=== PATIENT | female | born 1960 | race Caucasian/White ===

== ENCOUNTER 2020-07-19 13:51 | Inpatient (IN) | payer OTHER, SELFPAY ==
[2020-07-19] VITALS (20 sets, daily range): BP systolic 103–148; BP diastolic 70–98; PULSE 50–69; RESP 14–21; TEMP 36.4–36.8; O2SAT 92–100
--- NOTE | 2020-07-19 13:49 | ED.GENADUL_ITS ---
Discharge Plan Disposition Patient Disposition: [facility] INPATIENT Condition: Stable Discharge Details Clinical Impression: Closed fracture dislocation of ankle Admit Date/Time: 07/19/20 16:43 Admit Provider: Partha Pope Attending Provider: Partha Pope Primary Care Provider: Bryan Schmid ED Provider: Merline Alcala Medical Decision Making 1400 -- 60-year-old female presents with right ankle pain and deformity after slip and fall in the kitchen this morning. EMS unable to obtain an IV in route. She is tearful and appears uncomfortable. She had a right ankle deformity with lateral deviation of her foot. She has neurovascular intact without open wounds. We will place an IV, give a dose of morphine and refer for right ankle x-ray. Patient will likely need some reduction here and may need admission as she may be unable to manage at home as she lives alone and there are stairs. Discussed patient's history of IL in further detail and she stated she was unsure if she was given the exact diagnosis but reports she had a negative cardiac cath at that time in 2006 at [facility]. Review of records from [facility] note that she had a negative myocardial perfusion scan in 2010. Unable to locate cath report. EKG obtained which notes a rate is 52, sinus, T wave inversion in V3, no STEMI and nondiagnostic. 1500 -- Fracture dislocation noted on x-ray. Imaging reviewed with Dr. Pope who will come to reduce at bedside with conscious sedation. 1615 -- Dislocation reduced at bedside by Dr. Pope and plaster splint placed. Patient given a total of 200 mg propofol and 50 mcg fentanyl. 1645 --patient is doing well post sedation. Pain is controlled. Dr. Pope to admit patient overnight with plan for possible fixation tomorrow. Medical Records Medical records reviewed: Yes I reviewed the patient's medical records. Imaging Data Radiologic Study: Radiologist's impression: XR ANKLE RT COMPLETE CLINICAL HISTORY: deformity R ankle, assess mortise, extent of fx. TECHNIQUE: 2D digital imaging was performed. COMPARISON: Is fracture dislocation of the ankle. There is a displaced oblique fracture distal fibula. Also displaced fracture of the medial malleolus. Difficult to assess the posterior malleolus on these images. Talar dome appears intact. FINDINGS: Fracture dislocation. ECG Data Attestation: I personally reviewed and interpreted this ECG (s) as follows: Interpretation: EKG noted a rate of 52, sinus, T wave inversion in V3. No STEMI. Nondiagnostic. HPI General Mode of arrival: EMS . Date/Time Provider Initiated Documentation: 07/19/20 14:05 . Limitations to Documentation: no limitations . Information obtained by: patient . HPI Narrative: Patient is a 60-year-old female with a history of chronic back pain on as needed oxycodone, with a history of hypertension, hyperlipidemia, prediabetes, myocardial infarction and hypothyroidism presents for right ankle pain and deformity after slip and fall at home this morning. Patient states she was walking in her kitchen when she slipped on the floor and twisted her right ankle. She states it took her an hour to crawl to the phone. She states she lives alone in her stairs at home. She states she does not have any local friends or family members. She states her last dose of oxycodone was on July 12. Related Data Home Medications Medication Instructions Recorded Confirmed albuterol sulfate 2 puff INHALATION PRN PRN 07/19/20 07/19/20 amlodipine 10 mg PO DAILY AM 07/19/20 07/19/20 atorvastatin 40 mg PO HS 07/19/20 07/19/20 cetirizine 10 mg PO DAILY AM 07/19/20 07/19/20 esomeprazole magnesium [Nexium] 40 mg PO DAILY AM 07/19/20 07/19/20 fluticasone propion-salmeterol 1 inh INHALATION BID 07/19/20 07/19/20 [Wixela Inhub] levothyroxine 25 mcg PO DAILY AM 07/19/20 07/19/20 meclizine 25 mg PO PRN PRN 07/19/20 07/19/20 metoprolol tartrate 100 mg PO DAILY AM 07/19/20 07/19/20 montelukast [Singulair] 10 mg PO DAILY AM 07/19/20 07/19/20 ondansetron HCl 4 mg PO PRN PRN 07/19/20 07/19/20 oxycodone-acetaminophen 1 tab PO PRN PRN 07/19/20 07/19/20 sertraline 100 mg PO HS 07/19/20 07/19/20 tiotropium bromide [Spiriva with 18 mcg INHALATION 07/19/20 HandiHaler] trazodone 50 mg PO HS 07/19/20 07/19/20 zolpidem [Ambien] 10 mg PO HS 07/19/20 07/19/20 Allergies Allergy/AdvReac Type Severity Reaction Status Date / Time aspirin [From Percodan] Allergy Unverified 07/19/20 16:41 codeine Allergy Unverified 07/19/20 16:41 oxycodone [From Percocet] Allergy Unverified 07/19/20 16:41 Review of Systems All systems reviewed & are unremarkable except as noted in HPI and below Constitutional Constitutional: Reports as per HPI, Denies chills and Denies fever(s) Eyes Eyes: Denies blurry vision ENT Ears, Nose, Mouth, and Throat: Denies dizziness, Denies sore throat and Denies throat swelling Cardiovascular Cardiovascular: Denies chest pain and Denies dyspnea Respiratory Respiratory: Denies cough and Denies dyspnea Gastrointestinal Gastrointestinal: Denies abdominal pain, Denies diarrhea and Denies vomiting Genitourinary Genitourinary: Denies hematuria and Denies dysuria Musculoskeletal Musculoskeletal: Denies back pain and Denies numbness Integumentary/Breasts Skin/Breast: Denies lesions and Denies rash Neurologic Neurologic: Denies dizziness, Denies localized weakness and Denies numbness Allergic/Immunologic Allergic/Immunologic: Denies throat swelling PFSH Medical History Asthma HTN (hypertension) Hx of hyperlipidemia Hypothyroidism Myocardial infarction Prediabetes Surgical History H/O thumb surgery History of left knee surgery Hx of cholecystectomy Social History Smoking/Tobacco Use Status: Never Smoking risk assessment performed?: Yes Drug use: Rarely Substance use type: marijuana Exam Const General: cooperative, healthy appearing and no acute distress HENMT Head: normal to inspection Mouth: oral mucosae normal Eyes General: appearance normal, both eyes and all related structures Neck Neck: normal visual inspection Resp Effort & Inspection: normal respiratory effort and able to speak in complete sentences Cardio Rate: regular rate Skin General skin exam: no rashes or lesions noted Neuro General: patient alert, patient awake and patient oriented x3 Motor: muscle tone normal throughout Extrem Other: Right ankle deformity with lateral deviation of right foot in relation to the distal lower leg. Bony protrusion and deformity noted to right medial malleolus. Right DP/PT pulses intact. No tenderness palpation of bilateral knees and hips. No open wounds noted. Psych Appearance: grossly normal Affect: normal affect Procedures Procedural Sedation Indication: fracture/dislocation reduction Presedation Evaluation: Patient slipped and fell in her kitchen twisting her right ankle. Preparation: playground monitor applied, pulse oximeter, capnometry used, supplemental O2 applied, reversal agents at bedside, suction/airway equipment at bedside and IV secured Fentanyl: IV Fentanyl dose (mcg): 50 IV Propofol dose (mg): 200 Patient Tolerated Procedure: well Complications: none Interventions: oxygen applied (NC O2 increased briefly from 2L to 3L after SpO2 decreased briefly to 91% then increased to 95% after given total of 200mg propofol and 50mcg fentanyl. ) and airway repositioned (jaw thrust briefly for approximately 1 min when ETCO2 decreased briefly to 19 then increased back to mid 30s after given a total of 200mg propofol and 50mcg fentanyl. )
--- NOTE | 2020-07-19 15:00 | RT.EKG_ITS ---
APPROVED REPORT Exam: Resting ECG Patient Location: E HR:52 bpm ECG Measurements Heart Rate 52 AXIS NV 160 P 22 QRSd 94 QRS -9 QT 422 T 41 QTc 391 Conclusion Sinus bradycardia...rate< 60 Low voltage, precordial leads...precordial leads <1.0mV Nonspecific T abnormalities, anterior leads...T <-0.10mV, V2-V4 I have reviewed and interpreted ECG and agree with software generated interpretation.
--- NOTE | 2020-07-19 15:10 | DI.RAD_ITS ---
EXAM: XR ANKLE RT COMPLETE CLINICAL HISTORY: deformity R ankle, assess mortise, extent of fx. TECHNIQUE: 2D digital imaging was performed. COMPARISON: Is fracture dislocation of the ankle. There is a displaced oblique fracture distal fibu la. Also displaced fracture of the medial malleolus. Difficult to assess the posterior malleolus on these images. Talar dome appears intact. FINDINGS: Fracture dislocation. IMPRESSION: DATA REPOSITORY: RADIATION DOSE DELIVERED:
[2020-07-19] MEDS: Normal Saline 1,000 ML 1000 ML IV (15:43)
[2020-07-19] MEDS: Propofol 200 MG/20 ML VIAL IVP ×6 (16:01→16:16)
--- NOTE | 2020-07-19 16:15 | DI.RAD_ITS ---
EXAM: XR FLOURO OR C-ARM <1 HR CLINICAL HISTORY: reduction. TECHNIQUE: 2D and realtime digital imaging was performed. COMPARISON: CR XR ANKLE RT COMPLETE from 07/19/2020 FINDINGS: Fluoroscopy was provided during closed reduction of fracture dislocation of the right ankle. Some cisneros bmitted images reveal improved alignment. Total fluoroscopy time 6 seconds. IMPRESSION:
[2020-07-19] MEDS: fentaNYL 100 MCG/2 ML VIAL (16:16)
--- NOTE | 2020-07-19 16:36 | NUR.NOTE ---
pt was treated by Dr Pope and Merline Alcala beginning at 1600 . her right foot was placed in a splint. RT was at the bed side as pt was sedated she is awake and alert and oriented x3. she is trying to make plans for her dog who is home alone Nursing Note:
--- NOTE | 2020-07-19 16:48 | W.PM.HP.N ---
Date of service: 07/19/20 Time of Service: 16:48 Assessment and Plan Assessment and plan (1) Closed fracture dislocation of ankle: Status: Acute Assessment and plan: 60-year-old female with right ankle trimalleolar equivalent fracture dislocation Status post successful closed reduction in emergency department today. Plan to proceed with staged ORIF tomorrow 07/20/2020. The risks, benefits, and alternatives were thoroughly discussed. Patient was counseled regarding pain management, expected postoperative course, and recovery timeline. All questions were answered. Informed consent will be obtained tomorrow as the patient had anesthesia already today. She agrees and understands treatment plan. Admission orders placed. N.p.o. and IV fluids after midnight. Right ankle strict elevation at the level of the heart pending OR. Rapid Covid test to be done in emergency department. EKG done within normal limits. Will discuss patient cardiac history with nurse blocker and polisher gold wheel team. Patient likely to remain inpatient tomorrow night pending afternoon surgery with plan to work with physical therapy gait training with crutches/walker protected weightbearing status to the right ankle and discharge home on 07/21/2020 with any home health services that are needed. Qualifiers: Encounter type: initial encounter Laterality: right Qualified Code(s): S82.891A - Other fracture of right lower leg, initial encounter for closed fracture History of Present Illness History of Present Illness Chief Complaint: Right ankle deformity Narrative: Chief Complaint: Right ankle deformity HPI: Patient arrived sudden onset, severe right ankle deformity and pain. Mechanical slip and fall in her kitchen. Unable to bear weight. No prior ankle injuries or issues. No attempted treatments. X-rays just done in the emergency department show ankle fracture dislocation. Numbness and tingling immediately after injury now resolved. PMH: Hypertension hyperlipidemia. Question of myocardial infarction 10 years ago with cardiac catheterization at [facility] no intervention or stents done. Denies any active cardiac issues. diabetes: Denies allergies: Acetaminophen, aspirin, codeine, oxycodone intolerances FH: non-contributory SH: hand dominance: Right occupation: Unknown smoke cigarettes: No Review of Systems All systems reviewed & are unremarkable except as noted in HPI and below PFSH Medical History Asthma HTN (hypertension) Hx of hyperlipidemia Hypothyroidism Myocardial infarction Prediabetes Surgical History H/O thumb surgery History of left knee surgery Hx of cholecystectomy Social History Smoking/Tobacco Use Status: Never Smoking risk assessment performed?: Yes Drug use: Rarely Substance use type: marijuana Meds Home Medications and Allergies Home Medications Medication Instructions Recorded Confirmed Type albuterol sulfate 2 puff INHALATION PRN PRN 07/19/20 07/19/20 History amlodipine 10 mg PO DAILY AM 07/19/20 07/19/20 History atorvastatin 40 mg PO HS 07/19/20 07/19/20 History cetirizine 10 mg PO DAILY AM 07/19/20 07/19/20 History esomeprazole magnesium [Nexium] 40 mg PO DAILY AM 07/19/20 07/19/20 History fluticasone propion-salmeterol 1 inh INHALATION BID 07/19/20 07/19/20 History [Wixela Inhub] levothyroxine 25 mcg PO DAILY AM 07/19/20 07/19/20 History meclizine 25 mg PO PRN PRN 07/19/20 07/19/20 History metoprolol tartrate 100 mg PO DAILY AM 07/19/20 07/19/20 History montelukast [Singulair] 10 mg PO DAILY AM 07/19/20 07/19/20 History ondansetron HCl 4 mg PO PRN PRN 07/19/20 07/19/20 History oxycodone-acetaminophen 1 tab PO PRN PRN 07/19/20 07/19/20 History sertraline 100 mg PO HS 07/19/20 07/19/20 History tiotropium bromide [Spiriva with 18 mcg INHALATION 07/19/20 History HandiHaler] trazodone 50 mg PO HS 07/19/20 07/19/20 History zolpidem [Ambien] 10 mg PO HS 07/19/20 07/19/20 History Allergies Allergy/AdvReac Type Severity Reaction Status Date / Time aspirin [From Percodan] Allergy Unverified 07/19/20 16:41 codeine Allergy Unverified 07/19/20 16:41 oxycodone [From Percocet] Allergy Unverified 07/19/20 16:41 Exam Const General: cooperative, comfortable and no acute distress Orientation: alert, awake and not confused Limitations: mental status not altered and no language barrier HENMT Head: normocephalic and atraumatic Neck Neck: normal visual inspection and full ROM Resp Effort & Inspection: normal respiratory effort, able to speak in complete sentences, no audible wheezes and no grunting Cardio Other: 2+ dorsalis pedis pulse. Regular rate and rhythm. General: deferred Skin General skin exam: no rashes or lesions noted Neuro General: patient alert, patient awake and patient oriented x3 Cognition: normal cognition Speech: speech normal Extrem Other: Right ankle: Obvious lateral ankle deformity with early tenting over medial malleolus. No skin breakdown. Palpable 2+ dorsalis pedis pulse. Demonstrate active motor flexion extension all toes. Denies any numbness or paresthesias. All leg compartments soft. No proximal leg or knee pain. Psych Appearance: grossly normal Mental Status: mental status grossly normal Speech and Movement: speech and movement normal Affect: normal affect Attitude: cooperative Results Imaging Imaging Studies: Right ankle x-rays show lateral ankle fracture dislocation involving the medial lateral malleoli. Post reduction and in splint x-rays show well reduced ankle mortise with displaced Farooq C and well aligned medial malleolus fractures. Last Vital Signs Temp 98.1 F 07/19/20 14:00 Pulse 56 L 07/19/20 16:11 Resp 18 07/19/20 16:40 BP 125/79 07/19/20 16:11 Pulse Ox 96 07/19/20 16:30 COVID-19 Screening Have you, or household traveled for leisure in last 14 days?: No Had IN PERSON contact w/suspected or confirmed C-19 person: No Procedures Orthopedic Joint Reduction Ankle fx dx: Time out performed: Yes Side: right Joint reduction location: ankle Analgesia: procedural sedation Technique used: direct manipulation Post-reduction neuro exam: intact Post-reduction vascular exam: intact Post-reduction x-ray obtained: Yes Post-reduction x-ray results: reduced Splint applied: Yes Patient tolerated procedure: well
[2020-07-19] MEDS: MORPHine 10 MG/ML VIAL IVP ×2 (16:54→21:09)
[2020-07-19 17:03] LABS: Source Nasopharynx
[2020-07-19 17:46] LABS: COVID-19 PCR Negative (Negative); Influenza A PCR Negative (Negative); Influenza B PCR Negative (Negative); RSV PCR Negative (Negative)
[2020-07-19] MEDS: Ondansetron 4 MG TAB PO (17:50)
--- NOTE | 2020-07-19 18:24 | RESPIRATORY ---
Rt called in for conscious sedation for R. ankle reduction. Placed on ETCO2, 2L used while pt was sedated. Pt had moderate snoring and needing jaw thrust but did not require any further Rt intervention
--- NOTE | 2020-07-19 18:25 | RESPIRATORY ---
Discussed with Pt about her home CPAP unit. DME: Dianna Talamantes, but she is unaware of current settings. RT did not place home unit on pt due to severity of nausea, but left a home unit in room to be trialled on when nausea has subsided.
[2020-07-19] MEDS: Normal Saline 1,000 ML 30 ML IV (21:02)
[2020-07-19] MEDS: Normal Saline Flush 10 ML SYR IVP (21:08)
[2020-07-19] MEDS: Budesonide/Formoterol 160/4.5 6 GM 60 PUFF INH IH (21:09)
[2020-07-19] MEDS: traZODone 50 MG TAB PO (21:48)
[2020-07-19] MEDS: Atorvastatin 40 MG TAB PO (21:48)
[2020-07-19] MEDS: Sertraline 50 MG TAB 100 MG PO (21:48)
[2020-07-20] VITALS (11 sets, daily range): BP systolic 92–138; BP diastolic 39–83; PULSE 50–77; RESP 12–24; TEMP 36.3–37; O2SAT 92–98
[2020-07-20] MEDS: MORPHine 10 MG/ML VIAL IVP ×2 (04:40→09:26)
[2020-07-20] MEDS: Normal Saline Flush 10 ML SYR IVP (04:42)
[2020-07-20] MEDS: Levothyroxine 25 MCG TAB PO (06:01)
[2020-07-20] MEDS: Budesonide/Formoterol 160/4.5 6 GM 60 PUFF INH IH ×2 (08:05→20:35)
[2020-07-20] MEDS: Metoprolol 50 MG TAB 100 MG PO (09:15)
[2020-07-20] MEDS: Acetaminophen 500 MG TAB 1000 MG PO ×2 (09:25→16:13)
[2020-07-20] MEDS: Lactated Ringers 1,000 ML 30 ML IV (10:40)
[2020-07-20] MEDS: Bupivacaine LIPOSOME/PF 133 MG/10 ML VIAL IJ ×2 (10:50→13:04)
[2020-07-20] MEDS: Bupivacaine 0.25% Pres-Free 10 ML VIAL (10:50)
[2020-07-20] MEDS: Bupivacaine 0.5% Pres-Free 30 ML VIAL (11:20)
--- NOTE | 2020-07-20 11:55 | INITIAL_ITS ---
- If Service Date Differs Date of service: 07/20/20 Time of Service: 11:56 Care Management Initial Assess REASON FOR HOSPITALIZATION:: Right ankle fracture and dislocation. PAST MEDICAL HISTORY/PAST SURGICAL HISTORY:: Medical History: Asthma, HTN (hypertension), Hx of hyperlipidemia,. Hypothyroidism, Myocardial infarction, and Prediabetes. Surgical History: H/O thumb surgery, History of left knee surgery, and. Hx of cholecystectomy. PREVIOUS FUNCTIONAL STATUS/SOCIAL/FAMILY SUPPORTS:: Netta lives alone with her dog in [place]. She recently moved to [place] from [facility]. She shares Georgette, her partner of 34 years, a little over a year ago. Netta suffers from back problems and was granted disability approximately 2 years ago. She formerly worked as a building rental superintendent and a principal. Netta martinez njoys reading and cross-stitching in her free time. She states she used to do a lot of hiking but no longer hikes due to vertigo. Netta lives on the second floor of a house and has to go up a full flight of stairs to get to the living quarters. The first floor of the house is the basement. Netta has several friends but none who live in [place]. She states a friend in [place] came and picked up her dog and the plan is for the dog to remain at this friend's home until she has recovered from the surgery. She also has a friend in [place] who has invited her to stay at her house while her foot heals, but Netta would prefer to recuperate at home in [place]. CURRENT FUNCTIONAL STATUS:: Netta is laying in bed watching television when CM comes to meet with her. She is pleasant and easily engages in conversation. She shares she is independent with her ADLs; she cooks, cleans, and drives. The foot surgery, however, will make driving challenging, if not impossible. Netta is open to getting [id number] and Home Health services while she recuperates from foot surgery. ADVANCE DIRECTIVES:: None on file but accepts an Advance Directives to complete at her leisure. Has patient been provided with info about the portal/API?: Yes Did the patient sign up for the portal?: No (Not interested.) CODE STATUS:: Full Code INSURANCE COVERAGE / FINANCIAL ISSUES:: [employer]. CURRENT HOME/COMMUNITY SERVICES/EQUIPMENT:: Netta states she only has a C-Pap machine. She denies current home or community services. PRIMARY CARE PHYSICIAN:: Bryan Schmid MD ([facility]) POTENTIAL DISCHARGE NEEDS:: Follow up appointments with PCP and Dr. Pope, surgeon, in addition to new HH services and [id number]. PATIENT/FAMILY EDUCATION NEEDS:: Discharge instructions, limitations, follow up plan, including Ask Me Three and self management. ANTICIPATED BARRIERS TO DISCHARGE:: None. TRANSPORTATION:: Via [facility] with lift assist to be coordinated by CM. PLAN:: Anticipate Netta will discharge home with new Home Health PT services and [id number] when medically cleared by provider. She will follow up with her PCP, Dr. Pope, surgeon, and discharge plan of care as directed. Transport will be provided by [facility] with lift assist to be coordinated by CM. CM will continue to support patient and assess for discharge needs.
[2020-07-20] MEDS: ceFAZolin 3,000 MG in Normal Saline 100 ML 200 MG IVPB (12:36)
[2020-07-20] MEDS: EPINEPHrine 1 MG/ML AMP pres-free (13:04)
[2020-07-20] MEDS: Bupivacaine 0.25% Pres-Free 30 ML VIAL (13:04)
--- NOTE | 2020-07-20 14:15 | DI.RAD_ITS ---
EXAM: XR ANKLE RT COMPLETE CLINICAL HISTORY: RIGHT ANKLE FRACTURE. TECHNIQUE: 2D digital imaging was performed. COMPARISON: X-rays 07/19/2020 FINDINGS: Proximal was provided during reduction internal fixation of the previously described right ankle frac ture dislocation. Submitted C-arm images reveal lateral fixation plate across the distal fibular fra cture site secured by 3 screws plus an additional bleak independent screw at the fracture site. Ther e is also reoriented a ocasio of the medial malleolus fracture site with a single oblique screw through this fracture site. On the lateral view we note a fracture of the posterior malleolus. Total fluoroscopy time 46.7 seconds; cumulative dose 1.27 mGy IMPRESSION: DATA REPOSITORY: RADIATION DOSE DELIVERED:
[2020-07-20] MEDS: fentaNYL 100 MCG/2 ML VIAL IVP ×2 (15:00→15:15)
--- NOTE | 2020-07-20 15:50 | ROE_ITS ---
Date of service: 07/20/20 Time of Service: 15:36 Operative Note Operative Note DATE OF PROCEDURE: 07/20/20 PRE-OP DIAGNOSIS: Right trimalleolar equivalent ankle fracture dislocation POST-OP DIAGNOSIS: other Right trimalleolar ankle fracture dislocation PROCEDURE: 1. Right trimalleolar ankle fracture ORIF of medial and lateral malleoli, CPT #99970 2. Manual stress radiograph of joint, CPT #44400: Ankle syndesmosis SURGEON: Partha Pope QUALITY CONTROL PROJECTIONIST: Vilma Fuentes ANESTHESIA TYPE: Local By Surgeon and General LMA/ETT Refer to Anesthesia Record ESTIMATED BLOOD LOSS: 15 TOURNIQUET TIME: 0 COMPLICATIONS: None Patient was transported to: PACU Patient's condition: stable Implants: Synthes 1/3 tubular locking plate, 8 hole with 4.0 mm cancellous screws distally x3 and 3.5 mm cortex screws proximally x3 and 1x 3.5mm cortical lag screw 1x partially threaded 4.0 cancellous screw 50mm medially Indications: Please see complete medical record for details. Procedure Description: In the operating room, general anesthesia was induced. The patient was positioned supine on the operating room table. All bony prominences were well-padded. Preoperative antibiotics were administered. The right ankle was prepped and draped in the usual sterile fashion. The correct patient, procedure, and side of the procedure were all verified prior to incision. A mixture of 20 cc of 0.25% bupivacaine containing epinephrine and 10 cc Exparel of was infiltrated about the planned medial and lateral incision sites. With fluoroscopic guidance, a longitudinal incision centered fibular fracture site was used and carried down to bone taking care to retract transversing neurovascular structures and she appropriate hemostasis. Fracture ends were identified and hematoma encountered and removed. The fracture was exaggerated in the anterolateral talus inspected. The ankle joint was free of loose bodies and the cartilage was grossly intact. Bone reduction forceps were used to provisionally reduce the the oblique fracture into nearly anatomic position. This was verified under direct visualization as well as fluoroscopic imaging. There was impaction bone loss most anteriorly distally but the majority of the fracture line was in excellent opposition. A posterior to anterior directed 3.5 mm lag screw was predrilled and placed achieving good compression across the central aspect of the fracture site. The bone clamps were removed the fracture site maintained in anatomic position under visualization and x-ray imaging. An appropriately length one third tubular plate was selected leaving 2 holes empty about the lag screw and fracture site and 3 remaining screw positions proximally and distally. The plate was contoured about the flare and tip of the distal fibula. The plate was provisionally secured to the lateral fibula with a proximal 3.5 mm bicortical screw compressing the plate to the bone. The plate was slightly rotated to achieve optimal position in line with the fibula proximally distally and then a distal 4.0 mm cancellous screw was predrilled in unicortical fashion and placed. The remaining 2 distal screw holes were also filled with unicortical 4.0 mm cancellous screws. The most proximal to screw holes were then filled with bicortical 3.5 millimeter screws. All screws were appropriately final tightened. Fluoroscopy confirmed appropriate hardware placement and excellent fracture reduction. Attention was then turned to the mortise and medial malleolus. There was nearly anatomic reduction after restoring length and alignment of the fibula. Under fluoroscopic guidance a small hemostat was used to locate the distal tip of the medial malleolus. A small stab incision longitudinally was used to ensure there was no interposed soft tissue prior to her inserting the guide and guidewire for a 4.0 mm cannulated screw. Under fluoroscopic guidance the wire was directed into the distal tibia. The guidewire had excellent position medial to lateral and ran from the tip of the medial malleolus towards the anterior cortex of distal tibia centrally. The cannulated drill was then used to open the distal cortex. The partially-threaded cannulated screw was then inserted over the guidewire under fluoroscopic guidance to maintain appropriate trajectory. The screw had excellent purchase, likely bicortical, and achieved additional reduction and compression over the medial malleolus fracture site while final tightened screw head flush with bone under fluoroscopic imaging. Multiple orthogonal views were used to confirm there was no anterior cortical?out?in or other perforation except for the bicortical fixation of the screw as it traversed more anteriorly than usual. Given the excellent reduction and fixation decision was made leave in place. Next, fluoroscopic evaluation of the ankle mortise for syndesmotic injury was performed as this was a trimalleolar fracture dislocation. A mortise view as well as a manual dorsiflexion stress external rotation view was obtained confirming no medial clear space widening or loss of excellent tib-fib overlap. The posterior malleolus small fragment remained mildly displaced. Medial lateral wounds were copiously irrigated normal saline. Deep tissue was closed using 2-0 Monocryl laterally. Subcutaneous tissue was closed in 2-0 Monocryl in a buried fashion laterally. Skin was closed using 3-0 nylon in horizontal mattress fashion medially and laterally. Incisions covered with Xeroform, dry 4x4 gauze, sterile soft roll's and ABDs were applied about the ankle. Left lower extremities placed into a short leg plaster splint. The patient awoke from anesthesia without complication and was transferred to the recovery room in a stable condition.
--- NOTE | 2020-07-20 16:19 | PGE_ITS ---
Date of Service Date of service: 07/20/20 Time of Service: 16:08 Assessment and Plan Assessment and plan (1) Closed fracture dislocation of ankle: Status: Acute Assessment and plan: 60-year-old female postop day #0 status post right trimalleolar ankle fracture dislocation ORIF Complete 24 hours postoperative antibiotics Pain control- multimodal Physical therapy and occupational therapy gait training and assistance with ADLs Right lower extremity protected weightbearing with assist device like walker or crutches. Approximately 50% weight okay. May rest splint on ground for stance and balance. Strict right lower extremity elevation while in bed to minimize swelling and discomfort Aspirin 325 mg twice daily starting tomorrow for DVT prophylaxis and SCD on uninjured extremity Keep splint and dressings in place and clean and dry until follow-up Anticipate discharge home tomorrow with possible help of a friend and any local home health services including VNA, meals, and physical therapy as needed Follow-up outpatient with Dr. Pope at [facility] orthopedics in 2 weeks Qualifiers: Encounter type: initial encounter Laterality: right Qualified Code(s): S82.891A - Other fracture of right lower leg, initial encounter for closed fracture Subjective Subjective Interval history since last seen: Complaining of moderate ankle discomfort. Otherwise feels well and relieved that surgery is over. Exam Narrative Exam Narrative: Resting in hospital bed No acute distress Breathing comfortably on room air Right leg elevated nicely on pillows Short leg plaster splint clean dry and intact Sensation diminished to light touch exposed toes with expected paresthesias from nerve block and local medicine Demonstrate active motor flexion-extension all toes without discomfort Objective Last Vital Signs Temp 97.3 F L 07/20/20 14:55 Pulse 53 L 07/20/20 14:55 Resp 14 07/20/20 14:55 BP 112/39 L 07/20/20 14:55 Pulse Ox 97 07/20/20 14:55 Laboratory Results - last 24 hr 07/19/20 17:00 COVID-19 Source Nasopharynx SARS-CoV-2 (PCR) Negative Influenza Type A (PCR) Negative Influenza Type B (PCR) Negative RSV (PCR) Negative
[2020-07-20] MEDS: oxyCODONE 5 MG TAB PO (19:12)
[2020-07-20] MEDS: Esomeprazole 40 MG CAPCR PO (20:30)
[2020-07-20] MEDS: ceFAZolin 1 GM/50 ML BAG IVPB (20:30)
[2020-07-20] MEDS: Nystatin POWDER 15 GM JAR TP (20:35)
[2020-07-20] MEDS: Atorvastatin 40 MG TAB PO (22:15)
[2020-07-20] MEDS: Sertraline 50 MG TAB 100 MG PO (22:15)
[2020-07-20] MEDS: Zolpidem 10 MG TAB PO (22:15)
[2020-07-20] MEDS: traZODone 50 MG TAB PO (22:16)
[2020-07-21] MEDS: Acetaminophen 500 MG TAB 1000 MG PO ×2 (03:25→15:09)
[2020-07-21] MEDS: oxyCODONE 5 MG TAB PO ×5 (03:25→20:31)
[2020-07-21] MEDS: ceFAZolin 1 GM/50 ML BAG IVPB ×2 (03:26→11:13)
[2020-07-21] MEDS: Levothyroxine 25 MCG TAB PO (06:30)
[2020-07-21 07:33] VITALS: BP 138/68; PULSE 61; RESP 17; TEMP 37; O2SAT 92
[2020-07-21] MEDS: Multivitamin w/Minerals TAB 1 TAB PO (07:45)
[2020-07-21] MEDS: Metoprolol 50 MG TAB 100 MG PO (07:46)
[2020-07-21] MEDS: Cetirizine 10 MG TAB PO (07:46)
[2020-07-21] MEDS: Esomeprazole 40 MG CAPCR PO (07:46)
[2020-07-21] MEDS: amLODIPine 10 MG TAB PO (07:47)
[2020-07-21] MEDS: Montelukast 10 MG TAB PO (07:47)
[2020-07-21] MEDS: Aspirin E.C. 325 MG TABEC PO ×3 (07:47→20:29)
[2020-07-21] MEDS: Nystatin POWDER 15 GM JAR TP ×3 (07:47→20:30)
[2020-07-21] MEDS: Budesonide/Formoterol 160/4.5 6 GM 60 PUFF INH IH ×2 (07:55→20:29)
[2020-07-21 07:58] VITALS: O2SAT 94
--- NOTE | 2020-07-21 08:21 | PT.INIE ---
Date of service: 07/21/20 Time of Service: 08:21 PT Notes Visit Reasons: RIGHT ANKLE FRACTURE DISLOCATION Physical Therapy Inpatient Initial Evaluation Date: 07/21/2020 Referring Doctor: Partha Pope MD PT Orders: PT CONSULT: S/P ortho surgery. Protected weight bearing right ankle with crutches or walker Precautions: Fall. Standard. 50% PWB in R LE with crutches. Patient Profile/Admitting Diagnosis: Netta is a 60-year-old female who sustained a right trimalleolar equivalent ankle fracture dislocation sustained from a fall while in her kitchen the morning of ED presentation on 07/19/2020. She is status post ORIF by Dr. Pope on postoperative day 1. PMHX: Medical History Asthma HTN (hypertension) Hx of hyperlipidemia Hypothyroidism Myocardial infarction Prediabetes Surgical History H/O thumb surgery History of left knee surgery Hx of cholecystectomy Social History/Home Situation: Lives alone in an apartment with 13 steps to enter with a rail on the right going up, she states that she has a wall on the left that she can use for support. Per OT Bruna, luz elena is on the first floor of the apartment building. Independent with all aspects of ADLs without the need for an assistive ambulatory device nor adaptive equipment. Spouse recently just and patient returns back to the state with no family and relatives who can support her. Equipment Owned/DME: None Subjective: Agreeable to PT consult. Reports pain in the R LE at 6/10 at rest and 8/10 with walking activity. Indicates that she will be all alone and would like to go home whenever she feels safe to manage the whole flight of steps. Denies headache, chest pain and lightheadedness throughout session. Objective: General Observation: ALEJANDRA wraps over cast in R leg and foot. IV access in L UE. Mental Status: Alert and oriented x4 Pain: 6/10 at rest, 8/10 with ambulation in the R LE ROM: Right Upper Extremity: Shoulder Flexion WFL. Shoulder abduction WFL. Elbow flexion WFL. Wrist flexion WFL. Opening and closing of hand WFL. Left Upper Extremity: Shoulder Flexion WFL. Shoulder abduction WFL. Elbow flexion WFL. Wrist flexion WFL. Opening and closing of hand WFL. Right Lower Extremity: Hip flexion WFL. Hip abduction WFL. Knee flexion WFL. Ankle dorsiflexion NT. Ankle plantarflexion NT. Left Lower Extremity: Hip flexion WFL. Hip abduction WFL. Knee flexion WFL. Knee extension 4/5. Ankle dorsiflexion WFL. Ankle plantarflexion WFL. Strength: Right Upper Extremity: Shoulder flexors 5/5. Shoulder abductors 5/5. Elbow flexors 5/5. Elbow extensors 5/5. Junior [employer] Systems Administrator strong. Left Upper Extremity: Shoulder flexors 5/5. Shoulder abductors 5/5. Elbow flexors 5/5. Elbow extensors 5/5. Junior Linux Systems Administrator strong. Right Lower Extremity: Hip flexors 5/5. Hip abductors 5/5. Knee flexors 4-/5. Knee extensors 4-/5. Ankle dorsiflexors NT. Ankle plantarflexors NT. Left Lower Extremity:Hip flexors 5/5. Hip abductors 5/5. Knee flexors 5/5. Knee extensors 5/5. Ankle dorsiflexors 5/5. Ankle plantarflexors 5/5. Sensation: Intact as to pain and pressure on bilateral lower extremities. Bed Mobility/Transfers: Sit to stand CGA Stand to sit CGA Bed to chair CGA Chair to bed CGA Gait: Guided patient through 80 feet of level surface ambulation using FWW with 50% PWB on the R LE with minimal verbal cueing for recommended WB and for walker management. Reported pain in her L hip and on the R leg and foot at 8/10 pain after activity. Reports that stiking the ground with the toes first is less painful than doing heel strike. Balance: Static Sitting: Normal Dynamic Sitting: Normal Static Standing: Poor Dynamic Standing: Poor Special Tests: Mobility Limitations Standardized Measure [facility] AM-PAC 6 clicks Basic Mobility Inpatient Short Form: Raw Score: 17 CMS Score: 51% deficit Informed Consent/Education: Patient instructed in purpose of PT consult and plan of care. Assessment: Netta demonstrates functional mobility decline requiring the use of FWW for all level surfaces ambulation. Stairs training deferred due to increase in pain level. Will coordinate with RADHA Esparza for stairs training once premedication for pain by Nurse Grover is done to ensure safety. May go home with stair lift assist from EMS and then strongly recommend HH PT to come in immediately for stairs training. Recommends 2-3 more sessions of stairs training in order to maximize safety of stair negotiation at home. Will benefit from HH PT services in order to progress mobility level, assess home safety, and continue with stair training per patient's goals. Patient presents with clinical signs and symptoms consistent with current/admitting diagnoses that have resulted to mobility limitations, gait instability, generalized weakness, and impairment of motor control as demonstrated by the following impairment level findings: 1. Decreased strength to R ankle and foot muscle groups 2. Impaired sitting/standing balance 3. Impaired activity tolerance 4. Limitation of joint range of motion in R LE due to WB status/ortho order and cast placement Impairments are contributing to the following functional limitations: 1. Dependent bed mobility skills 2. Increased dependence with transfers 3. Inability to safely ambulate without assistive device and physical assistance 4. Increase completion time for mobility ADL performance 5. Increased fall risk 6. Inability to negotiate steps alone safely Patient is assessed as a 98239 moderate complexity based on the following: History: 60-year-old female with impairment level findings, functional limitations, and past medical history as indicated above Examination: Demonstrable impairment in strength, balance, and mobility level with underlying impairments and functional limitations as documented above Presentation:Evolving Decision Makin moderate complexity Goals: Goals X1 week 1. Supine-Sit independent 2. Sit-Supine independent 3. Sit-Stand independent 4. Stand-Sit independent 5. Bed-Chair independent 6. Chair-Bed independent 7. Independent gait on level surface with use of bilateral axillary crutches for at least 300 feet without report of pain nor dyspnea 8. Independent stair negotiation while holding onto bilateral rails for at least 10 steps without report of pain nor dyspnea 9. Independent with home exercise program 10. Good static and dynamic standing balance/tolerance Plan of Care/Treatment Plan: 1-2x/day, 7 days/week x 1 week. Plan of care has been reviewed with the DISTRIBUTION DRIVER providing the service under Physical Therapy direction. Initiate Physical Therapy intervention for strengthening, bed mobility, transfers, gait, stairs, balance training, use of assistive device. DISCHARGE RECOMMENDATIONS: Home when patient feels more confident with stair negotiation as she has 1 flight with one rail on the R going up with nobody to help her once she goes home. If patient is adamant to go home, may go home with stair lift assist from EMS and will need HH PT to continue with stair negotiation training. Will need HH assist with laundry as laundry area is downstairs. Will need bilateral axillary crutches for home. TREATMENT CODE/TIME: 65050 x 25 minutes, 49410 x 24 minutes beginning a 8:21 PM. Thank you for the opportunity to participate in the care of this patient. Dorie Orozco PT, DPT, CLT [facility] [place], [place]
--- NOTE | 2020-07-21 08:58 | OTIE_ITS ---
Occupational Therapy Notes Inpatient Occupational Therapy Evaluation Date: 07/21/20 Referring Doctor: Sterling Guerra MD OT Orders: Urgent Precautions: s/p (R) closed ankle fx PATIENT PROFILE/ADMITTING DIAGNOSIS: Pt is a 60 year old female who presented to the ED s/p a closed fx to her (R) ankle. She underwent surgical intervention with Dr. Pope and was admitted to Med Surg. Past Medical History: Medical History Asthma HTN (hypertension) Hx of hyperlipidemia Hypothyroidism Myocardial infarction Prediabetes Surgical History H/O thumb surgery History of left knee surgery Hx of cholecystectomy Social History/Home Situation: Pt lives alone in a private home, she notes that she is (I) at baseline but recently moved back to the area after her significant other recently . She states that she has a flight of stairs into her apartment and lives with her dog. Her laundry is on the first floor and she was able to drive (I) prior but will not be able to at this time because of her fx. Equipment owned/DME: None SUBJECTIVE: Pt was lying in bed when OT arrived, she is agreeable to OT session. She states that she would like to return home but is worried about the stairs. OBJECTIVE: General Observation: Pleasant and agreeable to OT session, (R) ankle wrapped and s/p surgical intervention. Mental Status: A&Ox4 Pain: c/o pain in (R) ankle ROM: RUE AROM WFL L UE AROM WFL STRENGTH: RUE 4/5 throughout globally LUE 4/5 throughout globally FUNCTIONAL MOBILITY/ADLS: Self Care Training [id number]: OT educated and trained pt in adaptive equipment including sock aid, long handled shoe horn, antichecking iron worker and dressing stick. OT provided education and training in dressing and bathing as well as home management. Pt was receptive to education and training. BALANCE: Static sitting Normal Dynamic Sitting Normal SPECIAL TESTS: Daily Activity Limitations Standardized Measure [facility] AM -PAC ?6 clicks? Daily Activity Inpatient Short Form: Raw score: 21 Standardized score: 44.27 CMS score: 32.79% INFORMED CONSENT/EDUCATION: Pt instructed in purpose of OT Consult and plan of care. ASSESSMENT: Patient is a 60-year-old female referred to occupational therapy services with diagnosis of a closed fx of (R) ankle. Patient presents with clinical signs and symptoms consistent with dx, as demonstrated by the following impairment level findings/functional limitations: Impairments in ADL/IADL and leisure impairments, pain in (R) LE, decreased functional mobility, PWB as tolerated. AMPAC score 21 Patient is assessed as a Moderate 25843 complexity based on the following: History: see above Examination: see functional limitations as noted above Presentation: evolving Decision Making: AMPAC score 21 GOALS Goals x1 week 1. Grooming standing at sink (I) 2. Dressing seated in chair (I) UE/LE 3. Bathing seated in chair (I) 4. Toileting (I) on toilet 5. Eating (I) PLAN OF CARE/TREATMENT PLAN: 1x/day, 5 days/ week x 1week Initiate Occupational Therapy Services for bathing, dressing, grooming, toileting, eating, transfer training. DISCHARGE RECOMMENDATIONS Based on pts current level of function and functional limitations OT recommends that pt either return home with HH OT services for assessment of ADLs in the home setting and pt will require a HH aide for (A) with toeing stockings, laundry and grocery shopping va. Short term stay at SNF for progressive strengthening. OT recommends that pt have a shower seat for increased safety in her bathing routine. An over the toilet commode vs. Raised toilet seat for increased safety and (I) with her toileting routine. TREATMENT TIME/MINUTES/CODES 01853, 99616, 20 minutes (07:40) Bruna Morocho OTR/L [facility]
--- NOTE | 2020-07-21 10:18 | DSE_ITS ---
Date of service: 07/21/20 Time of Service: 10:09 DS: Diagnosis Discharge Diagnosis (1) Closed fracture dislocation of ankle: Status: Acute Discharge Plan Disposition Patient Disposition: HOME Condition: Stable Discharge Details Reason For Visit: RIGHT ANKLE FRACTURE DISLOCATION Admit Date/Time: 07/19/20 16:43 Admit Provider: Partha Pope Attending Provider: Partha Pope Primary Care Provider: Bryan Schmid Hospital Course Hospital Course: Closed reduction right ankle fracture dislocation in emergency department on 07/03 and subsequent staged ankle ORIF on 07/20/2020. Postoperative course uncomplicated. Home Meds and New Rx's Prescriptions: New naproxen 250 mg tablet 250 - 500 mg PO BID PRN (Reason: Moderate pain or swelling) Qty: 60 RF: 0 aspirin 325 mg tablet,delayed release (DR/EC) 325 mg PO BID 30 Days Qty: 60 RF: 0 oxycodone 5 mg tablet 5 - 10 mg PO Q4H PRN (Reason: moderate to severe pain) Qty: 22 RF: 0 Continued atorvastatin 40 mg Tablet 40 mg PO HS RF: 0 metoprolol tartrate 100 mg Tablet 100 mg PO DAILY AM RF: 0 oxycodone-acetaminophen 5-325 mg Tablet 1 tab PO PRN PRNRF: 0 amlodipine 5 mg Tablet 10 mg PO DAILY AM RF: 0 esomeprazole magnesium [Nexium] 40 mg Capsule,Delayed Release(Dr/Ec) 40 mg PO DAILY AM RF: 0 levothyroxine 25 mcg Tablet 25 mcg PO DAILY AM RF: 0 albuterol sulfate 90 mcg/actuation Hfa Aerosol Inhaler 2 puff INHALATION PRN PRNRF: 0 cetirizine 10 mg Tablet 10 mg PO DAILY AM RF: 0 sertraline 100 mg Tablet 100 mg PO HS RF: 0 montelukast [Singulair] 10 mg Tablet 10 mg PO DAILY AM RF: 0 Spiriva with HandiHaler 18 mcg Capsule, W/Inhalation Device 18 mcg INHALATION RF: 0 trazodone 50 mg Tablet 50 mg PO HS RF: 0 fluticasone propion-salmeterol [Wixela Inhub] 500-50 mcg/dose Blister With Device 1 inh INHALATION BID RF: 0 zolpidem [Ambien] 10 mg Tablet 10 mg PO HS RF: 0 ondansetron HCl 4 mg Tablet 4 mg PO PRN PRNRF: 0 meclizine 25 mg Tablet 25 mg PO PRN PRNRF: 0 Discharge Instructions Additional Instructions: Surgery: Right ankle ORIF 07/20/2020 Activity: Protected weightbearing in splint at all times. Recommend elevation to minimize swelling discomfort. Daily range of motion to all toes to improve circulation. A physical therapy prescription will be provided separately in the office at follow-up if needed. Prescriptions: Aspirin 325 mg take 1 twice daily to prevent a blood clot for 30 days Naproxen 250 mg take 1-2 every 12 hours with a meal as needed for moderate pain Oxycodone 5 mg take 1-2 every 4-6 hours as needed for severe pain You may use [id number] Tylenol (acetaminophen) as needed for mild pain. These pain medications may be taken all at once or in different combinations as needed. Also, recommend Colace (docusate) as a stool softener as surgery and pain medicine cause constipation. Dressings: Leave splint and dressing in place until follow-up. Keep clean and dry at all times. Follow-up: About [address] Pope (08/08/20 at 8:30 AM) Let us know right away if you develop any redness, drainage, fevers, chest pain, or trouble breathing. Do not drink alcohol or drive for at least 24 hours after anesthesia. Please call the office during business hours with any questions or concerns. Stand Alone Forms: Nursing Discharge Form Referrals: Partha Pope MD [ [facility] STAFF PHYSICIAN] - Activity:: Protected weightbearing Equipment/Supplies:: Crutches or walker Diet:: As Tolerated Discharge Orders Discharge Orders: Discharge Order (Routine); Ordered 07/21/20 Ordered By: Partha Pope DS: Summary Time Spent with Patient providing and/or coordinating discharge services: Greater than 30 minutes Specific discharge activities: Patient support with friends or home health services Status at Discharge Functional status at discharge: uses cane/walker Overall status at discharge: patient is progressing back to baseline Mental Status: mental status grossly normal Speech and Movement: speech and movement normal Mood: congruent mood Affect: normal affect Exam Narrative Exam Narrative: Resting in hospital bed No acute distress Breathing comfortably on room air Right leg elevated nicely on pillows Short leg plaster splint clean dry and intact Sensation diminished to light touch exposed toes with expected paresthesias from nerve block and local medicine Demonstrate active motor flexion-extension all toes without discomfort Psych Mental Status: mental status grossly normal Speech and Movement: speech and movement normal Mood: congruent mood Affect: normal affect DS: Data Vitals/I&O Vitals and I&O: Vital Signs Temperature 98.6 F 07/21/20 07:33 Temperature Source Temporal Artery Scan 07/21/20 07:33 Pulse 61 07/21/20 07:33 Pulse Rhythm Regular 07/21/20 04:37 Pulse 56 L 07/19/20 17:10 Respiratory Rate 17 07/21/20 07:33 Respiratory Effort Non-Labored 07/21/20 04:37 Respiratory Depth Normal 07/21/20 04:37 Respiratory Pattern Normal 07/21/20 04:37 Blood Pressure 138/68 07/21/20 07:33 Blood Pressure Mean 89 07/19/20 16:11 Blood Pressure Position Supine 07/19/20 14:00 Pulse Oximetry 94 07/21/20 07:58 Respiratory End-tidal CO2 36 07/19/20 16:50 Oxygen Delivery Method Room Air 07/21/20 07:58 Oxygen Flow Rate 0 07/21/20 07:58 Pain Level 7 07/21/20 07:47 Comment 07/20/20 15:54 Intake & Output 07/20/20 07/20/20 07/21/20 11:59 23:59 11:59 Intake Total 10 / 700 690 / 700 Output Total 600 / 900 300 / 900 700 / 700 Balance -590 / -200 390 / -200 -700 / -700 Intake: IV 10 / 660 650 / 660 Oral 40 / 40 Output: Urine 600 / 900 300 / 900 700 / 700 Other: Urine Color Light Rosy Yellow Yellow Urine Appearance Clear Clear Clear Urine Odor Normal Normal Normal Comment Pt voided in the bedpan. Emesis Description None Voiding Methods Bedpan Bedside Commode Bedside Commode [facility] Medical History Asthma HTN (hypertension) Hx of hyperlipidemia Hypothyroidism Myocardial infarction Prediabetes Surgical History H/O thumb surgery History of left knee surgery Hx of cholecystectomy Social History Smoking/Tobacco Use Status: Never Smoking risk assessment performed?: Yes Drug use: Rarely Substance use type: marijuana
[2020-07-21 11:07] VITALS: BP 123/62; PULSE 62; RESP 17; TEMP 36.5; O2SAT 96
--- NOTE | 2020-07-21 12:41 | PT.INTREAT ---
Date of service: 07/21/20 Time of Service: 11:45 PT Notes Visit Reasons: RIGHT ANKLE FRACTURE DISLOCATION Inpatient Physical Therapy Treatment Note [facility] Date: 07/21/2020 PRECAUTIONS: 50% PWB on R LE SUBJECTIVE: Netta is pleasant and agreeable to participating in PT. She feels that she would benefit from another night to practice stairs and for strengthening before she returns home where she will have a flight of stairs to get to the living level and will be alone. OBJECTIVE: PAIN: Patient c/o 6/10 pain in her R ankle at rest, increasing with gait training and stair training BED MOBILITY/TRANSFERS Supine-sit: I Sit-supine: I Sit-stand: S Stand-sit: S Bed-Chair: SBA Chair-bed: SBA GAIT Assistive Device: FWW B Axillary Crutches Weight bearin% PWB on R LE Assist: CGA-SBA with FWW CGA with crutches Distance: 75' + 5' with FWW 40 with crutches Deviation: Increased fatigue and pain; step-to with crutches THEREX: Patient was instructed in a LE strengthening and stabilization program, completed in a supine position, as per flow sheet. STAIRS:Up/down 3x4 and 2x6 using B rails and a step-to pattern with CGA; up/down 3x4 and 2x6 using U rail/U crutch and a step-to pattern with CGA TOILETING: Patient toileted with supervision for transfers only ASSESSMENT: Patient tolerated session with complaint of increasing pain with activity. She was able to tolerate stair training, although would benefit from continued stair training and strengthening, prior to returning home, for improved safety. PLAN: Continue with gait and transfer training as well as strengthening and stair training for improved activity tolerance and safety with mobility. TREATMENT CODE/TIME: 50 minutes; 22760 x2, 62843 (11:45)
[2020-07-21] MEDS: Naproxen 500 MG TAB PO (14:03)
--- NOTE | 2020-07-21 14:57 | PDOC.HHF2F_ITS ---
Home Health Certification Home Health Certification: 1. Encounter Date and Reason I certify that WHITNEY AL was seen by Partha Pope MD on 07/21/20 and that I had a [id number] encounter with this patient that meets the physician face to face encounter requirements. 2. Clinical Findings Supporting Skilled Need and Homebound Status I certify that home health services are medically necessary, include either intermittent prison and/or physical/speech therapy, and that this patient is homebound in that absences from the home require considerable and taxing effort and are infrequent or of short duration, or are attributable to the need to receive medical care. [X] (a) Attached documentation from encounter provides clinical findings supporting skilled need and homebound status (including what assistance patient requires to leave the home). The encounter with the patient was in whole, or in part, for the following medical condition, which is the primary reason for home health care: RIGHT ANKLE FRACTURE DISLOCATION Senior Care: Yes, routine care. Vitals. Medication education. Do not remove splint. May reinforce dressing if needed. Occupational & Physical Therapy: Yes, gait training: Protected weight bearing Ri ght ankle. May rest on ground for stance and balance. Assistance with ADLs. Homebound: Yes, Rt ankle fracture surgery - will not be able to drive for approx 6-8 weeks 3. Certification and Authentication I certify that I composed the above information based on my clinical judgement relating to this patient's medical condition and, if applicable, clinical findings communicated to me by the NPP or inpatient physician who performed the Home Health Referral. All further orders will be obtained through (Community Based Physician - PCP)
--- NOTE | 2020-07-21 15:28 | PDOC.CMPRO ---
- If Service Date Differs Date of service: 07/21/20 Time of Service: 15:28 Care Management Progress Note S/O: Netta was sitting up in bed when CM met with her. She stated that she is doing well, she recently worked with PT on stairs. CM discussed her plan to discharge, which was at the time, still unclear. Netta has a friend in [place] that she can stay with, who lives on the ground floor, but she would prefer to return to her own home in [place]. She expressed that she would feel safer if she was able to remain at [facility] another night, and discharge home tomorrow. CM discussed this with the MD, who was in agreement. CM called HH to refer her to their service upon discharge. CM also set up MOW through [employer] (Danielle, ) to begin on Friday. She has a friend who will be able to help her with groceries and general help around the house. PT is recommending a shower bench and over the toilet commode, which EDI discussed with Netta, who will order them on [facility] to have them delivered to her house. She will need [facility] for transport home, and may need a lift assist, depending on how well she does with PT tomorrow prior to her discharge. CM will continue to follow. A: Netta is a 60 year old male admitted to [facility] on 07/19/2020 for Right ankle fracture. P: Netta will return home tomorrow after working with PT. She will have new orders for PT, OT. CM contacted [facility] to inform them of her referral. CM coordinated MOW, to begin early next week. She will transport via [facility] private vehicle, which CM will coordinate. She may need a lift assist, if indicated by PT. She will have a friend helping her locally, and has a friend in [place] who will bring Netta to her home, if Netta is not able to manage at home alone. CM will continue to support discharge planning considerations.
[2020-07-21 15:46] VITALS: BP 115/61; PULSE 55; RESP 17; TEMP 36.7; O2SAT 94
--- NOTE | 2020-07-21 15:54 | CHAPLAIN ---
Netta was resting in bed when I visited. She told me about breaking her leg and the surgery she had. She lives alone. She was teary in telling me about her spouse, Lesley, who a little over a year ago. They had a home in [facility], and one here. Netta returned here after Lesley's , but does not know a lot of people in the area. 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 To relax she reads and does cross stitch. She used to hike, but now won't be able to do that. Netta said she was nervous about going home alone and was glad to be staying another night as she feels weak.
[2020-07-21] MEDS: Zolpidem 10 MG TAB PO (20:32)
[2020-07-21] MEDS: Sertraline 50 MG TAB 100 MG PO (20:32)
[2020-07-21] MEDS: Atorvastatin 40 MG TAB PO (20:32)
[2020-07-21] MEDS: traZODone 50 MG TAB PO (20:32)
--- NOTE | 2020-07-22 00:23 | NUR.NOTE ---
Nursing Note: Pt reported to me having a difficult past year following the of her spouse of 34 years. Pt states it has not gotten easier since her passing. Pt would like to seek out a therapist but reports having trouble transferring her insurance from [place] to the [facility] and that it will probably take awhile before my insurance will work. When asked, pt reports no current or past suicidal ideation or attempts, but pt thanked RN for inquiring. Pt reports she feels safe living at home by herself and that she fell simply because she slipped on the floor; RN packed extra pairs of non-slip socks into patient's belongings per her request.
[2020-07-22 00:56] VITALS: BP 129/73; PULSE 58; RESP 16; TEMP 36.3; O2SAT 95
[2020-07-22] MEDS: oxyCODONE 5 MG TAB PO ×4 (01:10→15:17)
[2020-07-22] MEDS: Levothyroxine 25 MCG TAB PO (06:07)
[2020-07-22 07:48] VITALS: BP 118/67; PULSE 60; RESP 17; TEMP 36.8; O2SAT 96
[2020-07-22] MEDS: Multivitamin w/Minerals TAB 1 TAB PO (08:05)
[2020-07-22] MEDS: Nystatin POWDER 15 GM JAR TP (08:05)
[2020-07-22] MEDS: Metoprolol 50 MG TAB 100 MG PO (08:06)
[2020-07-22] MEDS: Aspirin E.C. 325 MG TABEC PO (08:06)
[2020-07-22] MEDS: Cetirizine 10 MG TAB PO (08:06)
[2020-07-22] MEDS: Montelukast 10 MG TAB PO (08:06)
[2020-07-22] MEDS: Esomeprazole 40 MG CAPCR PO (08:06)
[2020-07-22] MEDS: amLODIPine 10 MG TAB PO (08:06)
[2020-07-22] MEDS: Budesonide/Formoterol 160/4.5 6 GM 60 PUFF INH IH (08:12)
--- NOTE | 2020-07-22 09:26 | INDS_ITS ---
Date of service: 07/22/20 Time of Service: 09:26 PT Notes Visit Reasons: RIGHT ANKLE FRACTURE DISLOCATION Physical Therapy Inpatient Discharge Summary Date: 07/22/2020 Dates of service: 07/21/2020 through 07/22/2020 Referring Doctor: Partha Pope MD PT Orders: PT CONSULT: S/P ortho surgery. Protected weight bearing right ankle with crutches or walker Precautions: Fall. Standard. 50% PWB in R LE with crutches. Patient Profile/Admitting Diagnosis: Netta is a 60-year-old female who sustained a right trimalleolar equivalent ankle fracture dislocation sustained from a fall while in her kitchen the morning of ED presentation on 07/19/2020. She is status post ORIF by Dr. Pope on postoperative day 2. PMHX: Medical History Asthma HTN (hypertension) Hx of hyperlipidemia Hypothyroidism Myocardial infarction Prediabetes Surgical History H/O thumb surgery History of left knee surgery Hx of cholecystectomy Social History/Home Situation: Lives alone in an apartment with 13 steps to enter with a rail on the right going up, she states that she has a wall on the left that she can use for support. Per MAREK Mcfarland, anita[place]gideon is on the first floor of the apartment building. Independent with all aspects of ADLs without the need for an assistive ambulatory device nor adaptive equipment. Spouse recently just and patient returns back to the state with no family and relatives who can support her. Equipment Owned/DME: None Subjective: Agreeable to trying out the real flight of steps today to assess her readiness to go home. Reports pain in the R LE at 5/10 at rest and 5-6/10 with walking activity. Denies headache, chest pain and lightheadedness throughout session. Objective: General Observation: ALEJANDRA wraps over cast in R leg and foot. IV access in L UE. Mental Status: Alert and oriented x4 Pain: 6/10 at rest, 5-6/10 with ambulation in the R LE ROM: Right Upper Extremity: Shoulder Flexion WFL. Shoulder abduction WFL. Elbow flexion WFL. Wrist flexion WFL. Opening and closing of hand WFL. Left Upper Extremity: Shoulder Flexion WFL. Shoulder abduction WFL. Elbow flexion WFL. Wrist flexion WFL. Opening and closing of hand WFL. Right Lower Extremity: Hip flexion WFL. Hip abduction WFL. Knee flexion WFL. Ankle dorsiflexion NT. Ankle plantarflexion NT. Left Lower Extremity: Hip flexion WFL. Hip abduction WFL. Knee flexion WFL. Knee extension 4/5. Ankle dorsiflexion WFL. Ankle plantarflexion WFL. Strength: Right Upper Extremity: Shoulder flexors 5/5. Shoulder abductors 5/5. Elbow flexors 5/5. Elbow extensors 5/5. Sliver Lap Machine Tender strong. Left Upper Extremity: Shoulder flexors 5/5. Shoulder abductors 5/5. Elbow flexors 5/5. Elbow extensors 5/5. Sliver Lap Machine Tender strong. Right Lower Extremity: Hip flexors 5/5. Hip abductors 5/5. Knee flexors 4-/5. K nee extensors 4-/5. Ankle dorsiflexors NT. Ankle plantarflexors NT. Left Lower Extremity:Hip flexors 5/5. Hip abductors 5/5. Knee flexors 5/5. Knee extensors 5/5. Ankle dorsiflexors 5/5. Ankle plantarflexors 5/5. Sensation: Intact as to pain and pressure on bilateral lower extremities. Bed Mobility/Transfers: Sit to stand CGA Stand to sit CGA Bed to chair CGA Chair to bed CGA Gait: Ambulates up to 75 feet of level surface ambulation using bilateral axillary crutches with 50% partial weight bearing on the right LE with only supervision assist. Stairs: Guided patient through up-and-down 24 6-inch steps holding onto a rail on the right going up and using a crutch on the other hand requiring only stand by assist of PT and close guarding of nurse Grover with pain level staying between 5?6/10 that resolved with rest. Balance: Static Sitting: Normal Dynamic Sitting: Normal Static Standing: Fair Dynamic Standing: Fair Assessment: Netta now feels more confident about negotiating the steps that she has at home. She continues to demonstrates functional mobility decline requiring the use of bilateral axillary crutches for all level surfaces and stair negotiation. Will benefit from PT services in order to progress mobility level, assess home safety, and continue with stair training per patient's goals. Patient continues to present with clinical signs and symptoms consistent with c urrent/admitting diagnoses that have resulted to mobility limitations, gait instability, generalized weakness, and impairment of motor control as demonstrated by the following impairment level findings: 1. Decreased strength to R ankle and foot muscle groups 2. Impaired standing balance 3. Impaired activity tolerance 4. Limitation of joint range of motion in R LE due to WB status/ortho order and cast placement Impairments are continuing to contribute to the following functional limitations: 1. Inability to safely ambulate without assistive device and physical assistance 2. Increase completion time for mobility ADL performance Goals: Goals X1 week 1. Supine-Sit independent MET 2. Sit-Supine independent MET 3. Sit-Stand independent MET 4. Stand-Sit independent MET 5. Bed-Chair independent MET 6. Chair-Bed independent MET 7. Independent gait on level surface with use of bilateral axillary crutches for at least 300 feet without report of pain nor dyspnea NOT MET 8. Independent stair negotiation while holding onto bilateral rails for at least 10 steps without report of pain nor dyspnea NOT MET 9. Independent with home exercise program MET 10. Good static and dynamic standing balance/tolerance NOT MET DISCHARGE RECOMMENDATIONS: Home when patient feels more confident with stair negotiation as she has 1 flight with one rail on the R going up with nobody to help her once she goes home. Patient will benefit from home health PT services in order to progress mobility level using least restrictive assistive ambulatory device, assess home safety, identify additional equipment needs, and establish a functional maintenance program that will increase ability of patient to remain at home. Will need bilateral axillary crutches for home. TREATMENT CODE/TIME: 64993 x 32 minutes beginning a 9:26 AM. Thank you for the opportunity to participate in the care of this patient. Dorie Orozco PT, DPT, CLT [facility] [place], [place]
--- NOTE | 2020-07-22 19:25 | PDOC.CMDIS ---
- If Service Date Differs Date of service: 07/22/20 Time of Service: 19:25 LACE Index Scoring Tool - Questions: Length of Stay (in days): 3 Acuity (Admit via E.D.?): Yes Comorbidities: Previous M.I. E.D. Visits: 1 - Answers: Total Score: 8 Risk of Readmission: Low Risk Care Management Discharge Reason for Hospitalization: Right ankle fracture and dislocation. Discharge Plan: Netta will return home after working with PT. She will have new orders for PT, OT. EDI contacted [facility] to inform them of her referral. EDI coordinated MOW, to begin early next week. She will transport via [facility] private vehicle with a lift assist from [facility] department coordinated by EDI. She will have a friend helping her locally, and has a friend in [place] who will bring Netta to her home, if Netta is not able to manage at home alone. Netta was provided with crutches and a walker. Patient/Family Education Needs: Discharge instructions, limitations, follow up plan, including Ask Me Three and self management. Services Needed at Discharge: Home Health Care Services, Physical Therapy, Transportation
== END 2020-07-22 15:18 | disposition home health service (06) | DRG 494 ==
LOC: ER 17:16 → MS 18:08
PROVIDERS: Admitting Provider Student in an Organized Health Care Education/Training Program; Emergency Provider Physician Assistant; PCP Family Medicine; Visit Provider Student in an Organized Health Care Education/Training Program
PROC: 0QSJ04Z Reposition Right Fibula with Internal Fixation Device, Open Approach (ICD-10-PCS; CPT 27822; principal; 2020-07-20 12:15)
DX: S82.851A Displaced trimalleolar fracture of right lower leg, initial encounter for closed fracture (principal); W01.0XXA Fall on same level from slipping, tripping and stumbling without subsequent striking against object, initial encounter; J45.909 Unspecified asthma, uncomplicated; K21.9 Gastro-esophageal reflux disease without esophagitis; E03.9 Hypothyroidism, unspecified; G89.29 Other chronic pain; M54.5 Low back pain; I25.2 Old myocardial infarction; E78.5 Hyperlipidemia, unspecified; R73.03 Prediabetes
CPT/HCPCS: 27822; 27818; 76000; 76942; 93005; 94640; 96361; 96374; 96375; 96376; 97110; 97162; 97166; 97530; 97535; 99223; 99239; 99285; NC; 73610; 93010; 94660; E0114; J0171; J0690; J1100; J2001; J2250; J2270; J2405; J2704; J3010; J8597

== ENCOUNTER 2020-08-08 15:04 | Outpatient (CLI) | payer OTHER, SELFPAY ==
--- NOTE | 2020-08-08 14:45 | DI.RAD_ITS ---
EXAM: CLINICAL HISTORY: S/P SURGERY TECHNIQUE: 2D digital imaging was performed. COMPARISON: CR XR ANKLE RT COMPLETE from 07/19/2020 XR ANKLE RT COMPLETE from 07/20/2020 FINDINGS: BONES: There are stable post operative changes present. No new fracture or dislocation. JOINTS: The joint spaces are well maintained. No joint effusion is present. SOFT TISSUE: Soft tissue swelling of the ankle is present. IMPRESSION: Stable postoperative changes. DATA REPOSITORY: RADIATION DOSE DELIVERED:
== END 2020-08-08 15:05 | disposition home or self-care (01) ==
LOC: DIORS 15:04
PROVIDERS: PCP Family Medicine; Visit Provider Physician Assistant
DX: S82.851A Displaced trimalleolar fracture of right lower leg, initial encounter for closed fracture (principal)
CPT/HCPCS: 73610

== ENCOUNTER 2020-09-05 14:01 | Outpatient (CLI) | payer OTHER, SELFPAY ==
--- NOTE | 2020-09-05 13:45 | DI.RAD_ITS ---
EXAM: XR ANKLE RT COMPLETE CLINICAL HISTORY: f/u TECHNIQUE: COMPARISON: CR XR ANKLE RT COMPLETE from 08/08/2020 FINDINGS: Three views were obtained. Previously described tibiofibular fracture is again noted with plate and screw fixation in the fibula and a medial malleolar fixation screw. Alignment appears unchanged in c omparison with prior examination of August 08. IMPRESSION: RADIATION DOSE DELIVERED: Total DLP
== END 2020-09-05 14:02 | disposition home or self-care (01) ==
LOC: DIORS 14:01
PROVIDERS: PCP Family Medicine; Referring Provider Family Medicine; Visit Provider Student in an Organized Health Care Education/Training Program
DX: S82.851D Displaced trimalleolar fracture of right lower leg, subsequent encounter for closed fracture with routine healing (principal)
CPT/HCPCS: 73610

== ENCOUNTER 2020-10-31 13:10 | Outpatient (CLI) | payer OTHER, SELFPAY ==
--- NOTE | 2020-10-31 13:00 | DI.RAD_ITS ---
Exam(s) XR ANKLE RT COMPLETE EXAM: XR ANKLE RT COMPLETE CLINICAL HISTORY: F/U TECHNIQUE: COMPARISON: CR XR ANKLE RT COMPLETE from 09/05/2020 FINDINGS: Three views were obtained. Previously described tibiofibular fracture with plate and screw fixation is again noted, no change in alignment comparison with examination of September 05. IMPRESSION: RADIATION DOSE DELIVERED: Total DLP
== END 2020-10-31 13:11 | disposition home or self-care (01) ==
LOC: DIORS 13:11
PROVIDERS: PCP Family Medicine; Referring Provider Family Medicine; Visit Provider Student in an Organized Health Care Education/Training Program
DX: S82.851D Displaced trimalleolar fracture of right lower leg, subsequent encounter for closed fracture with routine healing (principal)
CPT/HCPCS: 73610

== ENCOUNTER 2021-02-27 10:27 | Outpatient (CLI) | payer OTHER, SELFPAY ==
--- NOTE | 2021-02-27 10:00 | DI.RAD_ITS ---
Exam(s) XR ANKLE RT COMPLETE EXAM: XR ANKLE RT COMPLETE CLINICAL HISTORY: right ankle f/u. TECHNIQUE: 2D digital imaging was performed. Three images were obtained. AP, oblique and lateral v iews were obtained. COMPARISON: CR XR ANKLE RT COMPLETE from 08/08/2020 CR XR ANKLE RT COMPLETE from 08/08/2020 CR XR ANKLE RT COMPLETE from 10/31/2020 FINDINGS: BONES: There are stable post operative changes present. The medial malleolar fracture line is still visualized. No new fracture or dislocation. There is a small plantar calcaneal spur. There is a sma ll enthesophyte at the Achilles insertion site. JOINTS: The joint spaces are well maintained. No joint effusion is present. SOFT TISSUE: Soft tissue swelling of the ankle is seen medially. IMPRESSION: Stable postoperative changes. DATA REPOSITORY: RADIATION DOSE DELIVERED:
== END 2021-02-27 10:28 | disposition home or self-care (01) ==
LOC: DIORS 10:28
PROVIDERS: PCP Family Medicine; Referring Provider Family Medicine; Visit Provider Student in an Organized Health Care Education/Training Program
DX: S82.851D Displaced trimalleolar fracture of right lower leg, subsequent encounter for closed fracture with routine healing (principal); X58.XXXD Exposure to other specified factors, subsequent encounter
CPT/HCPCS: 73610

== ENCOUNTER 2024-03-04 19:43 | Outpatient (REF) | payer OTHER, SELFPAY ==
[2024-03-04 16:27] LABS: Abs Immature Grans 0.04 10^3/uL (0.0-0.06); Absolute Basophil Count 0.06 10^3/uL (0.0-0.2); Absolute Eosinophil Count 0.21 10^3/uL (0.0-0.7); Absolute Lymphocyte Count 3.09 10^3/uL (1.2-3.4); Absolute Neutrophil Count 3.58 10^3/uL (1.2-6.7); Basophils % 0.8 %; Eosinophils % 2.8 %; HGB 13.8 g/dL (11.2-15.7); Immature Grans % 0.5 %; Lymphocytes % 41.9 %; MCH 30.3 pg (27.0-33.0); MCHC 32.9 % (32.0-36.0); MCV 92 fL (80-95); MPV 10.8 fL (8.0-11.0); Monocytes % 5.4 %; Neutrophils % 48.6 %; Platelet Count 177 10^3/uL (130-400); RBC 4.56 10^6/uL (3.93-5.22); WBC 7.38 10^3/uL (4.4-10.8)
--- OUTSIDE RECORDS SUMMARY | 2024-03-04 19:44 | XMS_ITS | Encounter Summary ---
Author Organization [facility] Address [address] [place] [address] Care Team Providers Care Care Aide Name Role Phone Brodie Darby MD Primary Care Provider Unavail able Encounter Details Date Type Department Care Team (Late st Contact Info) Description 01/16/2012 Results Only [facility] Laboratory Services - [facility] ([facility]) [address], [place] [phone] Merced Yin MD [address] [place] [address] Social History Tobacco Use Types Packs/Day Years Used Date Smoking Tobacco: Never Assessed Sex and Gender Information Value Date Recorded Sex Assigned at Not on file Gender Identity Not on file Sexual Orientation Not on file documented as of this encounter Plan of Treatment Not on file documented as of this encounter Procedures Procedure Name Priority Date/Time Associated Diagnosis Comments SURGICAL PATHOLOGY Routine 01/16/2012 0:00 EDT documented in this encounter Results * SURGICAL PATHOLOGY (01/16/2012 0:00 EDT) Pathology Report: SURGICAL PATHOLOGY REPORT Reports generated via electronic interface contain original data; however they are lacking the format of the original report. Caution should be taken when reading/interpreti ng unformatted reports. Name: ? WHITNEY AL ? Accession #: ? [id number] ? : ? 1960 (Age: 51) ??F ? Collect Date: ? 01/16/2012 ? Location: ? [facility] ? Receive Date: ? 01/16/2012 ? Provider: MERCED YIN MD Copy to: BRODIE DARBY MD ? Final Pathologic Diagnosis: ? Endometrium, curettage: - Fragments of proliferative endometrium with focal disordered glandular pattern. ?? Document reviewed and electronically signed by: Kevin Andrew MD Report ??Date: 01/21/2012 08:24 By the signature above, the attending physician certifies that he/she has personally conducted a gross and/or microscopic examination of the described specimens and rendered or confirmed the above diagnosis. Specimen(s) Received: ? Endometrial curettings Clinical History: ? Postmenopausal bleeding; LMP: 1d yrs; D&C, hysteroscope; clinical diagnosis code: 627.1 Gross Description: ? Received in formalin labelled Al, Whitney and endometrial curettings is a 2.5 x 2.0 x 0.3 cm aggregate of degroot and degroot-red, focally hemorrhagic soft tissue fragments admixed with mucus. ??The specimen is entirely submitted in a single cassette. ??(Keira Zacarias)/[place] End of Report [facility] 01/16/2012 01/16/2012 15: 57 EDT Merced Yin MD PATHOLOGY ORDERABLES [facility] [address] [place] [address] documented in this encounter Visit Diagnoses Not on filedocumented in this encounter Care Teams Care Aide Relationship Specialty Start Date End Date Brodie Darby MD PCP - General 12/16/11 documented as of this encounter
--- OUTSIDE RECORDS SUMMARY | 2024-03-04 19:44 | XMS_ITS | Encounter Summary ---
Author Organization [facility] Address [address] [place] [address] Care Team Providers Care Associate Marketing Manager Name Role Phone Brodie Darby MD Primary Care Provider Unavail able Encounter Details Date Type Department Care Team (Late st Contact Info) Description 01/10/2012 Results Only [facility] Laboratory Services - [facility] ([facility]) [address] [place] [address] [phone] Tyrese Ramesh ARNP [address] [place] [phone] Social History Tobacco Use Types Packs/Day Years Used Date Smoking Tobacco: Never Assessed Sex and Gender Information Value Date Recorded Sex Assigned at Not on file Gender Identity Not on file Sexual Orientation Not on file documented as of this encounter Plan of Treatment Not on file documented as of this encounter Procedures Procedure Name Priority Date/Time Associated Diagnosis Comments PAP TEST- RESULT ONLY Routine 01/10/2012 0:00 EDT documented in this encounter Results * PAP TEST- RESULT ONLY (01/10/2012 0:00 EDT) Pathology Report: CYTOPATHOLOGY REPORT Reports generated via electronic interface contain original data; however they are lacking the format of the original report. Caution should be taken when reading/interpreti ng unformatted reports. Name: ? WHITNEY AL ? Accession #: ? [id number] : ? 1960 (Age: 51) ??F ?Collect Date: ? 01/10/2012 Location: ? [facility] ? Receive Date: ? 01/14/2012 Provider: ?TYRESE BERTRAND Copy to: ? Specimen/Source: ?Pap Test, Vagina/Cervix, ThinPrep Imaging System with manual evaluation Last Menstrual Period: ? now Other: ? Post menopausal bleeding ? SPECIMEN ADEQUACY ? Satisfactory for Evaluation - transformation zone component absent GENERAL CATEGORIZATION ? Negative for Intraepithelial Lesion or Malignancy ? Document reviewed and electronically signed by: ? Renato Vallejo, [place](ASCP) ? Report Date: ??01/20/2012 14:19 End of Report [facility] 01/10/2012 01/14/2012 Tyrese BERTRAND PATHOLOGY ORDERABL ES Performing Organization Address City/State/[facility] Co de Phone Number [facility] [address] [place] [address] documented in this encounter Visit Diagnoses Not on filedocumented in this encounter Care Teams Associate Marketing Manager Relationship Specialty Start Date End Date Brodie Darby MD PCP - General 12/16/11 documented as of this encounter
--- OUTSIDE RECORDS SUMMARY | 2024-03-04 19:44 | XMS_ITS | Encounter Summary ---
Author Organization [facility] Address [address] [place] [address] Care Team Providers Care Geological Scout Name Role Phone Unavailable Primary Care Provider Unavailabl e Encounter Details Date Type Department Care Team (Late st Contact Info) Description 12/12/2011 Results Only [facility] Laboratory Services - [facility] ([facility]) [address] [place], [place] [phone] Hasmukh Unger MD [address] [place] [address] Social History Tobacco Use Types Packs/Day Years Used Date Smoking Tobacco: Never Assessed Sex and Gender Information Value Date Recorded Sex Assigned at Not on file Gender Identity Not on file Sexual Orientation Not on file documented as of this encounter Plan of Treatment Not on file documented as of this encounter Procedures Procedure Name Priority Date/Time Associated Diagnosis Comments CYTOPATHOLOGY Routine 12/12/2011 0:00 EDT documented in this encounter Results * CYTOPATHOLOGY (12/12/2011 0:00 EDT) Pathology Report: CYTOPATHOLOGY REPORT Reports generated via electronic interface contain original data; however they are lacking the format of the original report. Caution should be taken when reading/interpreti ng unformatted reports. Name: ? WHITNEY AL ? Accession #: ? [id number] : ? 1960 (Age: 51) ??F ?Collect Date: ? 12/12/2011 Location: ? [facility] ? Receive Date: ? 12/13/2011 Provider: ? HASMUKH UNGER MD Copy to: ? CYTOLOGIC DIAGNOSIS: ? Cerebrospinal fluid, cytologic evaluation: - No malignant cells identified. See comment. ? COMMENT: ? The specimen shows abundant red blood cells with leukocytes showing predominantly mononuclear cells. ??There are no immature forms identified. ??Dr. Oscar Ramsey has reviewed this case in correlation and comments that given the number of RBC's present in the background, the scarcity of neutrophils causes him to suggest correlation with ??CBC/differential data. ??Correlation with other clinical and laboratory data is advised. (Dr. Hoyos)/[facility] Document reviewed and electronically signed by: ? ARMAND HOYOS MD Report Date: ??12/13/2011 16:59 By the signature above, the attending physician certifies that he/she has personally conducted a gross and/or microscopic examination of the described specimens and rendered or confirmed the above diagnosis. Specimen Type: ? Cerebrospinal Fluid Clinical History: ? Not listed. ? Gross Description: ? 4cc' s of clear colorless fluid were received and processed by concentration technique. ? End of Report [facility] 12/12/2011 12/13/2011 8:3 2 EDT Hasmukh Unger MD PATHOLOGY ORDERABLES [facility] [address] [place] [address] documented in this encounter Visit Diagnoses Not on filedocumented in this encounter
--- OUTSIDE RECORDS SUMMARY | 2024-03-04 19:44 | XMS_ITS | Encounter Summary ---
Author Organization [facility] Address [address] [place] [address] Care Team Providers Care Electric Transfer Operator Name Role Phone Unavailable Primary Care Provider Unavailabl e Encounter Details Date Type Department Care Team (Late st Contact Info) Description 09/26/2006 Results Only [facility] [address] [place] [address] Tyrese Ramesh ARNP [address] [place] [address] Social History Tobacco Use Types Packs/Day Years Used Date Smoking Tobacco: Never Assessed Sex and Gender Information Value Date Recorded Sex Assigned at Not on file Gender Identity Not on file Sexual Orientation Not on file documented as of this encounter Plan of Treatment Not on file documented as of this encounter Procedures Procedure Name Priority Date/Time Associated Diagnosis Comments CYTOPATHOLOGY Routine 09/26/2006 0:00 EDT documented in this encounter Results * CYTOPATHOLOGY (09/26/2006 0:00 EDT) Pathology Report: CYTOPATHOLOGY REPORT Reports generated via electronic interface contain original data; however they are lacking the format of the original report. Caution should be taken when reading/interpreti ng unformatted reports. Name: ? WHITNEY AL ? Accession #: ? [id number] : ? 1960 (Age: 46) ??F ?Collect Date: ? 09/26/2006 Location: ? [facility] ? Receive Date: ? 09/30/2006 Provider: ?TYRESE BERTRAND Copy to: ? Specimen/Source: ?ThinPrep Pap Test, Vagina/Cervix/Endo cervix, processed on Pr[employer]Star ThinPrep Imaging System, with manual evaluation Last Menstrual Period: ? June 08 Other: ? Additional clinical information: Benign pap hx ? SPECIMEN ADEQUACY ? Satisfactory for Evaluation - transformation zone component present GENERAL CATEGORIZATION ? Negative for Intraepithelial Lesion or Malignancy ? Document reviewed and electronically signed by: ? IRON Alfonso(ASCP) ? Report Date: ??10/02/2006 09:37 End of Report [facility] 09/26/2006 09/30/2006 Tyrese BERTRAND PATHOLOGY ORDERABL ES [facility] [address] [place] [address] documented in this encounter Visit Diagnoses Not on filedocumented in this encounter
--- OUTSIDE RECORDS SUMMARY | 2024-03-04 19:44 | XMS_ITS | Encounter Summary ---
Author Organization [facility] Address [address] [place] [address] Care Team Providers Care It Senior Analyst Name Role Phone Brodie Darby MD Primary Care Provider Unavail able Encounter Details Date Type Department Care Team (Late st Contact Info) Description 10/13/2015 Results Only [facility]- [facility] [phone] Juan Diego Magana MD [address] [place] [id number] Social History Tobacco Use Types Packs/Day Years Used Date Smoking Tobacco: Never Assessed Sex and Gender Information Value Date Recorded Sex Assigned at Not on file Gender Identity Not on file Sexual Orientation Not on file documented as of this encounter Plan of Treatment Not on file documented as of this encounter Procedures Procedure Name Priority Date/Time Associated Diagnosis Comments SURGICAL PATHOLOGY Routine 10/13/2015 9:48 EDT documented in this encounter Results * SURGICAL PATHOLOGY (10/13/2015 9:48 EDT) Pathology Report: SURGICAL PATHOLOGY REPORT Reports generated via electronic interface contain original data; however they are lacking the format of the original report. Caution should be taken when reading/interpreti ng unformatted reports. Name: ? WHITNEY AL ? Accession #: ? [id number] ? : ? 1960 (Age: 55) ??F ? Collect Date: ? 10/13/2015 ? Location: ? [facility] ? Receive Date: ? 10/14/2015 ? Provider: JUAN DIEGO MAGANA MD Copy to: ? 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 - Actinic keratosis, incidental. - Lesion extends to peripheral edge of biopsy specimen. Document reviewed and electronically signed by: EDWINA STEWART MD Report ??Date: 10/17/2015 14:24 By the signature above, the attending physician certifies that he/she has personally conducted a gross and/or microscopic examination of the described specimens and rendered or confirmed the above diagnosis. Specimen(s) Received: Right dorsal of hand, webspace between thumb and 1st finger, second smaller piece of tissue from dog ear that was removed for better skin reapproximation Clinical History: R dorsal of hand and nodule, suspect actinic keratosis Gross Description: ? Received in formalin labelled with proper patient identification (initials P, J) and not otherwise specified is an unoriented elliptical excision of degroot skin (1.4 x 0.9 cm and is excised to a depth of 0.1 cm). There is a central pink-degroot encrusted papule that measures 0.8 x 0.5 x 0.3 cm. The margins are inked blue. The specimen is serially sectioned and entirely submitted as 1 central sections and 2 tips, reverse en face. Noah Morocho 10/16/2015 11:49 AM End of Report [facility] 10/13/2015 9:48 EDT 10/14/2015 9:48 EDT Juan Diego Magana MD PATHOLOGY OR DERABLES Performing Organization Address City/State/[facility] Co de Phone Number [facility] [address] [place] [address] documented in this encounter Visit Diagnoses Not on filedocumented in this encounter Care Teams It Senior Analyst Relationship Specialty Start Date End Date Brodie Darby MD PCP - General 12/16/11 documented as of this encounter
--- OUTSIDE RECORDS SUMMARY | 2024-03-04 19:44 | XMS_ITS | Encounter Summary ---
Author Organization [facility] Address [address] [place] [address] Care Team Providers Care Steel Rod Buster Name Role Phone Brodie Darby MD Primary Care Provider Unavail able Encounter Details Date Type Department Care Team (Late st Contact Info) Description 06/14/2022 Lab Requisition [facility] Pathology & Laboratory Medicine - [facility] [address] [place] [address] Israel Live MD [address] [place] [address] Asymptomatic microscopic hematuria Social History Tobacco Use Types Packs/Day Years Used Date Smoking Tobacco: Never Assessed Sex and Gender Information Value Date Recorded Sex Assigned at Not on file Gender Identity Not on file Sexual Orientation Not on file documented as of this encounter Plan of Treatment Not on file documented as of this encounter Procedures Procedure Name Priority Date/Time Associated Diagnosis Comments NON FOREST ECONOMICS PROFESSOR/FNA CYTOLOGY Today 06/14/2022 15:16 EST documented in this encounter Results * NON FOREST ECONOMICS PROFESSOR/FNA CYTOLOGY (06/14/2022 15:16 EST) Note to Patient The following pathology results have been interpreted by your pathologist and may be available to you before your health provider has had the opportunity to review them. Please allow time for your provider to receive these results and explore management options, if applicable. 06/17/2022 13:22 EST [facility] Final Diagnosis URINE, BARBOTAGE, CYTOLOGIC EVALUATION: - Negative for high grade urothelial carcinoma. 06/17/2022 13:22 EST [facility] Attestation By the signature below, the attending physician certifies that they have personally conducted a gross and/or microscopic examination of the described specimens and rendered or confirmed the above diagnosis. 06/17/2022 13:22 [facility] at 1322 Clinical History Microscopic hematuria Trabeculated bladder; negative exam; R31.21 06/17/2022 13:22 [facility] Gross Description A. 60cc's of clear yellow fluid (Cytolyt added) were received and processed by selective cellular enhancement technique. 06/17/2022 13:22 [facility] Performing Lab [facility] 06/17/2022 13:22 [facility] Scanned Images 06/17/2022 13:22 [facility] [id number] URINE SPECIMEN / Unknown 06/14/2022 15:16 EST 06/17/2022 7:15 EST Israel Live MD PATHOLOGY ORDERABLES [facility] [address] [place] [address] documented in this encounter Visit Diagnoses Diagnosis Asymptomatic microscopic hematuria documented in this encounter Care Teams Steel Rod Buster Relationship Specialty Start Date End Date Brodie Darby MD PCP - General 12/16/11 documented as of this encounter
--- OUTSIDE RECORDS SUMMARY | 2024-03-04 19:44 | XMS_ITS | Encounter Summary ---
Author Organization [facility] Address [address] [place] [address] Care Team Providers Care Timber Cutter Name Role Phone Brodie Darby MD Primary Care Provider Unavail able Encounter Details Date Type Department Care Team (Latest Contact Info) Description 10/13/2015 9:23 EDT - 10/13/2015 23:59 EDT Hospital Encounter [address] [address] Unknown, ProviderMD Discharge Disposition: Home or Self Care Social History Tobacco Use Types Packs/Day Years Used Date Smoking Tobacco: Never Assessed Sex and Gender Information Value Date Recorded Sex Assigned at Not on file Gender Identity Not on file Sexual Orientation Not on file documented as of this encounter Discharge Disposition Disposition Code Departure Means Destination Home or Self Retirement documented in this encounter Plan of Treatment Not on file documented as of this encounter Visit Diagnoses Not on filedocumented in this encounter Care Teams Timber Cutter Relationship Specialty Start Date End Date Brodie Darby MD PCP - General 12/16/11 documented as of this encounter
--- OUTSIDE RECORDS SUMMARY | 2024-03-04 19:44 | XMS_ITS | Clinical Summary ---
Author Organization [facility] Address [address] [place] [address] Care Team Providers Care Command Center Analyst Name Role Phone Brodie Darby MD Primary Care Provider Unavail able Social History Tobacco Use Types Packs/Day Years Used Date Smoking Tobacco: Never Assessed Sex and Gender Information Value Date Recorded Sex Assigned at Not on file Gender Identity Not on file Sexual Orientation Not on file Plan of Treatment Health Maintenance Due Date Last Done Comments Hepatitis C Screen 1960 RSV Immunization ( o r 60+ Years) (1 - 1-dose 60+ series) 2022 COVID-19 Vaccine (2022- season) 2023 Care Teams Command Center Analyst Relationship Specialty Start Date End Date Brodie Darby MD PCP - General 12/16/11
--- OUTSIDE RECORDS SUMMARY | 2024-03-04 19:44 | XMS_ITS | Referral Summary ---
Author Organization [facility] Address [address] [place] [address] Care Team Providers Care Senior Net Architect Name Role Phone Brodie Darby MD Primary Care Provider Unavail able Social History Tobacco Use Types Packs/Day Years Used Date Smoking Tobacco: Never Assessed Sex and Gender Information Value Date Recorded Sex Assigned at Not on file Gender Identity Not on file Sexual Orientation Not on file Plan of Treatment Not on file Care Teams Senior Net Architect Relationship Specialty Start Date End Date Brodie Darby MD PCP - General 12/16/11
--- OUTSIDE RECORDS SUMMARY | 2024-03-04 19:45 | XMS_ITS | Encounter Summary ---
Author Organization [facility] [place] [address] Care Team Providers Care Tax Assistant Name Role Phone Bryan Schmid MD Primary Care Provider [phone] Encounter Details Date Type Department Care Team (Late st Contact Info) Description 03/14/2023 Ancillary Procedure Radiology Library at [facility] [place] [address] Bryan Schmid MD [address] [place] [address] [place] [address] Social History Tobacco Use Types Packs/Day Years Used Date Smoking Tobacco: Never Smokeless Tobacco: Never Alcohol Use Standard Drinks/Week Comments Yes 0 (1 standard drink = 0.6 oz pur e alcohol) occasional Sex and Gender Information Value Date Recorded Sex Assigned at Not on file Gender Identity Not on file Sexual Orientation Not on file documented as of this encounter Plan of Treatment Upcoming Encounters Date Type Department Care Team (Late st Contact Info) Description 07/12/2024 9:30 AM EST Office [place] [address] Walt Wiseman III, MD [facility] [place] [address] documented as of this encounter Procedures Procedure Name Priority Date/Time Associated Diagnosis Comments FILM LIBRARY STORAGE ONLY MR SPINE Routine 03/14/2023 12:00 AM EDT documented in this encounter Results * Film Library- Storage Only MR Spine (03/14/2023 12:00 AM EDT) Narrative ROLO KAY - 03/28/2023 4:57 PM EDT This exam is auto-finalizing. It's purpose is for storage only. Bryan Schmid MD IMG FILM LIBRARY ORD ERABLES [place], [place] documented in this encounter Visit Diagnoses Not on filedocumented in this encounter Care Teams Tax Assistant Relationship Specialty Start Date End Date Bryan Schmid MD [address] [place] [address] [place] [address] PCP - [facility] Medicine 07/19/20 documented as of this encounter
--- OUTSIDE RECORDS SUMMARY | 2024-03-04 19:45 | XMS_ITS | Encounter Summary ---
Author Organization [facility] [place] [place] [address] Care Team Providers Care Chain Builder Loom Control Name Role Phone Bryan Schmid MD Primary Care Provider [phone] Reason for Visit * Reason Onset Date Comments Medication Refill 08/08/2023 Encounter Details Date Type Department Care Team (Late st Contact Info) Description 08/08/2023 [place] [phone] Kevin Herrera MD [facility] [place] [address] Nausea and vomiting, unspecified vomiting type Social History Tobacco Use Types Packs/Day Years [...] 9:30 AM EST [place] [phone] Walt Wiseman III, MD [facility] [place] [address] documented as of this encounter Visit Diagnoses Diagnosis Nausea and vomiting, unspecified vomiting type documented in this encounter Care Teams Chain Builder Loom Control Relationship Specialty Start Date End Date Bryan Schmid MD [address] [place] [address] [place] [address] PCP - [facility] Medicine 07/19/20 documented as of this encounter
--- OUTSIDE RECORDS SUMMARY | 2024-03-04 19:45 | XMS_ITS | Encounter Summary ---
[place] [address] Care Team Providers Care Mortician Supplies Sales Representative Name Role Phone Bryan Schmid MD Primary Care Provider [phone] Encounter Details Date Type Department Care Team (Late st Contact Info) Description 08/07/2023 Telephone [place] [id number] Maren Vargas Social History Tobacco Use Types Packs/Day Years Used Date Smoking Tobacco: Never Smokeless Tobacco: Never Alcohol Use Standard Drinks/Week Comments Yes 0 (1 standard drink = 0.6 oz pur e alcohol) occasional Sex and Gender Information Value Date Recorded Sex Assigned at Not on file Gender Identity Not on file Sexual Orientation Not on file documented as of this encounter Miscellaneous Notes * Telephone Encounter - Maren Vargas - 08/07/2023 2:50 PM EST Netta Gregorio [id number] Diagnosis/Indication: Nausea, vomiting and weight loss, f/u colon polyps Please review patient chart to confirm if previous Endoscopy procedure was performed within system. If yes, take note of Anesthesia type used. If previous procedure found, and with MAC/propofol Anesthesia support was used, schedule this procedure with Anesthesia and skip the Anesthesia portion of questions. If not performed within system, not performed at all, or performed with IVCS, ask Anesthesia questions. SCHEDULING QUESTIONS (ask all patient these questions) Have you ever had a/an Upper Endoscopy & Colonoscopy before? Yes: Date 2022 If yes, did you have any problems with the procedure (such as waking up during the procedure, pain or difficulties afterwards, etc.)? No What type of sedation was used: IV Conscious Sedation (ASK ONLY FOR COLONOSCOPY PROCEDURES) Are you aware, or have you ever been told that you had a poor prep or failed prep with a previous colonoscopy? No If yes, assign the Extended MiraLAX Prep (ASK ONLY FOR COLONOSCOPY PROCEDURES) Do you have an ongoing history of constipation? (E.g., hard stools, >2 days without a bowel movement, straining or difficulty passing stool) Yes If yes, assign the Extended MiraLAX Prep Do you take any blood thinners or have you been diagnosed with a bleeding disorder that increases your risk of bleeding with procedures? No Do you have a Pacemaker or Defibrillator device? If yes, send pool message to Cardiology with patient information and date or procedure. No Do you have diabetes? If yes, call PCP/managing provider to discuss use of prep and any questions or concerns related to. No If yes, assign the Extended MiraLAX Prep Do you take any iron supplements or vitamins that contain iron? No Do you have a preference regarding the gender of your provider? Yes ANESTHESIA QUESTIONS (YES to any question, please book with Anesthesia support) Have you ever been diagnosed with Pulmonary Hypertension and/or Congential Heart Disease? No Have you been diagnosed with A-Fib (atrial fibrillation) that is NOT being well controled with medications? No Have you ever had an allergic or adverse reaction to Fentanyl or Versed? No Have you had a problem with sedation or anesthesia? (Waking up during procedure, extreme confusion after, etc.) No Do you have a diagnosis of Obstructive Sleep Apnea that requires the use of a c- pap machine? No Do you use an oxygen tank at home? No Do you use a rescue inhaler more than twice per day? (COPD, severe asthma) No Do you experience breathing problems when you lay flat for a period of time? No Do you regularly take prescription opioid pain medications on a daily basis? (Includes oxycodone, Percocet, Suboxone, methadone, etc.) No If yes, assign the Extended MiraLAX Prep SCHEDULING CONFIRMATIONS: Please note any and all parts of your conversation with the patient here. We offer all new patients an opportunity to have an appointment with one of our associate care providers to learn more about your upcoming procedure, ask questions and get answers. These appointmentsare offered via telehealth. Would you be interested in scheduling this appointment? (Only ask if NEW referral patient; skip this question if GI provider ordered the procedure.) No Is there any other information or concerns you would like to us to share with your care team in relation to your upcoming scheduled procedure? No You must have a responsible libertarian who will drive you to your procedure, stay on campus for the entire duration of your procedure, and drive you home from your procedure. Who will likely be your driver license technician for the procedure? *Please Verify the height and weight, and adjust if height and/or weight have changed* Estimated body mass index is 35.81 kg/m?? as calculated from the following: Height as of an earlier encounter on 08/07/23: 172.7 cm (5' 8). Weight as of an earlier encounter on 08/07/23: 106.8 kg (235 lb 8 oz). Age:63 y.o. documented in this encounter Plan of Treatment Upcoming Encounters Date Type Department Care Team (Late st Contact Info) Description 07/12/2024 9:30 AM EST [place] [address] Walt Wiseman III, MD [facility] [place] [address] documented as of this encounter Visit Diagnoses Not on filedocumented in this encounter Care Teams Mortician Supplies Sales Representative Relationship Specialty Start Date End Date Bryan Schmid MD [address] [place] [address] RUFINA FRENCH [address] PCP - [facility] 07/19/20 documented as of this encounter
--- OUTSIDE RECORDS SUMMARY | 2024-03-04 19:45 | XMS_ITS | Encounter Summary ---
[place] [address] Care Team Providers Care Dough Raiser Name Role Phone Bryan Schmid MD Primary Care Provider [phone] Reason for Visit * Consultation (Routine) - Closed Specialty Diagnoses / Procedures Referred By Contlalo t Referred To Contact Neurology Diagnoses Occipital neuralgia, unspecified laterality Bryan Schmid MD [address] [place] [id number] [facility] [address] [place] [id number] Referral ID Status Reason Start Date Expiration Date V isits Requested Visits Authorized [id number] Closed Consult, Test & Treat PCP Updated and/or Approved 03/27/2023 03/26/2024 1 1 Encounter Details Date Type Department Care Team (Late st Contact Info) Description 07/10/2023 2:00 PM EST [place] [phone] Walt Wiseman III, MD [facility] [place] [address] Cervicogenic migraine; Ulnar neuropathy at elbow, left Social History Tobacco Use Types Packs/Day Years Used Date Smoking Tobacco: Never Smokeless Tobacco: Never Alcohol Use Standard Drinks/Week Comments Yes 0 (1 standard drink = 0.6 oz pur e alcohol) occasional Sex and Gender Information Value Date Recorded Sex Assigned at Not on file Gender Identity Not on file Sexual Orientation Not on file documented as of this encounter Last Filed Vital Signs Vital Sign Reading Time Taken Comments Blood Pressure 131/68 07/10/2023 2:03 PM EST Pulse 67 07/10/2023 2:03 PM EST Temperature - - Respiratory Rate - - Oxygen Saturation - - Inhaled Oxygen Concentration - - Weight 102.2 kg (225 lb 3.2 oz) 07/10/2023 2:03 PM EST Height 172.7 cm (5' 8) 07/10/2023 2:03 PM EST Body Mass Index 34.24 07/10/2023 2:03 PM EST documented in this encounter Patient Instructions * Patient Instructions* Walt Wiseman III, MD - 07/10/2023 2:00 PM EST Continue on baclofen 15 mg 2 times daily Okay to continue with hydroxyzine as needed for migraine headache abortive treatment Add on Magnesium (oxide or glycinate) 400mg and riboflavin/vitamin b2 (400mg) Follow-up in 6 months documented in this encounter Progress Notes * Walt Wiseman III, MD - 07/10/2023 2:00 PM EST General Neurology [facility] Follow-up Visit Dear Bryan Schmid MD, I saw Netta Gregorio in clinic today in follow-up for cervicogenic headache and vertigo. She was unaccompanied at today's visit. Below is my progress note with impression and plan. Please do not hesitate to call with any questions. Brief Summary of History of Presenting Illness (telemedicine consultation 11/07/2020): Netta Gregorio is a 63 y.o. woman with hypertension, hyperlipidemia, coronary disease, JACKSON, obesity, and chronic vertigo who was initially seen in consultation on 11/07/2020. That time she reports onset of first episode of vertigo in 2001 with episodes lasting weeks to up to 6 months. Her most recent bout of vertigo started in late 2019 and had continued. She was previously seen by [facility] (Dr. Guevara) who did not think that her symptoms were related to M??ni??re's disease or underlying tumor. She noted that her neck pain and neck muscle tightness (especially on the left) was related to worseningvertigo as well as frontal headaches with associated visual aura and light sensitivity. Vertigo seem to be triggered or worsened by laying down on the left more than right, movement of her head to the left, bending down and then standing, and bending and turning the head to the left, as well as tipping her head backwards. Prior MRI scan of her brain completed in February 2020 did not show any changes suggestive of an etiology (most consistent with small vessel ischemic disease pattern). Her symptoms seem to be most consistent with cervicogenic migraine with associated vertigo. I recommended that she continue with physical therapy and she was started on baclofen 10 mg nightly as wellas hydroxyzine 10 mg 3 times daily as needed. A CT angiogram of her head was obtained in October 2020 and was unremarkable. In July 2021 she noted significant improvement in cervicogenic migraine with baclofen 10 mg 2 times daily and hydroxyzine 10 mg for migraine rescue. In December 2022 she noted worsening of neck tightness and more frequent cervicogenic migraines with associated vertigo. Hydroxyzine continuing to be effective. Her baclofen dosing was increased to 15 mg 2 times daily and she was referred to physical therapy Interval History: Today, Netta reports that she continues to note benefit of baclofen 15 mg 2 times daily for cervicogenic migraine prevention and hydroxyzine for migraine rescue. However she has noticed some mild worsening recently without any clear triggers. She also notes occasional paresthesias in digits 4 and 5 in the left hand as well as occasional discomfort in the left elbow. Current Medications: reviewed and updated in EMR Past Medical History: reviewed and updated Review of Systems A ROS was obtained and reviewed with the patient. Pertinent positives and negatives were included in the HPI. Physical Examination She was alert and oriented to person, place, and time with normal language, attention and concentration, recent and remote memory, praxis, and intellectual function. Mood was euthymic. Affect was congruent. Ocular ductions were intact without nystagmus. Normal saccades. No skew Strength was full throughout. Deep tendon reflexes: Biceps 2+/2+ Triceps 2+/2+ Knees 3+/3+ Ankles 1+/1+ Mild decrease sensation and pain in digits 4 and 5 on the left hand (splitting digit 4). There is positive Tinel's sign at the elbow. Otherwise pin sensation was intact. Standard gait was slightly wide-based. She was able to tandem walk. Assessment: ICD-10-CM 1. Cervicogenic migraine G43.809 baclofen (Lioresal) 10 mg tablet hydrOXYzine (Atarax) 10 mg tablet 2. 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 woman with multiple cardiovascular risk factors and cervicogenic headache.Cervicogenic headaches are well-controlled on current regimen of baclofen 50 mg 2 times daily and hydroxyzine. We discussed possibility of adding on magnesium and riboflavin for cervicogenic migraine. 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 We discussed avoidance of pressure on the left elbow as well as consideration of use of a soft elbow brace/pad to avoid further injury. Plan: Continue on baclofen 15 mg 2 times daily Okay to continue with hydroxyzine as needed for migraine headache abortive treatment Add on Magnesium (oxide or glycinate) 400mg and riboflavin/vitamin b2 (400mg) Follow-Up: 6 months Thank you [facility] allowing [facility]. If you have questions or concerns please do not hesitate to call our clinic at [phone]. Walt Wiseman III, MD [employer] Steward/Stewardess Department of Neurology [facility] [address] P F 9:41 AM 07/17/2023 documented in this encounter Plan of Treatment Upcoming Encounters Date Type Department Care Team (Late st Contact Info) Description 07/12/2024 9:30 AM EST [place] [address] Walt Wiseman III, MD [facility] [place] [address] documented as of this encounter Visit Diagnoses Diagnosis Cervicogenic migraine Other forms of migraine, without mention of intractable migraine without mention of status migrainosus Ulnar neuropathy at elbow, left documented in this encounter Care Teams Dough Raiser Relationship Specialty Start Date End Date Bryan Schmid MD [address] [place] [address] [place] [address] PCP - [facility] 07/19/20 documented as of this encounter
--- OUTSIDE RECORDS SUMMARY | 2024-03-04 19:45 | XMS_ITS | Encounter Summary ---
[place] [address] Care Team Providers Care Explosion Welder Name Role Phone Bryan Schmid MD Primary Care Provider [phone] Encounter Details Date Type Department Care Team (Latest Contact Info) Description 03/02/2024 3:15 PM EDT Procedure [place] [address] Ean Montoya MD [facility] [place] [address] Left hand paresthesia Social History Tobacco Use Types Packs/Day Years Used Date Smoking Tobacco: Never Smokeless Tobacco: Never Alcohol Use Standard Drinks/Week Comments Yes 0 (1 standard drink = 0.6 oz pur e alcohol) occasional Sex and Gender Information Value Date Recorded Sex Assigned at Not on file Gender Identity Not on file Sexual Orientation Not on file documented as of this encounter Progress Notes * Ean Montoya MD - 03/02/2024 3:15 PM EDT EMG procedure note Netta Gregorio was seen for EMG nerve conduction studies at the request of Dr. Wiseman for further evaluation of left hand paresthesias with question of ulnar neuropathy. Please see scanned report for complete data. The left median and ulnar sensory and motor studies are normal. Left radial sensory study is normal. The left median to ulnar ring finger comparison study is normal. The left median and left ulnar F waves are normal. EMG of the left upper extremity for deltoid, bicep, EDC, FDI, and APB show no active denervation and normal motor unit action potentials. Assessment: All results are normal. There is no electrodiagnostic evidence of left median neuropathy, left ulnar neuropathy, or left cervical radiculopathy. Clinical correlation is recommended. Netta Gregorio will follow-up with Dr. Wiseman. This note was created with voice recognition software. documented in this encounter Plan of Treatment Upcoming Encounters Date Type Department Care Team (Late st Contact Info) Description 07/12/2024 9:30 AM EST [place] [address] Walt Wiseman III, MD [facility] [place] [address] documented as of this encounter Visit Diagnoses Diagnosis Left hand paresthesia Disturbance of skin sensation documented in this encounter Care Teams Explosion Welder Relationship Specialty Start Date End Date Bryan Schmid MD [address] [place] [address] [place]A FRENCH [address] PCP - [facility] 07/19/20 documented as of this encounter
--- OUTSIDE RECORDS SUMMARY | 2024-03-04 19:45 | XMS_ITS | Encounter Summary ---
Author Organization [facility] [place] [address] Care Team Providers Care Fruit Or Nut Farmworker Name Role Phone Bryan Schmid MD Primary Care Provider [phone] Encounter Details Date Type Department Care Team (Latest Contact Info) Description 08/07/2023 Travel Social History Tobacco Use Types Packs/Day Years [...] 9:30 AM EST [place] [address] Walt Wiseman III, MD [facility] [place] [address] documented as of this encounter Visit Diagnoses Not on filedocumented in this encounter Care Teams Fruit Or Nut Farmworker Relationship Specialty Start Date End Date Bryan Schmid MD [address] [place] [address] [place] FRENCH [address] PCP - [facility] 07/19/20 documented as of this encounter
--- OUTSIDE RECORDS SUMMARY | 2024-03-04 19:45 | XMS_ITS | Encounter Summary ---
Author Organization [facility] [place] [address] Care Team Providers Care Turret Lathe Set Up Operator Name Role Phone Bryan Schmid MD Primary Care Provider [phone] Encounter Details Date Type Department Care Team (Late st Contact Info) Description 10/31/2022 10:30 AM EDT Office [place] [address] Christel Bustillos MD [facility] [place] [address] Irritable bowel syndrome, unspecified type Social History Tobacco Use Types Packs/Day [...] Sign Reading Time Taken Comments Blood Pressure 133/74 10/31/2022 10:17 AM EDT Pulse 63 10/31/2022 10:17 AM EDT Temperature - - Respiratory Rate - - Oxygen Saturation - - Inhaled Oxygen Concentration - - Weight 108 kg (238 lb) 10/31/2022 10:17 AM EDT Height 172.7 cm (5' 8) 10/31/2022 10:17 AM EDT Body Mass Index 36.19 10/31/2022 10:17 AM EDT documented in this encounter Progress Notes * Christel Bustillos MD - 10/31/2022 10:30 AM EDT Images from the original note were not included. Division of Gastroenterology and Hepatology Follow Up Patient Visit PCP: Bryan Schmid MD Referring provider: same as above Reason for Visit: IBS and incontinence ?? HPI: Netta Gregorio is a 62 y.o. female w/ hx of asthma, CAD, HLD, HTN, JACKSON, spinal stenosis, hypoTH who presents to clinic to f/u d/t stool incontinence, urgency and frequency. I initially met Netta in Jul of this year, at which point she had been endorsing many years of issues with diarrhea. She had previously tried FODMAP. Also had hx of numerous abdominal surgeries with prior lysis of adhesions. After seeing me in Jul, she had colonoscopy which was largely unremarkable besides many polyps (removed). Additionally, TSH and tTG were unremarkable. I had re-referred her to spine team given her numbness and incontinence - she has not yet scheduled with them or seen them. She was supposed to start with pelvic floor PT but has not yet. Since I last saw her, she has been using fiber and imodium and doing the low FODMAP diet. As for her sx, she feels like things are somewhat better. She has been taking the fiber gummies, thinks they are helping thicken stool. She is not taking the levothyroxine at the same time as the PPI and thinks this is helping. Sometimes has looser stools after alcohol - happens the next day or two after, usually 5-6 episodes. When she has diarrhea it is very yellow. If she is not having diarrhea, she willhave BM about 1 hour after getting up. Sometimes feels a bit of incomplete evacuation so may have addn stool or two. Typically in a week she will have one episode of diarrhea if not every other week.She really thinks fiber has helped and changing medication time has helped as well. Has not needed imodium. Diet sanchez, she is eating one meal a day. Feeling like she is weak which is new, and tired. Still having numbness and tingling in groin. Incontinence has been better since being on mirabegron. Colonoscopy 07/2022: Impression: ?- The examined portion of the ileum ?was normal. ?- One 3 mm polyp in the cecum, ?removed with a cold snare. Resected ?and retrieved. ?- Six 4 to 6 mm polyps in the ?transverse colon, removed with a ?cold snare. Resected and retrieved. ?- Diverticulosis in the sigmoid ?colon and in the transverse colon. ?- The distal rectum and anal verge ?are normal on retroflexion view. Recommendation: ?- Discharge patient to home. ?- Resume previous diet. ?- Await pathology results. ?- Repeat colonoscopy in 3 years for ?surveillance based on pathology ?results. DIAGNOSIS A - Transverse colon polyps, resection (Multiple): - ??Fragments of tubular adenoma(s) with ??high-grade dysplasia . B - Cecal polyp, resection: - Colonic mucosa with hyperplastic changes. - ??Multiple levels examined. ?? PAST MEDICAL HISTORY: Past Medical History: Diagnosis Date ??? Asthma ??? Borderline diabetes ??? Coronary artery disease ??? Hyperlipidemia ??? Hypertension ??? Obstructive sleep apnea on CPAP Patient Active Problem List Diagnosis Code ??? Chest pain, unspecified R07.9 ??? IBS (irritable bowel syndrome) K58.9 ??? GERD (gastroesophageal reflux disease) K21.9 ??? Primary osteoarthritis of left knee M17.12 ??? Obesity E66.9 ??? Sleep apnea G47.30 ??? Asthma J45.909 ??? S/P left total knee arthroplasty 01/06/2014 Brittaney Z96.659 ??? Chronic midline back pain M54.9, G89.29 PAST SURGICAL HISTORY: Past Surgical History: Procedure Laterality Date ??? ANTERIOR CRUCIATE LIGAMENT REPAIR 2011 left ??? BACK SURGERY 01/2013 ??? CHOLECYSTECTOMY, LAPAROSCOPIC 2011 ??? DILATION AND CURETTAGE OF UTERUS 2011 ??? HAND SURGERY bilat thumb ligament repair, small finger on right hand x2 (fx) ??? LAPAROSCOPY 1995 ??? MENISCECTOMY 1996 left ? ? PRO ARTHROPLASTY KNEE CONDYLE & PLATEAU MEDIAL & LAT COMPARTMENTS 01/06/2014 @TOTAL KNEE ARTHROPLASTY performed by Shamir Quispe MD at [facility] MAIN OR ??? PRO COLONOSCOPY, BIOPSY 06/03/2012 COLONOSCOPY FLEXIBLE, WITH BX performed by Alireza James MD at [facility] ENDOSCOPY ??? PRO COLONOSCOPY, BIOPSY N/A 03/07/2016 COLONOSCOPY FLEXIBLE, WITH BX performed by Eliel Nixon MD at [facility] ENDOSCOPY ??? PRO COLONOSCOPY, REMV LESN, SNARE N/A 07/29/2022 COLONOSCOPY, POLYPECTOMY, REMOVAL LESION BY SNARE (WRVU 4.67) performed by Kevin Herrera MD at [facility] ENDOSCOPY ??? PRO UPPER GI ENDOSCOPY, BIOPSY 06/03/2012 EGD WITH BIOPSY performed by Alireza James MD at [facility] ENDOSCOPY ??? WISDOM TOOTH EXTRACTION three teeth SOCIAL HISTORY: Social History Socioeconomic History ??? Marital status: Spouse name: Not on file ??? Number of children: Not on file ??? Years of education: Not on file ??? Highest education level: Not on file Occupational History ??? Not on file Tobacco Use ??? Smoking status: Never ??? Smokeless tobacco: Never Vaping Use ??? Vaping Use: Never used Substance and Sexual Activity ??? Alcohol use: Yes Alcohol/week: 0.0 standard drinks Comment: occasional ??? Drug use: Not Currently ??? Sexual activity: Not on file Other Topics Concern ??? Not on file Social History Narrative ??? Not on file Social Determinants of Health Financial Resource Strain: Not on file Food Insecurity: Not on file Transportation Needs: Not on file Physical Activity: Not on file Housing Stability: Not on file FAMILY HISTORY: Family History Problem Relation Age of Onset ??? Osteoporosis Mother ??? Cancer Brother MEDICATIONS: Current Outpatient Medications Medication Sig Dispense Refill ??? baclofen (Lioresal) 10 mg tablet TAKE ONE TABLET BY MOUTH TWICE A DAY 60 tablet 4 ??? Myrbetriq 50 mg Tablet Sustained Release 24 hr Take 50 mg by mouth daily. ??? loperamide (Imodium A-D) 2 mg Capsule Take 1 capsule by mouth 4 times daily as needed for Diarrhea. 60 tablet 3 ??? fluticasone propion-salmeteroL (ADVAIR) 250-50 mcg/dose Disk with Device Inhale 1 puff into thelungs 2 times daily. ??? hydrOXYzine (Atarax) 10 mg Tablet TAKE 1 TABLET ORALLY EVERY 8 HOURS NEEDED (MIGRAINE OK TO USE AT ONSET AND REPEAT AFTER 2 HOURS) 30 tablet 5 ??? oxyCODONE-acetaminophen (Percocet) 5-325 mg Tablet TAKE ONE TABLET BY MOUTH EVERY 8 HOURS NEEDED FOR 28 DAYS ??? Narcan 4 mg/actuation [place], Non-Aerosol as needed. ??? diazePAM (Valium) 5 mg Tablet Take 5 mg by mouth as needed. ??? amoxicillin (Amoxil) 500 mg Capsule Take 2,000 mg by mouth as needed. ??? triamcinolone (KENALOG) 0.1 % Cream Apply topically twice a day to the affected areas for 1 week on and 1 week off, and repeat as needed 454 g 1 ??? Spiriva with HandiHaler 18 mcg Capsule, w/Inhalation Device INHALE BY MOUTH ONCE DAILY ??? montelukast (SINGULAIR) 10 mg Tablet Take 10 mg by mouth nightly. ??? acetaminophen (TYLENOL) 500 mg tablet Take 2 tablets by mouth every 8 hours. (Patient not taking: Reported on 07/10/2022) 30 tablet 1 ??? atorvastatin (LIPITOR) 40 mg tablet Take 40 mg by mouth nightly. ??? cetirizine (ZYRTEC) 10 mg tablet Take 10 mg by mouth nightly. ??? zolpidem (AMBIEN) 10 mg Tablet Take 10 mg by mouth nightly. ??? albuterol (PROVENTIL HFA;VENTOLIN HFA) 90 mcg/actuation inhaler Inhale 2 puffs into the lungs every 4 hours as needed. Use with spacer ??? meclizine (ANTIVERT) 25 mg tablet Take 25 mg by mouth 3 times daily as needed. ??? esomeprazole (NEXIUM) 40 mg capsule Take 40 mg by mouth every morning (before breakfast). ??? sertraline (ZOLOFT) 100 mg tablet Take 100 mg by mouth daily. ??? levothyroxine (SYNTHROID) 25 mcg tablet Take 25 mcg by mouth daily. ??? metoprolol (LOPRESSOR) 100 mg tablet Take 150 mg by mouth daily. ??? amlodipine (NORVASC) 5 mg tablet Take 5 mg by mouth daily. ??? traZODone (DESYREL) 50 mg tablet Take 50 mg by mouth nightly. No current facility-administered medications for this visit. ALLERGIES: Allergies Allergen Reactions ??? Codeine Phosphate Trouble breathing ??? Darvocet A500 [Propoxyphene N-Acetaminophen] Trouble breathing ??? Codeine Other reaction(s): Difficulty Breathing ??? Propoxyphene Napsylate Other reaction(s): Difficulty Breathing ??? Unable To Find [Unclassified Drug] Horses, guinea pigs and other animal dander-causes itchy eyes and nasal congestion PHYSICAL EXAMINATION: There were no vitals filed for this visit. General: Well appearing, no acute distress HEENT: anicteric sclera Chest: Normal respiratory rate, no increased work of breathing ABD: Soft, non-tender, non-distended, normoactive bowel sounds Extremities: Warm and well perfused Skin: No rash, no jaundice Neuro: Alert and oriented x3, grossly non-focal LABS: Labs personally reviewed in eD Lab Results Component Value Date WBC 7.9 01/08/2014 HGB 11.4 01/08/2014 MCV 92.7 01/08/2014 RDWCV 13.7 01/08/2014 PLATELET 129 (L) 01/08/2014 Lab Results Component Value Date INR 0.8 (L) 12/01/2013 PT 12.2 (L) 12/01/2013 Lab Results Component Value Date CREATININE 0.70 11/27/2020 BUN 8 01/08/2014 NA 144 01/08/2014 K 4.1 01/08/2014 CL 103 01/08/2014 CO2 25 01/08/2014 CALCIUM 9.3 01/08/2014 Lab Results Component Value Date BILITOT 0.1 (L) 04/13/2012 BILIDIR 0.1 04/13/2012 ALKPHOS 79 04/13/2012 AST 23 04/13/2012 ALT 31 (H) 04/13/2012 ALBUMIN 4.6 04/13/2012 IMAGING: Reports and images personally reviewed in [facility]. Images independently interpreted. No orders to display ENDOSCOPY: Reports and images personally reviewed in [facility] 06/2012 Colonoscopy: Impression: ?- The examined portion of the ileum ? was normal. ? - The cecum is normal. ? - The Colon is normal. This was ? biopsied. ? - Two small (2 to 4 mm polyps) in the ? mid ascending colon. Resected and ? retrieved. ? - One 4 mm polyp in the mid ? transverse colon. Resected and ? retrieved. ? - The descending colon is normal. ? - Congested, erythematous and ? xyhasryj-lunyrqy-apfbmscaj mucosa in ? the sigmoid colon. This was biopsied. ? - One 4 mm polyp in the sigmoid ? colon. Resected and retrieved. ? - The rectum is normal. ? - Biopsies were taken with a cold ? forceps from the ascending colon, ? transverse colon and descending colon ? for evaluation of microscopic colitis. ?? PATH: ?? A - Duodenum, biopsy: ? Duodenal mucosa, negative for diagnostic abnormality. ? B - Stomach, biopsy: ? Gastric antrum-type and body/fundic-type mucosa, negative for ? diagnostic abnormality. ? C - Esophagus, biopsy: ? Squamocolumnar junctional mucosa (cardia type) with mild chronic ? inflammation. ??There is no evidence of intestinal metaplasia. ? D - Colon, random biopsies: ? Colonic mucosa, negative for diagnostic abnormality. ? E - Ascending colon, biopsy: ? Hyperplastic polyp. ? F - Transverse colon, polypectomy: ? Tubular adenoma. ? G - Sigmoid colon, biopsy: ? Colonic mucosa with lamina propria hemorrhage. ? H - Sigmoid colon, polypectomy: ? Tubular adenoma. ?? 03/2016 Colonoscopy Impression: ?- Diverticulosis in the sigmoid colon ?and in the descending colon. ?- One 4 mm polyp in the ascending ?colon. Resected and retrieved. ?- The examination was otherwise ?normal on direct and retroflexion ?views. ?? ASSESSMENT & PLAN: Netta Gregorio is a 62 y.o. female w/ hx of asthma, CAD, HLD, HTN, JACKSON, spinal stenosis, hypoTH who presents to clinic to f/u stool incontinence, urgency and frequency. Since I last saw her, things have been improving with imodium, fiber and low FODMAP diet. As previously noted, colonoscopy from July was reassuring (though many polyps removed). We further discussed her dx of likely IBS-D. As noted at last visit, TSH and tTG were normal. She is going to continue on the fiber gummies and thinks this is helping. In fact, has not needed much imodium. Also watching what she eats. We discussed continuing PPI as well, and imodium as needed. Of note, she did have CCY a number of years ago and had previously tried colestipol and thinks maybe this helped. Can always restart colestipol if diarrhea worsens, she would like to hold off for now. I would still like her to see the spine team given her numbness and incontinence, as well as pelvicfloor PT to work on strengthening muscles and regaining some control. She is going to call spine team to schedule, and talk to PCP about re-referral to local pelvic floor PT (I am unable to refer given outside of system). Additionally, asked that she mention new weakness to PCP. Will get CBC and TSH today given weakness to ensure not anemic and no changes in thyroid function or need for dose adjustment. I will see her back in 6 mo. ?? Plan: - Fiber daily - Continue w/PPI - Imodium PRN - Low FODMAP diet - Schedule w/spine team - PCP re: weakness, pelvic floor PT - CBC, TSH today given weakness - Colestipol if diarrhea gets worse - RTC in 6mo The patient was discussed with Dr. Javier Bustillos MD PGY-4, Gastroenterology [facility] [place] [address] P: [phone] F: [phone] CC Bryan Schmid MD [address] [place] [address] [place] [address] Bryan Minor MD [address] [place] [address] [place] [address] documented in this encounter Plan of Treatment Upcoming Encounters Date Type Department Care Team (Late st Contact Info) Description 07/12/2024 9:30 AM EST Office [place] [address] Walt Wiseman III, MD [facility] [address] documented as of this encounter Procedures Procedure Name Priority Date/Time Associated Diagnosis Comments HEMOGRAM Routine 10/31/2022 10:56 AM EDT Irritable bowel syndrome, unspecified type DIFFERENTIAL, AUTOMATED Routine 10/31/2022 10:56 AM EDT Irritable bowel syndrome, unspecified type CBC (WITH DIFF) Routine 10/31/2022 10:56 AM EDT Irritable bowel syndrome, unspecified type TSH Routine 10/31/2022 10:56 AM EDT Irritable bowel syndrome, unspecified type documented in this encounter Results * (ABNORMAL) Differential, Automated (10/31/2022 10:56 AM EDT) Neutrophil % 54.1 % [facility] Neutrophil Absolute 4.68 1.70 - 6.10 x10(3)/mc L [facility] Lymph % 34.5 % [facility] Lymphocytes Abs 3.0 0.9 - 3.2 x10(3)/mc L [facility] Monocyte % 5.7 % [facility] Monocyte Abs 0.5 0.3 - 0.9 x10(3)/mc L [facility] Eos % 3.7 % [facility] Eosinophils Abs 0.3 0.0 - 0.4 x10(3)/mc L [facility] Basophil % 1.2 % [facility] Baso Absolute 0.1 0.0 - 0.1 x10(3)/mc L [facility] Immature Gran % 0.80 % [facility] Comment: Immature granulocytes(IG's)percentage and absolute count will include metamyelocytes, myelocytes, and promyelocytes. Blood smears from CBCs yielding IG's will be scanned manually for concordance. If this scan disagrees with the automated IG or if promyelocytes are noted, a manual differential will be performed. Immature Gran Absolute 0.07(H) 0.00 - 0.04 x10(3)/mc L [facility] Blood 10/31/2022 10:5 6 AM EDT 10/31/2022 11:12 AM EDT Narrative Resulting Agency Comment Spec In Lab Christel Bustillos MD HEMATOLOGY ORDERABLE S [facility] [place] [address] * Hemogram (10/31/2022 10:56 AM EDT) White Blood Cell 8.6 4.0 - 9.5 x10(3)/[facility] Red Blood Cell 5.06 4.00 - 5.21 x10(6)/[facility] Hemoglobin 15.1 11.7 - 15.5 g/dL [facility] Hematocrit 45.0 35.7 - 45.8 % [facility] Mean Cell Volume 88.9 82.6 - 94.4 fL [facility] Mean Cell Hemoglobin 29.8 27.1 - 32.0 pg [facility] Mean Cell Hemoglobin Concentration 33.6 31.7 - 35.0 g/dL [facility] Platelet 187 145 - 357 x10(3)/[facility] RDW Standard Deviation 44.5 37.0 - 46.0 fL [facility] RDW coefficient of variation 13.8 11.5 - 14.1 % [facility] Mean Platelet Volume 11.3 7.6 - 12.9 fL [facility] NRBC% auto 0.0 % [facility] NRBC Absolute 0.000 0.000 - 0.000 x10(3)/[facility] Blood 10/31/2022 10:5 6 AM EDT 10/31/2022 11:12 AM EDT Narrative Resulting Agency Comment Spec In Lab Christel Bustillos MD HEMATOLOGY ORDERABLE S [facility] [place] [address] * TSH (10/31/2022 10:56 AM EDT) Thyroid Stimulating Hormone 1.72 0.27 - 4.20 mcIU/mL [facility] Comment: Reference Interval (mcIU/mL): Females: ??First Trimester: 0.23-3.88 ??Second Trimester: 0.22-3.90 ??Third Trimester: 0.44-4.66 Blood 10/31/2022 10:5 6 AM EDT 10/31/2022 11:12 AM EDT Narrative Resulting Agency Comment Spec In Lab Kevin Herrera MD CHEMISTRY ORDERABLES [facility] [place] [address] documented in this encounter Visit Diagnoses Diagnosis Irritable bowel syndrome, unspecified type documented in this encounter Care Teams Turret Lathe Set Up Operator Relationship Specialty Start Date End Date Bryan Schmid MD [address] [place] [address] [place] [address] PCP - [facility] Medicine 07/19/20 documented as of this encounter
--- OUTSIDE RECORDS SUMMARY | 2024-03-04 19:45 | XMS_ITS | Encounter Summary ---
Author Organization [facility] [place] [address] Care Team Providers Care Building Maintenance Technician Name Role Phone Bryan Schmid MD Primary Care Provider [phone] Reason for Visit * Reason Onset Date Comments Medication Refill 05/12/2023 Encounter Details Date Type Department Care Team (Late st Contact Info) Description 05/12/2023 [place] [id number] Shikha Eldridge PA [facility] [place] [address] Cervicogenic migraine Social History Tobacco Use Types Packs/Day Years [...] encounter Miscellaneous Notes * Telephone Encounter - Maine Smith MA - 05/14/2023 3:15 PM EST Prescription Renewal Request Name: Netta Gregorio : 1960 Prescription(s) Requested: Requested Prescriptions Pending Prescriptions Disp Refills hydrOXYzine (Atarax) 10 mg tablet 90 tablet 3 Sig: TAKE 1 TABLET ORALLY EVERY 8 HOURS NEEDED (MIGRAINE OK TO USE AT ONSET AND REPEAT AFTER 2 HOURS) Date of Encounter last in This Dept (If need an appointment send to secretaries to schedule): 01/06/2023 [place] Next Encounter in This Dept: 07/10/2023 Date of Last Refill (for each medication): 11/28/2022 30 tabs with 2 refills Medication category requirements (labs etc): n/a Status of request: Pended Allergies Allergen Reactions Codeine Phosphate Trouble breathing Darvocet A500 [Propoxyphene N-Acetaminophen] Trouble breathing Animal Dander Codeine Other reaction(s): Difficulty Breathing House Dust Mold Propoxyphene Napsylate Other reaction(s): Difficulty Breathing Unable To Find [Unclassified Drug] Horses, guinea pigs and other animal dander-causes itchy eyes and nasal congestion Maine Smith MA 05/14/23 3:15 PM documented in this encounter Plan of Treatment Upcoming Encounters Date Type Department Care Team (Late st Contact Info) Description 07/12/2024 9:30 AM EST [place] [address] Walt Wiseman III, MD [facility] [place] [address] documented as of this encounter Visit Diagnoses Diagnosis Cervicogenic migraine Other forms of migraine, without mention of intractable migraine without mention of status migrainosus documented in this encounter Care Teams Building Maintenance Technician Relationship Specialty Start Date End Date Bryan Schmid MD [address] [place] [address] [place] [address] PCP - [facility] Medicine 07/19/20 documented as of this encounter
--- OUTSIDE RECORDS SUMMARY | 2024-03-04 19:45 | XMS_ITS | Encounter Summary ---
Author Organization [facility] [place] [address] Care Team Providers Care Soot Blower Name Role Phone Bryan Schmid MD Primary Care Provider [phone] Reason for Visit * Reason Onset Date Comments Medication Refill 08/30/2022 Encounter Details Date Type Department Care Team (Late st Contact Info) Description 08/30/2022 [place] [address] Walt Wiseman III, MD [facility] [place] [address] Cervicogenic migraine Social History Tobacco Use Types [...] encounter Miscellaneous Notes * Telephone Encounter - Netta Kaiser RN - 08/30/2022 2:55 PM EDT Pt has scheduled follow up appointment for January 06, 2023. Refill request submitted with lizz to get pt to visit. * Telephone Encounter - Netta aKiser RN - 08/30/2022 2:08 PM EDT Surescript request for : baclofen (Lioresal) 10 mg Tablet Last rx: 08/13/21 Quantity: 90 Refills: 5 From last note: 1. Continue baclofen 10 mg 2 times daily 2. Okay to continue with hydroxyzine as needed for migraine headache abortive treatment 3. Recommend relaxation techniques to reduce stress which is a trigger of her cervicogenic migraine Last appt: 08/13/21 Next appt: TBD- Follow-Up: 6 months. Forwarded to [facility] for scheduling, pt messaged via Diass[employer] re: need for FUV. documented in this encounter Plan of Treatment Upcoming Encounters Date Type Department Care Team (Late st Contact Info) Description 07/12/2024 9:30 AM EST [place] [address] Walt Wiseman III, MD [facility] [place] [address] documented as of this encounter Visit Diagnoses Diagnosis Cervicogenic migraine Other forms of migraine, without mention of intractable migraine without mention of status migrainosus documented in this encounter Care Teams Soot Blower Relationship Specialty Start Date End Date Bryan Schmid MD [address] [place] [address] [place] [address] PCP - [facility] Medicine 07/19/20 documented as of this encounter
--- OUTSIDE RECORDS SUMMARY | 2024-03-04 19:45 | XMS_ITS | Encounter Summary ---
Author Organization [facility] [place] [address] Care Team Providers Care Medical Oncologist Name Role Phone Bryan Schmid MD Primary Care Provider [phone] Encounter Details Date Type Department Care Team (Late st Contact Info) Description 08/20/2022 Orders [place] [id number] [facility] [place] [address] Adenomatous polyp of colon, unspecified part of colon Social History Tobacco Use Types Packs/Day Years [...] 9:30 AM EST Office [place] [address] Walt Wiseman III, MD [facility] [place] [address] Scheduled Orders Name Type Priority Associated Diagnoses Orde r Schedule ENDOSCOPY CASE REQUEST: COLONOSCOPY, DIAGNOSTIC (WRVU 3.26) Procedures Routine Adenomatous polyp of colon, unspecified part of colon Ordered: 08/20/2022 documented as of this encounter Visit Diagnoses Diagnosis Adenomatous polyp of colon, unspecified part of colon documented in this encounter Care Teams Medical Oncologist Relationship Specialty Start Date End Date Bryan Schmid MD [address] [place] [address] [place] [address] PCP - [facility] Medicine 07/19/20 documented as of this encounter
--- OUTSIDE RECORDS SUMMARY | 2024-03-04 19:45 | XMS_ITS | Encounter Summary ---
Author Organization [facility] [place] [address] Care Team Providers Care Upper Tier Name Role Phone Bryan Schmid MD Primary Care Provider [phone] Encounter Details Date Type Department Care Team (Late st Contact Info) Description 01/08/2024 1:30 PM EDT Office [place] [address] Walt Wiseman III, MD [facility] [place] [address] Ulnar neuropathy at elbow, left; Cervicogenic migraine Social History Tobacco Use Types [...] Sign Reading Time Taken Comments Blood Pressure 112/70 01/08/2024 1:29 PM EDT Pulse 52 01/08/2024 1:29 PM EDT Temperature - - Respiratory Rate - - Oxygen Saturation 97% 01/08/2024 1:29 PM EDT Inhaled Oxygen Concentration - - Weight - - Height 172.7 cm (5' 8) 01/08/2024 1:29 PM EDT Body Mass Index - - documented in this encounter Progress Notes * Melissa Jones DO - 01/08/2024 1:30 PM EDT General Neurology [facility] Follow-up Visit Dear Bryan Schmid MD, I saw Netta Gregorio in clinic today in follow-up for cervicogenic headache and vertigo. She was not accompanied at today's visit. Below is my progress [...] recent bout of vertigo started in late 2018 and had continued. She was previously seen by [facility] (Dr. Guevara) who did not think [...] daily and she was referred to physical therapy. At her last visit in July 2023, she noted continued benefit on baclofen 15 mg 2 times daily forcervicogenic migraine prevention and hydroxyzine for migraine rescue. She had noted some recent worsening without clear triggers. Discussed adding on magnesium and riboflavin/ vitamin B2. At the samevisit she also noted occasional paresthesias in the 4th and 5th digits of the left hand with occasional discomfort in the left elbow, noted to be in the ulnar distribution. Interval History: Netta was last seen in July 2023. Today, she reports significant improvements in her headaches and vertigo, noting she has had no recent episodes of vertigo. She endorses occasional headaches, about one per week, though they are not associated with phonophobia, photophobia, or nausea as they previously had been. She occasionally experiences an aura, described as lightheadedness/dizziness about once every 1-2 weeks exclusively when she lays on her back. These auras precipitate vertiginous episodes, which have been successfully aborted when she takes hydroxyzine at the onset of the aura. Since her last visit she has been going to physical therapy twice a week and taking magnesium and riboflavin, which she thinks have all contributed to her symptomatic improvement. She also notes occasional episodes of seeing stars when she stands up. This happens daily but not each time she stands. She is not sure if she has had orthostatic vitals in the past. The ulnar nerve pain she endorsed at her previous appointment in July 2023 has continued, with presence of symptoms daily. The pain is in her left forearm and 4th and 5th fingers, and is often associated with numbness in the same distribution. She has found that the symptoms improve when she avoids putting pressure/ leaning on the left elbow. She notes a slight loss of strength in her left hand, though has not had issues dropping items or with clumsiness. The symptoms have been stable sinceher previous visit. Lifestyle: Employment: retired high school home economics teacher Exercise: PT Diet: good Sleep: ok Stress: keep stress down with massage, breathing exercises, stretching Current Medications: reviewed and updated in EMR Physical Examination No data found. She was alert and oriented to person, place, and time with normal language, attention and concentration, recent and remote memory, praxis, and intellectual function. Mood was euthymic. Affect was congruent. Pupils were 4 mm and briskly reactive OU to 2 mm without a relative afferent pupillary defect. Funduscopic examination appeared normal. Ocular ductions were full without nystagmus. Normal saccades. No skew. Facial sensation was normal. Muscles of facial expression moved normally. Hearing was normal. There was no dysarthria. Motor tone was symmetric. There was no pronator drift. Strength was full throughout. Deep tendon reflexes: Biceps 2+/2+ Triceps 2+/2+ Knees 2+/1+ Ankles 1+/1+ Mild decrease sensation and pain in digits 4 and 5 on the left hand (splitting digit 4). Slight appearance of atrophy/ loss of fullness in the left hypothenar eminence compared to right. Otherwise sensation was intact. Standard gait was slightly wide-based. She was able to tandem walk. Upper extremities (R/L) Munitions Handler Supervisor 5/5 Finger abduction 5/5 Finger extension 5/5 Wrist extension 5/5 Elbow flexion 5/5 Elbow extension 5/5 Shoulder abduction 5/5 Lower extremities (R/L) Hip flexion 5/5 Knee extension 5/5 Knee flexion 5/5 Ankle plantarflexion 5/5 Ankle dorsiflexion 5/5 Pin sensation was intact and symmetric in all distal extremities. Vibratory sensation was 5 secondsat the toes. Negative Romberg. No dysmetria with [id number] testing bilaterally. Finger tapping was rapid and accurate bilaterally. REVIEW OF IMAGING STUDIES: I reviewed the following studies: No new imaging. Assessment: ICD-10-CM 1. 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 Cervicogenic migraine G43.809 Netta Gregorio is a 63 y.o. woman with multiple cardiovascular risk factors and cervicogenic headache.Cervicogenic headaches are well-controlled on current regimen of baclofen 50 mg 2 times daily and hydroxyzine. She has experienced further improvement with addition of magnesium and riboflavin for cervicogenic migraine. 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 We discussed avoidance of pressure on the left elbow as well as consideration of use of a soft elbow brace/pad to avoid further injury. She is agreeable with plan for EMG studies. Plan: Continue on baclofen 15 mg 2 times daily Continue with hydroxyzine as needed for migraine headache abortive treatment EMG for left ulnar neuropathy Follow-Up: 6 months Thank you for allowing us to participate in [facility]. If you have questions or concerns please do not hesitate to call our clinic at [phone]. Melissa Jones, DO Resident Neurology Attending Attestation I saw and evaluated Netta Gregorio with Dr. Jones, resident. I have reviewed the medical records and the patient's history during the visit and I agree with the details as written. My physical examination confirms the findings. The assessment and plan were formulated in discussion with me at the time of the visit and I agree with them as documented. Walt Wiseman III, MD Manuscripts Archivist Department of Neurology [address] P F 9:00 PM 01/12/2024 9:00 PM 01/12/2024 documented in this encounter Plan of Treatment Upcoming Encounters Date Type Department Care Team (Late st Contact Info) Description 07/12/2024 9:30 AM EST Office [place] [address] Walt Wiseman III, MD [facility] [place] [address] Scheduled Orders Name Type Priority Associated Diagnoses Orde r Schedule EMG without F-Wave Neurology Routine Ulnar neuropathy at elbow, left Expected: 01/08/2024, Expires: 07/09/2024 documented as of this encounter Visit Diagnoses Diagnosis Ulnar neuropathy at elbow, left Cervicogenic migraine Other forms of migraine, without mention of intractable migraine without mention of status migrainosus documented in this encounter Care Teams Upper Tier Relationship Specialty Start Date End Date Bryan Schmid MD [address] [place] [address] [place] [address] PCP - General [facility] Medicine 07/19/20 documented as of this encounter
--- OUTSIDE RECORDS SUMMARY | 2024-03-04 19:45 | XMS_ITS | Encounter Summary ---
[facility] [place] [address] Care Team Providers Care Website Designer Name Role Phone Bryan Schmid MD Primary Care Provider [phone] Reason for Visit * Auth/Cert (Routine) Specialty Diagnoses / Procedures Referred By Contlalo t Referred To Contact Diagnoses Adenomatous polyp of colon, unspecified part of colon Nausea, vomiting and weight loss, f/u colon polyps Procedures PRO UPPER GI ENDOSCOPY, DIAGNOSTIC PRO COLONOSCOPY, DIAGNOSTIC PRO UPPER GI ENDOSCOPY, BIOPSY PRO UP GI ENDOSCOPY, REMV TUMOR, SNARE PRO COLONOSCOPY, BIOPSY PRO COLONOSCOPY, REMV LESN, SNARE EGD, UPPER GI ENDOSCOPY (WRVU 2.09) COLONOSCOPY, DIAGNOSTIC (WRVU 3.26) Kevin Herrera MD [facility] [place] [address] [facility] Referral ID Status Reason Start Date Expiration Date Visits Re quested Visits Authorized [id number] 1 1 Encounter Details Date Type Department Care Team (Late st Contact Info) Description 08/22/2023 1:45 PM EDT - 08/22/2023 2:45 PM EDT Surgery [place] [address] Kevin Herrera MD [facility] [place] [address] EGD WITH BIOPSY (WRVU 2.39) Social History Tobacco Use Types Packs/Day Years [...] Sign Reading Time Taken Comments Blood Pressure 117/69 08/22/2023 2:45 PM EDT Pulse 55 08/22/2023 1:56 PM EDT Temperature 36.5 ??C (97.7 ??F) 08/22/2023 12:44 PM E DT Respiratory Rate 16 08/22/2023 2:45 PM EDT Oxygen Saturation 96% 08/22/2023 2:45 PM EDT Inhaled Oxygen Concentration - - Weight 104.3 kg (230 lb) 08/22/2023 12:44 PM EDT Height - - Body Mass Index 34.97 08/07/2023 11:04 AM EST documented in this encounter Discharge Instructions * Discharge Instructions* Roland Guajardo RN - 08/22/2023 3:47 PM EDT Upper Endoscopy (EGD) and Colonoscopy: What to Expect at Home Your Recovery After you have an EGD and colonoscopy, you will stay at the clinic for 1 to 2 hours until the medicines wear off. Then you can go home. But you will need to arrange for a ride. Your doctor will tell you when you can eat and do your other usual activities. Your doctor will talk to you about when you will need your next colonoscopy. Your doctor can help you decide how often you need to be checked. This will depend on the results of your test and your risk for colorectal cancer. You may have a sore throat for a day or two after the test. After the test, you may be bloated or have gas pains. You may need to pass gas. If a biopsy was done or a polyp was removed, you may have streaks of blood in your stool (feces) for a few days. Problems such as heavy rectal bleeding may notoccur until several weeks after the test. This isn't common. But it can happen after polyps are vanessa noe. This care sheet gives you a general idea about how long it will take for you to recover. But each person recovers at a different pace. Follow the steps below to get better as quickly as possible. How can you care for yourself at home? Activity Rest when you feel tired. You can do your normal activities when it feels okay to do so. Diet Follow your doctor's directions for eating. Unless your doctor has told you not to, drink plenty of fluids. This helps to replace the fluids that were lost during the colon prep. Do not drink alcohol. Medicines If you have a sore throat the day after the test, use an lkek-ldj-btbbbot spray or lozenges to numbyour throat. Warm salt water gargles can also help the discomfort. Your doctor will tell you if and when you can restart your medicines. He or she will also give you instructions about taking any new medicines. If you take blood thinners, such as warfarin (Coumadin), clopidogrel (Plavix), or aspirin, be sure to talk to your doctor. He or she will tell you if and when to start taking those medicines again. Make sure that you understand exactly what your doctor wants you to do. If polyps were removed or a biopsy was done during the test, your doctor may tell you not to take aspirin or other anti-inflammatory medicines for a few days. These include ibuprofen (Advil, Motrin) and naproxen (Aleve). Other instructions for patients who received sedation: You may have received medications during the procedure which effect your judgement and reaction time. For your safety, do not drive or operate machinery until the medicine wears off and you can think clearly. Your doctor may tell you not to drive or operate machinery until the day after your test. Do not sign legal documents or make major decisions until the medicine wears off and you can think clearly. The anesthesia can make it hard for you to fully understand what you are agreeing to. Be careful on stairs and when standing up quickly as you may be unsteady on your feet. IV site: Slight redness or tenderness is normal. You can use a warm compress if you would like. If tenderness and/or redness increase or if foul drainage occurs, please contact your doctor. Please call [phone] before 8pm Mon-Fri with problems, questions, or concerns. If you call after 8pm or on weekends, call the Hospital at [phone] and ask for the Wood Getter convertible sofa bedspring tester and the equalizer operator will contact that person for you. When should you call for help? Call 911 anytime you think you may need emergency care. For example, call if: You passed out (lost consciousness). You pass maroon or bloody stools. You have trouble breathing. Call your doctor now or seek immediate medical care if: You have pain that does not get better after you take pain medicine. You are sick to your stomach or cannot drink fluids. You have new or worse belly pain. You have blood in your stools. You have a fever. You cannot pass stools or gas. Your throat still hurts after a day or two. Your throat still hurts after a day or two. Watch closely for changes in your health, and be sure to contact your doctor if you have any problems. Where can you learn more? You can view health information on [employer], your personal patient account. Log in or sign up today. Content Version: 12.2 ?? 5554-9566 [employer]. Care instructions adapted under license by [facility]. If you have questions about a medical condition or this instruction, always ask your healthcare professional. [employer] disclaims any warranty or liability for your use of this information. documented in this encounter Medications at Time of Discharge Medication Sig Dispensed Refills Start Date End Date magnesium citrate Solution Take by mouth. riboflavin, Vitamin B2, (Vitamin B2) 100 mg tablet Take by mouth. baclofen (Lioresal) 10 mg tabletIndications:Cer vicogenic migraine Take 1.5 tablets by mouth 2 times daily for 360 days. 270 tablet 3 07/10/2023 07/04/2024 hydrOXYzine (Atarax) 10 mg tabletIndications:Cer vicogenic migraine TAKE 1 TABLET ORALLY EVERY 8 HOURS NEEDED (MIGRAINE OK TO USE AT ONSET AND REPEAT AFTER 2 HOURS) 90 tablet 3 07/10/2023 cyclobenzaprine (Flexeril) 10 mg tablet Take 10 mg by mouth 3 times daily as needed for Muscle spasms. 12/30/2022 metoprolol succinate XL (Toprol-XL) 100 mg ER 24 hr tablet Take 150 mg by mouth daily. 10/31/2022 Myrbetriq 50 mg Tablet Sustained Release 24 hr Take 50 mg by mouth daily. 07/12/2022 loperamide (Imodium A-D) 2 mg Capsule Take 1 capsule by mouth 4 times daily as needed for Diarrhea. 60 tablet 3 07/15/2022 fluticasone propion-salmeteroL (ADVAIR) 250-50 mcg/dose Disk with Device Inhale 1 puff into the lungs 2 times daily. 06/20/2022 oxyCODONE-acetaminoph en (Percocet) 5-325 mg Tablet TAKE ONE TABLET BY MOUTH EVERY 8 HOURS NEEDED FOR 28 DAYS 03/28/2021 Narcan 4 mg/actuation Murray, Non-Aerosol as needed. 03/28/2021 diazePAM (Valium) 5 mg Tablet Take 5 mg by mouth as needed. amoxicillin (Amoxil) 500 mg Capsule Take 2,000 mg by mouth as needed. 04/22/2016 triamcinolone (KENALOG) 0.1 % CreamIndications:Ecze ma, unspecified type Apply topically twice a day to the affected areas for 1 week on and 1 week off, and repeat as needed 454 g 1 12/20/2020 Spiriva with HandiHaler 18 mcg Capsule, w/Inhalation Device INHALE BY MOUTH ONCE DAILY 07/30/2020 montelukast (SINGULAIR) 10 mg Tablet Take 10 mg by mouth nightly. 03/18/2017 acetaminophen (TYLENOL) 500 mg tablet Take 2 tablets by mouth every 8 hours. 30 tablet 1 01/08/2014 atorvastatin (LIPITOR) 40 mg tablet Take 40 mg by mouth nightly. cetirizine (ZYRTEC) 10 mg tablet Take 10 mg by mouth nightly. zolpidem (AMBIEN) 10 mg Tablet Take 10 mg by mouth nightly. albuterol (PROVENTIL HFA;VENTOLIN HFA) 90 mcg/actuation inhaler Inhale 2 puffs into the lungs every 4 hours as needed. Use with spacer meclizine (ANTIVERT) 25 mg tablet Take 25 mg by mouth 3 times daily as needed. esomeprazole (NEXIUM) 40 mg capsule Take 40 mg by mouth every morning (before breakfast). sertraline (ZOLOFT) 100 mg tablet Take 100 mg by mouth daily. 09/08/2013 levothyroxine (SYNTHROID) 25 mcg tablet Take 25 mcg by mouth daily. amlodipine (NORVASC) 5 mg tablet Take 5 mg by mouth daily. traZODone (DESYREL) 50 mg tablet Take 50 mg by mouth nightly. polyethylene glycoL (Golytely) 236-22.74-6.74 -5.86 gram Recon SolnIndications:Nause a and vomiting, unspecified vomiting type Please follow instructions for colonoscopy prep 4000 mL 08/08/2023 01/08/2024 metoprolol (LOPRESSOR) 100 mg tablet Take 150 mg by mouth daily. 01/08/2024 documented as of this encounter H&P Notes * Kevin Herrera MD - 08/22/2023 12:45 PM EDT Procedure:egd/colonoscopy Indication: reflux stool incontinence, urgency and frequency. History of Present Illness: Netta Gregorio is a 63 y.o. woman with reflux stool incontinence, urgency and frequency here for egd/colonoscopy Patient Active Problem List Diagnosis Code Chest pain, unspecified R07.9 IBS (irritable bowel syndrome) K58.9 GERD (gastroesophageal reflux disease) K21.9 Primary osteoarthritis of left knee M17.12 Obesity E66.9 Sleep apnea G47.30 Asthma J45.909 S/P left total knee arthroplasty 01/06/2014 Brittaney Z96.659 Chronic midline back pain M54.9, G89.29 Medications: Reviewed in EDH Allergies Allergen Reactions Codeine Phosphate Trouble breathing Darvocet A500 [Propoxyphene N-Acetaminophen] Trouble breathing Animal Dander Codeine Other reaction(s): Difficulty Breathing House Dust Mold Propoxyphene Napsylate Other reaction(s): Difficulty Breathing Unable To Find [Unclassified Drug] Horses, guinea pigs and other animal dander-causes itchy eyes and nasal congestion Social History/Family History: Reviewed in EDH. No changes Exam: Patient Vitals for the past 24 hrs: Temp Pulse Resp BP SpO2 O2 Device 08/22/23 1244 36.5 ??C (97.7 ??F) 60 20 102/79 97 % RA Axox3, nad Anicteric, MMM CTAB RRR, no m/r/g abd soft nt nd +bs Assessment and Plan: Proceed with EGD: Colonoscopy: ASA Grade: ASA 2 - Patient with mild systemic disease with no functional limitations Mallampati score:II (soft palate, uvula, fauces visible) Sedation plan: Moderate Conscious sedation Risks and benefits of the procedure were discussed with the patient. Consent has been signed. Kevin Herrera MD documented in this encounter Plan of Treatment Upcoming Encounters Date Type Department Care Team (Late st Contact Info) Description 07/12/2024 9:30 AM EST [place] [address] Walt Wiseman III, MD [facility] [place] [address] documented as of this encounter Procedures Procedure Name Priority Date/Time Associated Diagnosis Comments SPECIMEN TO PATHOLOGY Routine 08/22/2023 1:54 PM EDT SPECIMEN TO PATHOLOGY Routine 08/22/2023 1:54 PM EDT SURGICAL PATHOLOGY REPORT Routine 08/22/2023 1:34 PM EDT SPECIMEN TO PATHOLOGY Routine 08/22/2023 1:34 PM EDT Colonoscopy, Biopsy ([id number]) 08/22/2023 1:13 PM EDT Adenomatous polyp of colon, unspecified part of colon Upper Gi Endoscopy, Biopsy ([id number]) 08/22/2023 1:13 PM EDT Adenomatous polyp of colon, unspecified part of colon UPPER GI ENDOSCOPY Routine 08/22/2023 1: 00 PM EDT COLONOSCOPY Routine 08/22/2023 1:00 PM EDT documented in this encounter Results * Specimen to Pathology (08/22/2023 1:54 PM EDT) AP Specimen 08/22/2023 1:54 PM EDT 08/22/2023 1:54 PM EDT Narrative [facility] - 08/22/2023 1:54 PM EDT Specimen requisition ordered. ??Separate Pathology report to follow Kevin Herrera MD PATHOLOGY/CYTOLOGY O RDTALIA Performing Organization Address [facility] Co de Phone Number [facility] [address] * Specimen to Pathology (08/22/2023 1:54 PM EDT) AP Specimen 08/22/2023 1:54 PM EDT 08/22/2023 1:54 PM EDT Narrative [facility] - 08/22/2023 1:54 PM EDT Specimen requisition ordered. ??Separate Pathology report to follow Kevin Herrera MD PATHOLOGY/CYTOLOGY O RDERABLES Performing Organization Address [facility] [place] [place] [address] * Surgical Pathology Report (08/22/2023 1:34 PM EDT) Final Diagnosis [id number] ? Location: 4T; EA12; A The signing pathologist has (i) examined the relevant preparation(s) for the specimen(s) and (ii) rendered or confirmed the diagnosis(es). . ?Surgical Pathology DIAGNOSIS A - Mid esophagus bx, biopsy (Multiple): - Esophageal squamous mucosa within normal limits. B - Non targeted colon bx r/o microscopic colitis, biopsy (Multiple): - Colonic mucosa within normal limits. C - Rectal polyp x1, resection: - Fragments of tubular adenoma. CR-PX Electronically signed by: ?Sebastián ENGLISH, Frankie Verified: ??09/02/2023 11:05 ??Pathologist Performed at: ??-[facility] Dept. of Pathology, [place] [address] Bilingual Social Worker: Gerald Styles MD, FCAP, ??CLIA Certificate: [id number] SPECIMEN(S) SUBMITTED A - mid esophagus bx, biopsy (Multiple) B - non targeted colon bx r/o microscopic colitis, biopsy (Multiple) C - rectal polyp x1, resection (1) CLINICAL INFORMATION 63-year-old female with heartburn SPECIMEN PROCESSING A - Labeled/Fixative : Mid esophagus BX, formalin. Quantity/Size: Multiple, ranging from 0.3 to 0.5 cm. Tissue Description: Soft, degroot-pink tissues. Sections/Process ing: Submitted in toto ??in 2 cassettes labeled A1-A2. B - Labeled/Fixative : Nontargeted colon BX, formalin. Quantity/Size: Multiple, ranging from 0.3 to 0.5 cm. Tissue Description: Soft, degroot-pink tissues. Sections/Process ing: Submitted in toto ??in 2 cassettes labeled B1-B2. C - Labeled/Fixative : Rectal polyp x 1, formalin. Quantity/Size: Two, 0.5 x 0.3 x 0.1 cm and 0.8 x 0.7 x 0.4 cm. Tissue Description: Intact degroot-pink pedunculated polyp and a degroot-pink soft tissue fragment. Sections/Process ing: Entirely submitted in 1 cassettes as follows: ?C1: ??Polyp inked and quadrisected, soft tissue fragment entirely submitted ??sdy 09/02/2023 11:05 AM EDT [facility] GI Biopsy 08/22/2023 1:34 PM EDT 08/22/2023 1:34 PM EDT GI Biopsy 08/22/2023 1:34 PM EDT 08/22/2023 1:34 PM EDT GI Biopsy 08/22/2023 1:34 PM EDT 08/22/2023 1:34 PM EDT Kevin Herrera MD PATHOLOGY/CYTOLOGY O RDERABLES [facility] [place] [address] * Specimen to Pathology (08/22/2023 1:34 PM EDT) AP Specimen 08/22/2023 1:34 PM EDT 08/22/2023 1:34 PM EDT Narrative [facility] - 08/22/2023 1:34 PM EDT Specimen requisition ordered. ??Separate Pathology report to follow Kevin Herrera MD PATHOLOGY/CYTOLOGY O SHIELA [facility] [address] * UPPER GI ENDOSCOPY (08/22/2023 1:00 PM EDT) UPPER GI ENDOSCOPY [facility] ___ Procedure Date: 08/22/2023 1:00 PM ? Patient Name: Netta Gregorio ? N: [id number] ? Date of : 1960 ? Age: 63 ? Order #: [id number] ? Instrument Name: [id number] ? ___ Procedure: ? Upper GI endoscopy Indications: ? Heartburn Providers: ? Rika Hugo, ? Ilya Vásquez Referring MD: ? Medicines: ? Midazolam 4 mg IV, Fentanyl 125 ? micrograms IV Complications: ? No immediate complications. ___ Procedure: ? Pre-Anesthesia Assessment: ? - Prior to the procedure, a History ? and Physical was performed, and ? patient medications and allergies ? were reviewed. The patient is ? competent. The risks and benefits ? of the procedure and the sedation ? options and risks were discussed ? with the patient. All questions ? were answered and informed consent ? was obtained. Patient ? identification and proposed ? procedure were verified by the ? physician in the pre-procedure ? area. Mental Status Examination: ? alert and oriented. Airway ? Examination: normal oropharyngeal ? airway and neck mobility. ? Respiratory Examination: clear to ? auscultation. CV Examination: ? normal. Prophylactic Antibiotics: ? The patient does not require ? prophylactic antibiotics. Prior ? Anticoagulants: The patient has ? taken no anticoagulant or ? antiplatelet agents. ASA Grade ? Assessment: III - A patient with ? severe systemic disease. After ? reviewing the risks and benefits, ? the patient was deemed in ? satisfactory condition to undergo ? the procedure. The anesthesia plan ? was to use moderate sedation / ? analgesia (conscious sedation). ? Immediately prior to administration ? of medications, the patient was ? re-assessed for adequacy to receive ? sedatives. The heart rate, ? respiratory rate, oxygen ? saturations, blood pressure, ? adequacy of pulmonary ventilation, ? and response to care were monitored ? throughout the procedure. The ? physical status of the patient was ? re-assessed after the procedure. ? The procedure, indications, ? benefits, risks and alternatives ? were explained to the patient. ? Specifically discussed were ? potential complications including, ? but not limited to, bleeding, ? perforation, infection, missing a ? cancer, and adverse medication ? reactions. The Endoscope was ? introduced through the mouth, and ? advanced to the second part of ? duodenum The patient tolerated the ? procedure well. ? Findings: ? The examined esophagus was normal. Multiple biopsies ? were obtained in the mid esophagus with cold forceps ? for histology. ? Esophagogastric landmarks were identified: the Z-line ? was found at 35 cm, the gastroesophageal junction was ? found at 35 cm and the site of the diaphragmatic ? hiatus was found at 39 cm from the incisors. ? A 4 cm hiatal hernia was present. ? The examined duodenum was normal. ? Moderate Sedation: ? Moderate (conscious) sedation was administered by the ? nurse and supervised by the endoscopist. The ? following parameters were monitored: oxygen ? saturation, heart rate, blood pressure, and response ? to care. Impression: ?- Normal esophagus. ? - 4 cm hiatal hernia. ? - Normal examined duodenum. ? - Multiple biopsies were obtained ? in the mid esophagus. Recommendation: ?- Await pathology results. ? - Perform a colonoscopy. ? Attending Participation: ? I personally performed the entire procedure. ? Kevin Herrera, 08/22/2023 1:31:29 PM Number of Addenda: 0 Note Initiated On: 08/22/2023 1:00 PM PROVATION 08/22/2023 1:00 PM EDT Unknown GENERAL SURGICAL ORD ERABLES PROVATION * COLONOSCOPY (08/22/2023 1:00 PM EDT) COLONOSCOPY [facility] Endoscopy Procedure Date: 08/22/2023 1:00 PM ? Patient Name: Netta Gregorio ? N: [id number] ? Date of : 1960 ? Age: 63 ? Order #: [id number] ? Instrument Name: [id number] ? Procedure: ? Colonoscopy Indications: ? Fecal incontinence Providers: ? Rika Hugo, ? Ilya Vásquez Referring MD: ? Medicines: ? Midazolam 1.5 mg IV, Fentanyl 50 ? micrograms IV Complications: ? No immediate complications. Procedure: ? Pre-Anesthesia Assessment: ? - Prior to the procedure, a History ? and Physical was performed, and ? patient medications and allergies ? were reviewed. The patient is ? competent. The risks and benefits ? of the procedure and the sedation ? options and risks were discussed ? with the patient. All questions ? were answered and informed consent ? was obtained. Patient ? identification and proposed ? procedure were verified by the ? physician in the pre-procedure ? area. Mental Status Examination: ? alert and oriented. Airway ? Examination: normal oropharyngeal ? airway and neck mobility. ? Respiratory Examination: clear to ? auscultation. CV Examination: ? normal. Prophylactic Antibiotics: ? The patient does not require ? prophylactic antibiotics. Prior ? Anticoagulants: The patient has ? taken no anticoagulant or ? antiplatelet agents. ASA Grade ? Assessment: III - A patient with ? severe systemic disease. After ? reviewing the risks and benefits, ? the patient was deemed in ? satisfactory condition to undergo ? the procedure. The anesthesia plan ? was to use moderate sedation / ? analgesia (conscious sedation). ? Immediately prior to administration ? of medications, the patient was ? re-assessed for adequacy to receive ? sedatives. The heart rate, ? respiratory rate, oxygen ? saturations, blood pressure, ? adequacy of pulmonary ventilation, ? and response to care were monitored ? throughout the procedure. The ? physical status of the patient was ? re-assessed after the procedure. ? The procedure, indications, ? benefits, risks and alternatives ? were explained to the patient. ? Specifically discussed were ? potential complications including, ? but not limited to, bleeding, ? perforation, infection, missing a ? cancer, and adverse medication ? reactions. The patient was placed ? in the left lateral decubitus ? position, and a digital rectal exam ? was performed. The Colonoscope was ? inserted in the anus and under ? direct visualization, advanced to ? the terminal ileum. Careful ? inspection was made as the ? colonoscope was withdrawn. The ? patient tolerated the procedure ? well. The quality of the bowel ? preparation was good. ? Findings: ? The terminal ileum appeared normal. ? A few small-mouthed diverticula were found in the ? sigmoid colon. ? A 2 mm polyp was found in the rectum. The polyp was ? sessile. The polyp was removed with a cold snare. ? Resection and retrieval were complete. ? The retroflexed view of the distal rectum and anal ? verge was normal and showed no anal or rectal ? abnormalities. ? Biopsies for histology were taken with a cold forceps ? from the entire colon for evaluation of microscopic ? colitis. ? Moderate Sedation: ? Moderate (conscious) sedation was administered by the ? nurse and supervised by the endoscopist. The ? following parameters were monitored: oxygen ? saturation, heart rate, blood pressure, and response ? to care. Impression: ?- The examined portion of the ileum ? was normal. ? - Diverticulosis in the sigmoid ? colon. ? - One 2 mm polyp in the rectum, ? removed with a cold snare. Resected ? and retrieved. ? - The distal rectum and anal verge ? are normal on retroflexion view. ? - Biopsies were taken with a cold ? forceps from the entire colon for ? evaluation of microscopic colitis. Recommendation: ?- Discharge patient to home. ? - Resume previous diet. ? - Await pathology results. ? - Repeat colonoscopy for ? surveillance based on pathology ? results. ? - Return to GI office. ? Attending Participation: ? I personally performed the entire procedure. ? Kevin Herrera, 08/22/2023 1:56:12 PM Number of Addenda: 0 Note Initiated On: 08/22/2023 1:00 PM PROVATION 08/22/2023 1:00 PM EDT Unknown GENERAL SURGICAL ORD ERABLES PROVATION documented in this encounter Visit Diagnoses Diagnosis Adenomatous polyp of colon, unspecified part of colon documented in this encounter Administered Medications Inactive Administered Medications - up to 3 most recent administrations Medication Order MAR Action Action Date Dose Rate Site benzocaine (Hurricane One) 20% spray (restricted to kristina-procedural use) PRN, Starting on Fri08/22/23 at 0100, Until Fri08/22/23 at 1826, Intra-Operative (Intra-Procedure) Given 08/22/2023 1:00 AM EDT 1 spray fentaNYL (pf) (50 mcg/mL) multi-dose injection PRN, Starting on Fri08/22/23 at 1317, Until Fri08/22/23 at 1826, Intra-Operative (Intra-Procedure), Routine Given 08/22/2023 1:40 PM EDT 25 mcg Given 08/22/2023 1:32 PM EDT 25 mcg Given 08/22/2023 1:26 PM EDT 25 mcg midazolam (pf) (Versed) (1 mg/mL) multi-dose injection PRN, Starting on Fri08/22/23 at 1317, Until Fri08/22/23 at 1826, Intra-Operative (Intra-Procedure), Routine Given 08/22/2023 1:39 PM EDT 0.5 mg Given 08/22/2023 1:32 PM EDT 1 mg Given 08/22/2023 1:26 PM EDT 1 mg documented in this encounter Active and Recently Administered Medications Times are shown in EDT. PRN Medication Order 08/20/2023 08/21/2023 08/22/2023 benzocaine (Hurricane One) 20% spray (restricted to kristina-procedural use) (CANCELED) PRN, Starting on Fri08/22/23 at 0100, Until Fri08/22/23 at 1826, Intra-Operative (Intra-Procedure) 0100 (Given - Provid er: Rika Arevalo RN) fentaNYL (pf) (50 mcg/mL) multi-dose injection (CANCELED) PRN, Starting on Fri08/22/23 at 1317, Until Fri08/22/23 at 1826, Intra-Operative (Intra-Procedure), Routine 1317 (Given - Provid er: Rika Arevalo RN)1320 (Given - Provider: Rika Arevalo RN)1323 (Given - Provider: Rika Arevalo RN)1326 (Given - Provider: Rika Arevalo RN)1332 (Given - Provider: Rika Arevalo RN - Comment: colo)1340 (Given - Provider: Rika Arevalo RN) midazolam (pf) (Versed) (1 mg/mL) multi-dose injection (CANCELED) PRN, Starting on Fri08/22/23 at 1317, Until Fri08/22/23 at 1826, Intra-Operative (Intra-Procedure), Routine 1317 (Given - Provid er: Rika Arevalo RN)1320 (Given - Provider: Rika Arevalo RN)1323 (Given - Provider: Rika Arevalo RN)1326 (Given - Provider: Rika Arevalo RN)1332 (Given - Provider: Rika Arevalo RN - Comment: colo)1339 (Given - Provider: Rika Arevalo RN - Comment: ok per ) documented in this encounter Care Teams Website Designer Relationship Specialty Start Date End Date Bryan Schmid MD [address] [place] [address] [place] [address] PCP - [facility] Medicine 07/19/20 documented as of this encounter
--- OUTSIDE RECORDS SUMMARY | 2024-03-04 19:45 | XMS_ITS | Encounter Summary ---
Author Organization [facility] [place] [address] Care Team Providers Care Lace Weaver Name Role Phone Bryan Schmid MD Primary Care Provider [phone] Encounter Details Date Type Department Care Team (Latest Contact Info) Description 07/10/2023 Travel Social History Tobacco Use Types Packs/Day [...] 9:30 AM EST Office [place] [address] Walt Wiseman III, MD [facility] [place] [address] documented as of this encounter Visit Diagnoses Not on filedocumented in this encounter Care Teams Lace Weaver Relationship Specialty Start Date End Date Bryan Schmid MD [address] [place] [address] [place] [address] PCP - [facility] Medicine 07/19/20 documented as of this encounter
--- OUTSIDE RECORDS SUMMARY | 2024-03-04 19:45 | XMS_ITS | Encounter Summary ---
Author Organization [facility] [place] [address] Care Team Providers Care Retail Sales Associate Name Role Phone Bryan Schmid MD Primary Care Provider [phone] Reason for Visit * Auth/Cert (Routine) Specialty Diagnoses / Procedures Referred By Contlalo t Referred To Contact Diagnoses Encounter for screening for malignant neoplasm of colon History of colon polyps Irritable bowel syndrome, unspecified Full incontinence of feces Surveillance colonoscopy - prior TAs Procedures PRO COLONOSCOPY, DIAGNOSTIC PRO COLONOSCOPY, BIOPSY PRO COLONOSCOPY, REMV LESN, SNARE COLONOSCOPY, DIAGNOSTIC Kevin Herrera MD [facility] [place] [address] [facility] Referral ID Status Reason Start Date Expiration Date Visits Re quested Visits Authorized [id number] 1 1 Encounter Details Date Type Department Care Team (Late st Contact Info) Description 07/29/2022 1:00 PM EST - 07/29/2022 2:00 PM EST [place] [address] Kevin Herrera MD [facility] [place] [address] COLONOSCOPY, POLYPECTOMY, REMOVAL LESION BY SNARE (WRVU 4.57) Social History Tobacco Use Types Packs/Day Years [...] Sign Reading Time Taken Comments Blood Pressure 111/70 07/29/2022 2:00 PM EST Pulse 68 07/29/2022 1:45 PM EST Temperature 35.6 ??C (96.1 ??F) 07/29/2022 11:[address] Respiratory Rate 19 07/29/2022 1:45 PM EST Oxygen Saturation 92% 07/29/2022 2:00 PM EST Inhaled Oxygen Concentration - - Weight 108.9 kg (240 lb) 07/29/2022 11:52 AM EST Height 172.7 cm (5' 8) 07/29/2022 11:52 AM EST Body Mass Index 36.49 07/29/2022 11:52 AM EST documented in this encounter Discharge Instructions * Attachments The following attachments cannot be sent through Care Everywhere. * Colon Polyps (Burkinan) documented in this encounter Medications at Time of Discharge Medication Sig Dispensed Refills Start Date End Date Myrbetriq 50 mg Tablet Sustained Release 24 hr Take 50 mg by mouth daily. 07/12/2022 loperamide (Imodium A-D) 2 mg Capsule Take 1 capsule by mouth 4 times daily as needed for Diarrhea. 60 tablet 3 07/15/2022 fluticasone propion-salmeteroL (ADVAIR) 250-50 mcg/dose Disk with Device Inhale 1 puff into the lungs 2 times daily. 06/20/2022 oxyCODONE-acetaminophen (Percocet) 5-325 mg Tablet TAKE ONE TABLET BY MOUTH EVERY 8 HOURS NEEDED FOR 28 DAYS 03/28/2021 Narcan 4 mg/actuation [place], Non-Aerosol as needed. 03/28/2021 diazePAM (Valium) 5 mg Tablet Take 5 mg by mouth as needed. amoxicillin (Amoxil) 500 mg Capsule Take 2,000 mg by mouth as needed. 04/22/2016 triamcinolone (KENALOG) 0.1 % CreamIndications:Eczema , unspecified type Apply topically twice a day [...] tablet Take 50 mg by mouth nightly. hydrOXYzine (Atarax) 10 mg TabletIndications:Cervi cogenic migraine TAKE 1 TABLET ORALLY EVERY 8 HOURS NEEDED (MIGRAINE OK TO USE AT ONSET AND REPEAT AFTER 2 HOURS) 30 tablet 5 08/13/2021 11/22/2022 baclofen (Lioresal) 10 mg TabletIndications:Cervi cogenic migraine TAKE ONE TABLET BY MOUTH TWICE A DAY 90 tablet 5 08/13/2021 08/30/2022 metoprolol (LOPRESSOR) 100 mg tablet Take 150 mg by mouth daily. 01/08/2024 documented as of this encounter H&P Notes * Kevin Herrera MD - 07/29/2022 12:54 PM EST Procedure: colonoscopy Indication: surveillance History of Present Illness: Netta Gregorio is a 62 y.o. woman here for surveillance colonoscopy: two small TAs in 2013 and one small polyp (path not available) in 2016. Denies family history of colonsocopy Patient Active Problem List Diagnosis Code ??? Chest pain, unspecified R07.9 ??? IBS (irritable bowel syndrome) K58.9 ??? GERD (gastroesophageal reflux disease) K21.9 ??? Primary osteoarthritis of left knee M17.12 ??? Obesity E66.9 ??? Sleep apnea G47.30 ??? Asthma J45.909 ??? S/P left total knee arthroplasty 01/06/2014 Brittaney Z96.659 ??? Chronic midline back pain M54.9, G89.29 Medications: Reviewed in EDH Allergies Allergen Reactions ??? Codeine Phosphate Trouble [...] Temp Pulse Resp BP SpO2 O2 Device 07/29/22 1152 35.6 ??C (96.1 ??F) 74 16 126/73 98 % RA Axox3, nad Anicteric, MMM CTAB RRR, no m/r/g abd soft nt nd +bs Assessment and Plan: Proceed with Colonoscopy: ASA Grade: ASA 2 - Patient with mild systemic disease with no functional limitations Mallampati score:II (soft palate, uvula, fauces visible) Sedation plan: Moderate Conscious sedation Risks and benefits of the procedure were discussed with the patient. Consent has been signed. Kevin Herrera MD\ documented in this encounter Plan of Treatment Upcoming Encounters Date Type Department Care Team (Late st Contact Info) Description 07/12/2024 9:30 AM EST [place] [address] Walt Wiesman III, MD [facility] [place] [address] documented as of this encounter Procedures Procedure Name Priority Date/Time Associated Diagnosis Comments SPECIMEN TO PATHOLOGY Routine 07/29/2022 1:48 PM EST SPECIMEN TO PATHOLOGY Routine 07/29/2022 1:48 PM EST SURGICAL PATHOLOGY REPORT Routine 07/29/2022 1:33 PM EST Colonoscopy, Remv Lesn, Snare ([id number]) 07/29/2022 1:05 PM EST Irritable bowel syndrome, unspecified type Incontinence of feces, unspecified fecal incontinence type COLONOSCOPY Routine 07/29/2022 12:36 PM EST documented in this encounter Results * Specimen to Pathology (07/29/2022 1:48 PM EST) AP Specimen 07/29/2022 1:48 PM EST 07/29/2022 1:48 PM EST Narrative [facility] - 07/29/2022 1:48 PM EST Specimen requisition ordered. ??Separate Pathology report to follow Kevin Herrera MD PATHOLOGY/CYTOLOGY O RDERAMONTY Performing Organization Address [facility] Co de Phone Number [facility] [place] [address] * Specimen to Pathology (07/29/2022 1:48 PM EST) AP Specimen 07/29/2022 1:48 PM EST 07/29/2022 1:48 PM EST Narrative [facility] - 07/29/2022 1:48 PM EST Specimen requisition ordered. ??Separate Pathology report to follow Kevin Herrera MD PATHOLOGY/CYTOLOGY O RDERAMONTY Performing Organization Address [facility] Co de Phone Number [facility] [place] [address] * Surgical Pathology Report (07/29/2022 1:33 PM EST) Final Diagnosis [id number] ? Location: 4T; EA11; A The signing pathologist has (i) examined the relevant preparation(s) for the specimen(s) and (ii) rendered or confirmed the diagnosis(es). . ?Surgical Pathology DIAGNOSIS A - Transverse colon polyps, resection (Multiple): - ??Fragments of tubular adenoma(s) with ??high-grade dysplasia . B - Cecal polyp, resection: - Colonic mucosa with hyperplastic changes. - ??Multiple levels examined. Electronically signed by: ?Liliana ENGLISH PhD, Maxine Verified: ??08/15/2022 16:06 ??Pathologist Performed at: ??-[facility] Dept. of Pathology, [place] [address] Aircraft Refueller: Gerald Styles MD, FCAP, ??CLIA Certificate: [id number] DISCUSSION The case was reviewed at the GI pathology consensus conference (Dr. Gerald Styles, Dr. Nahomy Griffin, Dr. Maxine Ford, Dr. Frankie Lowery). Correction Note: ??Diagnosis to Part C corrected. ??There are no other changes to the text of this report. _ SPECIMEN(S) SUBMITTED A - Transverse colon polyps, resection (Multiple) B - Cecal polyp, resection (1) CLINICAL INFORMATION 62 year-old female; history of polyps, surveillance colonoscopy SPECIMEN PROCESSING A - Labeled/Fixative: Transverse colon polyps, formalin. Quantity/Size: Multiple, from 0.2 cm to 1.2 x 0.2 x 0.2 cm. Tissue Description: Polypoid, rosas-pink mucosal tissue is admixed with small amount of bowel content. Sections/Processi ng: Entirely submitted in 6 cassettes labeled A1-A6. B - Labeled/Fixative: Cecal polyp, formalin. Quantity/Size: Two, each approximately 0.5 x 0.4 x 0.1 cm. Tissue Description: Rosas-white mucosal tissues; differentially inked and sectioned. Sections/Processi ng: Entirely submitted in 1 cassette labeled B1. ??pps 08/15/2022 4:06 PM EDT [facility] GI Biopsy 07/29/2022 1:33 PM EST 07/29/2022 1:33 PM EST GI Biopsy 07/29/2022 1:33 PM EST 07/29/2022 1:33 PM EST Kevin Herrera MD PATHOLOGY/CYTOLOGY Kvng KUO Performing Organization Address [facility]/State/ZIP Co de Phone Number [facility] [place] [address] [facility] [place] [address] * COLONOSCOPY (07/29/2022 12:36 PM EST) COLONOSCOPY [facility] Endoscopy Procedure Date: 07/29/2022 12:36 PM ? Patient Name: Netta Gregorio ? N: [id number] ? Date of : 1960 ? Age: 62 ? Order #: [id number] ? Instrument Name: [id number]- [id number] ? Procedure: ? Colonoscopy Indications: ? High risk colon cancer ? surveillance: Personal history of ? colonic polyps Providers: ? Kevin Herrera, Gracie Aaron, ? Reji Hidalgo MD: ?Bryan Schmid MD Medicines: ? Midazolam 5 mg IV, Fentanyl 125 ? micrograms IV [...] ? antiplatelet agents. ASA Grade ? Assessment: II - A patient with ? mild systemic disease. After ? reviewing the risks [...] The terminal ileum appeared normal. ? A 3 mm polyp was found in the cecum. The polyp was ? sessile. The polyp was removed with a cold snare. ? Resection and retrieval were complete. ? Six sessile polyps were found in the transverse ? colon. The polyps were 4 to 6 mm in size. These ? polyps were removed with a cold snare. Resection and ? retrieval were complete. ? Scattered small-mouthed diverticula were found in the ? sigmoid colon and transverse colon. ? The retroflexed view of the distal rectum and anal ? verge was normal and showed no anal or rectal ? abnormalities. ? Moderate Sedation: ? Moderate (conscious) sedation was administered by the ? endoscopy nurse and supervised by the endoscopist. ? The following parameters were monitored: oxygen ? saturation, heart rate, blood pressure, and response ? to care. Impression: ?- The examined portion of the ileum ? was normal. ? - One 3 mm polyp in the cecum, ? removed with a cold snare. Resected ? and retrieved. ? - Six 4 to 6 mm polyps in the ? transverse colon, removed with a ? cold snare. Resected and retrieved. ? - Diverticulosis in the sigmoid ? colon and in the transverse colon. ? - The distal rectum and anal verge ? are normal on retroflexion view. Recommendation: ?- Discharge patient to home. ? - Resume previous diet. ? - Await pathology results. ? - Repeat colonoscopy in 3 years for ? surveillance based on pathology ? results. ? Attending Participation: ? I personally performed the entire procedure. ? Kevin Herrera, 07/29/2022 1:50:57 PM Number of Addenda: 0 Note Initiated On: 07/29/2022 12:36 PM PROVATION 07/29/2022 12:3 6 PM EST Bryan Schmid MD GENERAL SURGICAL ORD ERABLES PROVATION documented in this encounter Visit Diagnoses Diagnosis Irritable bowel syndrome, unspecified type Incontinence of feces, unspecified fecal incontinence type documented in this encounter Administered Medications Inactive Administered Medications - up to 3 most recent administrations Medication Order MAR Action Action Date Dose Rate Site fentaNYL (pf) (50 mcg/mL) multi-dose injection ONCE PRN, Starting on Fri07/29/22 at 1309, Until Fri07/29/22 at 1655, Intra-Operative (Intra-Procedure), Routine Given 07/29/2022 1:23 PM EST 25 mcg Given 07/29/2022 1:16 PM EST 25 mcg Given 07/29/2022 1:14 PM EST 25 mcg midazolam (pf) (Versed) (1 mg/mL) multi-dose injection ONCE PRN, Starting on 07/29/22 at 1309, Until Fri07/29/22 at 1655, Intra-Operative (Intra-Procedure), Routine Given 07/29/2022 1:39 PM EST 0.5 mg Given 07/29/2022 1:28 PM EST 0.5 mg Given 07/29/2022 1:25 PM EST 0.5 mg documented in this encounter Active and Recently Administered Medications Times are shown in EST. PRN Medication Order 07/27/2022 07/28/2022 07/29/2022 fentaNYL (pf) (50 mcg/mL) multi-dose injection (CANCELED) ONCE PRN, Starting on Fri07/29/22 at 1309, Until Fri07/29/22 at 1655, Intra-Operative (Intra-Procedure), Routine 1309 (Given - Provid er: Gracie Aaron RN)1314 (Given - Provider: Gracie Aaron RN)1316 (Given - Provider: Graice Aaron RN)1323 (Given - Provider: Gracie Aaron RN) midazolam (pf) (Versed) (1 mg/mL) multi-dose injection (CANCELED) ONCE PRN, Starting on Fri07/29/22 at 1309, Until Fri07/29/22 at 1655, Intra-Operative (Intra-Procedure), Routine 1309 (Given - Provid er: Gracie Aaron RN)1314 (Given - Provider: Gracie Aaron RN)1317 (Given - Provider: Gracie Aaron RN)1323 (Given - Provider: Gracie Aaron RN)1325 (Given - Provider: Gracie Aaron RN)1328 (Given - Provider: Gracie Aaron, DARIANA)1339 (Given - Provider: Gracie Aaron RN) documented in this encounter Care Teams Retail Sales Associate Relationship Specialty Start Date End Date Bryan Schmid MD [address] [place] [address] PCP - [facility] Medicine 07/19/20 documented as of this encounter
--- OUTSIDE RECORDS SUMMARY | 2024-03-04 19:45 | XMS_ITS | Encounter Summary ---
Author Organization [facility] [place] [address] Care Team Providers Care Fork Lift Technician Name Role Phone Bryan Schmid MD Primary Care Provider [phone] Reason for Visit * Auth/Cert (Routine) Specialty [...] COLONOSCOPY, DIAGNOSTIC (WRVU 3.26) Kevin Herrera MD [facility] [place] [address] [facility] Referral ID Status Reason Start Date Expiration Date Visits Re quested Visits Authorized [id number] 1 1 Encounter Details Date Type Department Care Team (Latest Contact Info) Description 08/22/2023 11:49 AM EDT - 08/22/2023 4:26 PM EDT Hospital En[place] [address] Kevin Herrera MD [facility] [place] [address] Discharge Disposition: Home Social History Tobacco Use Types Packs/Day Years [...] Sign Reading Time Taken Comments Blood Pressure 114/63 08/22/2023 3:30 PM EDT Pulse 55 08/22/2023 1:56 PM EDT Temperature 36.5 ??C (97.7 ??F) 08/22/2023 12:44 PM E DT Respiratory Rate 16 08/22/2023 3:15 PM EDT Oxygen Saturation 93% 08/22/2023 3:30 PM EDT Inhaled Oxygen Concentration - - [...] the day after the test, use an whfq-tvs-jlvoyqb spray or lozenges to numbyour throat. Warm [...] occurs, please contact your doctor. Please call [phone] before 8pm Mon-Fri with problems, questions, or concerns. If you call after 8pm or on weekends, call the Hospital at [phone] and ask for the Corrections Nurse simulation developer and the malt house kiln operator will contact that person for you. [...] more? You can view health information on [employer], your personal patient account. Log in or sign up today. Content Version: 12.2 ?? [id number] [employer]. Care instructions adapted under license by [facility]. If you have questions about a medical condition or this instruction, always ask your healthcare professional. [employer] disclaims any warranty or liability for your [...] FOR 28 DAYS 03/28/2021 Narcan 4 mg/actuation [place], Non-Aerosol as needed. 03/28/2021 diazePAM (Valium) 5 [...] 9:30 AM EST [place] [address] Walt Wiseman III, MD [facility] [place] [address] documented as of this encounter Procedures Procedure Name Priority Date/Time Associated Diagnosis Comments SPECIMEN TO PATHOLOGY Routine 08/22/2023 1:54 PM EDT SPECIMEN TO PATHOLOGY Routine 08/22/2023 1:54 PM EDT SURGICAL PATHOLOGY REPORT Routine 08/22/2023 1:34 PM EDT SPECIMEN TO PATHOLOGY Routine 08/22/2023 1:34 PM EDT Colonoscopy, Biopsy ([id number]) 08/22/2023 1:13 PM EDT Adenomatous polyp of colon, unspecified part of colon Upper Gi Endoscopy, Biopsy ([id number]) 08/22/2023 1:13 PM EDT Adenomatous polyp of colon, unspecified part of colon UPPER GI ENDOSCOPY Routine 08/22/2023 1: 00 PM EDT COLONOSCOPY Routine 08/22/2023 1:00 PM EDT documented in this encounter Results * Specimen to Pathology (08/22/2023 1:54 PM EDT) AP Specimen 08/22/2023 1:54 PM EDT 08/22/2023 1:54 PM EDT Narrative [facility] - 08/22/2023 1:54 PM EDT Specimen requisition ordered. ??Separate Pathology report to follow Kevin Herrera MD PATHOLOGY/CYTOLOGY O SHIELA Performing Organization Address [facility]/ZIP Co de Phone Number [facility] [address] * Specimen to Pathology (08/22/2023 1:54 PM EDT) AP Specimen 08/22/2023 1:54 PM EDT 08/22/2023 1:54 PM EDT Narrative [facility] - 08/22/2023 1:54 PM EDT Specimen requisition ordered. ??Separate Pathology report to follow Kevin Herrera MD PATHOLOGY/CYTOLOGY O RDERABLES Performing Organization Address [facility] [place] [address] * Surgical Pathology Report (08/22/2023 1:34 PM EDT) Final Diagnosis [id number] ? Location: 4T; EA12; A The signing [...] Frankie Verified: ??09/02/2023 11:05 ??Pathologist Performed at: ??-[facility] Dept. of Pathology, [place] [address] Glass Technician: Gerald Styles MD, FCAP, ??CLIA Certificate: [id number] SPECIMEN(S) SUBMITTED A - mid esophagus bx, [...] entirely submitted ??sdy 09/02/2023 11:05 AM EDT [facility] GI Biopsy 08/22/2023 1:34 PM EDT 08/22/2023 1:34 PM EDT GI Biopsy 08/22/2023 1:34 PM EDT 08/22/2023 1:34 PM EDT GI Biopsy 08/22/2023 1:34 PM EDT 08/22/2023 1:34 PM EDT Kevin Herrera MD PATHOLOGY/CYTOLOGY O RDERABLES [facility] [place] [address] * Specimen to Pathology (08/22/2023 1:34 PM EDT) AP Specimen 08/22/2023 1:34 PM EDT 08/22/2023 1:34 PM EDT Narrative [facility] - 08/22/2023 1:34 PM EDT Specimen requisition ordered. ??Separate Pathology report to follow Kevin Herrera MD PATHOLOGY/CYTOLOGY O RDERABLES [facility] [place] [address] * UPPER GI ENDOSCOPY (08/22/2023 1:00 PM EDT) UPPER GI ENDOSCOPY [facility] Endoscopy ___ Procedure Date: 08/22/2023 1:00 PM ? Patient Name: Netta Gregorio ? N: [id number] ? Date of : 1960 ? Age: 63 ? Order #: [id number] ? Instrument Name: EG-[id number]- [id number] ? ___ Procedure: ? Upper GI endoscopy Indications: ? Heartburn Providers: ? Kevin Herrera, Rika Arevalo, ? Ilya Vásquez Referring MD: ? Medicines: [...] * COLONOSCOPY (08/22/2023 1:00 PM EDT) COLONOSCOPY [facility] Endoscopy Procedure Date: 08/22/2023 1:00 PM ? Patient Name: Netta Gregorio ? N: [id number] ? Date of : 1960 ? Age: 63 ? Order #: [id number] ? Instrument Name: EC-[id number]- [id number] ? Procedure: ? Colonoscopy Indications: ? Fecal incontinence Providers: ? Kevin Herrera, Rika Arevalo, ? Ilya Vásquez Referring MD: ? Medicines: [...] PROVATION documented in this encounter Visit Diagnoses Not on filedocumented in this encounter Active and Recently Administered [...] - Comment: colo)1340 (Given - Provider: Rika Arevalo, DARIANA) midazolam (pf) (Versed) (1 mg/mL) multi-dose injection (CANCELED) PRN, Starting on Fri08/22/23 at 1317, Until Fri08/22/23 at 1826, Intra-Operative (Intra-Procedure), Routine 1317 (Given - Provid er: Rika Arevalo RN)1320 (Given - Provider: Rika Arevalo RN)1323 (Given - Provider: Rika Arevalo RN)1326 (Given - Provider: Rika Arevalo, DARIANA)1332 (Given - Provider: Rika Arevalo, DARIANA - Comment: colo)1339 (Given - Provider: Rika Arevalo RN - Comment: ok per md) documented in this encounter Care Teams Fork Lift Technician Relationship Specialty Start Date End Date Bryan Schmid MD [address] [place] [address] [place] [address] PCP - [facility] Medicine 07/19/20 documented as of this encounter
--- OUTSIDE RECORDS SUMMARY | 2024-03-04 19:45 | XMS_ITS | Encounter Summary ---
Author Organization [facility] [place] [address] Care Team Providers Care Plisse Machine Operator Name Role Phone Bryan Schmid MD Primary Care Provider [phone] Encounter Details Date Type Department Care Team (Latest Contact Info) Description 01/06/2023 Travel Social History Tobacco Use Types Packs/Day [...] 9:30 AM EST Office [place] [address] Walt Wiseman III, MD [facility] [place] [address] documented as of this encounter Visit Diagnoses Not on filedocumented in this encounter Care Teams Plisse Machine Operator Relationship Specialty Start Date End Date Bryan Schmid MD [address] [place] [address] [place] [address] PCP - [facility] Medicine 07/19/20 documented as of this encounter
--- OUTSIDE RECORDS SUMMARY | 2024-03-04 19:45 | XMS_ITS | Encounter Summary ---
Author Organization [facility] [place] [address] Care Team Providers Care Spraying Machine Operator Name Role Phone Bryan Schmid MD Primary Care Provider [phone] Encounter Details Date Type Department Care Team (Latest Contact Info) Description 10/31/2022 Travel Social History Tobacco Use Types Packs/Day [...] 9:30 AM EST [place] [address] Walt Wiseman III, MD [facility] [address] documented as of this encounter Visit Diagnoses Not on filedocumented in this encounter Care Teams Spraying Machine Operator Relationship Specialty Start Date End Date Bryan Schmid MD [address] [place] [address] [place] FRENCH [address] PCP - [facility] 07/19/20 documented as of this encounter
--- OUTSIDE RECORDS SUMMARY | 2024-03-04 19:45 | XMS_ITS | Clinical Summary ---
Author Organization [facility] [place] [address] Care Team Providers Care Rotary Drier Feeder Name Role Phone Bryan Schmid MD Primary Care Provider [phone] Allergies Active Allergy Reactions Criticality Noted Date Comments Animal Dander 01/06/2023 Codeine 06/04/2021 Other reaction(s): Difficulty Breathing Codeine Phosphate High Trouble breathing Propoxyphene N-Acetaminophen High 04/13/2012 Trouble breathing House Dust 01/06/2023 Mold 01/06/2023 Propoxyphene Napsylate 06/04/2021 Other reaction(s): Difficulty Breathing Unclassified Drug 12/01/2013 Horses, guinea pigs and other animal dander-causes itchy eyes and nasal congestion Medications Medication Sig Dispensed Refills Start Date End Date Status amlodipine (NORVASC) 5 mg tablet Take 5 mg by mouth daily. Active traZODone (DESYREL) 50 mg tablet Take 50 mg by mouth nightly. Active levothyroxine (SYNTHROID) 25 mcg tablet Take 25 mcg by mouth daily. Active albuterol (PROVENTIL HFA;VENTOLIN HFA) 90 mcg/actuation inhaler Inhale 2 puffs into the lungs every 4 hours as needed. Use with spacer Active meclizine (ANTIVERT) 25 mg tablet Take 25 mg by mouth 3 times daily as needed. Active esomeprazole (NEXIUM) 40 mg capsule Take 40 mg by mouth every morning (before breakfast). Active sertraline (ZOLOFT) 100 mg tablet Take 100 mg by mouth daily. 09/08/2013 Active atorvastatin (LIPITOR) 40 mg tablet Take 40 mg by mouth nightly. Active cetirizine (ZYRTEC) 10 mg tablet Take 10 mg by mouth nightly. Active zolpidem (AMBIEN) 10 mg Tablet Take 10 mg by mouth nightly. Active acetaminophen (TYLENOL) 500 mg tablet Take 2 tablets by mouth every 8 hours. 30 tablet 1 01/08/2014 Active montelukast (SINGULAIR) 10 mg Tablet Take 10 mg by mouth nightly. 03/18/2017 Active Spiriva with HandiHaler 18 mcg Capsule, w/Inhalation Device INHALE BY MOUTH ONCE DAILY 07/30/2020 Active triamcinolone (KENALOG) 0.1 % CreamIndications:Ec zema, unspecified type Apply topically twice a day to the affected areas for 1 week on and 1 week off, and repeat as needed 454 g 1 12/20/2020 Active oxyCODONE-acetamino phen (Percocet) 5-325 mg Tablet TAKE ONE TABLET BY MOUTH EVERY 8 HOURS NEEDED FOR 28 DAYS 03/28/2021 Active Narcan 4 mg/actuation [place], Non-Aerosol as needed. 03/28/2021 Active diazePAM (Valium) 5 mg Tablet Take 5 mg by mouth as needed. Active amoxicillin (Amoxil) 500 mg Capsule Take 2,000 mg by mouth as needed. 04/22/2016 Active fluticasone propion-salmeteroL (ADVAIR) 250-50 mcg/dose Disk with Device Inhale 1 puff into the lungs 2 times daily. 06/20/2022 Active Myrbetriq 50 mg Tablet Sustained Release 24 hr Take 50 mg by mouth daily. 07/12/2022 Active loperamide (Imodium A-D) 2 mg Capsule Take 1 capsule by mouth 4 times daily as needed for Diarrhea. 60 tablet 3 07/15/2022 Active cyclobenzaprine (Flexeril) 10 mg tablet Take 10 mg by mouth 3 times daily as needed for Muscle spasms. 12/30/2022 Active metoprolol succinate XL (Toprol-XL) 100 mg ER 24 hr tablet Take 150 mg by mouth daily. 10/31/2022 Active baclofen (Lioresal) 10 mg tabletIndications:C ervicogenic migraine Take 1.5 tablets by mouth 2 times daily for 360 days. 270 tablet 3 07/10/2023 07/04/2024 Active hydrOXYzine (Atarax) 10 mg tabletIndications:C ervicogenic migraine TAKE 1 TABLET ORALLY EVERY 8 HOURS NEEDED (MIGRAINE OK TO USE AT ONSET AND REPEAT AFTER 2 HOURS) 90 tablet 3 07/10/2023 Active magnesium citrate Solution Take by mouth. Active riboflavin, Vitamin B2, (Vitamin B2) 100 mg tablet Take by mouth. Active Active Problems Problem Noted Date Diagnosed Date Chronic midline back pain 10/28/2018 S/P left total knee arthroplasty 01/06/2014 Brittaney 01/06/2014 Obesity 12/01/2013 Sleep apnea 12/01/2013 Asthma 12/01/2013 Primary osteoarthritis of left knee 10/28/2013 IBS (irritable bowel syndrome) 07/29/2012 GERD (gastroesophageal reflux disease) 3 Chest pain, unspecified 02/22/2011 Resolved Problems Problem Noted Date Diagnosed Date Resolved Date Diarrhea 04/13/2012 07/29/2012 Encounters Date Type Department Care Team Description 03/03/2024 External [place] [address] Ean Montoya MD 03/02/2024 3:15 PM EDT Procedure [place] [address] Ean Montoya MD Left hand paresthesia 03/02/2024 Travel 01/08/2024 1:30 PM EDT [place] [address] Walt Wiseman III, MD Ulnar neuropathy at elbow, left; Cervicogenic migraine 01/08/2024 Travel from Last 3 Months Family History Medical History Relation Comments Cancer Brother Osteoporosis Mother Relation Status Comments Brother Mother Social History Tobacco Use Types Packs/Day Years Used Date Smoking Tobacco: Never Smokeless Tobacco: Never Alcohol Use Standard Drinks/Week Comments Yes 0 (1 standard drink = 0.6 oz pur e alcohol) occasional Sex and Gender Information Value Date Recorded Sex Assigned at Not on file Gender Identity Not on file Sexual Orientation Not on file Last Filed Vital Signs Vital Sign Reading Time Taken Comments Blood Pressure 112/70 01/08/2024 1:29 PM EDT Pulse 52 01/08/2024 1:29 PM EDT Temperature 36.5 ??C (97.7 ??F) 08/22/2023 12:44 PM E DT Respiratory Rate 16 08/22/2023 3:15 PM EDT Oxygen Saturation 97% 01/08/2024 1:29 PM EDT Inhaled Oxygen Concentration - - Weight 104.3 kg (230 lb) 08/22/2023 12:44 PM EDT Height 172.7 cm (5' 8) 01/08/2024 1:29 PM EDT Body Mass Index 34.97 08/07/2023 11:04 AM EST Plan of Treatment Upcoming Encounters Date Type Department Care Team (Late st Contact Info) Description 07/12/2024 9:30 AM EST [place] [address] Walt Wiseman III, MD [facility] [place] [address] Health Maintenance Due Date Last Done Comments CT Colonography 1962 FIT DNA 1960 FIT 1960 Sigmoidoscopy 1960 Pneumococcal Vaccine: At-Ris k 5-64yrs (1 of 2 - PCV) 01/27/1968 HIV screen 01/27/1980 Hepatitis C Screening 01/27/1980 Tetanus/Diphtheria/Pertussis Vaccines (1 - Tdap) 1981 HPV test 01/27/1992 PAP Smear 01/27/1992 Breast Cancer Share Decision Needed 2002 Breast Cancer screening 2002 Zoster vaccine (1 of 2) 01/27/2012 Diabetes Screening (HgbA1C o r Glucose) 01/08/2017 01/08/2014, 01/07/2014, 12/01/2013, Additional history exists Covid-19 Vaccine (3 - 2022-2 4 season) 2024 10/28/2020, 09/30/2020 Influenza (Flu) vaccine (1 o f 1 - Influenza standard series) 02/01/2024 Colonoscopy 08/21/2025 08/22/2023, 08/01, 07/29/2022, Additional history exists Colorectal Cancer Screening 08/21/2025 Sigmoidoscopy (10 year) with FIT yearly 08/21/2033 08/22/2023, 08/22/2023, 07/29/2022, Additional history exists Medical Devices Implanted Type Area Derrick Worker Device Identifier Shelf Expiration Date Model / Serial / Lot Cement,Bne,Cmw 1,Gnta,40gm ([id number]) - [id number] Implanted:Qty: 1 on 01/06/2014 by Shamir Quispe MD at [facility] IMPLANTS Left: Knee DO NOT USE Depuy [employer]engra[employer] Proofer Apprentice - 3527 07/01/2016 0 / / [id number] Conroy,Pfc,Sgm, Ovl,3pg,Sm,35m m ([id number]) (Autoreq) - [id number] Implanted:Qty: 1 on 01/06/2014 by Shamir Quispe MD at [facility] IMPLANTS Left: Knee DO NOT USE [employer]uy [employer] Proofer Apprentice - 3527 08/29/2018 [id number] / / [id number] [place],Sgm,Fem, Ps,Cmnt,Lug,L, 4 ([id number]) (Autoreq) - [id number] Implanted:Qty: 1 on 01/06/2014 by Shamir Quispe MD at [facility] IMPLANTS Left: Knee DO NOT USE [employer]uy [employer] Proofer Apprentice - 3527 07/30/2023 0 / / [id number] Tray,Tib,Sgm,M od,Cmnt,Sz3 ([id number]) (Autoreq) - [id number] Implanted:Qty: 1 on 01/06/2014 by Shamir Quispe MD at [facility] IMPLANTS Left: Knee DO NOT USE Depuy [employer] Proofer Apprentice - 3527 09/30/2023 0 / / [id number] Inser,Sgm,Stab ,Crslnk,3x12.5 mm ([id number]) (Autoreq) - [id number] Implanted:Qty: 1 on 01/06/2014 by Shamir Quispe MD at [facility] IMPLANTS Left: Knee 11/29/2017 2 / / [id number] Procedures Procedure Name Priority Date/Time Associated Diagnosis Comments EMG SCAN Routine 03/02/2024 3:38 PM EDT COLONOSCOPY Routine 08/22/2023 1:00 PM EDT BASIC METABOLIC PANEL Routine 01/08/2014 4:09 AM EDT from Last 3 Months or Most Recently Relevant to Health Maintenance Results * Scan Doc: EMG (03/02/2024 3:38 PM EDT) Ean Montoya MD MEDIA MGR SCAN EXT O RDR/RSLT * COLONOSCOPY (08/22/2023 1:00 PM EDT) [facility] COLONOSCOPY [facility] Endoscopy Procedure Date: 08/22/2023 1:00 PM ? Patient Name: Netta Gregorio ? Date of : 1960 ? Age: 63 ? Order #: [id number] ? Instrument Name: [id number] ? Procedure: ? Colonoscopy Indications: ? Fecal incontinence Providers: ? Kevin Herrera, Rika Arevalo, ? Ilya Vásquez Referring : ? Medicines: ? Midazolam 1.5 mg IV, [...] Unknown GENERAL SURGICAL ORD ERABLES PROVATION * (ABNORMAL) Basic Metabolic Panel (non-fasting) (01/08/2014 4:09 AM EDT) Glucose 137 60 - 199 mg/dL [facility] Comment:Diabetes: >=200 mg/d L plus symptoms Blood Urea Nitrogen 8 8 - 18 mg/dL [facility] Creatinine 0.62(L) 0.70 - 1.20 mg/dL [facility] Comment: Please note that the pediatric reference intervals supplied above were not validated at [facility]. Results from pediatric patients should be interpreted in conjunction to the patient's age, height and muscle mass. Sodium 144 135 - 145 mmol/L [facility] Potassium 4.1 3.5 - 5.0 mmol/L [facility] Comment: Please note: ??Patients with WBC >100,000 may have falsely elevated Potassium levels. ??For accurate Potassium quantification in these patients send serum separator tube (gold top) for subsequent determinations. ??Contact the Clinical Chemistry Laboratory if there are any questions. Chloride 103 98 - 107 mmol/L [facility] Carbon Dioxide 25 22 - 31 mmol/L [facility] Anion Gap 16(H) 5 - 15 mmol/L [facility] Calcium 9.3 8.5 - 10.5 mg/dL [facility] Est Glomerular Filtration Rate >60 >=60 [facility] Comment: This estimated GFR (eGFR) value was calculated using the MDRD equation which has been validated on patients between the ages of 18 and 70. The MDRD should not be used to assess kidney function in patients < 18 years of age or in patients with extremes of body mass, or in patients with acute kidney failure. This value should be multiplied by 1.2 for patients. For further information please copy and paste the following links into your internet browser. http://[email or web address] [email or web address]/[email or web address] Blood specimen (specimen) 01/08/2014 4:09 AM EDT 01/08/2014 4:41 AM EDT Narrative Resulting Agency Comment Spec In Lab Shamir Quispe MD CHEMISTRY ORDERABLES [facility] from Last 3 Months or Most Recently Relevant to Health Maintenance Advance Directives Documents on File Type Date Recorded Patient Food And Drug Research Scientist Expl anation Advance Directives and Livin g Will 12/01/2013 1:33 PM 12/01/13 * Full Code (Latest Code Status on File) Date Activated Date Inactivated Comments 01/06/2014 5:30 PM 01/08/2014 1:53 PM Question Answer Comments Does patient have decision m aking capacity? Yes, order is based on Patient wishes. Care Teams Rotary Drier Feeder Relationship Specialty Start Date End Date Bryan Schmid MD [address] [place] [address] [place] [address] PCP - [facility] 07/19/20
--- OUTSIDE RECORDS SUMMARY | 2024-03-04 19:45 | XMS_ITS | Encounter Summary ---
[place] [address] Care Team Providers Care Horse Farm Manager Name Role Phone Bryan Schmid MD Primary Care Provider [phone] Reason for Visit * Reason Comments Medication Refill Encounter Details Date Type Department Care Team (Late st Contact Info) Description 05/12/2023 [place] [address] Shikha Eldridge PA [facility] [place] [address] Cervicogenic migraine Social History Tobacco Use Types [...] Encounter - Maine Smith MA - 05/14/2023 3:19 PM EST Prescription Renewal Request Name: Netta Gregorio : 1960 Prescription(s) Requested: Requested Prescriptions Pending Prescriptions Disp Refills hydrOXYzine (Atarax) 10 mg tablet [Pharmacy Med Name: HYDROXYZINE HCL 10 MG TABLET] 30 tablet 2 Sig: TAKE 1 TABLET BY MOUTH EVERY 8 HOURS NEEDED FOR MIGRAINE OK TO USE AT ONSET AND REPEAT AFTER 2 HOURS IF NOT IMPROVED. Date of Encounter last in This Dept (If need an appointment send to secretaries to schedule): Next Encounter in This Dept: 07/10/2023 Date of Last Refill (for each medication): Medication category requirements (labs etc): n/a Status of request: Refused DUPLICATE Allergies Allergen Reactions Codeine Phosphate Trouble breathing Darvocet A500 [Propoxyphene N-Acetaminophen] Trouble breathing Animal Dander Codeine Other reaction(s): Difficulty Breathing House Dust Mold Propoxyphene Napsylate Other reaction(s): Difficulty Breathing Unable To Find [Unclassified Drug] Horses, guinea pigs and other animal dander-causes itchy eyes and nasal congestion Maine Smith MA 05/14/23 3:19 PM documented in this encounter Plan of Treatment Upcoming Encounters Date Type Department Care Team (Late st Contact Info) Description 07/12/2024 9:30 AM EST [place] [address] Walt Wiseman III, MD [facility] [place] [address] documented as of this encounter Visit Diagnoses Diagnosis Cervicogenic migraine Other forms of migraine, without mention of intractable migraine without mention of status migrainosus documented in this encounter Care Teams Horse Farm Manager Relationship Specialty Start Date End Date Bryan Schmid MD [address] [place] [address] [place] FREN[place] [address] PCP - [facility] 07/19/20 documented as of this encounter
--- OUTSIDE RECORDS SUMMARY | 2024-03-04 19:45 | XMS_ITS | Encounter Summary ---
[place] [address] Care Team Providers Care Professional Advisor Name Role Phone Bryan Schmid MD Primary Care Provider [phone] Reason for Referral * Consultation (Routine) - Closed Specialty Diagnoses / Procedures Referred By Contlalo t Referred To Contact Neurology Diagnoses Occipital neuralgia, unspecified laterality Bryan Schmdi MD [address] [place] [address] [facility] Neu[facility] [address] [place] [id number] Referral ID Status Reason Start Date Expiration Date V isits Requested Visits Authorized [id number] Closed Consult, Test & Treat PCP Updated and/or Approved 03/27/2023 03/26/2024 1 1 Encounter Details Date Type Department Care Team (Latest Contact Info) Description 03/27/2023 Transcribe Orders eDH Incoming Referrals [phone] Bryan Schmid MD [address] [place] [address] [phone] Occipital neuralgia, unspecified laterality (Primary Dx) Social History Tobacco Use Types Packs/Day Years [...] 9:30 AM [place] [address] Walt Wiseman III, MD [facility] [place] [address] Scheduled Referrals Name Type Priority Associated Diagnoses Orde r Schedule Referral to Neurology Outpatient Referral Routine Occipital neuralgia, unspecified laterality Ordered: 03/27/2023 documented as of this encounter Visit Diagnoses Diagnosis Occipital neuralgia, unspecified laterality- Primary documented in this encounter Care Teams Professional Advisor Relationship Specialty Start Date End Date Bryan Schmid MD [address] [place] [address] [place] [address] PCP - [facility] 07/19/20 documented as of this encounter
--- OUTSIDE RECORDS SUMMARY | 2024-03-04 19:45 | XMS_ITS | Encounter Summary ---
Author Organization [facility] [place] [place] [address] Care Team Providers Care Automobile Dealer Name Role Phone Bryan Schmid MD Primary Care Provider [phone] Reason for Visit * Reason Onset Date Comments Medication Refill 11/22/2022 Encounter Details Date Type Department Care Team (Late st Contact Info) Description 11/22/2022 [place] [address] Walt Wiseman III, MD [facility] [place] [address] Cervicogenic migraine Social History Tobacco Use Types [...] encounter Miscellaneous Notes * Telephone Encounter - Madelin Valencia RN - 11/26/2022 9:38 AM EDT Medication request for : Hydroxyzine 10 mg tablet Information from Last Rx filled: Dose, Route, Frequency: As Directed Dispense Quantity: 30 tablet Refills: 5 Sig: TAKE 1 TABLET ORALLY EVERY 8 HOURS NEEDED (MIGRAINE OK TO USE AT ONSET AND REPEAT AFTER 2 HOURS) Start Date: 08/13/21 End Date: -- Written Date: 08/13/21 From last note: Netta Gregorio is a 61 y.o. woman with multiple cardiovascular risk factors presented for evaluation of episodic vertigo with associated neck pain and migrainous headache features. She has had dramatic response to baclofen for cervicogenic migraine prevention and hydroxyzine for cervicogenic migraine r escue treatment. She does not report any side effects to these medications. If she continues to have good response to baclofen we could consider gradually tapering dose in approximately 6 months. She continues to have intermittent difficulties with imbalance. She does not have any evidence of peripheral neuropathy to explain her imbalance. Her examination is actually notable for improved ability to tandem walk, which is quite reassuring. Prior examination did raise concern due to hyperreflexia at the knees, but there is no evidence of myelopathic findings such as weakness. MRI scan of her cervical spine was normal. Some of her balance difficulties could be due to multiple psychotropic medications including opioids, diazepam, zolpidem, and trazodone. Plan: Continue baclofen 10 mg 2 times daily Okay to continue with hydroxyzine as needed for migraine headache abortive treatment Recommend relaxation techniques to reduce stress which is a trigger of her cervicogenic migraine Last appt: 08/13/21 Next appt: 01/06/23 documented in this encounter Plan of Treatment Upcoming Encounters Date Type Department Care Team (Late st Contact Info) Description 07/12/2024 9:30 AM EST [place] [address] Walt Wiseman III, MD [facility] [place] [address] documented as of this encounter Visit Diagnoses Diagnosis Cervicogenic migraine Other forms of migraine, without mention of intractable migraine without mention of status migrainosus documented in this encounter Care Teams Automobile Dealer Relationship Specialty Start Date End Date Bryan Schmid MD [address] [place] [address] [place] [address] PCP - [facility] Medicine 07/19/20 documented as of this encounter
--- OUTSIDE RECORDS SUMMARY | 2024-03-04 19:45 | XMS_ITS | Encounter Summary ---
Author Organization [facility] [place] [address] Care Team Providers Care Breaking Machine Operator Name Role Phone Bryan Schmid MD Primary Care Provider [phone] Encounter Details Date Type Department Care Team (Late st Contact Info) Description 03/03/2024 External [place] [address] Ean Montoya MD [facility] [place] [place] [address] Social History Tobacco Use Types Packs/Day Years [...] 9:30 AM EST Office [place] [address] Walt Wiseman III, MD [facility] [place] [place] [address] documented as of this encounter Procedures Procedure Name Priority Date/Time Associated Diagnosis Comments EMG SCAN Routine 03/02/2024 3:38 PM EDT documented in this encounter Results * Scan Doc: EMG (03/02/2024 3:38 PM EDT) Ean Montoya MD MEDIA MGR SCAN EXT O RDR/RSLT documented in this encounter Visit Diagnoses Not on filedocumented in this encounter Care Teams Breaking Machine Operator Relationship Specialty Start Date End Date Bryan Schmid MD [address] [place] [address] [place] [address] PCP - [facility] Medicine 07/19/20 documented as of this encounter
--- OUTSIDE RECORDS SUMMARY | 2024-03-04 19:45 | XMS_ITS | Encounter Summary ---
[place] [address] Care Team Providers Care Critical Care Clinical Nurse Specialist Name Role Phone Bryan Schmid MD Primary Care Provider [phone] Reason for Referral * Diagnostic Test (Routine) - Closed Specialty Diagnoses / Procedures Referred By Contac t Referred To Contact Radiology Diagnoses Nausea and vomiting, unspecified vomiting type Gastroesophageal reflux disease, unspecified whether esophagitis present Polyp of colon, unspecified part of colon, unspecified type Weight loss Procedures CT Chest Abdomen Pelvis w Contrast (Generic) Christel Bustillos MD [facility] DR GASTROENTEROLOGY [place] [address] [facility] [place] [address] Referral ID Status Reason Start Date Expiration Date V isits Requested Visits Authorized [id number] Closed Specialty Service Requested 08/07/2023 02/06/2025 1 1 Reason for Visit * Diagnostic Test (Routine) - Closed Specialty Diagnoses / Procedures Referred By Contac t Referred To Contact Radiology Diagnoses Nausea and vomiting, unspecified vomiting type Gastroesophageal reflux disease, unspecified whether esophagitis present Polyp of colon, unspecified part of colon, unspecified type Weight loss Procedures CT Chest Abdomen Pelvis w Contrast (Generic) Christel Bustillos MD [facility] GASTROENTEROLOG[place] [address] [facility] [place] [address] Referral ID Status Reason Start Date Expiration Date V isits Requested Visits Authorized [id number] Closed Specialty Service Requested 08/07/2023 02/06/2025 1 1 Encounter Details Date Type Department Care Team (Latest Contact Info) Description 08/08/2023 12:59 PM EST - 08/08/2023 11:59 PM EST Hospital [place] [address] Kevin Herrera MD [facility] [place] [address] Nausea and vomiting, unspecified vomiting type; Gastroesophageal reflux disease, unspecified whether esophagitis present; Polyp of colon, unspecified part of colon, unspecified type; Weight loss Discharge Disposition: Home Social History Tobacco Use Types Packs/Day Years Used Date Smoking Tobacco: Never Smokeless Tobacco: Never Alcohol Use Standard Drinks/Week Comments Yes 0 (1 standard drink = 0.6 oz pur e alcohol) occasional Sex and Gender Information Value Date Recorded Sex Assigned at Not on file Gender Identity Not on file Sexual Orientation Not on file documented as of this encounter Medications at Time of Discharge [...] FOR 28 DAYS 03/28/2021 Narcan 4 mg/actuation [place], Non-Aerosol as needed. 03/28/2021 diazePAM (Valium) 5 [...] daily. 01/08/2024 documented as of this encounter Plan of Treatment Upcoming Encounters Date Type Department Care Team (Late st Contact Info) Description 07/12/2024 9:30 AM EST [place] [address] Walt Wiseman III, MD [facility] DR [place]OLOG[place] [address] documented as of this encounter Procedures Procedure Name Priority Date/Time Associated Diagnosis Comments CT CHEST ABDOMEN PELVIS W CONTRAST (GENERIC) Routine 08/08/2023 3:33 PM EST Nausea and vomiting, unspecified vomiting type Gastroesophageal reflux disease, unspecified whether esophagitis present Polyp of colon, unspecified part of colon, unspecified type Weight loss documented in this encounter Results * CT Chest Abdomen Pelvis w Contrast (Generic) (08/08/2023 3:33 PM EST) Anatomical Region Laterality Modality Abdomen, Pelvis Computed Tomogra phy Impressions 08/10/2023 5:52 PM EDT No evidence of malignancy or other active pathology in the chest, abdomen and pelvis. Findings as above. Thank you for letting us participate in the care of this patient. ??If you are a health care provider and have any questions regarding this report, please contact the number below. ??For patients who have questions please contact the health critical care clinical nurse specialist that requested your imaging first. ? Narrative 08/10/2023 5:52 PM EDT EXAMINATION: CT CHEST ABDOMEN PELVIS W CONTRAST (GENERIC) CLINICAL HISTORY: Weight loss, unintended Significant weight loss, N/V - r/o malignancy R11.2, Nausea with vomiting, unspecified - K21.9, Gastro-esophageal reflux disease without esophagitis - K63.5, Polyp of colon - R63.4, Abnormal weight loss TECHNIQUE: Helical CT of the chest, abdomen, and pelvis following the intravenous administration of contrast. . Oral contrast was administered. COMPARISON: None FINDINGS: Chest: Lungs and large airways: A small intrapulmonary lymph node in the minor fissure. No suspicious masses or nodules. Minimal dependent changes at the bases. Pleura: No effusion. Heart/vasculature: Normal. Lymph nodes: No enlarged lymph nodes. Mediastinum and paulina: Normal. Abdomen/pelvis: Liver: Normal size and attenuation without lesions. Bile ducts: Nondilated. Gallbladder: Removed Pancreas: Normal attenuation without ductal dilatation. Spleen: Normal. Adrenals: Normal. Kidneys: Small parenchymal and exophytic cysts. No suspicious masses or hydronephrosis. Urinary Bladder: Normal. Vasculature: No abdominal aortic aneurysm. Lymph Nodes: No enlarged lymph nodes. Bowel: Nondilated, no wall thickening. Scattered sigmoid diverticula. Peritoneum and retroperitoneum: No free fluid or loculated fluid collection. No pneumoperitoneum. No mesenteric inflammation. Abdominal wall: Normal. Reproductive organs: Normal. Osseous structures: Slight lower curvature convex to the left. No suspicious lesions. Procedure Note Johann Gupta MD - 08/10/2023 EXAMINATION: CT CHEST ABDOMEN PELVIS W CONTRAST (GENERIC) CLINICAL HISTORY: Weight loss, unintended Significant weight loss, N/V - r/o malignancy R11.2, Nausea with vomiting, unspecified - K21.9, Gastro-esophagealreflux disease without esophagitis - K63.5, Polyp of colon - R63.4, Abnormalweight loss TECHNIQUE: Helical CT of the chest, abdomen, and pelvis following the intravenous administration of contrast. . Oral contrast wasadministered. COMPARISON: None FINDINGS: Chest: Lungs and large airways: A small intrapulmonary lymph node in the minorfissure. No suspicious masses or nodules. Minimal dependent changes at the bases. Pleura: No effusion. Heart/vasculature: Normal. Lymph nodes: No enlarged lymph nodes. Mediastinum and paulina: Normal. Abdomen/pelvis: Liver: Normal size and attenuation without lesions. Bile ducts: Nondilated. Gallbladder: Removed Pancreas: Normal attenuation without ductal dilatation. Spleen: Normal. Adrenals: Normal. Kidneys: Small parenchymal and exophytic cysts. No suspicious masses or hydronephrosis. Urinary Bladder: Normal. Vasculature: No abdominal aortic aneurysm. Lymph Nodes: No enlarged lymph nodes. Bowel: Nondilated, no wall thickening. Scattered sigmoid diverticula. Peritoneum and retroperitoneum: No free fluid or loculated fluidcollection. No pneumoperitoneum. No mesenteric inflammation. Abdominal wall: Normal. Reproductive organs: Normal. Osseous structures: Slight lower curvature convex to the left. Nosuspicious lesions. IMPRESSION No evidence of malignancy or other active pathology in the chest, abdomenand pelvis. Findings as above. Thank you for letting us participate in the care of this patient. If youare a health care provider and have any questions regarding this report,please contact the number below. For patients who have questions please contactthe health critical care clinical nurse specialist that requested your imaging first. Kevin Herrera MD [facility] CT ORDERABLES documented in this encounter Visit Diagnoses Diagnosis Nausea and vomiting, unspecified vomiting type Gastroesophageal reflux disease, unspecified whether esophagitis present Polyp of colon, unspecified part of colon, unspecified type Weight loss Loss of weight documented in this encounter Administered Medications Inactive Administered Medications - up to 3 most recent administrations Medication Order MAR Action Action Date Dose Rate Site iohexoL (Omnipaque) (350 mg/mL) solution 0-200 mL 0-200 mL, Intravenous, ONCE PRN, 1 dose, Starting on Fri08/08/23 at 1529, Until Fri08/08/23 at 1529, Per Protocol, Warning Vesicant/Irritant Medication , Radiology Contrast, Routine Given 08/08/2023 3:29 PM EST 120 mLs iohexoL (Omnipaque) (350 mg/mL) solution 0-50 mL 0-50 mL, Oral, ONCE PRN, 1 dose, Starting on Fri08/08/23 at 1529, Until Fri08/08/23 at 1529, Per Protocol, Warning Vesicant/Irritant Medication , Radiology Contrast, Routine Given 08/08/2023 3:29 PM EST 50 mLs documented in this encounter Care Teams Critical Care Clinical Nurse Specialist Relationship Specialty Start Date End Date Bryan Schmid MD [address] [place] [address] [place] [address] PCP - [facility] Medicine 07/19/20 documented as of this encounter
--- OUTSIDE RECORDS SUMMARY | 2024-03-04 19:45 | XMS_ITS | Encounter Summary ---
Author Organization [facility] [place] [address] Care Team Providers Care Farm Adviser Name Role Phone Bryan Schmid MD Primary Care Provider [phone] Encounter Details Date Type Department Care Team (Latest Contact Info) Description 01/08/2024 Travel Social History Tobacco Use Types Packs/Day [...] 9:30 AM EST [place] [address] Walt Wiseman III, MD [facility] [place] [address] documented as of this encounter Visit Diagnoses Not on filedocumented in this encounter Care Teams Farm Adviser Relationship Specialty Start Date End Date Bryan Schmid MD [address] [place] [address] [place] [address] PCP - [facility] Medicine 07/19/20 documented as of this encounter
--- OUTSIDE RECORDS SUMMARY | 2024-03-04 19:45 | XMS_ITS | Encounter Summary ---
Author Organization [facility] [place] [address] Care Team Providers Care Forest Supervisor Name Role Phone Bryan Schmid MD Primary Care Provider Encounter Details Date Type Department Care Team (Latest Contact Info) Description 03/02/2024 Travel Social History Tobacco Use Types Packs/Day [...] 9:30 AM EST [place] [address] Walt Wiseman III, MD [facility] [place] [address] documented as of this encounter Visit Diagnoses Not on filedocumented in this encounter Care Teams Forest Supervisor Relationship Specialty Start Date End Date Bryan Schmid MD [address] [place] [address] [place] [id number] PCP - [facility] Medicine 07/19/20 documented as of this encounter
--- OUTSIDE RECORDS SUMMARY | 2024-03-04 19:45 | XMS_ITS | Encounter Summary ---
Author Organization [facility] Address [facility] [place] [address] Care Team Providers Care Holistic Health Practitioner Name Role Phone Bryan Schmid MD Primary Care Provider [phone] Reason for Referral * Physical Therapy (Routine) - Closed Specialty Diagnoses / Procedures Referred By Raffaele taylor Referred To Contact Physical Therapy Diagnoses Cervicogenic migraine Chronic neck pain Walt Wiseman III, MD [facility] [place] [address] Unknown None Referral ID Status Reason Start Date Expiration Date V isits Requested Visits Authorized [id number] Closed Evaluate and Treat Non PCP 01/06/2023 07/05/2023 12 12 Encounter Details Date Type Department Care Team (Late st Contact Info) Description 01/06/2023 9:30 AM EDT [place] [address] Walt Wiseman III, MD [facility] [place] [address] Cervicogenic migraine; Chronic neck pain Social History Tobacco Use Types Packs/Day Years [...] Sign Reading Time Taken Comments Blood Pressure 113/66 01/06/2023 9:27 AM EDT Pulse 56 01/06/2023 9:27 AM EDT Temperature - - Respiratory Rate - - Oxygen Saturation - - Inhaled Oxygen Concentration - - Weight 103.9 kg (229 lb) 01/06/2023 9:27 AM EDT Height 172.7 cm (5' 8) 01/06/2023 9:27 AM EDT r eported Body Mass Index 34.82 01/06/2023 9:27 AM EDT documented in this encounter Progress Notes * Walt Wiseman III, MD - 01/06/2023 9:30 AM EDT General Neurology [facility] Follow-up Visit Dear Bryan Schmid MD, I saw Netta Gregorio in clinic today in follow-up for cervicogenic headache and vertigo. She was unaccompanied at today's visit. Below is my progress note with impression and plan. Please do not hesitate to call with any questions. Brief Summary of History of Presenting Illness (telemedicine consultation 11/07/2020): Netta Gregorio is a 62 y.o. woman with hypertension, hyperlipidemia, coronary disease, JACKSON, obesity, and chronic vertigo who was initially seen in consultation on 11/07/2020. That time she reports onset of first episode of vertigo in 2001 with episodes lasting weeks to up to 6 months. Her most recent bout of vertigo started in late 2018 and had continued. She was previously seen by [facility] (Dr. Guevara) who did not think [...] obtained in October 2020 and was unremarkable. Interval History: Netta was last seen in clinic in July 2021. At that time she reported significant improvement in her cervicogenic migraine with associated vertigo on baclofen 10 mg 2 times daily and hydroxyzine 10 mg for migraine rescue. She reports that she had been doing well up until September 2022 when she started having more frequent neck tightness which led to more frequent cervicogenic migraine. she was recently [place] vacation [place] in [place]. A few days after returning from vacation she developed vertigo symptoms that lasted approximately 2 days and have subsequently improved. During that time she took both hydroxyzine and meclizine with good effect. Vertiginous symptoms were associated with migraine headache similar to prior bouts. Fortunately symptoms were triggered with movement of her head to the right as well as up and then would last for hours afterwards. She does not report any new neurological symptoms. Current Medications: reviewed and updated in EMR Past Medical History: reviewed and updated Review of Systems A ROS was obtained and reviewed with the patient. Pertinent positives and negatives were included in the HPI. Physical Examination Patient Vitals for the past 24 hrs: Pulse BP 01/06/23 0927 56 113/66 Hair, skin, nails, and joints were normal. Neck was supple. She was alert and oriented to person, place, and time with normal language, attention and concentration, recent and remote memory, praxis, and intellectual function. Mood was euthymic. Affect was congruent. Ocular ductions were intact without nystagmus. Normal saccades. No skew Strength was full throughout. Deep tendon reflexes: Biceps 2+/2+ Triceps 2+/2+ Knees 3+/3+ Ankles 1+/1+ Sensation to pin was intact in lower extremities. Vibration sensation was intact to approximately 9seconds at the toes. Standard gait was slightly wide-based. She was able to tandem walk. Assessment: ICD-10-CM 1. Cervicogenic migraine G43.809 baclofen (Lioresal) 10 mg tablet Referral to Physical Therapy 2. Chronic neck pain M54.2 Referral to Physical Therapy G89.29 Netta Gregorio is a 62 y.o. woman with multiple cardiovascular risk factors presented for evaluation of episodic vertigo with associated neck pain and migrainous headache features. In the past she has had dramatic response to baclofen for cervicogenic migraine prevention and hydroxyzine for cervicogenic migraine rescue treatment. She does not report any side effects to these medications. She is noticing worsening neck pain without radicular symptoms and in the setting has noticed recurrence of more frequent cervicogenic migraines with associated vertigo. Neurological examination does not show evidence of myelopathy or radiculopathy. I recommended referral to physical therapy for her chronic back pain which may be a full service vending driver of her cervicogenic migraine. Will increase her baclofen dosing from 10 mg 2 times daily to 15 mg 2 times daily. We discussed potential side effects including sedation. She was advised against using meclizine and hydroxyzine together. Plan: Increase baclofen 10 mg 2 times daily to 15 mg 2 times daily Okay to continue with hydroxyzine as needed for migraine headache abortive treatment Referral to physical therapy Follow-Up: 6 months Thank you for allowing us to participate in [facility]. If you have questions or concerns please do not hesitate to call our clinic at [phone]. Walt Wiseman III, MD Prison Classification Counselor Department of Neurology [facility] [address] P F 3:11 PM 01/06/2023 documented in this encounter Plan of Treatment Upcoming Encounters Date Type Department Care Team (Late st Contact Info) Description 07/12/2024 9:30 AM EST [place] [address] Walt Wiseman III, MD [facility] [place] [address] Scheduled Referrals Name Type Priority Associated Diagnoses Orde r Schedule Referral to Physical Therapy Outpatient Referral Routine Cervicogenic migraine Chronic neck pain Ordered: 01/06/2023 documented as of this encounter Visit Diagnoses Diagnosis Cervicogenic migraine Other forms of migraine, without mention of intractable migraine without mention of status migrainosus Chronic neck pain Cervicalgia documented in this encounter Care Teams Holistic Health Practitioner Relationship Specialty Start Date End Date Bryan Schmid MD [address] [place] [address] [place] [address] PCP - [facility] Medicine 07/19/20 documented as of this encounter
--- OUTSIDE RECORDS SUMMARY | 2024-03-04 19:45 | XMS_ITS | Encounter Summary ---
Author Organization [facility] [place] [address] Care Team Providers Care Sales Representative Leather Goods Name Role Phone Bryan Schmid MD Primary Care Provider [phone] Encounter Details Date Type Department Care Team (Late st Contact Info) Description 08/07/2023 Orders [place] [phone] Christel Bustillos MD [facility] [place] [address] Nausea and vomiting, unspecified vomiting type; Irritable bowel syndrome, unspecified type; Weight loss Social History Tobacco Use Types Packs/Day Years [...] 9:30 AM EST [place] [phone] Walt Wiseman III, MD [facility] [place] [address] documented as of this encounter Results * (ABNORMAL) Creatinine (08/07/2023 12:02 PM EST) Creatinine 0.59(L) 0.70 - 1.20 mg/dL [facility] Est Glomerular Filtration Rate 102 >=60 mL/min/1. 73 m?? [facility] Comment: This patient's estimated GFR was calculated using the 2020 CKD-EPI equation. The estimated GFR can vary from the measured GFR by up to 30% in the absence of rapidly changing kidney function. Assessment of the estimated GFR is not appropriate when creatinine concentrations are rapidly changing. For clinical situations in which a more precise estimate of GFR is necessary, consider alternative methods of GFR estimation such as a 24-hour urine creatinine clearance. Assignment of CKD stage 1-5 for patients with an eGFR near the transition point between stages may be based on clinical assessment of muscle mass and symptoms in addition to eGFR. Blood 08/07/2023 12:0 2 PM EST 08/07/2023 12:14 PM EST Narrative Resulting Agency Comment Spec In Lab Kevin Herrera MD CHEMISTRY ORDERABLES Performing Organization Address City/State/[facility] Co de Phone Number [facility] [place] [address] documented in this encounter Visit Diagnoses Diagnosis Nausea and vomiting, unspecified vomiting type Irritable bowel syndrome, unspecified type Weight loss Loss of weight documented in this encounter Care Teams Sales Representative Leather Goods Relationship Specialty Start Date End Date Bryan Schmid MD [address] [place] [address] [place] [address] PCP - General [facility] Medicine 07/19/20 documented as of this encounter
--- OUTSIDE RECORDS SUMMARY | 2024-03-04 19:45 | XMS_ITS | Encounter Summary ---
[place] [address] Care Team Providers Care Cemetery Workers Supervisor Name Role Phone Bryan Schmid MD Primary Care Provider [phone] Reason for Referral * Diagnostic Test (Routine) - Closed Specialty Diagnoses / Procedures Referred By Raffaele taylor Referred To Contact Radiology Diagnoses Nausea and vomiting, unspecified vomiting type Gastroesophageal reflux disease, unspecified whether esophagitis present Polyp of colon, unspecified part of colon, unspecified type Weight loss Procedures CT Chest Abdomen Pelvis w Contrast (Generic) Christel Bustillos MD [facility] [place] [address] [facility] [place] [address] Referral ID Status Reason Start Date Expiration Date V isits Requested Visits Authorized [id number] Closed Specialty Service Requested 08/07/2023 02/06/2025 1 1 Encounter Details Date Type Department Care Team (Late st Contact Info) Description 08/07/2023 11:00 AM EST Office [place] [address] Christel Bustillos MD [facility] [place] [address] Nausea and vomiting, unspecified vomiting type; Gastroesophageal reflux disease, unspecified whether esophagitis present; Polyp of colon, unspecified part of colon, unspecified type; Weight loss; Irritable bowel syndrome, unspecified type Social History [...] Sign Reading Time Taken Comments Blood Pressure 134/81 08/07/2023 11:04 AM EST Pulse 59 08/07/2023 11:04 AM EST Temperature - - Respiratory Rate - - Oxygen Saturation 98% 08/07/2023 11:04 AM EST Inhaled Oxygen Concentration - - Weight 106.8 kg (235 lb 8 oz) 08/07/2023 11:04 A M EST Height 172.7 cm (5' 8) 08/07/2023 11:04 AM EST Body Mass Index 35.81 08/07/2023 11:04 AM EST documented in this encounter Progress Notes * Christel Bustillos MD - 08/07/2023 11:00 AM EST Images from the original note were not included. Division of Gastroenterology and Hepatology Follow Up Patient Visit PCP: Bryan Schmid MD Referring provider: same as above Reason for Visit: IBS, incontinence HPI: Netta Gregorio is a 63 y.o. female w/ hx of asthma, CAD, HLD, HTN, JACKSON, spinal stenosis, hypoTH who presents to clinic to f/u d/t stool incontinence, urgency and frequency. I first met Netta about 1 year ago when she was having diarrhea. She had tried low FODMAP, and had had TSH and tTG which were unremarkable. Hx of numerous abdominal surgeries with prior lysis of adhesions. She was supposed to start pelvic floor PT but has not yet started. I then saw her in October she was using fiber and imodium, and was doing low FODMAP as well. Had been taking fiber gummies to thicken stool as well. Was not needing imodium at that time. Today, she notes things are going okay - diarrhea has been less and incontinence has been better. She is not sure what to attribute this too, but thinks potentially the fiber. She is also newly on mobetriq for urinary incontinence which she thinks to help. She still sometimes has incontinence but is less frequent (more like once a week, as opposed to daily). Has 4-5 Bms a day but they are newly formed. Taking 4 fiber gummies a day. She thinks she has lost weight, likely 60lbs over several years. She thinks this is partially due to decreased PO intake. Usually eats only 2 meals a day and is typically grazing. Yesterday half caesar salad with chicken, a few olives was all she had. Day before half caesar salad with chicken, 2 breakfast burritos. She does feel like her appetite is decreased, potentially from the vertigo and nausea but she is now more nauseous from taking pain pills. Does not take the imodium at all. No fevers, chills, night sweats. No SOB or CP though intermittently has palpitations. As above, hasnausea and sometimes vomits. No abd pain. She did meet with the spine team, it is not clear they can help with this. Also saw Urology who is helping with overactive bladder. She did not ever see the pelvic floor PT team. PAST MEDICAL HISTORY: Past Medical History: Diagnosis Date Asthma Borderline diabetes Coronary artery disease Hyperlipidemia Hypertension Obstructive sleep apnea on CPAP Patient Active Problem List Diagnosis Code Chest pain, unspecified R07.9 IBS (irritable bowel syndrome) K58.9 GERD (gastroesophageal reflux disease) K21.9 Primary osteoarthritis of left knee M17.12 Obesity E66.9 Sleep apnea G47.30 Asthma J45.909 S/P left total knee arthroplasty 01/06/2014 Brittaney Z96.659 Chronic midline back pain M54.9, G89.29 PAST SURGICAL HISTORY: Past Surgical History: Procedure Laterality Date ANTERIOR CRUCIATE LIGAMENT REPAIR 2012 left BACK SURGERY 01/2013 CHOLECYSTECTOMY, LAPAROSCOPIC 2011 DILATION AND CURETTAGE OF UTERUS 2012 HAND SURGERY bilat thumb ligament repair, small finger on right hand x2 (fx) LAPAROSCOPY 1995 MENISCECTOMY 1996 left PRO ARTHROPLASTY KNEE CONDYLE & PLATEAU MEDIAL & LAT COMPARTMENTS 01/06/2014 @TOTAL KNEE ARTHROPLASTY performed by Shamir Quispe MD at [facility] MAIN OR PRO COLONOSCOPY, BIOPSY 06/03/2012 COLONOSCOPY FLEXIBLE, WITH BX performed by Alireza James MD at [facility] ENDOSCOPY PRO COLONOSCOPY, BIOPSY N/A 03/07/2016 COLONOSCOPY FLEXIBLE, WITH BX performed by Eliel Nixon MD at [facility] ENDOSCOPY PRO COLONOSCOPY, REMV LESN, SNARE N/A 07/29/2022 COLONOSCOPY, POLYPECTOMY, REMOVAL LESION BY SNARE (WRVU 4.67) performed by Kevin Herrera MD at [facility] ENDOSCOPY PRO UPPER GI ENDOSCOPY, BIOPSY 06/03/2012 EGD WITH BIOPSY performed by Alireza James MD at [facility] ENDOSCOPY WISDOM TOOTH EXTRACTION three teeth SOCIAL HISTORY: Social History Socioeconomic History Marital status: Spouse name: Not on file Number of children: Not on file Years of education: Not on file Highest education level: Not on file Occupational History Not on file Tobacco Use Smoking status: Never Smokeless tobacco: Never Vaping Use Vaping Use: Never used Substance and Sexual Activity Alcohol use: Yes Alcohol/week: 0.0 standard drinks of alcohol Comment: occasional Drug use: Not Currently Sexual activity: Not on file Other Topics Concern Not on file Social History Narrative Not on file Social Determinants of Health Financial Resource Strain: Not on file Food Insecurity: Not on file Transportation Needs: Not on file Physical Activity: Not on file Intimate Partner Violence: Not on file Housing Stability: Not on file FAMILY HISTORY: Family History Problem Relation Age of Onset Osteoporosis Mother Cancer Brother MEDICATIONS: Current Outpatient Medications Medication Sig Dispense Refill magnesium citrate Solution Take by mouth. riboflavin, Vitamin B2, (Vitamin B2) 100 mg tablet Take by mouth. baclofen (Lioresal) 10 mg tablet Take 1.5 tablets by mouth 2 times daily for 360 days. 270 tablet 3 hydrOXYzine (Atarax) 10 mg tablet TAKE 1 TABLET ORALLY EVERY 8 HOURS NEEDED (MIGRAINE OK TO USE AT ONSET AND REPEAT AFTER 2 HOURS) 90 tablet 3 cyclobenzaprine (Flexeril) 10 mg tablet Take 10 mg by mouth 3 times daily as needed for Muscle spasms. metoprolol succinate XL (Toprol-XL) 100 mg ER 24 hr tablet Take 150 mg by mouth daily. Myrbetriq 50 mg Tablet Sustained Release 24 hr Take 50 mg by mouth daily. loperamide (Imodium A-D) 2 mg Capsule Take 1 capsule by mouth 4 times daily as needed for Diarrhea.60 tablet 3 fluticasone propion-salmeteroL (ADVAIR) 250-50 mcg/dose Disk with Device Inhale 1 puff into the lungs 2 times daily. oxyCODONE-acetaminophen (Percocet) 5-325 mg Tablet TAKE ONE TABLET BY MOUTH EVERY 8 HOURS NEEDEDFOR 28 DAYS Narcan 4 mg/actuation [place], Non-Aerosol as needed. diazePAM (Valium) 5 mg Tablet Take 5 mg by mouth as needed. amoxicillin (Amoxil) 500 mg Capsule Take 2,000 mg by mouth as needed. triamcinolone (KENALOG) 0.1 % Cream Apply topically twice a day to the affected areas for 1 week onand 1 week off, and repeat as needed 454 g 1 Spiriva with HandiHaler 18 mcg Capsule, w/Inhalation Device INHALE BY MOUTH ONCE DAILY montelukast (SINGULAIR) 10 mg Tablet Take 10 mg by mouth nightly. acetaminophen (TYLENOL) 500 mg tablet Take 2 tablets by mouth every 8 hours. 30 tablet 1 atorvastatin (LIPITOR) 40 mg tablet Take 40 mg by mouth nightly. cetirizine (ZYRTEC) 10 mg tablet Take 10 mg by mouth nightly. zolpidem (AMBIEN) 10 mg Tablet Take 10 mg by mouth nightly. albuterol (PROVENTIL HFA;VENTOLIN HFA) 90 mcg/actuation inhaler Inhale 2 puffs into the lungs every4 hours as needed. Use with spacer meclizine (ANTIVERT) 25 mg tablet Take 25 mg by mouth 3 times daily as needed. esomeprazole (NEXIUM) 40 mg capsule Take 40 mg by mouth every morning (before breakfast). sertraline (ZOLOFT) 100 mg tablet Take 100 mg by mouth daily. levothyroxine (SYNTHROID) 25 mcg tablet Take 25 mcg by mouth daily. metoprolol (LOPRESSOR) 100 mg tablet Take 150 mg by mouth daily. amlodipine (NORVASC) 5 mg tablet Take 5 mg by mouth daily. traZODone (DESYREL) 50 mg tablet Take 50 mg by mouth nightly. No current facility-administered medications for this visit. ALLERGIES: Allergies Allergen Reactions Codeine Phosphate Trouble breathing Darvocet A500 [Propoxyphene N-Acetaminophen] Trouble breathing Animal Dander Codeine Other reaction(s): Difficulty Breathing House Dust Mold Propoxyphene Napsylate Other reaction(s): Difficulty Breathing Unable To Find [Unclassified Drug] Horses, guinea pigs and other animal dander-causes itchy eyes and nasal congestion PHYSICAL EXAMINATION: Vitals: 08/07/23 1104 BP: 134/81 Pulse: 59 SpO2: 98% Weight: 106.8 kg (235 lb 8 oz) Height: 172.7 cm (5' 8) General: Well appearing, no acute distress HEENT: anicteric sclera ABD: Soft, non-tender, non-distended, normal tympanic to percussion, no hepatosplenomegaly appreciated Extremities: Warm and well perfused Skin: No rash, no jaundice Neuro: Alert and oriented x3, grossly non-focal LABS: Labs personally reviewed in [facility] Lab Results Component Value Date WBC 8.6 10/31/2022 HGB 15.1 10/31/2022 MCV 88.9 10/31/2022 RDWCV 13.8 10/31/2022 PLATELET 187 10/31/2022 Lab Results Component Value Date INR 0.8 [...] IMAGING: Reports and images personally reviewed in [facility]. Images independently interpreted. No orders to display ENDOSCOPY: Reports and images personally reviewed in [facility] Colonoscopy 07/2022: Impression: - The examined portion of the ileum was normal. - One 3 mm polyp in the cecum, removed with a cold snare. Resected and retrieved. - Six 4 to 6 mm polyps in the transverse colon, removed with a cold snare. Resected and retrieved. - Diverticulosis in the sigmoid colon and in the transverse colon. - The distal rectum and anal verge are normal on retroflexion view. Recommendation: - Discharge patient to home. - Resume previous diet. - Await pathology results. - Repeat colonoscopy in 3 years for surveillance based on pathology results. DIAGNOSIS A - Transverse colon polyps, resection (Multiple): - Fragments of tubular adenoma(s) with high-grade dysplasia . B - Cecal polyp, resection: - Colonic mucosa with hyperplastic changes. - Multiple levels examined. 03/2016 Colonoscopy Impression: - Diverticulosis in the sigmoid colon and in the descending colon. - One 4 mm polyp in the ascending colon. Resected and retrieved. - The examination was otherwise normal on direct and retroflexion views. 06/2012 Colonoscopy: Impression: - The examined portion of the ileum was normal. - The cecum is normal. - The Colon is normal. This was biopsied. - Two small (2 to 4 mm polyps) in the mid ascending colon. Resected and retrieved. - One 4 mm polyp in the mid transverse colon. Resected and retrieved. - The descending colon is normal. - Congested, erythematous and ajhkrolb-aqoftzh-hntvwkyeu mucosa in the sigmoid colon. This was biopsied. - One 4 mm polyp in the sigmoid colon. Resected and retrieved. - The rectum is normal. - Biopsies were taken with a cold forceps from the ascending colon, transverse colon and descending colon for evaluation of microscopic colitis. PATH: A - Duodenum, biopsy: Duodenal mucosa, negative for diagnostic abnormality. B - Stomach, biopsy: Gastric antrum-type and body/fundic-type mucosa, negative for diagnostic abnormality. C - Esophagus, biopsy: Squamocolumnar junctional mucosa (cardia type) with mild chronic inflammation. There is no evidence of intestinal metaplasia. D - Colon, random biopsies: Colonic mucosa, negative for diagnostic abnormality. E - Ascending colon, biopsy: Hyperplastic polyp. F - Transverse colon, polypectomy: Tubular adenoma. G - Sigmoid colon, biopsy: Colonic mucosa with lamina propria hemorrhage. H - Sigmoid colon, polypectomy: Tubular adenoma. ASSESSMENT & PLAN: Netta Gregorio is a 63y.o. female w/ hx of asthma, CAD, HLD, HTN, JACKSON, spinal stenosis, hypoTH who presents to clinic to f/u stool incontinence, urgency and frequency. When I last saw her in October 2022, things were improving with imodium and fiber, as well as low FODMAP diet. We further discussed her dx of likely IBS-D. She will continue on the fiber gummies and thinks this is helping. She has not needed imodium but given still having episodes of incontinence and number of stools a day, we discussed adding imodium daily to see if that helps. She continues to work on low FODMAP diet. Previously was on colestipol - we also discussed that we can always restart colestipol if diarrhea worsens, she continues to want to hold off on this. As for reflux, she remains on PPI. Given ongoing GERD, significant weight loss, nausea and vomitingshe reports, we discussed plan to repeat EGD (last in 2012). She is due for surveillance colonoscopy as well, so will perform together. She thinks weight loss of about 60lbs over last few years (at last visit 245lbs, Feb of this year was 225lbs and today is 235lbs) - does seem she is fluctuating a b it in terms of weight. Nevertheless, in addition to bidirectional endoscopy, will obtain cross sectional imaging to r/o malignancy. I will see her back in 6 mo, if not sooner pending workup. Plan: - Continue fiber gummies daily - Imodium PRN - Low FODMAP diet - Continue w/PPI - EGD, colonoscopy w/IVCS - CT C/A/P - Continue to consider colestipol if diarrhea gets worse - RTC in 6mo, if not sooner The patient was reviewed with Dr. Javier Bustillos MD PGY-5, Gastroenterology [facility] [place] [address] P: [phone] F: [phone] CC Bryan Schmid MD [address] [place] [address] [place] [address] Bryan Minor MD [address] [place] [address] [place] [address] documented in this encounter Plan of Treatment Upcoming Encounters Date Type Department Care Team (Late st Contact Info) Description 07/12/2024 9:30 AM EST [place] [address] Walt Wiseman III, MD [facility] [place] [address] documented as of this encounter Procedures Procedure Name Priority Date/Time Associated Diagnosis Comments CREATININE Routine 08/07/2023 12:02 PM EST Nausea and vomiting, unspecified vomiting type Irritable bowel syndrome, unspecified type Weight loss documented in this [...] who have questions please contact the health residential care facility manager that requested your imaging first. ? Electronically signed by: Johann Gupta MD, [facility] ([phone]), at 08/10/2023 5:52 PM Narrative 08/10/2023 5:52 PM EDT EXAMINATION: CT [...] patients who have questions please contactthe health residential care facility manager that requested your imaging first. Electronically signed by: Johann Gupta MD, [facility]([phone]), at 08/10/2023 5:52 PM Kevin Herrera MD IMG CT ORDERABLES * (ABNORMAL) Creatinine (08/07/2023 12:02 PM EST) Creatinine 0.59(L) 0.70 - 1.20 mg/dL [facility] Est Glomerular Filtration Rate 102 >=60 mL/min/1. 73 m?? [facility] Comment: This patient's estimated GFR was [...] Narrative Resulting Agency Comment Spec In Lab Keivn Herrera MD CHEMISTRY ORDERABLES [facility] [place] [address] documented in this encounter Visit Diagnoses Diagnosis Nausea and vomiting, unspecified vomiting type Gastroesophageal reflux disease, unspecified whether esophagitis present Polyp of colon, unspecified part of colon, unspecified type Weight loss Loss of weight Irritable bowel syndrome, unspecified type Nausea and vomiting, unspecified vomiting type Gastroesophageal reflux disease, unspecified whether esophagitis present Polyp of colon, unspecified part of colon, unspecified type Weight loss Loss of weight documented in this encounter Care Teams Cemetery Workers Supervisor Relationship Specialty Start Date End Date Bryan Schmid MD [address] [place] [address] [place] [address] PCP - [facility] Medicine 07/19/20 documented as of this encounter
--- OUTSIDE RECORDS SUMMARY | 2024-03-04 19:46 | XMS_ITS | Encounter Summary ---
[place] [address] Care Team Providers Care Corporate Job Titles Name Role Phone Bryan Schmid MD Primary Care Provider [phone] Reason for Referral * Consultation (Routine) - Closed Specialty Diagnoses / Procedures Referred By Contac t Referred To Contact [facility] Diagnoses Irritable bowel syndrome, unspecified type Incontinence of feces, unspecified fecal incontinence type Low back pain w/pelvic numbness/MRI 02/21/22 in [facility]/? pain mgmt options Christel Bustillos MD [facility] [place] [address] [facility] [place] [place] [address] Referral ID Status Reason Start Date Expiration Date V isits Requested Visits Authorized [id number] Closed Evaluate and Treat 07/15/2022 07/15/2023 1 1 * Physical Therapy (Routine) - Closed Specialty Diagnoses / Procedures Referred By Contac t Referred To Contact Diagnoses Irritable bowel syndrome, unspecified type Incontinence of feces, unspecified fecal incontinence type Christel Bustillos MD [facility] [place] [address] Referral ID Status Reason Start Date Expiration Date V isits Requested Visits Authorized [id number] Closed Evaluate and Treat Non PCP 07/15/2022 01/11/2023 12 12 Reason for Visit * Consultation (Routine) - Closed Specialty Diagnoses / Procedures Referred By Raffaele taylor Referred To Contact Gastroenterology Diagnoses Dumping syndrome dumping syndrome Bryan Schmid MD [address] [place] [address] [place] [address] [facility] [address] Referral ID Status Reason Start Date Expiration Date V isits Requested Visits Authorized [id number] Closed Consult, Test & Treat 03/05/2022 03/05/2023 1 1 Encounter Details Date Type Department Care Team (Late st Contact Info) Description 07/15/2022 9:30 AM EST Office Visit [place] [address] Christel Bustillos MD [facility] [place] [address] Irritable bowel syndrome, unspecified type; Incontinence of feces, unspecified fecal incontinence type Social History Tobacco Use Types Packs/Day [...] Reading Time Taken Comments Blood Pressure 112/70 07/15/2022 9:29 AM EST Pulse 69 07/15/2022 9:29 AM EST Temperature - - Respiratory Rate - - Oxygen Saturation - - Inhaled Oxygen Concentration - - Weight 111.1 kg (245 lb) 07/15/2022 9:29 AM EST Height 172.7 cm (5' 8) 07/15/2022 9:29 AM EST Body Mass Index 37.25 07/15/2022 9:29 AM EST documented in this encounter Patient Instructions * Patient Instructions* Christel Bustillos MD - 07/15/2022 9:30 AM EST Fiber and imodium Pelvic floor PT Referral to spine surgery Blood work today Colonoscopy when able - for surveillance, r/o microscopic colitis documented in this encounter Progress Notes * Christel Bustillos MD - 07/15/2022 9:30 AM EST Images from the original note were not included. Division of Gastroenterology and Hepatology New Patient Visit PCP: Bryan Schmid MD Referring provider: same as above Reason for Visit: IBS and incontinence HPI: Netta Gregorio is a 62 y.o. female w/ hx of asthma, CAD, HLD, HTN, JACKSON, spinal stenosis, hypoTH who presents to clinic to establish d/t stool incontinence, urgency and frequency. Since 2012 she has had a lot of trouble with diarrhea. Had previously been seen by GI and was dx w/IBS. She went through FODMAP diet but did not see any change. She notes that essentially right aftereating she has to run to the bathroom. She has had an ex lap previously for endometriosis and foundadhesions in bowel so these were lysed, but has not had any bowel resections, bariatric surgeries, or other abdominal surgeries. She does intermittently need oxycodone for back pain and that seems tostop the diarrhea.This summer she was in [place] her back pain got acutely worse - this is when she developed incontinence with both urine and stool as well as numbness in pelvis. She associated the incontinence with her back issues - the worse her back was, the worse incontinence was. Her PCP did imaging of her back and ruled out cauda equina, though I am unable to see the report. Incontinence episodes are completely liquid, yellow. Prior to this past year she has been able to get to bathroom and just struggled with diarrhea, but since worsening back issues in past year she has been completelyincontinent even with coughing. She will have typically 2-3 accidents a day. If she doesn't take oxycodone she will have 5-6 episodes. Spine surgeon here does not want to operate. She has previously not had an indication for spinal surgery. No fevers, chills, night sweats. SOB intermittently d/t asthma, no CP. No nausea or vomiting. Has cramping after eaten. No flushing or palpitations after eating - though sometimes feels hot after eating. Typical food intake includes: nothing until dinner, sometimes will have banana during day but tends to avoid food until dinner. She has a lack of appetite which is new for her. Does not feel likeshe is getting full. She has lost about 40lbs in the last year d/t this, which is not intentional. Up to date on mammography. She saw Urology and thought this was neurogenic bladder from back issues - started on mirabegron which has helped urgency. PAST MEDICAL HISTORY: Past Medical History: Diagnosis [...] performed by Shamir Quispe MD at [facility] MAIN OR ??? PRO COLONOSCOPY, BIOPSY 06/03/2012 COLONOSCOPY FLEXIBLE, WITH BX performed by Alireza James MD at [facility] ENDOSCOPY ??? PRO COLONOSCOPY, BIOPSY N/A 03/07/2016 COLONOSCOPY FLEXIBLE, WITH BX performed by Eilel Nixon MD at [facility] ENDOSCOPY ??? PRO UPPER GI ENDOSCOPY, BIOPSY 06/03/2012 EGD WITH BIOPSY performed by Alireza James MD at [facility] ENDOSCOPY ??? WISDOM TOOTH EXTRACTION three teeth [...] ??? Osteoporosis Mother ??? Cancer Brother MEDICATIONS: Amlodipine 5mg QD Atorvastatin 40mg QD Baclofen 10mg BID Calcium Vit D Cetirizine 10mg QD Fluticasone salmeterol inhaler Levothyroxine 25mcg Mirabegron Metoprolol 150mg QD Montelukast 10mg QD Oxycodone acetaminophen 5-325mg Proair Sertraline 150mg Trazodone 50mg QHS Zolipdem 10mg QHS ALLERGIES: Allergies Allergen Reactions ??? Codeine Phosphate Trouble breathing ??? Darvocet A500 [Propoxyphene N-Acetaminophen] Trouble breathing ??? Acetaminophen Other reaction(s): Difficulty Breathing ??? Codeine Other reaction(s): Difficulty Breathing ??? Oxycodone Hcl Other reaction(s): Difficulty Breathing ??? Oxycodone Terephthalate Other reaction(s): Difficulty Breathing ??? Percodan [Oxycodone Lwx-Qoslhhqop-Fyy] Other reaction(s): Difficulty Breathing ??? Propoxyphene Napsylate Other reaction(s): Difficulty Breathing ??? Unable To Find [Unclassified Drug] Horses, guinea pigs and other animal dander-causes itchy eyes and nasal congestion PHYSICAL EXAMINATION: Vitals: 07/15/22 0929 BP: 112/70 BP Location (NB): Right arm Patient Position: Sitting BP Cuff Sizes: Large Adult (32-43 cm) Pulse: 69 Weight: 111.1 kg (245 lb) Height: 172.7 cm (5' 8) General: Well appearing, no acute distress HEENT: anicteric sclera Chest: Clear to auscultation bilaterally, no wheeze, rale or rhonchi CVS: Regular rate and rhythm, normal s1/s2, no murmurs, rubs or gallops ABD: Soft, non-tender, non-distended, normoactive bowel sounds, no hepatosplenomegaly appreciated Extremities: Warm and well [...] IMAGING: Reports and images personally reviewed in eD. Images independently interpreted. No orders to display ENDOSCOPY: Reports and images personally reviewed in eD 06/2012 Colonoscopy: Impression: ?- The examined portion [...] normal. ? - Congested, erythematous and ? ixzhuvwp-fwdiavt-nuqobieea mucosa in ? the sigmoid colon. This was biopsied. ? - One 4 mm polyp in the sigmoid ? colon. Resected and retrieved. ? - The rectum is normal. ? - Biopsies were taken with a cold ? forceps from the ascending colon, ? transverse colon and descending colon ? for evaluation of microscopic colitis. PATH: ?? A - Duodenum, biopsy: ? [...] - Sigmoid colon, polypectomy: ? Tubular adenoma. 03/2016 Colonoscopy Impression: ?- Diverticulosis in the sigmoid colon ?and in the descending colon. ?- One 4 mm polyp in the ascending ?colon. Resected and retrieved. ?- The examination was otherwise ?normal on direct and retroflexion ?views. ASSESSMENT & PLAN: Netta L Gregorio is a 62 y.o. female w/ hx of asthma, CAD, HLD, HTN, JACKSON, spinal stenosis, hypoTH who presents to clinic to establish d/t stool incontinence, urgency and frequency. We discussed a number of things today, first being that it appears she has IBS-D (normal colonic bxback in 2012), but stool incontinence associated w/urinary incontinence and pelvic numbness is c/f a neurogenic component as well. For her IBS-D, we discussed trying to incorporate fiber daily eitherthrough fiber gummies or metamucil. I am going to send her Imodium to use PRN to see if this helps,as opposed to relying on oxycodone. She is also going to look into the low FODMAP diet to see if she can make some changes. As for other etiologies to r/o, will send TSH (she is on levothyroxine) andtTG as it does not appear she has had this checked before. As for the incontinence, we discussed referring her to pelvic floor PT to see if there is any component she can work on from a pelvic floor muscle perspective; she is open to this, and will refer closer to home in [place]. We also discussedre-referring her to see the spine team, as she has not seen them since this interval change 1 yr ago associated with stool and urinary incontinence and numbness. Otherwise, she is due for surveillance colonoscopy now given hx of TAs (last scope in 2015). Will plan to f/u in ~5-6mo. Plan: - Fiber daily - Imodium PRN - Low FODMAP diet - TSH, tTG - Pelvic floor PT - Re refer to spine team - Due for surveillance colonoscopy (last 2016) - RTC in 5-6mo The patient was seen and discussed with Dr. Mindy Bustillos MD PGY-4, Gastroenterology [facility] [place] [address] P: [phone] F: [phone] CC Bryan Schmid MD [address] [place] [address] [place] [address] CC Bryan Schmid MD [address] [place] [address] [place] [address] Attending attestation: I interviewed and examined the patient with Dr. Bustillos. I confirm the history and henry physical findings outlined in this note. The assessment and plan were formulated in discussion with me at the time of this encounter, and I agree with them as documented. Oscar Fatima MD Section of Gastroenterology [facility] documented in this encounter Miscellaneous Notes * Addendum Note - Oscar Fatima MD - 07/15/2022 9:30 AM ESTAddended by: OSCAR FATIMA on: 07/15/2022 06:32 PM Modules accepted: Level of Service documented in this encounter Plan of Treatment Upcoming Encounters Date Type Department Care Team (Late st Contact Info) Description 07/12/2024 9:30 AM EST Office [place] [address] Walt Wiseman III, MD [facility] [place] [address] Scheduled Orders Name Type Priority Associated Diagnoses Orde r Schedule ENDOSCOPY CASE REQUEST: COLONOSCOPY, DIAGNOSTIC Procedures Routine Irritable bowel syndrome, unspecified type Incontinence of feces, unspecified fecal incontinence type Ordered: 07/15/2022 Scheduled Referrals Name Type Priority Associated Diagnoses Orde r Schedule Referral to Physical Therapy Outpatient Referral Routine Irritable bowel syndrome, unspecified type Incontinence of feces, unspecified fecal incontinence type Ordered: 07/15/2022 Referral to [facility] (Internal only) Outpatient Referral Routine Irritable bowel syndrome, unspecified type Incontinence of feces, unspecified fecal incontinence type Ordered: 07/15/2022 documented as of this encounter Procedures Procedure Name Priority Date/Time Associated Diagnosis Comments HC TISSUE TRANSGLUTAMINASE AB Routine 07/15/2022 11:02 AM EST Irritable bowel syndrome, unspecified type Incontinence of feces, unspecified fecal incontinence type HC THYROID STIMULATING HORMONE, SERUM Routine 07/15/2022 11:02 AM EST Irritable bowel syndrome, unspecified type Incontinence of feces, unspecified fecal incontinence type HC IGA, SERUM Routine 07/15/2022 11:02 AM EST Irritable bowel syndrome, unspecified type Incontinence of feces, unspecified fecal incontinence type documented in this encounter Results * IgA (07/15/2022 11:02 AM EST) IgA 156 70 - 400 mg/dL [facility] Blood 07/15/2022 11:0 2 AM EST 07/15/2022 11:09 AM EST Narrative Resulting Agency Comment Spec In Lab Oscar Fatima MD CHEMISTRY ORDERABLES Performing Organization Address [facility] Co de Phone Number [facility] [place] [address] * Tissue transglutaminase, IgA (07/15/2022 11:02 AM EST) TTG IgA Ab 0.5 <=10.0 u/ml [facility] Comment: Negative: ??<7 units/mL Indeterminate: 7-10 units/mL Positive: ??>10 units/mL Blood 07/15/2022 11:0 2 AM EST 07/16/2022 7:24 AM EST Narrative Resulting Agency Comment Spec In Lab Oscar Fatima MD IMMUNOLOGY ORDERABLE S Performing Organization Address [facility] de Phone Number [facility] [place] [address] * TSH (07/15/2022 11:02 AM EST) Thyroid Stimulating Hormone 1.60 0.27 - 4.20 mcIU/mL [facility] Comment: Reference Interval (mcIU/mL): Females: ??First Trimester: 0.23-3.88 ??Second Trimester: 0.22-3.90 ??Third Trimester: 0.44-4.66 Blood 07/15/2022 11:0 2 AM EST 07/15/2022 11:10 AM EST Narrative Resulting Agency Comment Spec In Lab Oscar Fatima MD CHEMISTRY ORDERABLES Performing Organization Address [facility] Co de Phone Number [facility] [place] [address] documented in this encounter Visit Diagnoses Diagnosis Irritable bowel syndrome, unspecified type Incontinence of feces, unspecified fecal incontinence type documented in this encounter Care Teams Corporate Job Titles Relationship Specialty Start Date End Date Bryan Schmid MD [address] [place] [address] [place] [address] PCP - General [facility] Medicine 07/19/20 documented as of this encounter
--- OUTSIDE RECORDS SUMMARY | 2024-03-04 19:46 | XMS_ITS | Encounter Summary ---
Author Organization [facility] [place] [address] Care Team Providers Care It Business Process Architect Name Role Phone Bryan Schmid MD Primary Care Provider [phone] Reason for Visit * Reason Onset Date Comments TeleHealth 11/02/2020 Encounter Details Date Type Department Care Team (Late st Contact Info) Description 11/02/2020 [place] [id number] Walt Wiseman III, MD [facility] [place] [address] TeleHealth Social History Tobacco Use Types Packs/Day Years [...] Telephone Encounter - Madelin Valencia RN - 11/02/2020 4:57 PM EDT Spoke to this patient by phone to review medications and allergies prior to their upcoming tele-appointment with their Neurology provider. Medications and allergies reviewed, verified and updated as needed. ?? documented in this encounter Plan of Treatment Upcoming Encounters Date Type Department Care Team (Late st Contact Info) Description 07/12/2024 9:30 AM EST [place] [address] Walt Wiseman III, MD [facility] [place] [address] documented as of this encounter Visit Diagnoses Not on filedocumented in this encounter Care Teams It Business Process Architect Relationship Specialty Start Date End Date Bryan Schmid MD [address] [place] [address] [place] [address] PCP - [facility] Medicine 07/19/20 documented as of this encounter
--- OUTSIDE RECORDS SUMMARY | 2024-03-04 19:46 | XMS_ITS | Encounter Summary ---
[place] [address] Care Team Providers Care Drum Dyeing Machine Operator Name Role Phone Bryan Schmid MD Primary Care Provider [phone] Reason for Visit * Physical Therapy (Routine) - Closed Specialty Diagnoses / Procedures Referred By Raffaele taylor Referred To Contact Physical Therapy Diagnoses Dizziness Balance problems Reji Rascon MD [facility] [place] [address] [facility] [place] [address] Referral ID Status Reason Start Date Expiration Date V isits Requested Visits Authorized [id number] Closed Evaluate and Treat 08/17/2020 08/17/2021 100 100 Encounter Details Date Type Department Care Team (Late st Contact Info) Description 11/06/2020 3:00 PM EDT [place] [phone] Domenic Cortez PT Benign paroxysmal positional vertigo of left ear; Dizziness; Imbalance Social History Tobacco Use Types Packs/Day Years Used Date Smoking Tobacco: Never Smokeless Tobacco: Never Alcohol Use Standard Drinks/Week Comments Yes 0 (1 standard drink = 0.6 oz pur e alcohol) occasional Sex and Gender Information Value Date Recorded Sex Assigned at Not on file Gender Identity Not on file Sexual Orientation Not on file documented as of this encounter Miscellaneous Notes * Initial Evaluation - Domenic Cortez PT - 11/06/2020 3:00 PM EDT Physical Therapy Initial Evaluation Note: Outpatient Date of Exam/First treatment: 11/06/2020 Date of Onset 1999 Date of Referral: 08/17/2020 Referring Provider: Reji Rascon MD Medicare Cert Period: 11/06/2020 - 02/06/2021 Payor: [employer] MANAGED MEDICARE / Plan: [facility] MANAGED MEDICARE COMPLETE / Product Type: *No Producttype* / Allergies Allergen Reactions ??? Codeine Phosphate Trouble breathing ??? Darvocet A500 [Propoxyphene N-Acetaminophen] Trouble breathing ??? Unable To Find [Unclassified Drug] Horses, guinea pigs and other animal dander-causes itchy eyes and nasal congestion Diagnosis and pertinent co-morbidities affecting Plan of Care ICD-10-CM 1. Benign paroxysmal positional vertigo of left ear H81.12 2. Dizziness R42 3. Imbalance R26.89 No past medical history on file. HISTORY: Netta Gregorio is a 60 y.o. female referred to physical therapy for balance problems and dizziness. Note from Ruel Guevara 10/05/2020: Netta Gregorio is a 60 y.o. female with history of spinal stenosis, migraines, and neck stiffness who has had positional, transient vertigo off and on for nearly 20 years. Her history is consistent withBPPV, although her condition is more severe than most. She has no aural symptoms or signs to suggest Meniere's disease or primary vestibular neuropathy. Audiogram and ear exam are benign. ?? Differential includes atypical BPPV, cervicogenic vertigo, or positional compromise of cerebellar perfusion related to intracranial fluid dynamics, vertebrobasilar artery insufficiency, etc. ?? I agree with vestibular PT evaluation which is pending. If this is not conclusive, she may benefit from audiology vestibular function testing. I would also recommend evaluation by a neurologist to exclude central causes, but I will defer to her PCP to place this referral if they agree. ?? If recalcitrant BPPV is determined the diagnosis, laterality is confirmed, and this does not respond to physical therapy, she may be a candidate for surgical occlusion of the semicircular canals. This has variable success and may cause deafness in the ear, so it is not an ideal solution. I would recommend obtaining a temporal bone CT scan prior to ENT follow up if she is headed that direction. SUBJECTIVE FINDINGS Patient Reports: sice first episode of vertigo in 2001 have had small episodes and big episoes of vertigo. Big episode 3-6 months with vertigo (spinning) with positional movements. When it is a smallepisode is off balance and some vertigo but usually avoid triggering it. With big episode have to go to physical therapy. May 2019 got Shingles and had a bad episode of vertigo from May to October and then went to physical therapy in October, where they did eply's and neck manual therapy. PT October to end of December 2x a week. With Eply's it would get better for 24-48 hours but come back again with vertigo. End of January 2020 symptoms were just a little bit better and avoiding all triggers. From January 2020 to now still have spinng lying on left side but gradually the other pieces got betterbut then in July 2020 fell and broke ankle, Trimalleolar fracture (have 8 screws and metal plate). Netta reports she falls a lot due to balance problems from vertigo. Vertigo has gotten bad in last week or so. In a fog all the time, trouble reading. Can not lie on L side or back without vertigo only place to lie down is R side. Bending over gets vertigo. Rotate left or side bend left, and extension of the neck all cause Vertigo. Balance gets off, pain up into ears and get really tight in neck and head. Sleep with 6 pillows, not sure if that is contributing to neck pain. Has memory and concentratoin problems. Not sure when they started. Orthostatic hypotension. Heart attack in 2006 cardiac incident. Had an accident in [place] where head went through [facility] [address]. Functional Limitations: Patient reports hiking, sleeping, walking, housewrok, bending over. Ankle and Vertigo cause lack of confidence being outside alone. Patient Goals: help reduce vertigo and improve balance Social/work history: Patient lives alone with dog. Full basement entrance then up 12 stairs with 1 railing R going up. In/out of shower hard after ankle. No removable shower head. No grab bar in shower. Getting out of recliner off balance due to vertigo, getting out of bed get vertigo only get out of bed on R side. Number of Falls in last year: 5 broke ankle, tore rotator cuff, fell down stairs and hurt back carrying groceries down stairs got dizyy and fell back. Medical/Surgical History: Please refer to medical record for additional information No past medical history on file. Past Surgical History: Procedure Laterality Date ??? ANTERIOR CRUCIATE LIGAMENT REPAIR 2011 left ??? BACK SURGERY 01/2013 ??? CHOLECYSTECTOMY, LAPAROSCOPIC 2011 ??? DILATION AND CURETTAGE OF UTERUS 2011 ??? HAND SURGERY bilat thumb ligament repair, small finger on right hand x2 (fx) ??? LAPAROSCOPY 1995 ??? MENISCECTOMY 1996 left ??? PRO COLONOSCOPY, BIOPSY 06/03/2012 COLONOSCOPY FLEXIBLE, WITH BX performed by Alireza James MD at [facility] ENDOSCOPY ??? PRO COLONOSCOPY, BIOPSY N/A 03/07/2016 COLONOSCOPY FLEXIBLE, WITH BX performed by Eliel Nixon MD at [facility] ENDOSCOPY ??? PRO TOTAL KNEE ARTHROPLASTY 01/06/2014 @TOTAL KNEE ARTHROPLASTY performed by Shamir Quispe MD at [facility] MAIN OR ??? PRO UPPER GI ENDOSCOPY, BIOPSY 06/03/2012 EGD WITH BIOPSY performed by Alireza James MD at [facility] ENDOSCOPY ??? WISDOM TOOTH EXTRACTION three teeth Medications: please refer to medical record for additional information. Current Outpatient Medications: ??? Spiriva with HandiHaler 18 mcg Capsule, w/Inhalation Device, INHALE BY MOUTH ONCE DAILY, Disp: , Rfl: ??? ADVAIR DISKUS 500-50 mcg/dose Disk with Device, Inhale 1 puff into the lungs 2 times daily., Disp: , Rfl: ??? montelukast (SINGULAIR) 10 mg Tablet, Take 10 mg by mouth nightly., Disp: , Rfl: ??? oxyCODONE 5 mg Capsule, Take 5 mg by mouth every 4 hours as needed., Disp: , Rfl: ??? acetaminophen (TYLENOL) 500 mg tablet, Take 2 tablets by mouth every 8 hours., Disp: 30 tablet,Rfl: 1 ??? atorvastatin (LIPITOR) 40 mg tablet, Take 40 mg by mouth nightly., Disp: , Rfl: ??? cetirizine (ZYRTEC) 10 mg tablet, Take 10 mg by mouth nightly., Disp: , Rfl: ??? zolpidem (AMBIEN) 10 mg tablet, Take 10 mg by mouth nightly., Disp: , Rfl: ??? albuterol (PROVENTIL HFA;VENTOLIN HFA) 90 mcg/actuation inhaler, Inhale 2 puffs into the lungs every 4 hours as needed. Use with spacer, Disp: , Rfl: ??? meclizine (ANTIVERT) 25 mg tablet, Take 25 mg by mouth 3 times daily as needed., Disp: , Rfl: ??? esomeprazole (NEXIUM) 40 mg capsule, Take 40 mg by mouth every morning (before breakfast)., Disp: , Rfl: ??? sertraline (ZOLOFT) 100 mg tablet, Take 100 mg by mouth daily., Disp: , Rfl: ??? levothyroxine (SYNTHROID) 25 mcg tablet, Take 25 mcg by mouth daily. , Disp: , Rfl: ??? metoprolol (LOPRESSOR) 100 mg tablet, Take 150 mg by mouth daily., Disp: , Rfl: ??? amlodipine (NORVASC) 5 mg tablet, Take 5 mg by mouth daily., Disp: , Rfl: ??? traZODone (DESYREL) 50 mg tablet, Take 50 mg by mouth nightly., Disp: , Rfl: Pain: Ankle 3-4/10 Lateral side R ankle nerve pain radiates down to toes medially and and aces all over , neck pain 4/10 stiff and radiates to head and neck. OBJECTIVE FINDINGS: ROM: Limited in L rotation and L sidebending of cervical spine Dizziness rating range with ADL: 0/10 to 10/10 Dizziness rating at start of eval: 2/10 Dizziness rating worst during eval 10/10 Dizziness rating at end of eval: 5/10 Hearing loss: higher frequency hearing loss but otherwise ok Tinnitus: no Aural Fullness: no but they itch (feel like have to move them) Aural Pain:now no, in past year. Migraine history: in past, headaches but not a migrane. Canalith repositioning: kenna halpike R 3/10 vertigo no nystagmus L 6/10 upbeating nystagmus and seeing stars fast onset 3 seconds short duration 46 seconds Supine Roll R - L - 2 eply's maneuvers with 45 degrees rotation and 30 degrees extension still having vertigo unbalanced and very foggy and spacy. OUTCOME MEASURES: Functional Gait Assessment (FGA): not tested plan to text next visit CDP (Bertec): Unable due to vertigo and imbalance, plan to test next visit Activities-specific Balance Confidence Scale (ABC scale): The Activities-specific Balance Confidence (ABC) Scale 11/06/2020 Walk in house 20% Walk up/down stairs 20% Bend over for slipper 50% Reach for can on shelf 100% - Completely Confident Stand on tip toes to reach 60% Stand on chair to reach 10% Sweep floor 90% Walk outside to car 90% Get in/out of car 100% - Completely Confident Walk across parking lot/mall 90% Walk up/down ramp 90% Walk in crowds 80% Bumped in crowd 70% Step on/off escalator, holding railing 10% Step on/off escalator, holding parcels 10% Walk outside on icy sidewalk 10% ABC Score 56.25 (Moderate level of physical functioning) Dizziness/Unsteadiness Handicap Inventory: Dizziness Handicap Inventory 11/06/2020 1. Does looking up increase your problem? Yes 2. Because of your problem, do you feel frustrated? Yes 3. Because of your problem, do you restrict your travel for business or pleasure? Yes 4. Does walking down the aisle of a supermarket increase your problem? Yes 5. Because of your problem, do you have difficulty getting into or out of bed? Yes 6. Does your problem significantly restrict your participation in social activities such as going out to dinner, the movies, dancing or to parties? Yes 7. Because of your problem, do you have difficulty reading? Yes 8. Does performing more ambitious activities like sports, dancing, or clockmaker such as sweeping or putting dishes away increase your problem? Yes 9. Because of your problem, are you afraid to leave your home without having someone accompany you?Sometimes 10. Because of your problem, are you embarrassed in front of others? Yes 11. Do quick movements of your head increase your problem? Yes 12. Because of your problem, do you avoid heights? Yes 13. Does turning over in bed increase your problem? Yes 14. Because of your problem, is it difficult for you to do strenuous housework or yard work? Yes 15. Because of your problem, are you afraid people may think that you are intoxicated? Yes 16. Because of your problem, is it difficult to go for a walk by yourself? Yes 17. Does walking down a sidewalk increase your problem? Yes 18. Because of your problem, is it difficult for you to concentrate? Yes 19. Because of your problem, is it difficult for you to walk around your house in the dark? Yes 20. Because of your problem, are you afraid to stay home alone? No 21. Because of your problem, do you feel handicapped? Yes 22. Has your problem placed stress on your relationships with members of your family or friends? Yes 23. Because of your problem, are you depressed? Yes 24. Does your problem interfere with your job or household responsibilities? Yes 25. Does bending over increase your problem? Yes Total Physical 24 Total Emotional 30 Total Functional 40 Total DHI Score 94 (Severe Handicap) CLINICAL EVALUATION AND DIAGNOSIS: Netta Gregorio is a 60 y.o. female that present to physical therapy for balance problems and dizziness. Today's PT evaluation had the following findings Positive test on L Kenna Halpike test with vertigo and up ticking nystagmus of fast onset and short duration however it was accompanied by seeing starsin vision. Performed 2 Eply's maneuvers at 45 degrees L rotation and 30 degrees neck extension which caused vertigo to get worse with each position which is abnormal for BPPV of the L posterior canal. Went to another room to use the Wrnch for testing but developed vertigo 7/10, sweating, cold, clammy, so we went back to original room and tried vertebral artery testing with Hauntaunts test which caused 10/10 nausea, vertigo and vomiting which filled 3 emesis bags. End of visit vertigo reduced but still had visual haze and slightly nauseated. Netta Gregorio tests at a (+) risk to fall on the ABC.Severe handicap on the DHI. These findings are abnormal for L posterior canal BPPV and should be looked into further by PT to perform a Sensory organization Test, Adaptation Test, and Motor Control Test as well as hauntaunts test again if tolerable. Netta should also be followed up with Neurology and ENT as well as be discussed in the next vestibular team meeting. Physical therapy is indicated to: increase strength, increase flexibility, improve balance, improve gait, increase endurance, increase coordination and reduce vertigo to allow pt to be more independent with daily activities such as sleeping, walking, housework, bending over and sleeping. Clinical presentation: Stable Evolving Unstable x Clinical decision making of high complexity using standardized patient assessment instrument and measurable assessment of functional outcome. FUNCTIONAL GOALS: Therapy Short Term Goals 3 weeks ?? (I) home exercise program ?? Patient will be able to participate in SOT, AT, and MCT testing on bertec machine to help set further vestibualr balance goals. ?? Patient will be able to participate in Function gait assessment to set balance goal Therapy Residential Goals 6 weeks ?? Patient rates confidence with ADL's at 80% or better ?? FGA >/= 24/30 to indicate decreased risk of falling ?? Patient will improve DHI score to no more than 50/100 to demonstrate a reduces self-perception of disability related to dizziness, headache, or unsteadiness (18 point MCID for patients with vestibular dysfunction, Aron and Maximus, 1990) ?? Patient will demonstrate improved postural stability as demonstrated by achieving within normal limits results with sensory organization testing via computerized dynamic posturography. ?? Patient will be engaged in community based or regular home based strengthening and balance exercise program. INITIAL TREATMENT INCLUDED: initial evaluation and canolith repositioning Canolith repositionin min L posterior canal Eply's maneuver X2 Ice Pack: 15 min (modality not billed) Ice pack to cervical spine Ice pack to thoracic spine PLAN: Frequency and duration: 1/week x 6 weeks tapering as appropriate Treatment: Manual Techniques, Soft Tissue Mobilization, Stretching, Joint Mobilization, Therapeutic Exercise, Patient/Family Education, Body Mechanics, Posture, Home Exercise Program, Balance and Gait Training,Vestibular Interventions and Telehealth Informed Consent: The patient consented to the physical therapy evaluation. The patient agrees to and understands thephysical therapy treatment plan and goals. Total treatment time: 90 minutes Total Timed Coded Treatment: 15 minutes Evaluation HIGH Complexity (26061) and Canalith Repositioning (69016) 15 min Domenic Cortez, PT, DPT [facility] Outpatient Rehabilitation documented in this encounter Plan of Treatment Upcoming Encounters Date Type Department Care Team (Late st Contact Info) Description 07/12/2024 9:30 AM EST [place] [address] Walt Wiseman III, MD [facility] [place] [address] Scheduled Referrals Name Type Priority Associated Diagnoses Orde r Schedule Referral to Physical Therapy Outpatient Referral Routine Dizziness Balance problems Ordered: 08/17/2020 documented as of this encounter Visit Diagnoses Diagnosis Benign paroxysmal positional vertigo of left ear Dizziness Dizziness and giddiness Imbalance Abnormality of gait documented in this encounter Care Teams Drum Dyeing Machine Operator Relationship Specialty Start Date End Date Bryan Schmid MD [address] [place] [address] [place] [address] PCP - [facility] Medicine 07/19/20 documented as of this encounter
--- OUTSIDE RECORDS SUMMARY | 2024-03-04 19:46 | XMS_ITS | Encounter Summary ---
[place] [address] Care Team Providers Care Glass Technician Name Role Phone Bryan Schmid MD Primary Care Provider [phone] Reason for Visit * Physical Therapy (Routine) - Closed Specialty Diagnoses / Procedures Referred By Raffaele taylor Referred To Contact Physical Therapy Diagnoses Dizziness Balance problems Reji Rascon MD [facility] [place] [address] [facility] [place] [address] Referral ID Status Reason Start Date Expiration Date V isits Requested Visits Authorized [id number] Closed Evaluate and Treat 08/17/2020 08/17/2021 100 100 Encounter Details Date Type Department Care Team (Late st Contact Info) Description 01/11/2021 2:00 PM EDT Office [place] [phone] Domenic Cortez PT Poor posture; Dizzy; Persistent headaches Social History Tobacco Use Types Packs/Day Years Used Date Smoking Tobacco: Never Smokeless Tobacco: Never Alcohol Use Standard Drinks/Week Comments Yes 0 (1 standard drink = 0.6 oz pur e alcohol) occasional Sex and Gender Information Value Date Recorded Sex Assigned at Not on file Gender Identity Not on file Sexual Orientation Not on file documented as of this encounter Miscellaneous Notes * Treatment - Therapy - Domenic Cortez PT - 01/11/2021 2:00 PM EDT Physical Therapy Progress Note Total Timed Code Treatment: 65 minutes Total Treatment Time: 65 minutes Follow up visit for a patient with ICD-10-CM 1. Poor posture R29.3 2. Dizzy R42 3. Persistent headaches R51.9 Subjective: Netta states she felt very dizzy on Friday and has subsided had vertigo on Friday and did not come down. Had quite a bit of headaches. Other than that it there Is pain in scapula, ear aches. Symptoms increased when ran out of baclofen. Have more baclofen and symptoms have gone down since. Heat has made everything swell. Iced alot this week. Exercised a lot this week. If painful take a break and come back to it. Spread out exercise thought the day. End of visit pt reports feeling more relaxed in the neck at the end of visit. Objective: Manual Therapy (89785) 20 min Therex: Strength/Endurance/ROM (55581) 45 min Manual Therapy: 20 min Soft tissue mobilization to cervical spine and upper thoracic spine Cervical flex, lateral bend, rot (pain indicated) Scapular mobilization to bilateral shoulders Sub occipital release Cervical distraction Suboccipital release with block. There ex: 45 minutes ?? Scapular retraction with chin tuck ?? Alternating protraction retraction with chin tuck ?? Scapular retratcion with 9 lbs with tactile and verbal cues ?? Rhomboid stretch x 3 ?? Alternating arm swings with chin tucks PT education On Bracing for getting shoulder back and down. Assessment: Netta tolerated exercise well and was able to achieve better posture and body mechanics wit verbal and tactile cueing. Reviewed imaging looking at cervical and lumbar curves of spine and muscle imbalances. Recommended a brace to hold shoulders down and back as a temporary solution to help get in better posture and biomechanics with movement until her mms can take over the job for posture. Goals and plan remain appropriate. FUNCTIONAL GOALS: Therapy Short Term Goals 3 weeks ?? (I) home exercise program ?? Patient will be able to participate in SOT, AT, and MCT testing on [employer] machine to help set further vestibualr balance goals. ?? Patient will be able to participate in Function gait assessment to set balance goal Therapy Cell Cleaner Goals 6 weeks ?? Patient rates confidence [...] home based strengthening and balance exercise program. PLAN: Frequency and duration: 1/week x 6 weeks tapering as appropriate Treatment: Manual Techniques, Soft Tissue Mobilization, Stretching, Joint Mobilization, Therapeutic Exercise, Patient/Family Education, Body Mechanics, Posture, Home Exercise Program, Balance and Gait Training,Vestibular Interventions and Telehealth Current HEP: 1. See scan docs (media) Domenic Cortez PT, DPT [facility] Outpatient Rehabilitation documented in this encounter Plan of Treatment Upcoming Encounters Date Type Department Care Team (Late st Contact Info) Description 07/12/2024 9:30 AM EST [place] [address] Walt Wiseman III, MD [facility] [place] [address] documented as of this encounter Visit Diagnoses Diagnosis Poor posture Abnormal posture Dizzy Dizziness and giddiness Persistent headaches Headache documented in this encounter Care Teams Glass Technician Relationship Specialty Start Date End Date Bryan Schmid MD [address] [place] [address] [place] [address] PCP - [facility] Medicine 07/19/20 documented as of this encounter
--- OUTSIDE RECORDS SUMMARY | 2024-03-04 19:46 | XMS_ITS | Encounter Summary ---
[place] [address] Care Team Providers Care Fish Hatchery Man Name Role Phone Bryan Schmid MD Primary Care Provider [phone] Reason for Visit * Physical Therapy (Routine) - Closed Specialty Diagnoses / Procedures Referred By Raffaele taylor Referred To Contact Physical Therapy Diagnoses Dizziness Balance problems Reji Rascon MD [facility] [place] [address] [facility] [place] [address] Referral ID Status Reason Start Date Expiration Date V isits Requested Visits Authorized [id number] Closed Evaluate and Treat 08/17/2020 08/17/2021 100 100 Encounter Details Date Type Department Care Team (Late st Contact Info) Description 11/29/2020 9:00 AM EDT Office [place] [phone] Domenic Cortez PT Dizzy; Persistent headaches; Poor posture Social History Tobacco Use Types Packs/Day Years Used Date Smoking Tobacco: Never Smokeless Tobacco: Never Alcohol Use Standard Drinks/Week Comments Yes 0 (1 standard drink = 0.6 oz pur e alcohol) occasional Sex and Gender Information Value Date Recorded Sex Assigned at Not on file Gender Identity Not on file Sexual Orientation Not on file documented as of this encounter Progress Notes * Domenic Cortez PT - 11/29/2020 9:00 AM EDT Images from the original note were not included. Physical Therapy Progress Note Total Timed Code Treatment: 60 minutes Total Treatment Time: 60 minutes Follow up visit for a patient with ICD-10-CM 1. Dizzy R42 2. Persistent headaches R51.9 3. Poor posture R29.3 Subjective: Patient reports continues to be dizzy although less so since last seeing me. She reports she got vertigo this morning turning over quick in bed. Reports Dr. Wiseman said it was likely cervicogenic headaches and gave her baclofen 10 mg nightly for cervicogenic headache as well as hydroxyzine 10 mg 3 times daily as needed for migraine. Dr. Wiseman ordered CT angiogram of grindstone of vega and carotids. Objective: Manual Therapy (89124) 15 min Therex: Neuromuscular Re-Ed (43808) 45 min Manual Therapy: 15 min Soft tissue mobilization to cervical spine and upper thoracic spine Scapular mobilization to L shoulder Sub occipital release Cervical distraction Neuromusclar Re- Ed: 45 min Functional Gait Assessment (FGA): ?? CDP (Bertec): Sensory Organization Test: Preference toward somatosensory balance. Slight deficit in visual balance. Severe deficit with vestibular balance. Would benefit from vestibular and visual balance trainingfor task specific and endurance. MCT Adaptation test: Toes up sway had ability to improve performance on each subsequent task except forthe 4th trial. Toes down sway had below average adaption to repeated stimuli was able to improve but not as much as peers for age, sex, BMI. Monique Halpike R - L- Supine Roll Test R -, L - Deep Head Hang: - Assessment: Netta tolerated session much better than last visit. She had negative Canalith Testing in Monique Halpike for Posterior Canal, Supine Roll Test for Hoizontal Canal, and Deep Head Hang for Anterior Canal. Note from Dr. Wiseman reports most likely cause is the cervicogenic migraines. Responded well to manual therapy to the neck and back. Netta had forward head posture and forward rounded shoulders, she would benefit from stretches, exercises, postural correction, and proper biomechanics of her activities to reduce strain on her cervical spine. Sensory Organization Test: Preference toward somatosensory balance. Slight deficit in visual balance. Severe deficit with vestibular balance. Wouldbenefit from vestibular and visual balance training for task specific and endurance. Adaptation Test: Toes up sway had ability to improve performance on each subsequent task except for the 4th trial.Toes down sway had below average adaption to repeated stimuli was able to improve but not as much as peers for age, sex, BMI. Emailed Netta home exercise program. Goals and plan remain appropriate. FUNCTIONAL GOALS: Therapy Short Term Goals 3 weeks ?? (I) home exercise program ?? Patient will be able to participate in SOT, AT, and MCT testing on bertec machine to help set further vestibualr balance goals. ?? Patient will be able to participate in Function gait assessment to set balance goal Therapy Assisted Goals 6 weeks ?? Patient rates confidence [...] Training,Vestibular Interventions and Telehealth Current HEP: 1. Chin tuck 2. Scapular retraction 3. Shoulder ER with scap retraction 4. Cervical rotation 5. Cervical sidebending 6. Pectoralis stretch 7. Self mob sub occipital release/distraction Domenic Cortez, PT, DPT [facility] Outpatient Rehabilitation documented in this encounter Plan of Treatment Upcoming Encounters Date Type Department Care Team (Late st Contact Info) Description 07/12/2024 9:30 AM EST Office [place] [address] Walt Wiseman III, MD [facility] [place] [address] documented as of this encounter Visit Diagnoses Diagnosis Dizzy Dizziness and giddiness Persistent headaches Headache Poor posture Abnormal posture documented in this encounter Care Teams Fish Hatchery Man Relationship Specialty Start Date End Date Bryan Schmid MD [address] [place] [address] [place] [address] PCP - [facility] 07/19/20 documented as of this encounter
--- OUTSIDE RECORDS SUMMARY | 2024-03-04 19:46 | XMS_ITS | Encounter Summary ---
[place] [address] Care Team Providers Care Citrus Peeler Name Role Phone Bryan Schmid MD Primary Care Provider [phone] Reason for Referral * Diagnostic Test (Routine) - Closed Specialty Diagnoses / Procedures Referred By Contac t Referred To Contact Radiology Diagnoses Cervicogenic migraine Imbalance Hyperreflexia of lower extremity Procedures MRI Cervical Spine wo Contrast (Generic) Walt Wiseman III, MD [facility] [place] [address] [place] [address] Referral ID Status Reason Start Date Expiration Date V isits Requested Visits Authorized [id number] Closed Specialty Service Requested 04/24/2021 10/22/2022 1 1 Encounter Details Date Type Department Care Team (Late st Contact Info) Description 04/24/2021 3:00 PM EST [place] [address] Walt Wiseman III, MD [facility] [place] [address] Cervicogenic migraine; Imbalance; Hyperreflexia of lower extremity Social History Tobacco Use Types Packs/Day Years [...] Sign Reading Time Taken Comments Blood Pressure 121/67 04/24/2021 3:10 PM EST Pulse 60 04/24/2021 3:10 PM EST Temperature - - Respiratory Rate - - Oxygen Saturation - - Inhaled Oxygen Concentration - - Weight 113.4 kg (250 lb) 04/24/2021 3:10 PM EST Height 172.7 cm (5' 8) 04/24/2021 3:10 PM EST Body Mass Index 38.01 04/24/2021 3:10 PM EST documented in this encounter Progress Notes * Walt Wiseman III, MD - 04/24/2021 3:00 PM EST General Neurology [facility] Follow-up Visit Dear Bryan Schmid MD, I saw Netta Gregorio in clinic today in follow-up for cervicogenic headache and vertigo. She was unaccompanied at today's visit. Below is my progress note with impression and plan. Please do not hesitate to call with any questions. Appointment time: 3:15 PM-3:35 PM (total 20 minutes) Brief Summary of History of Presenting Illness (telemedicine consultation 11/07/2020): Netta Gregorio is a 61 y.o. woman with hypertension, hyperlipidemia, coronary disease, JACKSON, obesity, and chronic vertigo who was initially seen in consultation on 11/07/2020. That time she reports onset of first episode of vertigo in 2001 with episodes lasting weeks to up to 6 months. Her most recent bout of vertigo started in late 2019 and had continued. She was previously seen by [facility] (Dr. Guevara) who did not think [...] October 2020 and was unremarkable. Interval History: Since Netta was last seen via telemedicine in October 2020 she notes that her vertigo has completely resolved. She attributes this to physical therapy as well as baclofen which seems to reducing her leftneck pain and muscle tightness. However she continues to have daily headaches associated with left neck muscle tightness and with migrainous features (not significantly changed compared to prior headache semiology). She denies any adverse side effects from baclofen. She is also taking hydroxyzine as needed with relatively good effect. She does not report any new or worsening neurological symptoms. She continues to have significant gait imbalance with occasional falls. Current Medications: reviewed and updated in EMR Past Medical History: reviewed and updated Review of Systems A ROS was obtained and reviewed with the patient. Pertinent positives and negatives were included in the HPI. Physical Examination Patient Vitals for the past 24 hrs: Pulse BP 04/24/21 1510 60 121/67 Hair, skin, nails, and joints were normal. Neck was supple. She was alert and oriented to person, place, and time with normal language, attention and concentration, recent and remote memory, praxis, and intellectual function. Mood was euthymic. Affect was congruent. Ocular ductions were intact without nystagmus. Motor tone was normal. There was no pronator drift. Upper extremities (R/L) Global Logistics Analyst 5/5 Finger abduction 5/5 Finger extension 5/5 Wrist extension 5/5 Elbow flexion 5/5 Elbow extension 5/5 Shoulder abduction 5/5 Lower extremities (R/L) Hip flexion 5/5 Knee extension 5/5 Knee flexion 5/5 Ankle plantarflexion 5/5 Ankle dorsiflexion 5/5 Deep tendon reflexes: Biceps 2+/2+ Triceps 2+/2+ Knees 3+/3+ Ankles 1+/1+ Standard gait was wide-based and ataxic. She was unable to tandem walk. Assessment: ICD-10-CM 1. Cervicogenic migraine G43.809 baclofen (Lioresal) 10 mg Tablet MRI Cervical Spine wo Contrast (Generic) 2. Imbalance R26.89 MRI Cervical Spine wo Contrast (Generic) 3. Hyperreflexia of lower extremity R29.2 MRI Cervical Spine wo Contrast (Generic) Netta Gregorio is a 61 y.o. woman with multiple cardiovascular risk factors presented for evaluation of episodic vertigo with associated neck pain and migrainous headache features. The vertigo has resolved, but she continues to have significant neck pain and headaches as well as gait imbalance with occ asional falls. On examination she has evidence of hyperreflexia at the knees which does raise some concern for the possibility of cervical myelopathic process especially in context of her gait imbalance and cervicogenic migraine/headache. For this reason we will obtain MRI scan of her cervical spine . She has had improvement in symptoms with baclofen and physical therapy without adverse side effects. Her vertigo has resolved. I will increase her baclofen dosing from 10 mg nightly to 5 to 10 mg in the morning and 10 mg nightly. I recommend that she not drive for a few days after increasing baclofen dosing. Plan: 1. MRI cervical spine without contrast 2. Increase baclofen from 10 mg nightly to 5 to 10 mg in the morning and 10 mg nightly 3. Okay to continue with hydroxyzine as needed for migraine headache abortive treatment Follow-Up: 2 months Thank you for allowing us to participate in [facility]. If you have questions or concerns please do not hesitate to call our clinic at [phone]. Walt Wiseman III, MD Enterostomal Nurse Department of Neurology [facility] [address] More than 50% of this 20 minute [id number] interaction was spent in counseling on diagnosis, prognosis, and medication and symptom management. 10:04 AM 04/25/2021 documented in this encounter Plan of Treatment Upcoming Encounters Date Type Department Care Team (Late st Contact Info) Description 07/12/2024 9:30 AM EST [place] [address] Walt Wiseman III, MD [facility] [place] [address] documented as of this encounter Results * MRI Cervical Spine wo Contrast (Generic) (05/31/2021 10:50 AM EST) Anatomical Region Laterality Modality C-spine Magnetic Resonan ce Impressions 05/31/2021 11:04 AM EST Near normal cervical spine MRI. Thank you for letting us participate in the care of this patient. ??If you are a health care provider and have any questions regarding this report, please contact the number below. ??For patients who have questions please contact the health care director that requested your imaging first. ? Narrative 05/31/2021 11:04 AM EST EXAMINATION: MRI CERVICAL SPINE WO CONTRAST (GENERIC) CLINICAL HISTORY: Neck pain, abnormal neuro exam neck pain, cervicogenic headache, gait imbalance with recurrent falls and hyperreflexia at the knees TECHNIQUE: MRI of the cervical spine performed without intravenous contrast administration. Radiculopathy protocol. COMPARISON: CT neck dated 11/27/2020. FINDINGS: Alignment is near-anatomic. Disc spaces and vertebral body heights are well-maintained. Small posterior disc osteophyte complexes at C5-C6 and C6-C7. No aggressive marrow lesions. Normal craniocervical junction. Spinal canal and neural foramen are widely patent. The visualized spinal cord is of normal size and signal intensity. Procedure Note Henrik Ewing MD - 05/31/2021 EXAMINATION: MRI CERVICAL SPINE WO CONTRAST (GENERIC) CLINICAL HISTORY: Neck pain, abnormal neuro exam neck pain, cervicogenic headache, gait imbalance with recurrent fallsand hyperreflexia at the knees TECHNIQUE: MRI of the cervical spine performed without intravenous contrastadministration. Radiculopathy protocol. COMPARISON: CT neck dated 11/27/2020. FINDINGS: Alignment is near-anatomic. Disc spaces and vertebral body heights are well-maintained. Small posterior disc osteophyte complexes at C5-C6 andC6-C7. No aggressive marrow lesions. Normal craniocervical junction. Spinal canal and neural foramen are widely patent. The visualized spinalcord is of normal size and signal intensity. IMPRESSION Near normal cervical spine MRI. Thank you for letting us participate in the care of this patient. If youare a health care provider and have any questions regarding this report,please contact the number below. For patients who have questions please contactthe health care director that requested your imaging first. Walt Wiseman III, MD IMG MRI ORDERABLE S documented in this encounter Visit Diagnoses Diagnosis Cervicogenic migraine Other forms of migraine, without mention of intractable migraine without mention of status migrainosus Imbalance Abnormality of gait Hyperreflexia of lower extremity Abnormal reflex Cervicogenic migraine Other forms of migraine, without mention of intractable migraine without mention of status migrainosus Imbalance Abnormality of gait Hyperreflexia of lower extremity Abnormal reflex documented in this encounter Care Teams Citrus Peeler Relationship Specialty Start Date End Date Bryan Schmid MD [address] [place] [address] [place] [address] [facility] - [facility] 07/19/20 documented as of this encounter
--- OUTSIDE RECORDS SUMMARY | 2024-03-04 19:46 | XMS_ITS | Encounter Summary ---
Author Organization [facility] [place] [address] Care Team Providers Care Sign Language Interpreter Name Role Phone Karmen Magana MD Primary Care Provider [phone] Encounter Details Date Type Department Care Team (Latest Contact Info) Description 10/28/2018 7:36 AM EDT - 10/28/2018 11:59 PM EDT Hospital Encounter XRay at [address] [place] [address] Alfa Hidalgo MD [facility] [place] [address] Spinal stenosis of lumbar region, unspecified whether neurogenic claudication present Discharge Disposition: Home Social History Tobacco Use [...] Sig Dispensed Refills Start Date End Date amoxicillin (Amoxil) 500 mg Capsule Take 2,000 mg by mouth as needed. 04/22/2016 montelukast (SINGULAIR) 10 mg Tablet Take 10 [...] tablet Take 50 mg by mouth nightly. ADVAIR DISKUS 500-50 mcg/dose Disk with Device Inhale 1 puff into the lungs 2 times daily. 02/27/2017 07/10/2022 oxyCODONE 5 mg Capsule Take 5 mg by mouth every 4 hours as needed. 07/10/2022 metoprolol (LOPRESSOR) 100 mg tablet Take 150 mg by mouth daily. 01/08/2024 documented as of this encounter Plan of Treatment Upcoming Encounters Date Type Department Care Team (Late st Contact Info) Description 07/12/2024 9:30 AM EST [place] [address] Walt Wiseman III, MD [facility] [place] [place] [address] documented as of this encounter Procedures Procedure Name Priority Date/Time Associated Diagnosis Comments XR LUMBAR SPINE 2 OR 3 VIEWS Routine 10/28/2018 7:48 AM EDT Spinal stenosis of lumbar region, unspecified whether neurogenic claudication present documented in this encounter Results * XR Lumbar Spine 2 Or 3 Views (Generic) (10/28/2018 7:48 AM EDT) Anatomical Region Laterality Modality L-spine N/A Digital Radiogra phy Impressions 10/28/2018 11:21 AM EDT Subjectively 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 This is more accurately assessed with cross-sectional imaging. Facet arthropathy is also present in the lower lumbar spine. Thank you for letting us participate in the care of this patient. For questions regarding this report, please contact the number below. ? Narrative 10/28/2018 11:21 AM EDT EXAMINATION: XR LUMBAR SPINE 2 OR 3 VIEWS (GENERIC) CLINICAL HISTORY: AP, lat flex/ext (3 views) to evaluate lumbar stenosis TECHNIQUE: 3 views of the lumbar spine COMPARISON: MRI 10/19/2018 FINDINGS: No fracture. A surgical defect is seen posteriorly at L4-5 consistent with earlier decompression. No disc space narrowing. Subjectively, the pedicles do appear short consistent with underlying congenital stenosis. There is facet arthropathy in the lower lumbar spine. No abnormal motion is seen with flexion and extension. On the standing AP view there does appear to be an underlying scoliosis with lumbar curvature convex to the left. Procedure Note Griffin Flores MD - 10/28/2018 EXAMINATION: XR LUMBAR SPINE 2 OR 3 VIEWS (GENERIC) CLINICAL HISTORY: AP, lat flex/ext (3 views) to evaluate lumbar stenosis TECHNIQUE: 3 views of the lumbar spine COMPARISON: MRI 10/19/2018 FINDINGS: No fracture. A surgical defect is seen posteriorly at L4-5 consistent with earlier decompression. No disc space narrowing. Subjectively, the pedicles do appear short consistent with underlyingcongenital stenosis. There is facet arthropathy in the lower lumbar spine. No abnormal motion is seen with flexion and extension. On the standing AP view there does appear to be an underlying scoliosiswith lumbar curvature convex to the left. 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 This is more accurately assessed with cross-sectional imaging. Facet arthropathy is also present in the lower lumbar spine. Thank you for letting us participate in the care of this patient. Forquestions regarding this report, please contact the number below. Alfa Hidalgo MD IMG DX ORDERABLES documented in this encounter Visit Diagnoses Diagnosis Spinal stenosis of lumbar region, unspecified whether neurogenic claudication present documented in this encounter Care Teams Sign Language Interpreter Relationship Specialty Start Date End Date Karmen Magana MD [address] [place] [address] [place] [id number] PCP - General Family Medicine 04/11/17 07/18/20 documented as of this encounter
--- OUTSIDE RECORDS SUMMARY | 2024-03-04 19:46 | XMS_ITS | Encounter Summary ---
[place] [address] Care Team Providers Care Netsuite Developer Name Role Phone Bryan Schmid MD Primary Care Provider [phone] Reason for Referral * Physical Therapy (Routine) - Closed Specialty Diagnoses / Procedures Referred By Raffaele taylor Referred To Contact Physical Therapy Diagnoses Dizziness Balance problems Reji Rascon MD [facility] [place] [address] [facility] [place] [address] Referral ID Status Reason Start Date Expiration Date V isits Requested Visits Authorized [id number] Closed Evaluate and Treat 08/17/2020 08/17/2021 100 100 Encounter Details Date Type Department Care Team (Late st Contact Info) Description 08/17/2020 Notes [place] [phone] Georgette Espinal RN Social History Tobacco Use Types Packs/Day Years Used Date Smoking Tobacco: Never Smokeless Tobacco: Never Alcohol Use Standard Drinks/Week Comments Yes 0 (1 standard drink = 0.6 oz pur e alcohol) occasional Sex and Gender Information Value Date Recorded Sex Assigned at Not on file Gender Identity Not on file Sexual Orientation Not on file documented as of this encounter Progress Notes * Georgette Espinal RN - 08/17/2020 8:30 AM EDT On 08/17/20 we have carefully reviewed your case with the Clinical Vertigo Team including your dizziness questionnaire, medical history, and any other previous diagnostic tests performed/forwarded by your referring provider. It's our recommendation that you have an AE, PT evaluation at [facility], and appointment with ENT. Baker Apprentice is aware. documented in this encounter Plan of Treatment Upcoming Encounters Date Type Department Care Team (Late st Contact Info) Description 07/12/2024 9:30 AM EST Office [place] [address] Walt Wiseman III, MD [facility] [address] Scheduled Referrals Name Type Priority Associated Diagnoses Orde r Schedule Referral to Physical Therapy Outpatient Referral Routine Dizziness Balance problems Ordered: 08/17/2020 documented as of this encounter Visit Diagnoses Diagnosis Dizziness Dizziness and giddiness Balance problems Other symptoms involving nervous and musculoskeletal systems documented in this encounter Care Teams Netsuite Developer Relationship Specialty Start Date End Date Bryan Schmid MD [address] [place] [address] [place] [address] PCP - [facility] 07/19/20 documented as of this encounter
--- OUTSIDE RECORDS SUMMARY | 2024-03-04 19:46 | XMS_ITS | Encounter Summary ---
Author Organization [facility] [place] [address] Care Team Providers Care Chief Executive Or Managing Director Name Role Phone Bryan Schmid MD Primary Care Provider [phone] Reason for Visit * Reason Onset Date Comments TeleHealth 10/26/2020 Encounter Details Date Type Department Care Team (Late st Contact Info) Description 10/26/2020 Telephone [place] [phone] Walt Wiseman III, MD [facility] [place] [address] TeleHealth Social History Tobacco Use Types Packs/Day [...] Telephone Encounter - Madelin Valencia RN - 10/26/2020 12:37 PM EDT Unable to reach this patient to review their medications and allergies prior to their upcoming tele-appointment with the Neurology provider. No message left. documented in this encounter Plan of Treatment Upcoming Encounters Date Type Department Care Team (Late st Contact Info) Description 07/12/2024 9:30 AM EST Office [place] [address] Walt Wiseman III, MD [facility] [address] documented as of this encounter Visit Diagnoses Not on filedocumented in this encounter Care Teams Chief Executive Or Managing Director Relationship Specialty Start Date End Date Bryan Schmid MD [address] [place] [address] [place] [address] PCP - [facility] 07/19/20 documented as of this encounter
--- OUTSIDE RECORDS SUMMARY | 2024-03-04 19:46 | XMS_ITS | Encounter Summary ---
Author Organization [facility] [place] [address] Care Team Providers Care Security Infrastructure Engineer Name Role Phone Bryan Schmid MD Primary Care Provider [phone] Reason for Visit * - Closed Specialty Diagnoses / Procedures Referred By Contlalo t Referred To Contact Procedures Film Library- Storage Only CT Neck Bryan Schmid MD [address] [place] [address] [place] [address] Referral ID Status Reason Start Date Expiration Date Visits Re quested Visits Authorized [id number] Closed 10/27/2020 10/27/2021 1 1 Encounter Details Date Type Department Care Team (Late st Contact Info) Description 10/26/2020 Ancillary Procedure Radiology Library at [facility] [place] [address] Bryan cShmid MD [address] [place] [address] [place], [place] [id number] Social History Tobacco Use Types Packs/Day Years [...] 9:30 AM EST Office Visit Neurology at [facility] [place] [phone] Walt Wiseman III, MD [facility] [place] [address] documented as of this encounter Procedures Procedure Name Priority Date/Time Associated Diagnosis Comments FILM LIBRARY - STORAGE ONLY CT NECK Routine 10/26/2020 12:00 AM EDT documented in this encounter Results * Film Library- Storage Only CT Neck (10/26/2020 12:00 AM EDT) Narrative [facility] 10/27/2020 7:32 AM EDT This exam is auto-finalizing. It's purpose is for storage only. Bryan Schmid MD IMG FILM LIBRARY ORD ERABLES [place], [place] documented in this encounter Visit Diagnoses Not on filedocumented in this encounter Care Teams Security Infrastructure Engineer Relationship Specialty Start Date End Date Bryan Schmid MD [address] [place] [address] [place] [address] PCP - [facility] Medicine 07/19/20 documented as of this encounter
--- OUTSIDE RECORDS SUMMARY | 2024-03-04 19:46 | XMS_ITS | Encounter Summary ---
Author Organization [facility] [place] [address] Care Team Providers Care Work Over Rig Operator Name Role Phone Bryan Schmid MD Primary Care Provider [phone] Reason for Visit * Reason Comments Follow Up Surgery Joint Replacement Encounter Details Date Type Department Care Team (Late st Contact Info) Description 07/10/2022 11:40 AM EST Office [place] [phone] Brodie Rascon MD [facility] [place] [address] Status post total left knee replacement Social History Tobacco Use Types Packs/Day Years [...] Sign Reading Time Taken Comments Blood Pressure 128/65 07/10/2022 11:39 AM EST Pulse 63 07/10/2022 11:39 AM EST Temperature - - Respiratory Rate 16 07/10/2022 11:39 AM EST Oxygen Saturation - - Inhaled Oxygen Concentration - - Weight 108.9 kg (240 lb) 07/10/2022 11:39 AM EST Height 172.7 cm (5' 8) 07/10/2022 11:39 AM EST Body Mass Index 36.49 07/10/2022 11:39 AM EST documented in this encounter Progress Notes * Brodie Rascon MD - 07/10/2022 11:40 AM EST Arthroplasty/Orthopaedic History: 1. L TKA - 01/06/14 - Brittaney HPI: Netta Gregorio is a very pleasant 62 y.o. year-old female and is now 7 years post left total kneereplacement The patient has been doing well. She reports that about 2 weeks ago she fell directly on the left knee. She had significant swelling and pain. Her pain and swelling have been improving daily. She also notes that she does occasionally get a clicking sensation in the knee, especially if she is in bed and moves her leg sideways, which causes a sharp pain that only lasts for a few seconds. No fevers, chills, nausea, vomiting, or symptoms of infection. Netta has been ambulating with no assistive devices. ROS: Denies: fever, chills, night sweats, nausea, or vomiting BP 128/65 (BP Location (NBP): Left arm, Patient Position: Sitting, BP Cuff Sizes: Large Adult (32-43 cm)) Pulse 63 Resp 16 Ht 172.7 cm (5' 8) Wt 108.9 kg (240 lb) BMI 36.49 kg/m?? Physical Exam: Well-appearing female in no acute distress. Alert and Oriented x 3 and answers all questions appropriately. The incision is well healed, with no signs of infection. Knee Exam: Left Knee ROM: Extension:0 Flexion: 115 Stability: A/P Translation <5mm Varus <5mm Valgus <5mm Extension La degrees or less Patella Tracking: Normal Pulses Palpable: Left PT:Yes Left DP:Yes Motor/Sensory: Distal Motor: Normal Distal Sensory: Normal Quadriceps Strength: 5 X-RAYS: Multiple radiographic views were obtained at my request and reviewed with the patient. X-rays show a well-placed prosthesis with no evidence of fracture, subsidence, loosening, or periprosthetic complication. There is a small area of new lucency noted on the anterior aspect of the femoral component and a small joint effusion. Questionnaire Responses: [facility] Surgical Postop Visit 07/10/2022 PROMIS-10 General Health Fair PROMIS-10 Quality of Life Good PROMIS-10 Physical Health Fair PROMIS-10 Mental Health Good PROMIS-10 Social Activity Fair PROMIS-10 Everyday Activities A little PROMIS-10 Pain 6 PROMIS-10 Fatigue Moderate PROMIS-10 Social Roles Fair PROMIS-10 Anxious or Depressed Sometimes PROMIS PHYSICAL HEALTH SCORE 34.9 PROMIS MENTAL HEALTH SCORE 41.1 KOOS JR Scores 57.14 Problems with surgical incision/wound after surgery No Gone to ER since knee surgery No Where was ER located? - Date of ER visit - Reason for ER visit - Admitted to hospital since recent ortho surgery Yes [facility] Date of admission 07/20/2020 Discharge date 07/22/2020 Reason you went to hospital broken ankle Additional surgery on same body part No TKA Grade 6 Pain in other KNEE Mild Back pain at this moment Moderate Satisfaction with Treatment Somewhat satisfied Choose Same Treatment Again - [facility] Response 07/10/2022 KOOS JR Scores 57.14 OSWESTRY DISABILITY INDEX - Spine [facility] Response 07/10/2022 Oswestry (DWAIN) Score - KOOS JR Scores 57.14 ASSESSMENT/PLAN: Ms. Gregorio is a 62 y.o. year old female status post left total knee replacement. Doing well postoperatively. There is a small area of new lucency on the anterior aspect of the femoral component, which is small and not of great concern. There is nothing to do. This is a well performing total knee arthroplasty. Continue weightbearing as tolerated and working on range of motion. We will see her back in 5 years for repeat examination. X-rays will be needed at that time. Patient may return to normal activities as her pain and function allow. If Netta has any changes in health status we recommend she contact our office prior to dental procedures for updated recommendations All questions were answered. Signed: Brodie Rascon MD 07/19/2022 documented in this encounter Plan of Treatment Upcoming Encounters Date Type Department Care Team (Late st Contact Info) Description 07/12/2024 9:30 AM EST Office [place] [address] Walt Wiseman III, MD [facility] [place] [address] documented as of this encounter Visit Diagnoses Diagnosis Status post total left knee replacement documented in this encounter Care Teams Work Over Rig Operator Relationship Specialty Start Date End Date Bryan Schmid MD [address] [place] [address] [place] [address] PCP - [facility] Medicine 07/19/20 documented as of this encounter
--- OUTSIDE RECORDS SUMMARY | 2024-03-04 19:46 | XMS_ITS | Encounter Summary ---
[place] [address] Care Team Providers Care Fire Control Officer Name Role Phone Bryan Schmid MD Primary Care Provider Reason for Visit * Physical Therapy (Routine) - Closed Specialty Diagnoses / Procedures Referred By Raffaele taylor Referred To Contact Physical Therapy Diagnoses Dizziness Balance problems Reji Rascon MD [facility] [place] [address] [facility] [place] [address] Referral ID Status Reason Start Date Expiration Date V isits Requested Visits Authorized [id number] Closed Evaluate and Treat 08/17/2020 08/17/2021 100 100 Encounter Details Date Type Department Care Team (Late st Contact Info) Description 02/21/2021 10:30 AM EDT Office [place] [phone] Domenic Cortez PT Poor posture; Dizzy; Persistent headaches; Dizziness Social History Tobacco Use Types Packs/Day Years [...] - Therapy - Domenic Cortez PT - 02/21/2021 10:30 AM EDT Physical Therapy Progress Note Total Timed Code Treatment: 60 minutes Total Treatment Time: 60 minutes Follow up visit for a patient with ICD-10-CM 1. Poor posture R29.3 2. Dizzy R42 3. Persistent headaches R51.9 4. Dizziness R42 Subjective: Netta reports she has just gotten back from her vacation on [place] off of [place]. [place] she had a reduction in vertigo and headaches. She attributes this to less stress, the baclofen, exercises, and better posture. Netta reports her postural brace is a little uncomfortable and will bring it in next visit to see if we can modify it with Velcro to make it fit better. Reports in [place] fell on wet grass slipped and fell in mud but no injury. Objective: Manual Therapy (01029) 15 min Therex: Neuromuscular Re-Ed (10205) 15 min Therex: Strength/Endurance/ROM (57850) 30 min Manual Therapy: 15 min Soft tissue mobilization to cervical spine and upper thoracic spine Cervical flex, lateral bend, rot (pain indicated) Scapular mobilization to bilateral shoulders anterior posterior medial lateral Sub occipital release Cervical distraction Suboccipital release There ex: 30 minutes ?? Scapular retraction with chin tuck blue theraband ?? Alternating protraction retraction with chin tuck ?? Scapular retratcion with Blue theraband ?? High row blue theraband ?? Mid row blue theraband ?? Low row blue theraband ?? Alternating protraction retraction with blue theraband ?? Alternating arm swing with blue theraband ?? protraction retraction cross arm with blue theraband ?? Chest marble chip terrazzo worker stretch ?? Shoulder circles Neuromuscular Re-Ed: 15 min Limits of stability ?? Anterior ankle strategy ?? Posterior ankle strategy ?? Lateral ankle strategy ?? Anterior stepping strategy ?? Posterior stepping strategy ?? Lateral stepping strategy Assessment: Netta returns from vacation with reduced vertigo and pain. She attributes this to a combination of less stress, the baclofen, exercises, and better posture. Increased exercise resistance to blue theraband for therapeutic exercise which was well tolerated and good physiological response to exercise. Practiced ankle and stepping strategies anterior, posterior, and lateral since Netta has a fall in [place] where she slipped on wet gras but did not suffer any injuries. Goals and plan remainappropriate. FUNCTIONAL GOALS: Therapy Short Term Goals 3 weeks ?? (I) home exercise program ?? Patient will be able to participate in SOT, AT, and MCT testing on bertec machine to help set further vestibualr balance goals. ?? Patient will be able to participate in Function gait assessment to set balance goal Therapy Senior Marketing Engineer Goals 6 weeks ?? Patient rates confidence [...] based strengthening and balance exercise program. PLAN: Netta will bring postural brace in next visit to see if we can modify it with Velcro to make it fit better. Frequency and duration: 1/week x 6 weeks tapering as appropriate Treatment: Manual Techniques, Soft Tissue Mobilization, Stretching, Joint Mobilization, Therapeutic Exercise, Patient/Family Education, Body Mechanics, Posture, Home Exercise Program, Balance and Gait Training,Vestibular Interventions and Telehealth Current HEP: 1. See scan docs (media) Domenic Cortez PT, DPT [facility] documented in this encounter Plan of Treatment Upcoming Encounters Date Type Department Care Team (Late st Contact Info) Description 07/12/2024 9:30 AM EST [place] [address] Walt Wiseman III, MD [facility] [place] [address] documented as of this encounter Visit Diagnoses Diagnosis Poor posture Abnormal posture Dizzy Dizziness and giddiness Persistent headaches Headache Dizziness Dizziness and giddiness documented in this encounter Care Teams Fire Control Officer Relationship Specialty Start Date End Date Bryan Schmid MD [address] [place] [address] [place] [address] PCP - [facility] Medicine 07/19/20 documented as of this encounter
--- OUTSIDE RECORDS SUMMARY | 2024-03-04 19:46 | XMS_ITS | Encounter Summary ---
Author Organization [facility] [place] [address] Care Team Providers Care Lasting Room Supervisor Name Role Phone Bryan Schmid MD Primary Care Provider [phone] Reason for Visit * Reason Onset Date Comments Medication Refill 09/28/2021 Encounter Details Date Type Department Care Team (Late st Contact Info) Description 09/28/2021 [place] [address] Walt Wiseman III, MD [facility] [place] [address] Cervicogenic migraine Social History Tobacco Use Types [...] 9:30 AM EST [place] [phone] Walt Wiseman III, MD [facility] [place] [address] documented as of this encounter Visit Diagnoses Diagnosis Cervicogenic migraine Other forms of migraine, without mention of intractable migraine without mention of status migrainosus documented in this encounter Care Teams Lasting Room Supervisor Relationship Specialty Start Date End Date Bryan Schmid MD [address] [place] [address] [place] [address] PCP - [facility] Medicine 07/19/20 documented as of this encounter
--- OUTSIDE RECORDS SUMMARY | 2024-03-04 19:46 | XMS_ITS | Encounter Summary ---
Author Organization [facility] [place] [address] Care Team Providers Care Loader Operator Supervisor Name Role Phone Bryan Schmid MD Primary Care Provider [phone] Reason for Visit * Reason Onset Date Comments Other 07/22/2022 Patient Navigati on Encounter Details Date Type Department Care Team (Late st Contact Info) Description 07/22/2022 Telephone [place] [phone] Rosalva De Other (Patient Navigation/) Social History Tobacco Use Types Packs/Day Years [...] encounter Miscellaneous Notes * Telephone Encounter - Rosalva De - 07/22/2022 10:37 AM ESTSummary: Endoscopy Ride Accommodation Plan Endoscopy Transportation Plan Procedure Date: 07/29/22 Referred by: Scheduling Team Length of Conversation: 15 min Spoke with patient about their upcoming Endoscopy procedure. Patient explained that they are not able to rely on a tank truck driver to bring them to their procedure, stay for the entire length of the procedure, and drive them back from hospital. This machine sign writer explained that it is always our first preference for patients to have somebody accompany them to these types of procedures, many patients are not able to find people to transport them. However, possible accommodations were discussed, including: ??? Waiving our requirement that their tank truck driver or drivers be present during the entirety of the procedure. ??? Waiving the requirement that public transportation is not allowed. ??? Discussed using local transportation if patient decides to stay locally at least the night following the procedure. We discussed these following points. ??? The patient is aware and understands the inherent risks involved with not having a reliable tank truck driver to escort them to and from their procedure. They are comfortable utilizing public transportationafter their procedure. ??? If they have made arrangements to ride on a bus or to use a taxi service, they will be able to be transported from the facility between 2-4 hours after their arrival time. If they are using a busservice, then they are aware of the scheduled bus stops. They are also welcomed to and encouraged to spend time in our recovery lounge after their procedure if they do not yet feel comfortable leaving. ??? Patients are not supposed to drive for at least 24 hours after their procedure. Patient is coming from [facility]. She has used the [employer] transportation service in the past. She was given the number for that company to call We also discussed the possibility for her staying at a local hotel via the [employer]ther[employer] hotelprogram. PLAN: Patient will call [employer] to find out if they can bring her to the procedure on 07/29. This writerwill also send her a link to the webpage on the [employer] program. Will plan to check in with patient on 07/24/22 regarding status of her plan. Rosalva De MA Patient Navigator Section of Gastroenterology & Hepatology documented in this encounter Plan of Treatment Upcoming Encounters Date Type Department Care Team (Late st Contact Info) Description 07/12/2024 9:30 AM EST Office [place] [phone] Walt Wiseman III, MD [facility] [place] [address] documented as of this encounter Visit Diagnoses Not on filedocumented in this encounter Care Teams Loader Operator Supervisor Relationship Specialty Start Date End Date Bryan Schmid MD [address] [place] [address] [place] [address] PCP - [facility] Medicine 07/19/20 documented as of this encounter
--- OUTSIDE RECORDS SUMMARY | 2024-03-04 19:46 | XMS_ITS | Encounter Summary ---
[place] [address] Care Team Providers Care Parts Clerk Plant Maintenance Name Role Phone Bryan Schmid MD Primary Care Provider [phone] Reason for Visit * Physical Therapy (Routine) - Closed Specialty Diagnoses / Procedures Referred By Raffaele taylor Referred To Contact Physical Therapy Diagnoses Dizziness Balance problems Reji Rascon MD [facility] [place] [address] [facility] [place] [address] Referral ID Status Reason Start Date Expiration Date V isits Requested Visits Authorized [id number] Closed Evaluate and Treat 08/17/2020 08/17/2021 100 100 Encounter Details Date Type Department Care Team (Late st Contact Info) Description 03/09/2021 10:00 AM EDT Office Visit [place] [phone] Domenic Cortez PT Poor posture; Dizzy; Persistent [...] Progress Notes * Domenic Cortez PT - 03/09/2021 10:00 AM EDT Physical Therapy Progress Note Total Timed Code Treatment: 60 minutes Total Treatment Time: 60 minutes Follow up visit for a patient with ICD-10-CM 1. Poor posture R29.3 2. Dizzy R42 3. Persistent headaches R51.9 4. Dizziness R42 Subjective: Netta reports stiffness in both sides of lower neck. No vertigo since cmoing back from [place], Headaches - migranes a lot of wrapping form back to from right frontal lobe. Objective: Manual Therapy (81557) 15 min Therex: Neuromuscular Re-Ed (38110) 15 min Therex: Strength/Endurance/ROM (67448) 30 min MMT: Triceps 4/5, Hip flexors, R leg, dorsiflexion, ankle inversion and eversion. Manual Therapy: 15 min Soft tissue mobilization to cervical spine and upper thoracic spine PROM in all 8 cervical ROM Scapular mobilization to bilateral shoulders anterior posterior medial lateral Sub occipital release Cervical distraction Suboccipital release There ex: 30 minutes ?? Scapular retraction with chin tuck pully ?? Alternating protraction retraction with chin tuck ?? Scapular retratcion with pully ?? High row pully ?? Mid row pully ?? Low row pully Neuromuscular Re-Ed: 15 min ?? CDP Sensory Organization Test Assessment: Netta has 1 visit left for PT. Checked in on her personal and PT goals today. Next visitplan to [place] as Netta has made significant progress towards less vertigo, improved posture, and improved balance. CDP showed improvements in all 3 balance systems. MMT: Triceps 4/5, Hip flexors, R leg, dorsiflexion, ankle inversion and eversion. Goals met and in progress updated below. FGA indicating no longer a fall risk. Plan 1 more visit then check in then Netta will seek PT or massage therapy closer to home for longer term follow up since [facility] is quite far from her home. Netta has made significant improvements in PT and should be ready for [place] next visit. FUNCTIONAL GOALS: Therapy Short Term Goals 3 weeks ?? GOAL MET (I) home exercise program ?? GOAL MET Patient will be able to participate in SOT, AT, and MCT testing on Snippets machine to help set further vestibualr balance goals. ?? GOAL MET Patient will be able to participate in Function gait assessment to set balance goal Therapy [facility] Goals 6 weeks ?? GOAL MET Patient rates confidence with ADL's at 80% or better ?? GOAL MET FGA >/= 24/30 to indicate decreased risk of falling ?? IN PROGRESS Patient will improve DHI score to no more than 50/100 to demonstrate a reduces self-perception of disability related to dizziness, headache, or unsteadiness (18 point MCID for patientswith vestibular dysfunction, Aron and Maximus, 1990) ?? GOAL MET Patient will demonstrate improved postural stability as demonstrated by achieving within normal limits results with sensory organization testing via computerized dynamic posturography. ?? IN PROGRESS Patient will be engaged in community based or regular home based strengthening and balance exercise program. PLAN: [place] next visit. Frequency and duration: 1/week x 6 weeks tapering as appropriate Treatment: Manual Techniques, Soft Tissue Mobilization, Stretching, Joint Mobilization, Therapeutic Exercise, Patient/Family Education, Body Mechanics, Posture, Home Exercise Program, Balance and Gait Training,Vestibular Interventions and Telehealth Current HEP: 1. See scan docs (media) Domenic Cortez PT, DPT [facility] documented in this encounter Miscellaneous Notes * Treatment - Therapy - Domenic Cortez PT - 03/09/2021 10:00 AM EDT - documented in this encounter Plan of Treatment Upcoming Encounters Date Type Department Care Team (Late st Contact Info) Description 07/12/2024 9:30 AM EST Office [place] [address] Walt Wiseman III, MD [facility] [place] [address] documented as of this encounter Visit Diagnoses Diagnosis Poor posture Abnormal posture Dizzy Dizziness and giddiness Persistent headaches Headache Dizziness Dizziness and giddiness documented in this encounter Care Teams Parts Clerk Plant Maintenance Relationship Specialty Start Date End Date Bryan Schmid MD [address] [place] [address] [place] [address] PCP - [facility] Medicine 07/19/20 documented as of this encounter
--- OUTSIDE RECORDS SUMMARY | 2024-03-04 19:46 | XMS_ITS | Encounter Summary ---
Author Organization [facility] [place] [address] Care Team Providers Care Plastic Frame Inserter Name Role Phone Bryan Schmid MD Primary Care Provider [phone] Reason for Visit * Reason Comments Dizziness Off and on Vertigo f or a year now, better now. 3-6 month episode. couple of days to two weeks. Dizziness, vomiting, off balance. Spinning. Only able to lay on right side. * Consultation (Routine) - Closed Specialty Diagnoses / Procedures Referred By Contlalo t Referred To Contact Otolaryngology Diagnoses Labyrinthitis, unspecified ear Bryan Schmid MD [address] [place] [id number] Ruel Guevara MD [facility] [place] [address] Referral ID Status Reason Start Date Expiration Date V isits Requested Visits Authorized [id number] Closed Consult, Test & Treat Connection [facility] PCP Updated and/or Approved 07/12/2020 07/12/2021 6 6 Encounter Details Date Type Department Care Team (Late st Contact Info) Description 10/05/2020 1:00 PM EDT Office [place] [address] Ruel Guevara MD [facility] [address] PE[address]AYNYESI [place], [place] [id number] Dizziness; Balance problems Social History Tobacco Use Types Packs/Day Years [...] Sign Reading Time Taken Comments Blood Pressure 114/76 10/05/2020 12:56 PM EDT Pulse 62 10/05/2020 12:56 PM EDT Temperature 36.4 ??C (97.6 ??F) 10/05/2020 12:56 PM E DT Respiratory Rate - - Oxygen Saturation 99% 10/05/2020 12:56 PM EDT Inhaled Oxygen Concentration - - Weight 117.5 kg (259 lb) 10/05/2020 12:56 PM EDT Height 172.7 cm (5' 8) 10/05/2020 12:56 PM EDT Body Mass Index 39.38 10/05/2020 12:56 PM EDT documented in this encounter Progress Notes * Ruel Guevara MD - 10/05/2020 1:00 PM EDT Images from the original note were not included. [facility] Otolaryngology - Head and Neck Surgery Ruel Guevara MD 10/05/20 1:12 PM [place], [place] [address] Office Patient Name: Netta Gregorio Date of : 1960 PCP: Bryan Schmid MD Chief Complaint: vertigo History of Present Illness: Netta Gregorio is a 60 y.o. year old female with a history of spinal stenosis who was seen today at the request of Bryan Schmid in consultation as part of a workup for vertigo. In 2001, she had first bout of vertigo lasting 3 months. Onset came with a bad flu. Went to PT and did exercises. Went away after 3 months. Vertigo has been off and on since then. She can have flareups in vertigo spells which last from a couple weeks to a few months. Favian maneuvers help but only may last 24-48 hours and then she goes back to spinning Spinning lasts 30 seconds to a minute with each episode and it is strictly positional. No noticeable change in hearing. No tinnitus. No aural fullness with the episodes. Bilateral ear aches. Ears itch. Also had neck tightness. Previously had a lot of migraines, but now not as many. Has not seen a neurologist for this yet. BP is controlled through medications. It is positional with laying down or turning over in bed. Hadn't been able to lay on back or left side at all. Started PT again in November 2019 into January 2020. Trouble getting out of bed or walking tobathroom. Falling all the time. Balance has been worse. Many nights she was up all night vomiting. Many falls and tore rotator cuff. Right now she is doing well with only intermittent symptoms. Still sleeps propped up on 2-3 pillows because she can't lie flat. Also had shingles in 2018 in the middle of her back. After that the vertigo was constant through the spring and summer. History of spinal stenosis, neck stiffness, TMJ Otologic surgical history: None + qtip use Father had vertigo, but he of kidney disease when she was 19 No prior hearing aid use. No acoustic trauma, barotrauma, or head injury. No excessively loud sound exposure history. No ototoxic drug exposures. No history of Lyme disease. Radiology images personally reviewed: MRI IACs 03/01/20 No IAC lesions or retrocochlear pathology. Some nonspecific white matter changes were noted to haveprogressed Audiogram: Past Medical and Surgical History Patient Active Problem List Diagnosis Code ??? Chest pain, unspecified R07.9 ??? IBS (irritable bowel syndrome) K58.9 ??? GERD (gastroesophageal reflux disease) K21.9 ??? Primary osteoarthritis of left knee M17.12 ??? Obesity E66.9 ??? Sleep apnea G47.30 ??? Asthma J45.909 ??? S/P left total knee arthroplasty 01/06/2014 Brittaney Z96.659 ??? Chronic midline back pain M54.9, G89.29 Current Outpatient Medications on File Prior to Visit Medication Sig Dispense Refill ??? Spiriva with HandiHaler 18 mcg Capsule, w/Inhalation Device INHALE BY MOUTH ONCE DAILY ??? ADVAIR DISKUS 500-50 mcg/dose Disk with Device ??? montelukast (SINGULAIR) 10 mg Tablet ??? oxyCODONE 5 mg Capsule Take 5 mg by mouth every 4 hours as needed. ??? acetaminophen (TYLENOL) 500 mg tablet Take 2 tablets by mouth every 8 hours. 30 tablet 1 ??? atorvastatin (LIPITOR) 40 mg tablet Take 40 mg by mouth nightly. ??? cetirizine (ZYRTEC) 10 mg tablet Take 10 mg by mouth nightly. ??? zolpidem (AMBIEN) 10 mg tablet Take 10 mg by [...] by mouth nightly. No current facility-administered medications on file prior to visit. Allergies: Codeine phosphate, Darvocet a500 [propoxyphene n-acetaminophen], and Unable to find [unclassified drug] Surgical History: Past Surgical History: Procedure Laterality Date ??? [...] BX performed by Alireza James MD at [facility] ??? PRO COLONOSCOPY, BIOPSY N/A 03/07/2016 COLONOSCOPY FLEXIBLE, WITH BX performed by Eliel Nixon MD at [facility] ??? PRO TOTAL KNEE ARTHROPLASTY 01/06/2014 @TOTAL KNEE ARTHROPLASTY performed by Shamir Quispe MD at [facility] ??? PRO UPPER GI ENDOSCOPY, BIOPSY 06/03/2012 EGD WITH BIOPSY performed by Alireza James MD at [facility] ??? WISDOM TOOTH EXTRACTION three teeth Family and Social History Family History: Family History Problem Relation Age of Onset ??? Osteoporosis Mother ??? Cancer Brother Social History: Lives [place] [address] Social History Socioeconomic History ??? Marital status: Spouse name: Not on file ??? Number of children: Not on file ??? Years of education: Not on file ??? Highest education level: Not on file Occupational History ??? Not on file Tobacco Use ??? Smoking status: Never Smoker ??? Smokeless tobacco: Never Used Substance and Sexual Activity ??? Alcohol use: Yes Alcohol/week: 0.0 standard drinks Comment: occasional ??? Drug use: Yes ??? Sexual activity: Not on file Other Topics Concern ??? Not on file Social History Narrative ??? Not on file Social Determinants of Health Financial Resource Strain: ??? Difficulty of Paying Living Expenses: Food Insecurity: ??? Worried About Running Out of Food in the Last Year: ??? Ran Out of Food in the Last Year: Transportation Needs: ??? Lack of Transportation (Medical): ??? Lack of Transportation (Non-Medical): Physical Activity: ??? Days of Exercise per Week: ??? Minutes of Exercise per Session: Stress: ??? Feeling of Stress : Social Connections: ??? Frequency of Communication with Friends and Family: ??? Frequency of Social Gatherings with Friends and Family: ??? Attends Judaism Services: ??? Active Member of Clubs or Organizations: ??? Attends Club or Organization Meetings: ??? Marital Status: Intimate Partner Violence: ??? Fear of Current or Ex-Partner: ??? Emotionally Abused: ??? Physically Abused: ??? Sexually Abused: Physical Exam Temperature: Heart Rate: Blood Pressure: Respiratory Rate: SpO2: General: Age appropriate, obese, well-groomed, independently mobile but limps. Communicates easily,speech clear, voice is strong. Awake, alert, and oriented to person, place and time. Affect appropriate. Romberg negative Head and Face: Head is normocephalic, atraumatic. Facial resting tone symmetric. Eyes: Conjugate gaze, ocular motility intact bilaterally, however she has significant difficulty tracking left to right with smooth pursuit. Neurologic: Cranial Nerves II-XII grossly intact and symmetric. Ears: External ears without deformity. See documentation of otomicroscopy below. Hearing is grossly normal. Tuning fork midline with Air>Bone bilaterally. Nose: External nose is midline without deformity or lesion. Anterior rhinoscopy reveals a straight septum, healthy mucosa, turbinates normal in size. Oral: There are no visible or palpable buccal, gingival, lingual, or palatal lesions. The floor of mouth is soft and flat. Dentition is in good repair. Oropharynx: Symmetric without tonsillar pathology. Larynx: Strong voice and cough Pulmonary: Breathing comfortably. Symmetric chest expansion without use of accessory muscles or retraction. Procedures Binocular otomicroscopy was performed: Left side: Ear canal clear Tympanic membrane intact and translucent with normal mobility on pneumatic otoscopy. Fistula test is negative. Right side: Ear canal clear Tympanic membrane intact and translucent with normal mobility on pneumatic otoscopy. Fistula test is negative. ASSESSMENT & RECOMMENDATIONS Netta Gregorio is a 60 y.o. female with history of spinal stenosis, migraines, and neck stiffness who has had positional, transient vertigo off and on for nearly 20 years. Her history is consistent withBPPV, although her condition is more severe than most. She has no aural symptoms or signs to suggest Meniere's disease or primary vestibular neuropathy. Audiogram and ear exam are benign. Differential includes atypical BPPV, cervicogenic vertigo, or positional compromise of cerebellar perfusion related to intracranial fluid dynamics, vertebrobasilar artery insufficiency, etc. I agree with vestibular PT evaluation which is pending. If this is not conclusive, she may benefit from audiology vestibular function testing. I would also recommend evaluation by a neurologist to exclude central causes, but I will defer to her PCP to place this referral if they agree. If recalcitrant BPPV is determined the diagnosis, [...] up if she is headed that direction. Ruel Guevara MD, [facility] Otolaryngology - Head and Neck Surgery 10/05/20 1:12 PM documented in this encounter Plan of Treatment Upcoming Encounters Date Type Department Care Team (Late st Contact Info) Description 07/12/2024 9:30 AM EST [place] [address] Walt Wiseman III, MD [facility] [place] [address] documented as of this encounter Visit Diagnoses Diagnosis Dizziness Dizziness and giddiness Balance problems Other symptoms involving nervous and musculoskeletal systems documented in this encounter Care Teams Plastic Frame Inserter Relationship Specialty Start Date End Date Bryan Schmid MD [address] [place] [address] [place] [address] PCP - [facility] Medicine 07/19/20 documented as of this encounter
--- OUTSIDE RECORDS SUMMARY | 2024-03-04 19:46 | XMS_ITS | Encounter Summary ---
[place] [address] Care Team Providers Care Animation Artist Name Role Phone Bryan Schmid MD Primary Care Provider Reason for Visit * Physical Therapy (Routine) - Closed Specialty Diagnoses / Procedures Referred By Raffaele taylor Referred To Contact Physical Therapy Diagnoses Dizziness Balance problems Reji Rascon MD [facility] [place] [address] [facility] [place] [address] Referral ID Status Reason Start Date Expiration Date V isits Requested Visits Authorized [id number] Closed Evaluate and Treat 08/17/2020 08/17/2021 100 100 Encounter Details Date Type Department Care Team (Late st Contact Info) Description 01/24/2021 10:00 AM EDT Office [place] [phone] Domenic Cortez PT Poor posture; Dizzy; Persistent [...] - Therapy - Domenic Cortez PT - 01/24/2021 10:00 AM EDT Physical Therapy Progress Note Total Timed Code Treatment: 60 minutes Total Treatment Time: 60 minutes Follow up visit for a patient with ICD-10-CM 1. Poor posture R29.3 2. Dizzy R42 3. Persistent headaches R51.9 4. Dizziness R42 Subjective: Netta states doing ok. 1 Week since vertigo. A few headaches mostly centered around driving. Ordered suboccipital release. Got a brace to keep shoulders back. Got a new ice pack cape. Objective: Manual Therapy (36497) 15 min Therex: Strength/Endurance/ROM (83261) 45 min Manual Therapy: 15 min Soft tissue mobilization to cervical spine and upper thoracic spine Cervical flex, lateral bend, rot (pain indicated) Scapular mobilization to bilateral shoulders Sub occipital release Cervical distraction Suboccipital release There ex: 45 minutes ?? Scapular retraction with chin tuck ?? Alternating protraction retraction with chin tuck ?? Scapular retratcion with 9 lbs with tactile and verbal cues ?? posteriro deltoid #7.5 10x3 ?? Rhomboid stretch x 3 ?? TRX strap push up ?? TRX strap row ?? Alternating arm swings with chin tucks ?? Supine on 1/2 foam roll ?? Alternating protraction retraction ?? Alternating arm swing ?? Chest hatch supervisor stretch ?? protraction retraction cross arm ?? 12.5# row ?? Low, medium high height. Assessment: Netta had a little pain in R anterior shoulder 2nd rib 3/10, L arm pain 1-2/10 down lateral upper arm. Pain reduced with rest and manual therapy. Netta had a little dizziness with cervical side bending stretch which reduced with rest. Tolerated new exercises well but had a hard time getting on/off foam roll. Goals and plan remain appropriate. FUNCTIONAL GOALS: Therapy Short Term Goals 3 weeks ?? (I) home exercise program ?? Patient will be able to participate in SOT, AT, and MCT testing on [employer] machine to help set further vestibualr balance goals. ?? Patient will be able to participate in Function gait assessment to set balance goal Therapy Chcf Goals 6 weeks ?? Patient rates confidence [...] scan docs (media) Domenic Cortez PT, DPT [facility] documented in this encounter Plan of Treatment Upcoming Encounters Date Type Department Care Team (Late st Contact Info) Description 07/12/2024 9:30 AM EST [place] [address] Walt Wiseman III, MD [facility] [place] [address] documented as of this encounter Visit Diagnoses Diagnosis Poor posture Abnormal posture Dizzy Dizziness and giddiness Persistent headaches Headache Dizziness Dizziness and giddiness documented in this encounter Care Teams Animation Artist Relationship Specialty Start Date End Date Bryan Schmid MD [address] [place] [address] [place] [address] PCP - [facility] Medicine 07/19/20 documented as of this encounter
--- OUTSIDE RECORDS SUMMARY | 2024-03-04 19:46 | XMS_ITS | Encounter Summary ---
Author Organization [facility] [place] [address] Care Team Providers Care Broiler Chef Or Cook Name Role Phone Karmen Magana MD Primary Care Provider [phone] Encounter Details Date Type Department Care Team (Late st Contact Info) Description 03/01/2020 Ancillary Procedure Radiology Library at [facility] [place] [place] [address] Karmen Magana MD [address] [place] [phone] Social History Tobacco Use Types Packs/Day Years [...] 9:30 AM EST [place] [address] Walt Wiseman III, MD [facility] [place] [address] documented as of this encounter Procedures Procedure Name Priority Date/Time Associated Diagnosis Comments FILM LIBRARY STORAGE ONLY MR HEAD Routine 03/01/2020 12:00 AM EDT documented in this encounter Results * Film Library- Storage Only MR Head (03/01/2020 12:00 AM EDT) Narrative RAHUL - 07/13/2020 2:48 PM EST This exam is auto-finalizing. It's purpose is for storage only. Karmen Magana MD IMG FILM LIBRARY OR DERABLES RAHUL [place], [place] documented in this encounter Visit Diagnoses Not on filedocumented in this encounter Care Teams Broiler Chef Or Cook Relationship Specialty Start Date End Date Karmen Magana MD [address] [place] [address] [place] [phone] PCP - General Family Medicine 04/11/17 07/18/20 documented as of this encounter
--- OUTSIDE RECORDS SUMMARY | 2024-03-04 19:46 | XMS_ITS | Encounter Summary ---
Author Organization [facility] Address [facility] [place] [address] Care Team Providers Care Studio Musician Name Role Phone Bryan Schmid MD Primary Care Provider [phone] Reason for Visit * Reason Comments Follow-up 01/06/14 LEFT TKA-KOE NIG PT Encounter Details Date Type Department Care Team (Late st Contact Info) Description 06/04/2021 3:30 PM EST Office [place] [address] Grace Watters PA [facility] [place] [address] Status post total left knee replacement Social [...] Sign Reading Time Taken Comments Blood Pressure 113/73 06/04/2021 3:19 PM EST Pulse 61 06/04/2021 3:19 PM EST Temperature - - Respiratory Rate - - Oxygen Saturation - - Inhaled Oxygen Concentration - - Weight 113.4 kg (250 lb) 06/04/2021 3:19 PM EST Height 172.7 cm (5' 8) 06/04/2021 3:19 PM EST Body Mass Index 38.01 06/04/2021 3:19 PM EST documented in this encounter Progress Notes * Grace Watters PA - 06/04/2021 3:30 PM EST Arthroplasty/Orthopaedic History: 1. L TKA - 01/06/14 - Brittaney HPI: Netta Gregorio is a very pleasant 61 y.o. year-old female and is now 7 [...] chills, night sweats, nausea, or vomiting BP 113/73 Pulse 61 Ht 172.7 cm (5' 8) Wt 113.4 kg (250 lb) BMI 38.01 kg/m?? Physical Exam: Well-appearing female in no [...] and a small joint effusion. Questionnaire Responses: [facility] Surgical Postop Visit 06/03/2021 PROMIS-10 General Health Fair PROMIS-10 Quality of Life Fair PROMIS-10 Physical Health Fair PROMIS-10 Mental Health Fair PROMIS-10 Social Activity Fair PROMIS-10 Everyday Activities A little PROMIS-10 Pain 7 PROMIS-10 Fatigue Moderate PROMIS-10 Social Roles Fair PROMIS-10 Anxious or Depressed Sometimes PROMIS PHYSICAL HEALTH SCORE 32.4 PROMIS MENTAL HEALTH SCORE 36.3 KOOS JR Scores 57.14 Problems with surgical incision/wound after surgery No Gone to ER since knee surgery Yes Where was ER located? [facility] Date of ER visit 07/20/2020 Reason for ER visit Broken and dislocated ankle Admitted to hospital since recent ortho surgery Yes Hospital [facility] Date of admission 07/20/2020 Discharge date 07/22/2020 Reason you went to hospital Broken ankle and ankle surgery Additional surgery on same body part No TKA Grade 6 Pain in other KNEE None Back pain at this moment Fairly severe Satisfaction with Treatment Somewhat dissatisfied Choose Same Treatment Again Definitely yes [facility] Response 06/03/2021 KOOS JR Scores 57.14 OSWESTRY DISABILITY INDEX - Spine [facility] Response 06/03/2021 Oswestry (DWAIN) Score - KOOS JR Scores 57.14 ASSESSMENT/PLAN: Ms. Gregorio is a 61 y.o. year old female status post left total knee replacement. Doing well postoperatively. There is a small area of new lucency on the anterior aspect of the femoral component, which is small and not of great concern. Continue weightbearing as tolerated and working on range of motion. We will see her back in 1 years for repeat examination. X-rays will be needed atthat time. Patient may return to normal activities as her pain and function allow. If Netta has any changes in health status we recommend she contact our office prior to dental procedures for updated recommendations All questions were answered. Signed: OVIDIO Bryson 06/04/2021 documented in this encounter Plan of Treatment Upcoming Encounters Date Type Department Care Team (Late st Contact Info) Description 07/12/2024 9:30 AM EST Office [place] [address] Walt Wiseman III, MD [facility] [place] [address] documented as of this encounter Visit Diagnoses Diagnosis Status post total left knee replacement documented in this encounter Care Teams Studio Musician Relationship Specialty Start Date End Date Bryan Schmid MD [address] [place] [address] [place] [address] PCP - [facility] Medicine 07/19/20 documented as of this encounter
--- OUTSIDE RECORDS SUMMARY | 2024-03-04 19:46 | XMS_ITS | Encounter Summary ---
Author Organization [facility] Address [facility] [place] [address] Care Team Providers Care Collection Officer Name Role Phone Bryan Schmid MD Primary Care Provider [phone] Encounter Details Date Type Department Care Team (Latest Contact Info) Description 07/10/2022 11:04 AM EST - 07/10/2022 11:59 PM [facility] Hospital Encounter XRay at [address] [place] [address] Brodie Rascon MD [facility] [place] [address] H/O total knee replacement, left Discharge Disposition: Home Social History Tobacco Use [...] Sig Dispensed Refills Start Date End Date fluticasone propion-salmeteroL (ADVAIR) 250-50 mcg/dose Disk with Device Inhale 1 puff into the lungs 2 times daily. 06/20/2022 oxyCODONE-acetaminophen (Percocet) 5-325 mg Tablet TAKE ONE TABLET BY MOUTH EVERY 8 HOURS NEEDED FOR 28 DAYS 03/28/2021 Narcan 4 mg/actuation [place], Non-Aerosol as needed. 03/28/2021 diazePAM (Valium) 5 [...] 9:30 AM EST [place] [address] Walt Wiseman III, MD [facility] [place] [address] documented as of this encounter Procedures Procedure Name Priority Date/Time Associated Diagnosis Comments XR KNEE AP & LAT LEFT Routine 07/10/2022 11:22 AM EST H/O total knee replacement, left documented in this encounter Results * XR Knee 1-2 Views Left (Generic) (07/10/2022 11:22 AM EST) Anatomical Region Laterality Modality Knee Left Digital Radiogra phy Impressions 07/10/2022 2:08 PM EST Uncomplicated left TKA. Thank you for letting us participate in the care of this patient. ??If you are a health care provider and have any questions regarding this report, please contact the number below. ??For patients who have questions please contact the health childcare center administrator that requested your imaging first. ? Narrative 07/10/2022 2:08 PM EST EXAMINATION: XR KNEE 1-2 VIEWS LEFT (GENERIC) CLINICAL HISTORY: LT TKA DOS 01/06/14 (LEYDA) TECHNIQUE: 2 views LEFT knee COMPARISON: 06/04/2021 FINDINGS: Is a left total knee arthroplasty in unchanged alignment. There is no periprosthetic lucency or fracture. No large joint effusion. Procedure Note Candida Patel MD - 07/10/2022 EXAMINATION: XR KNEE 1-2 VIEWS LEFT (GENERIC) CLINICAL HISTORY: LT TKA DOS 01/06/14 (LEYDA) TECHNIQUE: 2 views LEFT knee COMPARISON: 06/04/2021 FINDINGS: Is a left total knee arthroplasty in unchanged alignment. There is no periprosthetic lucency or fracture. No large joint effusion. IMPRESSION Uncomplicated left TKA. Thank you for letting us participate in the care of this patient. If youare a health care provider and have any questions regarding this report,please contact the number below. For patients who have questions please contactthe health childcare center administrator that requested your imaging first. Brodie Rascon MD IMG DX ORDERABLES documented in this encounter Visit Diagnoses Diagnosis H/O total knee replacement, left documented in this encounter Care Teams Collection Officer Relationship Specialty Start Date End Date Bryan Schmid MD [address] [place] [address] [place] [address] PCP - [facility] Medicine 07/19/20 documented as of this encounter
--- OUTSIDE RECORDS SUMMARY | 2024-03-04 19:46 | XMS_ITS | Encounter Summary ---
Author Organization [facility] Address [facility] [place] [address] Care Team Providers Care Steel Shot Header Operator Name Role Phone Bryan Schmid MD Primary Care Provider [phone] Encounter Details Date Type Department Care Team (Latest Contact Info) Description 06/04/2021 2:13 PM EST - 06/04/2021 11:59 PM EST Hospital Encounter XRay at [address] [place] [address] Status post total left knee replacement Discharge Disposition: Home Social History Tobacco Use [...] Sig Dispensed Refills Start Date End Date oxyCODONE-acetaminophen (Percocet) 5-325 mg Tablet TAKE ONE TABLET BY MOUTH EVERY 8 HOURS NEEDED FOR 28 DAYS 03/28/2021 Narcan 4 mg/actuation [place], Non-Aerosol as needed. 03/28/2021 diazePAM (Valium) 5 [...] tablet Take 50 mg by mouth nightly. baclofen (Lioresal) 10 mg Tablet TAKE ONE TABLET BY MOUTH TWICE A DAY 05/30/2021 08/13/2021 hydrOXYzine (Atarax) 10 mg TabletIndications:Cervi cogenic migraine Take 1 tablet by mouth every 8 hours as needed (migraine OK to use at onset and repeat after 2 hours). 30 tablet 3 11/07/2020 07/16/2021 ADVAIR DISKUS 500-50 mcg/dose Disk with Device [...] 9:30 AM EST Office [place] [address] Walt Wiseman III, MD [facility] [place] [address] documented as of this encounter Procedures Procedure Name Priority Date/Time Associated Diagnosis Comments XR KNEE AP & LAT LEFT Routine 06/04/2021 2:53 PM EST Status post total left knee replacement documented in this encounter Results * XR Knee 1-2 Views Left (Generic) (06/04/2021 2:53 PM EST) Anatomical Region Laterality Modality Knee Left Digital Radiogra phy Impressions 06/04/2021 2:55 PM EST Left total knee arthroplasty with new thin lucency adjacent to the anterior femoral component. Thank you for letting us participate in the care of this patient. ??If you are a health care provider and have any questions regarding this report, please contact the number below. ??For patients who have questions please contact the health senior care assistant that requested your imaging first. ? Electronically signed by: Cornelius Callejas MD, [facility] ([phone]), at 06/04/2021 2:55 PM Narrative 06/04/2021 2:55 PM EST EXAMINATION: XR KNEE 1-2 VIEWS LEFT (GENERIC) CLINICAL HISTORY: left total knee arthroplasty routine check up due but patient reports recent fall ??onto knee, 01/06/14 LEFT TKA-LEYDA PT assess for hardware integrity ??XR 01/06/14 LEFT TKA-LEYDA PT and any other injury TECHNIQUE: 2 views LEFT knee COMPARISON: April 2017 FINDINGS: There is a left total knee arthroplasty with unchanged alignment. No periprosthetic fracture. There is a small joint effusion. Along the anterior femoral flange there is 2 mm of that is new compared to prior. Frontal view of the right knee demonstrates changes of mild medial compartment and lateral compartment osteoarthropathy. Procedure Note Cornelius Callejas MD - 06/04/2021 EXAMINATION: XR KNEE 1-2 VIEWS LEFT (GENERIC) CLINICAL HISTORY: left total knee arthroplasty routine check up due butpatient reports recent fall onto knee, 01/06/14 LEFT TKA-LEYDA PT assess for hardware integrity XR 01/06/14 LEFT TKA-LEYDA PT and anyother injury TECHNIQUE: 2 views LEFT knee COMPARISON: April 2017 FINDINGS: There is a left total knee arthroplasty with unchanged alignment. No periprosthetic fracture. There is a small joint effusion. Along theanterior femoral flange there is 2 mm of that is new compared to prior. Frontal view of the right knee demonstrates changes of mild medialcompartment and lateral compartment osteoarthropathy. IMPRESSION Left total knee arthroplasty with new thin lucency adjacent to theanterior femoral component. Thank you for letting us participate in the care of this patient. If youare a health care provider and have any questions regarding this report,please contact the number below. For patients who have questions please contactthe health senior care assistant that requested your imaging first. Electronically signed by: Cornelius Callejas MD, [facility]([phone]), at 06/04/2021 2:55 PM Cale Dominique MD IMG DX ORDERABLES documented in this encounter Visit Diagnoses Diagnosis Status post total left knee replacement documented in this encounter Care Teams Steel Shot Header Operator Relationship Specialty Start Date End Date Bryan Schmid MD [address] [place] [address] [place] [address] PCP - [facility] Medicine 07/19/20 documented as of this encounter
--- OUTSIDE RECORDS SUMMARY | 2024-03-04 19:46 | XMS_ITS | Encounter Summary ---
[place] [address] Care Team Providers Care Kitchen Help Handyman Name Role Phone Bryan Schmid MD Primary Care Provider [phone] Reason for Visit * Physical Therapy (Routine) - Closed Specialty Diagnoses / Procedures Referred By Raffeale taylor Referred To Contact Physical Therapy Diagnoses Dizziness Balance problems Reji Rascon MD [facility] [place] [address] [facility] [place] [address] Referral ID Status Reason Start Date Expiration Date V isits Requested Visits Authorized [id number] Closed Evaluate and Treat 08/17/2020 08/17/2021 100 100 Encounter Details Date Type Department Care Team (Late st Contact Info) Description 12/27/2020 10:30 AM EDT Office [place] [phone] Domenic Cortez PT Persistent headaches; Dizzy; Poor posture Social History Tobacco Use Types [...] - Therapy - Domenic Cortez PT - 12/27/2020 10:30 AM EDT Physical Therapy Progress Note Total Timed Code Treatment: 60 minutes Total Treatment Time: 60 minutes Follow up visit for a patient with ICD-10-CM 1. Persistent headaches R51.9 2. Dizzy R42 3. Poor posture R29.3 Subjective: Soft tissue helped. Exercise taper down help and spreading them out helped. Had vertigomoving head to R side now but used to by L side. Lying on R side get it. Vertigo is going 35-70 seconds. Worst is lying on R side which is new. Lie down to right doesn't get round spinning instead gets oscillations side to side. End of visit shoulder and neck feel looser and no vertigo. Objective: Manual Therapy (01283) 22 min Therex: Strength/Endurance/ROM (19083) 8 min Manual Therapy: 22 min Soft tissue mobilization to cervical spine and upper thoracic spine Cervical flex, lateral bend, rot (pain indicated) Scapular mobilization to bilateral shoulders Sub occipital release Cervical distraction There ex: 8 minutes ?? Scapular retraction ?? Corner pec stretch Assessment: Netta had decreased symptoms from last time with exercise using my advice of taking it easy and doing exercise in pain-free zone, however Netta has had vertigo moving head to the right where it used to be moving head to the left now is worse lying on right side vertigo duration is 35 to 70 seconds. Netta had no vertigo in today's session responding well to manual therapy postural cues, therapeutic exercise and stretching. Goals and plan remain appropriate. FUNCTIONAL GOALS: Therapy Short Term Goals 3 weeks ?? (I) home exercise program ?? Patient will be able to participate in SOT, AT, and MCT testing on [employer] machine to help set further vestibualr balance goals. ?? Patient will be able to participate in Function gait assessment to set balance goal Therapy Residue Furnace Operator Goals 6 weeks ?? Patient rates confidence [...] scan docs (media) Domenic Cortez PT, DPT [facility] Outpatient Rehabilitation documented in this encounter Plan of Treatment Upcoming Encounters Date Type Department Care Team (Late st Contact Info) Description 07/12/2024 9:30 AM EST [place] [address] Walt Wiseman III, MD [facility] [place] [address] documented as of this encounter Visit Diagnoses Diagnosis Persistent headaches Headache Dizzy Dizziness and giddiness Poor posture Abnormal posture documented in this encounter Care Teams Kitchen Help Handyman Relationship Specialty Start Date End Date Bryan Schmid MD [address] [place] [address] [place] [address] PCP - [facility] Medicine 07/19/20 documented as of this encounter
--- OUTSIDE RECORDS SUMMARY | 2024-03-04 19:46 | XMS_ITS | Encounter Summary ---
Author Organization [facility] [place] [address] Care Team Providers Care Reinforced Concrete Inspector Name Role Phone Bryan Schmid MD Primary Care Provider [phone] Reason for Visit * Reason Onset Date Comments Labs Only 11/24/2020 need ordered asa p Encounter Details Date Type Department Care Team (Late st Contact Info) Description 11/24/2020 [place] [phone] Walt Wiseman III, MD [facility] [place] [address] Labs Only (need ordered jevon) Social History Tobacco Use Types Packs/Day Years [...] encounter Miscellaneous Notes * Telephone Encounter - Ivy Valderrama RN - 11/24/2020 9:40 AM EDT Creatinine order placed. * Telephone Encounter - Connie Saini - 11/24/2020 8:46 AM EDT Call Center / Beet Worker Message - General Issue Call Provider patient sees in Clinic: [facility] Caller and relationship (if other than patient-full name): Yvonne CT scheduling Call back number: [phone] Ok to leave a message: y Reason for call: Yvonne states they need a creatine ordered for patient to have drawn prior to CTscan on 11/27. Please order jevon Disposition of Call (choose one and remove others): ??? Red Arrow Message Reason red arrow Message: yes need order jevon to be done before CT scan ??? Routine Message sent to the Nurse: y ??? Routine message sent to [place]: n Nurse/[place] contacted via: Message: y Call: n Pager: n documented in this encounter Plan of Treatment Upcoming Encounters Date Type Department Care Team (Late st Contact Info) Description 07/12/2024 9:30 AM EST [place] [address] Walt Wiseman III, MD [facility] [place] [address] documented as of this encounter Visit Diagnoses Not on filedocumented in this encounter Care Teams Reinforced Concrete Inspector Relationship Specialty Start Date End Date Bryan Schmid MD [address] [place] [address] [place] [address] PCP - [facility] Medicine 07/19/20 documented as of this encounter
--- OUTSIDE RECORDS SUMMARY | 2024-03-04 19:46 | XMS_ITS | Encounter Summary ---
[place] [address] Care Team Providers Care .Net Programmer Name Role Phone Bryan Schmid MD Primary Care Provider [phone] Reason for Visit * Physical Therapy (Routine) - Closed Specialty Diagnoses / Procedures Referred By Raffaele taylor Referred To Contact Physical Therapy Diagnoses Dizziness Balance problems Reji Rascon MD [facility] [place] [address] [facility] [place] [address] Referral ID Status Reason Start Date Expiration Date V isits Requested Visits Authorized [id number] Closed Evaluate and Treat 08/17/2020 08/17/2021 100 100 Encounter Details Date Type Department Care Team (Late st Contact Info) Description 01/04/2021 2:00 PM EDT Office [place] [phone] Domenic Cortez PT Persistent headaches; Dizzy; Poor posture; Benign paroxysmal positional vertigo of left ear Social History Tobacco Use Types Packs/Day Years [...] - Therapy - Domenic Cortez PT - 01/04/2021 2:00 PM EDT Physical Therapy Progress Note Total Timed Code Treatment: 30 minutes Total Treatment Time: 45 minutes Follow up visit for a patient with ICD-10-CM 1. Persistent headaches R51.9 2. Dizzy R42 3. Poor posture R29.3 4. Benign paroxysmal positional vertigo of left ear H81.12 Subjective: felling ok. Vertigo calm. The little vertigo she had is laying on R side, and rolling to the right side. Vertigo is nowhere near it was. Duration is 10-20 seconds. Exercises are not causing neck to be as tense. End of session shoulder and neck felt looser. Objective: Manual Therapy (39874) 22 min Therex: Strength/Endurance/ROM (24977) 8 min 4/10 pain Manual Therapy: 22 min Soft tissue mobilization to cervical spine and upper thoracic spine Cervical flex, lateral bend, rot (pain indicated) Scapular mobilization to bilateral shoulders Sub occipital release Cervical distraction There ex: 8 minutes ?? Scapular retraction with chin tuck ?? Alternating protraction retraction with chin tuck ?? Scapular retratcion with 8.5 lbs ?? Rhomboid stretch ?? Doorway pec stretch into rotation ?? Corner pec stretch ?? Alternating arm swings with chin tucks ?? Standing shld flex, ER, elbow flex, IR & elbow ext Ice Pack: 15 min no charge Assessment: Netta presents with decreased symptoms and pain at this time, although feeling stronger symptoms on the R but is much less then before. Netta felt like exercises are helping with her vertigo and that they make her neck feel looser. Goals and plan remain appropriate. FUNCTIONAL GOALS: Therapy Short Term Goals 3 weeks ?? (I) home exercise program ?? Patient will be able to participate in SOT, AT, and MCT testing on [employer] [place] machine to help set further vestibualr balance goals. ?? Patient will be able to participate in Function gait assessment to set balance goal Therapy Detention Goals 6 weeks ?? Patient rates confidence with ADL's at 80% or better ?? FGA >/= 24/30 to indicate decreased risk of falling ?? Patient will improve DHI score to no more than 50/100 to demonstrate a reduces self-perception of disability related to dizziness, headache, or unsteadiness (18 point MCID for patients with vestibular dysfunction, rAon and Maximus, 1990) ?? Patient will demonstrate [...] scan docs (media) Domenic Cortez PT, DPT [facility] Outpatient Rehabilitation documented in this encounter Plan of Treatment Upcoming Encounters Date Type Department Care Team (Late st Contact Info) Description 07/12/2024 9:30 AM EST [place] [address] Walt Wiseman III, MD [facility] [place] [address] documented as of this encounter Visit Diagnoses Diagnosis Persistent headaches Headache Dizzy Dizziness and giddiness Poor posture Abnormal posture Benign paroxysmal positional vertigo of left ear documented in this encounter Care Teams .Net Programmer Relationship Specialty Start Date End Date Bryan Schmid MD [address] [place] [address] [place] [address] PCP - [facility] Medicine 07/19/20 documented as of this encounter
--- OUTSIDE RECORDS SUMMARY | 2024-03-04 19:46 | XMS_ITS | Encounter Summary ---
Author Organization [facility] [place] [address] Care Team Providers Care River And Lakes Boatman Name Role Phone Bryan Schmid MD Primary Care Provider [phone] Encounter Details Date Type Department Care Team (Late st Contact Info) Description 05/29/2021 Orders [place] [phone] Grace Watters PA [facility] [address] [place] [address] Status post total left knee replacement Social [...] 9:30 AM EST [place] [address] Walt Wiseman III, MD [facility] [place] [address] documented as of this encounter Results * XR Knee 1-2 [...] who have questions please contact the health resident care manager that requested your imaging first. ? Electronically signed by: Cornelius Callejas MD, [facility] ([phone]), at 06/04/2021 2:55 PM Narrative 06/04/2021 2:55 [...] patients who have questions please contactthe health resident care manager that requested your imaging first. Electronically signed by: Cornelius Callejas MD, [facility]([phone]), at 06/04/2021 2:55 PM Cale Dominique MD IMG DX ORDERABLES documented in this encounter Visit Diagnoses Diagnosis Status post total left knee replacement Status post total left knee replacement documented in this encounter Care Teams [place] Boatman Relationship Specialty Start Date End Date Bryan Schmid MD [address] [place] [address] [place] [address] PCP - [facility] Medicine 07/19/20 documented as of this encounter
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
--- OUTSIDE RECORDS SUMMARY | 2024-03-04 19:46 | XMS_ITS | Encounter Summary ---
Author Organization [facility] [place] [address] Care Team Providers Care Banding Machine Operator Name Role Phone Bryan Schmid MD Primary Care Provider [phone] Encounter Details Date Type Department Care Team (Latest Contact Info) Description 07/15/2022 Travel Social History Tobacco Use Types Packs/Day [...] 9:30 AM EST Office [place] [address] Walt Wiseman III, MD [facility] [place] [place] [address] documented as of this encounter Visit Diagnoses Not on filedocumented in this encounter Care Teams Banding Machine Operator Relationship Specialty Start Date End Date Bryan Schmid MD [address] [place] [address] [place] [address] PCP - [facility] Medicine 07/19/20 documented as of this encounter
--- OUTSIDE RECORDS SUMMARY | 2024-03-04 19:46 | XMS_ITS | Encounter Summary ---
[place] [address] Care Team Providers Care Medical Assistant Per Diem Name Role Phone Bryan Schmid MD Primary Care Provider [phone] Encounter Details Date Type Department Care Team (Late st Contact Info) Description 02/06/2022 Ancillary Procedure Radiology at [facility] [address] [facility] [address] [place] [phone] Rashmi Marrero MD [address] [facility] [place] [address] Social History Tobacco Use Types Packs/Day Years [...] 9:30 AM EST [place] [address] Walt Wiseman III, MD [facility] [place] [address] documented as of this encounter Procedures Procedure Name Priority Date/Time Associated Diagnosis Comments FILM LIBRARY STORAGE ONLY MR SPINE Routine 02/06/2022 12:00 AM EDT documented in this encounter Results * Film Library- Storage Only MR Spine (02/06/2022 12:00 AM EDT) Narrative [facility] - 02/08/2022 11:25 AM EDT This exam is auto-finalizing. It's purpose is for storage only. Rashmi Marrero MD IMG FILM LIBRARY ORDERABLES Performing Organization Address City/State/[facility] Co de Phone Number [place], [place] documented in this encounter Visit Diagnoses Not on filedocumented in this encounter Care Teams Medical Assistant Per Diem Relationship Specialty Start Date End Date Bryan Schmid MD [address] [place] [address] [place] [address] PCP - [facility] Medicine 07/19/20 documented as of this encounter
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
--- OUTSIDE RECORDS SUMMARY | 2024-03-04 19:46 | XMS_ITS | Encounter Summary ---
[place] [address] Care Team Providers Care Radiological Technologist Name Role Phone Bryan Schmid MD Primary Care Provider [phone] Reason for Visit * Consultation (Routine) - Closed Specialty Diagnoses / Procedures Referred By Contlalo t Referred To Contact Neurology Diagnoses Dizziness and giddiness Bryan Schmid MD [address] [place] [id number] [facility] Neurology [address] [place] [phone] Referral ID Status Reason Start Date Expiration Date V isits Requested Visits Authorized [id number] Closed Consult, Test & Treat [facility] PCP Updated and/or Approved 10/25/2020 10/25/2021 6 6 Encounter Details Date Type Department Care Team (Latest Contact Info) Description 11/07/2020 10:30 AM EDT TH Visit (TeleHealth) [place] [phone] Walt Wiseman III, MD [facility] [place] [address] Cervicogenic migraine; Vertigo Social History Tobacco Use Types Packs/Day Years Used Date Smoking Tobacco: Never Smokeless Tobacco: Never Alcohol Use Standard Drinks/Week Comments Yes 0 (1 standard drink = 0.6 oz pur e alcohol) occasional Sex and Gender Information Value Date Recorded Sex Assigned at Not on file Gender Identity Not on file Sexual Orientation Not on file documented as of this encounter Progress Notes * Walt Wiseman III, MD - 11/07/2020 10:30 AM EDT General Neurology [facility] New Patient Telemedicine Visit Dear Bryan Schmid MD, I saw Netta Gregorio in consultation via telemedicine for vertigo. Netta Gregorio was unaccompanied at today's visit. Below is my consultation note with impression and plan. Please do not hesitate to call with any questions. Appointment time: 10:41 -11:35 (total 54 minutes) Chief Complaint: vertigo History of Presenting Illness: Netta Gregorio is a 60 y.o. year old woman with HTN, HLD, CAD, JACKSON, obesity, presenting for evaluationof vertigo. Netta reports that she had her first episode of vertigo occurred in 2001. Since that time she has had several episodes lasting from a few weeks to up to 6 months. Her last bad episode started in 2018 after a bout of shingles. Following this she had Favian maneuvers with improvement that would last a few days. There was some improvement following July 2020. However there was worsening again about 2 weeks ago. She was referred to PT, but had significant nausea and worsening balance after PT yesterday. She was seen by Dr. Guevara on 10/05/2020 who did not think that her symptoms were related to Meniere's disease or tumor. She does not think that her vertigo has significantly changed in regards to the vertigo, but she is noticing increasing neck pain - neck muscle tightness (more on the L) andsome radiation around the ears and back of her head. Frequently she will get a frontal headache - typically on the L that then radiates across the forehead. The headache can last hours to days with gradual improvement. When she has bad episodes of vertigo she is more likely to also have frequent headaches and most vertigo attacks come a few minutes prior to headache onset. The pain is a constant squeezing/tightness, not throbbing. She can also get some blurriness of vision in both eyes with sparkle phenomenon precedes most headaches and can last minutes to a few hours. She also has associated light sensitivity. Lying down, not moving, cold compress on her neck or head can help. She frequently will also have nausea with emesis. She has not taken any medications for the headache; sometimes she uses antinausea meds or meclizine without significant improvement. She does not think that shehas ever had vertigo without the headache. During long episodes her vertigo never resolves and can be retriggered with movements with concurrent headache. She continues to have daily mild headaches even with the vertigo is not present. Typical triggers for her vertigo can include laying down on the L > R, movement of her head to the L, bending down and standing, bending and turning the head to the L, tipping her head backwards, and any quick movements. Sometimes vertigo and headache can be triggered by stress. Over the course of the past 20 years her balance has gradually worsened resulting in several falls.Her last fall was in July 2020 resulting in fracturing her ankle - slipped. Prior to that she fell in May 2020 resulting in rotator cuff repair. She does not walk with an assistive walking de vice (was using a walker up until a couple of weeks due to L ankle fracture). If she is not having a vertigo attack she might be able to walk a mile but frequently veers to the L. She has not noticed any weakness in her arms or legs. She denies any bladder symptoms. She has a history of migraine headaches, first ever migraine was around 1983 shortly after being started on OCPs. Her last migraine headache may have been about 5 years ago. Current Medications: reviewed and updated in EMR Past Medical History: Patient Active Problem List Diagnosis Code ??? Chest pain, unspecified R07.9 ??? IBS (irritable bowel syndrome) K58.9 ??? GERD (gastroesophageal reflux disease) K21.9 ??? Primary osteoarthritis of left knee M17.12 ??? Obesity E66.9 ??? Sleep apnea G47.30 ??? Asthma J45.909 ??? S/P left total knee arthroplasty 01/06/2014 Brittaney Z96.659 ??? Chronic midline back pain M54.9, G89.29 Medical History - Hospitalizations - Surgeries Past Medical History: Diagnosis Date ??? Asthma ??? Borderline diabetes ??? Coronary artery disease ??? Hyperlipidemia ??? Hypertension ??? Obstructive sleep apnea on CPAP Past Surgical History: Procedure Laterality Date ??? [...] BX performed by Alireza James MD at [facility] ??? PRO COLONOSCOPY, BIOPSY N/A 03/07/2016 COLONOSCOPY FLEXIBLE, WITH BX performed by Eliel Nixon MD at [facility] ??? PRO TOTAL KNEE ARTHROPLASTY 01/06/2014 @TOTAL KNEE ARTHROPLASTY performed by Shamir Quispe MD at [facility] ??? PRO UPPER GI ENDOSCOPY, BIOPSY 06/03/2012 EGD WITH BIOPSY performed by Alireza James MD at [facility] ??? WISDOM TOOTH EXTRACTION three teeth Family Medical History: family history includes Cancer in her brother; Osteoporosis in her mother. Review of Systems A ROS was obtained and reviewed with the patient. Pertinent positives and negatives were included in the HPI. Physical Examination VS were not able to be obtained due to patient location. She was alert and oriented to person, place, and time with normal language, attention and concentration, recent and remote memory, praxis, and intellectual function. Mood was euthymic. Affect was congruent. Ocular ductions were full without nystagmus. Muscles of facial expression moved normally. There wasno dysarthria. There was no pronator drift. No abnormal movements. No orbiting. Finger tapping was rapid and accurate bilaterally. Unable to assess gait per patient. REVIEW OF IMAGING STUDIES: I independently reviewed the following studies: MRI brain: without and with contrast Date: 03/01/2020 -multiple T2 hyperintense white matter lesionsin bilateral cerebral hemispheres as well as significant T2 hyperintense abnormalities within the central catherine. No contrast-enhancing lesions. CT head with contrast 10/26/2020 -no contrast-enhancing abnormalities. The left vertebral vertebral artery is tortuous, but without any apparent additional vascular abnormality. This was not a dedicated vascular study. Assessment: ICD-10-CM 1. Cervicogenic migraine G43.809 baclofen (Lioresal) 10 mg Tablet hydrOXYzine (Atarax) 10 mg Tablet 2. Vertigo R42 Netta Gregorio is a 60 y.o. woman with obesity, asthma, and obstructive sleep apnea presenting for evaluation of recurrent episodes of vertigo dating back to 2001. Typical episodes lasting months with subsequent improvement/remission for period time. Her most recent bout of vertigo may have started back in 2019 after a bout of shingles with persistent symptoms that seem to be triggered by movement. I nterestingly she reports a headache with migrainous features associated with all of her vertiginousepisodes that typically last hours to the rest of the day with persistent vertigo. She also has a longstanding history of migraine headaches, but none of her more classic migraine headaches from young adulthood for many years (maybe 5 years ago). Her current headaches associated with vertigo can be unilateral with subsequent spread in either frontal or occipital/neck region and light sensitivity.Therefore I have a strong suspicion that this is cervicogenic migraine with vertiginous aura. I do have additional concerns related to recent PT evaluation which raise the possibility of her symptoms being secondary to vertebral artery insufficiency. Recent CT scan of the head with contrast did not show evidence of a tortuous left vertebral artery that appears to have some impression upon the brainstem. She reports being told this previously by another neurologist evaluation for similar symptoms. So, I think this is more likely a chronic abnormality which may make it less likely to be the etiology of her symptoms. I do not see any evidence of a more dedicated study so it would be reasonable to consider an MR angiogram or CT angiogram for further evaluation. Diagnostic Plan: 1. Consideration of MR angiogram or CT angiogram of the head and neck -we will discuss with Netta Treatment Plan: 1. Start baclofen 10 mg nightly for cervicogenic headache 2. Start hydroxyzine 10 mg 3 times daily as needed for migraine Follow-Up: 1 month in clinic Thank you for allowing us to participate in Netta's healthcare. If you have questions or concerns please do not hesitate to call our clinic at [phone]. Walt Wiseman III, MD Polygraph Technician of Neurology [facility] More than 50% of this 54 minute telemedicine interaction was spent in counseling on diagnosis, prognosis, and medication and symptom management. 9:43 PM 11/09/2020 documented in this encounter Plan of Treatment Upcoming Encounters Date Type Department Care Team (Late st Contact Info) Description 07/12/2024 9:30 AM EST [place] [address] Walt Wiseman III, MD [facility] [place] [address] documented as of this encounter Visit Diagnoses Diagnosis Cervicogenic migraine Other forms of migraine, without mention of intractable migraine without mention of status migrainosus Vertigo Dizziness and giddiness documented in this encounter Care Teams Radiological Technologist Relationship Specialty Start Date End Date Bryan Schmid MD [address] [place] [address] [place] [address] PCP - [facility] 07/19/20 documented as of this encounter
--- OUTSIDE RECORDS SUMMARY | 2024-03-04 19:46 | XMS_ITS | Encounter Summary ---
Author [facility] [place] [address] Care Team Providers Care Radio Engineer Name Role Phone Bryan Schmid MD Primary Care Provider [phone] Encounter Details Date Type Department Care Team (Late st Contact Info) Description 08/13/2021 10:00 AM EDT Office [place] [address] Walt Wiseman III, MD [facility] [place] [address] Cervicogenic migraine Social History Tobacco Use Types [...] Sign Reading Time Taken Comments Blood Pressure 135/84 08/13/2021 9:49 AM EDT Pulse 61 08/13/2021 9:49 AM EDT Temperature - - Respiratory Rate - - Oxygen Saturation - - Inhaled Oxygen Concentration - - Weight 114.3 kg (252 lb) 08/13/2021 9:49 AM EDT reported Height 172.7 cm (5' 8) 08/13/2021 9:49 AM EDT r eported Body Mass Index 38.32 08/13/2021 9:49 AM EDT documented in this encounter Patient Instructions * Patient Instructions* Walt Wiseman III, MD - 08/13/2021 10:33 AM EDT Continue on Baclofen 10mg 2 times daily, and hydroxyzine as needed for migraine headaches. Work to incorporate relaxation techniques - breathing exercises, meditation, prayer, chair yoga, massage. Follow-up in 6 months. documented in this encounter Progress Notes * Walt Wiseman III, MD - 08/13/2021 10:00 AM EDT General Neurology [facility] Follow-up Visit Dear Bryan Schmid MD, I saw Netta Gregorio in clinic today in follow-up for cervicogenic headache and vertigo. She was unaccompanied at today's visit. Below is my progress note with impression and plan. Please do not hesitate to call with any questions. Appointment time: 10:15 AM-10:35 AM (20 minutes) Brief Summary of History of Presenting [...] had continued. She was previously seen by [facility] (Dr. Guevara) who did not think [...] Netta was last seen in clinic in April 2021. At that time she did not report any new or worseningneurological symptoms. She did notice improvement in her headaches and neck pain after starting baclofen and no side effects. At that time we increased her baclofen dosing to 10 mg 2 times daily. Shecontinued on hydroxyzine for cervicogenic migraine rescue treatment. She continued to have difficulties with balance and was noted to have hyperreflexia at the knees as well as difficulties with tandem gait. There is no evidence of weakness. I ordered an MRI scan of her cervical spine. In the interim, MRI scan of her cervical spine was normal. Today, Netta reports that increasing the baclofen dosing to 10 mg 2 times daily has significantly reduced her neck and cervicogenic migraine frequency. She has only had a couple of incidents of cervicogenic migraine over the course of the past 3 months. His headaches respond well to hydroxyzine. Shedenies any side effects to current dosing of baclofen. She has not had any recurrence of vertigo. She is more likely to have neck and headache with stress. She continues to have intermittent difficulties with balance and has had a few falls -a couple while walking on ice, and 2 while bending over to pick something off the floor. Overall, her walking hasnot worsened over the course of the past 3 months. She does not report any new neurological symptoms. Current Medications: reviewed and updated in EMR Past Medical History: reviewed and updated Review of Systems A ROS was obtained and reviewed with the patient. Pertinent positives and negatives were included in the HPI. Physical Examination Patient Vitals for the past 24 hrs: Pulse BP 08/13/21 0949 61 135/84 Hair, skin, nails, and joints were normal. Neck was supple. She was alert and oriented to person, place, and time with normal language, attention and concentration, recent and remote memory, praxis, and intellectual function. Mood was euthymic. Affect was congruent. Ocular ductions were intact without nystagmus. Deep tendon reflexes: Biceps 2+/2+ Triceps 2+/2+ Knees 3+/3+ Ankles 1+/1+ Sensation to pin was intact in lower extremities. Vibration sensation was intact to approximately 9seconds at the toes. Standard gait was slightly wide-based. She was able to tandem walk. Assessment: ICD-10-CM 1. Cervicogenic migraine G43.809 hydrOXYzine (Atarax) 10 mg Tablet baclofen (Lioresal) 10 mg Tablet Netta Gregorio is a 61 y.o. woman [...] including opioids, diazepam, zolpidem, and trazodone. Plan: 1. Continue baclofen 10 mg 2 times daily 2. Okay to continue with hydroxyzine as needed for migraine headache abortive treatment 3. Recommend relaxation techniques to reduce stress which is a trigger of her cervicogenic migraine Follow-Up: 6 months Thank you for allowing us to participate in [facility]. If you have questions or concerns please do not hesitate to call our clinic at [phone]. Walt Wiseman III, MD Medical Technologist Chemistry Department of Neurology [facility] [address] [facility] More than 50% of this 20 minute [id number] interaction was spent in counseling on diagnosis, prognosis, and medication and symptom management. 11:09 AM 08/13/2021 documented in this encounter Plan of Treatment Upcoming Encounters Date Type Department Care Team (Late st Contact Info) Description 07/12/2024 9:30 AM EST Office [place] [address] Walt Wiseman III, MD [facility] [place] [address] documented as of this encounter Visit Diagnoses Diagnosis Cervicogenic migraine Other forms of migraine, without mention of intractable migraine without mention of status migrainosus documented in this encounter Care Teams Radio Engineer Relationship Specialty Start Date End Date Bryan Schmid MD [address] [place] [address] [place] [address] PCP - [facility] Medicine 07/19/20 documented as of this encounter
--- OUTSIDE RECORDS SUMMARY | 2024-03-04 19:46 | XMS_ITS | Encounter Summary ---
[place] [address] Care Team Providers Care Slasher Machine Operator Name Role Phone Bryan Schmid MD Primary Care Provider [phone] Reason for Visit * Physical Therapy (Routine) - Closed Specialty Diagnoses / Procedures Referred By Raffaele taylor Referred To Contact Physical Therapy Diagnoses Dizziness Balance problems Reji Rascon MD [facility] [place] [address] [facility] [place] [address] Referral ID Status Reason Start Date Expiration Date V isits Requested Visits Authorized [id number] Closed Evaluate and Treat 08/17/2020 08/17/2021 100 100 Encounter Details Date Type Department Care Team (Late st Contact Info) Description 03/15/2021 10:00 AM EDT Office [place] [phone] Domenic Cortez PT Poor posture; Dizzy; Persistent headaches; Dizziness; Imbalance Social History Tobacco Use Types [...] as of this encounter Miscellaneous Notes * Discharge - Therapy - Domenic Cortez PT - 03/15/2021 10:00 AM EDT Physical Therapy Progress Note Total Timed Code Treatment: 60 minutes Total Treatment Time: 60 minutes Follow up visit for a patient with ICD-10-CM 1. Poor posture R29.3 2. Dizzy R42 3. Persistent headaches R51.9 4. Dizziness R42 Subjective: Netta reports she has gone multiple weeks since having an episode of vertigo. She feels she has made significant progress with there vertigo and dizziness though exercises, stretching, postural corrections, manual therapy from PT as well as Baclofen from Neurology. Netta feels she has metall her personal goals for PT and is ready for discharge, she may go to either a PT or massage therapist closer to home to continue to work on the neck musculature tension. Objective: Manual Therapy (31623) 15 min Therex: Strength/Endurance/ROM (85186) 30 min Phys. Perf. Test & Measures PT - 15 Min ([id number]) Manual Therapy: 15 min Soft tissue mobilization to cervical spine and upper thoracic spine PROM in all 8 cervical ROM Scapular mobilization to bilateral shoulders anterior posterior medial lateral Sub occipital release Cervical distraction Suboccipital release There ex: 30 minutes ?? Scapular retraction with chin tuck black theraband ?? Alternating protraction retraction with chin tuck ?? Scapular retratcion with Black theraband ?? High row black theraband ?? Mid row black theraband ?? Low row black theraband ?? Physical Performance Tests and Measures: 15 min ?? FGA 30/30 ?? Tinetti Balance Test 28/28 ?? MMT: 5/5 throughout except Triceps 4+/5, Hip flexors 4+/5, R leg, dorsiflexion 4+/5, ankle inversion and eversion 4+/5. Assessment: Netta has met all short and nursing home goals. Netta has scored perfect scores on FGA, Computerized Dynamic Posturography, and improved strength significantly. Reviewed exercises with Netta cardenas can continue to practice them at home. PT and pt discussed discharge planning, Netta will seek out a massage therapist or PT closer to home to continue to work on the muscle tension in her neck but she has been pleased with the progress made on her vertigo, posture, strength, and balance in PT here at [facility]. Netta is welcome back anytime her symptoms return. FUNCTIONAL GOALS: Therapy Short Term Goals 3 weeks ?? GOAL MET (I) home exercise program ?? GOAL MET Patient will be able to participate in SOT, AT, and MCT testing on bertec machine to help set further vestibualr balance goals. ?? GOAL MET Patient will be able to participate in Function gait assessment to set balance goal Therapy Desulphurizer Operator Goals 6 weeks ?? GOAL MET Patient rates confidence with ADL's at 80% or better ?? GOAL MET FGA >/= 24/30 to indicate decreased risk of falling ?? GOAL MET Patient will improve DHI score to no more than 50/100 to demonstrate a reduces self-perception of disability related to dizziness, headache, or unsteadiness (18 point MCID for patients with vestibular dysfunction, Aron and Maximus, 1990) ?? GOAL MET Patient will demonstrate improved postural stability as demonstrated by achieving within normal limits results with sensory organization testing via computerized dynamic posturography. ?? GOAL MET Patient will be engaged in community based or regular home based strengthening and balance exercise program. PLAN: DC form PT Treatment: Manual Techniques, Soft Tissue Mobilization, Stretching, Joint Mobilization, Therapeutic Exercise, Patient/Family Education, Body Mechanics, Posture, Home Exercise Program, Balance and Gait Training,Vestibular Interventions and Telehealth Current HEP: 1. See scan docs (media) Domenic Cortez PT, DPT [facility] documented in this encounter Plan of Treatment Upcoming Encounters Date Type Department Care Team (Late st Contact Info) Description 07/12/2024 9:30 AM EST [place] [address] Walt Wiseman III, MD [facility] [place] [address] documented as of this encounter Visit Diagnoses Diagnosis Poor posture Abnormal posture Dizzy Dizziness and giddiness Persistent headaches Headache Dizziness Dizziness and giddiness Imbalance Abnormality of gait documented in this encounter Care Teams Slasher Machine Operator Relationship Specialty Start Date End Date Bryan Schmid MD [address] [place] [address] [place] [address] PCP - [facility] Medicine 07/19/20 documented as of this encounter
--- OUTSIDE RECORDS SUMMARY | 2024-03-04 19:46 | XMS_ITS | Encounter Summary ---
Author Organization [facility] [place] [address] Care Team Providers Care Sheet Finisher Name Role Phone Bryan Schmid MD Primary Care Provider [phone] Encounter Details Date Type Department Care Team (Latest Contact Info) Description 11/27/2020 12:55 PM EDT Laboratory Appointment Lab [address] [place] [phone] Dizziness; Cervicogenic migraine Social History Tobacco Use Types [...] 9:30 AM EST Office [place] [address] Walt Wiseman III, MD [facility] [place] [address] documented as of this encounter Procedures Procedure Name Priority Date/Time Associated Diagnosis Comments HC VENIPUNCTURE Routine 11/27/2020 1:01 PM EDT Dizziness Cervicogenic migraine documented in this encounter Results * Creatinine (11/27/2020 1:01 PM EDT) Creatinine 0.70 0.70 - 1.20 mg/dL [facility] Est Glomerular Filtration Rate 96 >=60 mL/min/1. 73 m?? [facility] Comment: This patient? s estimated glomerular filtration rate (eGFR) is between 96 mL/min/1.73 m2 (patients with less muscle mass) and 111 mL/min/1.73 m2 (patients with more muscle mass) as determined by the CKD-EPI equation. Assessment of eGFR is not appropriate when creatinine concentrations are rapidly changing. For clinical decisions where creatinine clearance will affect therapy, a 24-hour urine creatinine clearance may be advised. Assignment of CKD stage 1 - 5 for patients with an eGFR near the transition point between stages may be based on clinical assessment of muscle mass and symptoms in addition to eGFR. Blood 11/27/2020 1:01 PM EDT 11/27/2020 1:12 PM EDT Narrative Resulting Agency Comment Spec In Lab Walt Wiseman III, MD CHEMISTRY ORDERAB LES [facility] [place] [address] documented in this encounter Visit Diagnoses Diagnosis Dizziness Dizziness and giddiness Cervicogenic migraine Other forms of migraine, without mention of intractable migraine without mention of status migrainosus documented in this encounter Care Teams Sheet Finisher Relationship Specialty Start Date End Date Bryan Schmid MD [address] [place] [address] [place] [address] PCP - [facility] Medicine 07/19/20 documented as of this encounter
--- OUTSIDE RECORDS SUMMARY | 2024-03-04 19:46 | XMS_ITS | Encounter Summary ---
[place] [address] Care Team Providers Care Acute Care Occupational Therapist Name Role Phone Bryan Schmid MD Primary Care Provider [phone] Reason for Referral * Consultation (Routine) - Closed Specialty Diagnoses / Procedures Referred By Raffaele taylor Referred To Contact Gastroenterology Diagnoses Dumping syndrome dumping syndrome Bryan Schmid MD [address] [place] [address] [facility] [address] [place] [address] Referral ID Status Reason Start Date Expiration Date V isits Requested Visits Authorized [id number] Closed Consult, Test & Treat 03/05/2022 03/05/2023 1 1 Encounter Details Date Type Department Care Team (Late st Contact Info) Description 03/05/2022 Transcribe Orders eDH Incoming Referrals [phone] Bryan Schmid MD [address] [place] [address] [id number] Dumping syndrome Social History Tobacco Use Types Packs/Day Years [...] 9:30 AM EST [place] [address] Walt Wiseman III, MD [facility] [address] Scheduled Referrals Name Type Priority Associated Diagnoses Order Schedule Referral to Gastroenterology Outpatient Referral Routine Dumping syndrome Ordered: 03/05/2022 documented as of this encounter Visit Diagnoses Diagnosis Dumping syndrome Postgastric surgery syndromes documented in this encounter Care Teams Acute Care Occupational Therapist Relationship Specialty Start Date End Date Bryan Schmid MD [address] [place] [address] [place] [address] PCP - [facility] Medicine 07/19/20 documented as of this encounter
--- OUTSIDE RECORDS SUMMARY | 2024-03-04 19:46 | XMS_ITS | Encounter Summary ---
Author Organization [facility] Address [facility] [place] [address] Care Team Providers Care Fireman Name Role Phone Bryan Schmid MD Primary Care Provider [phone] Reason for Visit * Consultation (Routine) - Closed Specialty Diagnoses / Procedures Referred By Raffaele taylor Referred To Contact Otolaryngology Diagnoses Labyrinthitis, unspecified ear Bryan Schmid MD [address] [place] [address] Ruel Guevara MD [facility] [place] [address] Referral ID Status Reason Start Date Expiration Date V isits Requested Visits Authorized [id number] Closed Consult, Test & Treat [facility] PCP Updated and/or Approved 07/12/2020 07/12/2021 6 6 Encounter Details Date Type Department Care Team (Late st Contact Info) Description 10/05/2020 12:15 PM EDT Office Visit Audiology at [address] [address] Sara Gomez AUD [facility] [place]IOLOG[place] [address] High frequency hearing loss of both ears; Dizziness Social History Tobacco Use Types Packs/Day [...] as of this encounter Progress Notes * Sara Gomez AUD - 10/05/2020 12:15 PM EDT AUDIOLOGIC EVALUATION Netta Gregorio was seen on 10/05/2020 for an audiologic evaluation as medically indicated in conjunctionwith Dr Guevara in otolaryngology. Please refer to the scanned audiogram listed under Procedures for findings, impressions and recommendations. Tha Ayala [employer] [place] [address] documented in this encounter Plan of Treatment Upcoming Encounters Date Type Department Care Team (Late st Contact Info) Description 07/12/2024 9:30 AM EST Office [place] [address] Walt Wiseman III, MD [facility] DR [place]UROLOGY [place] [address] documented as of this encounter Procedures Procedure Name Priority Date/Time Associated Diagnosis Comments COMPREHENSIVE HEARING TEST Routine 10/05/2020 11:13 AM EDT documented in this encounter Results * Comprehensive hearing test (10/05/2020 11:13 AM EDT) 10/05/2020 11:1 3 AM EDT Narrative [facility] - 10/05/2020 11:13 AM EDT Follow up as scheduled with Dr Guevara Procedure Note Unknown - 10/05/2020 Follow up as scheduled with Dr Guevara Unknown AUDIOLOGY [facility] documented in this encounter Visit Diagnoses Diagnosis High frequency hearing loss of both ears Dizziness Dizziness and giddiness documented in this encounter Care Teams Fireman Relationship Specialty Start Date End Date Bryan Schmid MD [address] [place] [address] [place] [address] PCP - [facility] Medicine 07/19/20 documented as of this encounter
--- OUTSIDE RECORDS SUMMARY | 2024-03-04 19:46 | XMS_ITS | Encounter Summary ---
Author Organization [facility] [place] [address] Care Team Providers Care Internal Medicine Veterinary Technician Name Role Phone Bryan Schmid MD Primary Care Provider [phone] Encounter Details Date Type Department Care Team (Latest Contact Info) Description 07/10/2022 Travel Social History Tobacco Use Types Packs/Day [...] 9:30 AM EST [place] [address] Walt Wiseman III, MD [facility] [place] [address] documented as of this encounter Visit Diagnoses Not on filedocumented in this encounter Care Teams Internal Medicine Veterinary Technician Relationship Specialty Start Date End Date Bryan Schmid MD [address] [place] [address] [place]A FREN[place] [address] PCP - [facility] Medicine 07/19/20 documented as of this encounter
--- OUTSIDE RECORDS SUMMARY | 2024-03-04 19:46 | XMS_ITS | Encounter Summary ---
Author Organization [facility] [place] [address] Care Team Providers Care Cold Rolling Supervisor Name Role Phone Bryan Schmid MD Primary Care Provider [phone] Reason for Visit * Reason Comments Eczema Encounter Details Date Type Department Care Team (Late st Contact Info) Description 12/20/2020 8:00 AM EDT Office Visit Dermatology at [facility] [address] [place] [address] Franchesca Conroy MD [facility] [address] CATR[facility] [place] [address] Eczema, unspecified type; Inflamed seborrheic keratosis; Skin tag Social History Tobacco Use Types Packs/Day Years Used Date Smoking Tobacco: Never Smokeless Tobacco: Never Alcohol Use Standard Drinks/Week Comments Yes 0 (1 standard drink = 0.6 oz pur e alcohol) occasional Sex and Gender Information Value Date Recorded Sex Assigned at Not on file Gender Identity Not on file Sexual Orientation Not on file documented as of this encounter Progress Notes * Franchesca Conroy MD - 12/20/2020 8:00 AM EDT Images from the original note were not included. DEPARTMENT OF DERMATOLOGY [facility] D[facility]at[facility] Provider: Franchesca Conroy MD Patient's preferred name Netta Preferred contact method for results [x]myDH []Letter []Phone: Y Detailed phone message OK? Y Are there any other people with whom we may discuss your care? Y PAST MEDICAL HISTORY If no, type N. If yes, type date, location, treatment Melanoma N Dysplastic nevi N SCC N BCC N AKs N UV Exposure & Protection N Other relevant past medical history (i.e. eczema, psoriasis, birthmarks, immunosuppression) Eczema FAMILY HISTORY If yes, details Melanoma N NMSC Brother testicular cancer Other relevant family history N SOCIAL HISTORY Occupation: retired school super Hobbies: outdoors PRE-PROCEDURE SCREENING If no, type N. If yes, include details below Allergy to lidocaine, epinephrine, Dermabond, chlorhexidine, or adhesives: N Bleeding disorder or blood thinners: N Pacemaker, defibrillator, deep brain stimulator, cochlear implant: N History of Present Illness: Netta Gregorio is a 60 y.o. year old. Patient is new and self-referred to the clinic for the following: Eczema -Patient here today for Eczema on bilateral extremities, hands and fingers and face -Currently treats Eczema with a tube of cream -This makes the eczema manageable but does not make this go away -Dry skin more than usual Medications: Reviewed in eD-H Allergies: Reviewed in eD-H Skin Examination: Focused skin examination of the neck, bilateral arms and hands was normal with the exception of thefindings below Assessment/Plan #. Inflamed Seborrheic Keratosis - 0.4cm inflamed, pink-brown plaque with waxy stuck-on appearance on the right neck. Site is excoriated. - Discussed removal options due to irritated nature - Joint decision to pursue cryotherapy at this time Procedure Note Procedure: Destruction of lesion with cryotherapy. Number: 1 Location: as above Discussed procedure and expectations including risks (including risk of hypopigmentation) and benefits. Verbal consent obtained. Frozen with LN2, 15-30 second thaw time, TWICE. There were no complications; the patient tolerated the procedure well. Post-procedure expectations and wound care were reviewed. #. Inflamed Skin Tags - Flesh colored soft pink pedunculated papules on the left neck - Discussed that these are benign cutaneous growths, many times associated with obesity, diabetes and increasing age Procedure: Destruction of lesion(s) with cryotherapy. Location(s): As noted above Number: 3 Discussed procedure and expectations including risks and benefits. Verbal consent obtained. Treatedwith LN2. There were no complications. Patient tolerated the procedure well. Post-procedure expectations and wound care were reviewed. #. Eczema-Scattered light pink thin scaly plaques and papules on the bilateral wrists, and antecubital fossa. -Sensitive skin care discussed. Handout given -Daily moisturizing 2x daily. Once after bathing. Apply a moisturizer such as Cetaphil, CeraVe cream or plain Vaseline (100% petroleum jelly) -Informed pt that condition can get worse with winter -start Rx: triamcinolone 0.1% ointment BID up to 2wks at a time to thicker symptomatic areas. Other items to document in the assessment/plan if relevant ??? OTC skin products discussed RTC: 3 months [] FSE [x] Follow up of Eczema [x]Note routed to secretary to board of commissioners []Recall has been placed in scheduling system []Appointment scheduled at checkout Scribe attestation: Lili Dominguez [facility] who has performed the documentation for this encounter in the presence of and acting as a scribe for Franchesca Conroy MD. I performed the above scribed service and agree with the accuracy of the documentation in this encounter. Reviewed and signed by: Franchesca Conroy MD Dermatology [facility] Patient seen and evaluated with staff associate professor of psychology: Dianne Grayson MD Dermatology [facility] * Dianne Grayson MD - 12/20/2020 8:00 AM EDT I directly supervised Dr. Conroy during this office visit. Dr. Conroy presented the history and physical exam to me. I, then, saw and examined this patient with Dr. Conroy . We reviewed the history and pertinent details and I confirmed the physical findings. I agree with the details of the history andphysical exam as documented in Dr. Conroy's note. DIANNE GRAYSON MD Staff Physician documented in this encounter Plan of Treatment Upcoming Encounters Date Type Department Care Team (Late st Contact Info) Description 07/12/2024 9:30 AM EST [place] [address] Walt Wiseman III, MD [facility] [place] [address] documented as of this encounter Visit Diagnoses Diagnosis Eczema, unspecified type Inflamed seborrheic keratosis Skin tag Unspecified hypertrophic and atrophic condition of skin documented in this encounter Care Teams Cold Rolling Supervisor Relationship Specialty Start Date End Date Bryan Schmid MD [address] [place] [address] [place] [address] PCP - [facility] Medicine 07/19/20 documented as of this encounter
--- OUTSIDE RECORDS SUMMARY | 2024-03-04 19:46 | XMS_ITS | Encounter Summary ---
Author Organization [facility] [address] Care Team Providers Care Patient Ambassador Name Role Phone Bryan Schmid MD Primary Care Provider [phone] Encounter Details Date Type Department Care Team (Late st Contact Info) Description 07/03/2022 Orders [place] [phone] Brodie Rascon MD [facility] [place] [address] Presence of left artificial knee joint Social History Tobacco Use Types Packs/Day Years [...] 9:30 AM EST [place] [address] Walt Wiseman III, MD [facility] [place] [address] documented as of this encounter Visit Diagnoses Diagnosis Presence of left artificial knee joint Knee joint replacement by other means documented in this encounter Care Teams Patient Ambassador Relationship Specialty Start Date End Date Bryan Schmid MD NPI: [id number] [place] [address] [place] [address] PCP - [facility] Medicine 07/19/20 documented as of this encounter
--- OUTSIDE RECORDS SUMMARY | 2024-03-04 19:46 | XMS_ITS | Encounter Summary ---
Author Organization [facility] [place] [address] Care Team Providers Care Art History Instructor Name Role Phone Bryan Schmid MD Primary Care Provider [phone] Reason for Visit * Reason Comments Medication Refill Encounter Details Date Type Department Care Team (Late st Contact Info) Description 07/15/2021 Refill [place] [address] Walt Wiseman III, MD [facility] [place] [address] Cervicogenic migraine Social History Tobacco Use Types [...] encounter Miscellaneous Notes * Telephone Encounter - Arline Azar CMA - 07/16/2021 10:03 AM EST F/U 08/13/21 LV 04/24/21 documented in this encounter Plan of Treatment Upcoming Encounters Date Type Department Care Team (Late st Contact Info) Description 07/12/2024 9:30 AM EST Office Visit [place] [address] Walt Wiseman III, MD [facility] [place] [address] documented as of this encounter Visit Diagnoses Diagnosis Cervicogenic migraine Other forms of migraine, without mention of intractable migraine without mention of status migrainosus documented in this encounter Care Teams Art History Instructor Relationship Specialty Start Date End Date Bryan Schmid MD [address] [place] [address] [place] [address] [facility] Medicine 07/19/20 documented as of this encounter
--- OUTSIDE RECORDS SUMMARY | 2024-03-04 19:46 | XMS_ITS | Encounter Summary ---
Author Organization [facility] [place] [address] Care Team Providers Care Oil Painter Name Role Phone Bryan Schmid MD Primary Care Provider [phone] Encounter Details Date Type Department Care Team (Late st Contact Info) Description 07/18/2022 Telephone [place] [phone] Maren Vargas Social History Tobacco Use Types [...] * Telephone Encounter - Maren Vargas - 07/18/2022 1:47 PM EST Netta Gregorio [id number] Diagnosis/Indication: Surveillance colonoscopy - prior TAs Please review patient chart to confirm if [...] SCHEDULING QUESTIONS (ask all patient these questions) 1. Have you ever had a/an Colonoscopy before? Yes: Date 2015 If yes, did you have any problems with the procedure (such as waking up during the procedure, pain or difficulties afterwards, etc.)? No What type of sedation was used: IV Conscious Sedation 2. Do you take any blood thinners or have you been diagnosed with a bleeding disorder that increases your risk of bleeding with procedures? No 3. Do you have a Pacemaker or Defibrillator device? If yes, send pool message to Cardiology with patient information and date or procedure. No 4. Are you a diabetic? If yes, call PCP/managing provider to discuss use of prep and any questions or concerns related to. No 5. Do you take any iron supplements or vitamins that contain iron? No 6. Do you have a preference regarding the gender of your provider? No ANESTHESIA QUESTIONS (YES to any question, please book with Anesthesia support) 7. Have you ever been diagnosed with Pulmonary Hypertension and/or Congential Heart Disease? No has had a heart attack in 2006, no bloackages or anything. 8. Have you been diagnosed with A-Fib (atrial fibrillation) that is NOT being well controled with medications? No 9. Have you ever had an allergic or adverse reaction to Fentanyl or Versed? No 10. Have you had a problem with sedation or anesthesia? (Waking up during procedure, extreme confusion after, etc.) No 11. Do you have a diagnosis of Obstructive Sleep Apnea that requires the use of a c-pap machine? No has it but isnt using cpap 12. Do you use an oxygen tank at home? No 13. Do you use a rescue inhaler more than twice per day? (COPD, severe asthma) No 14. Do you experience breathing problems when you lay flat for a period of time? No 15. Do you take prescription narcotic pain medications, including suboxone or methodone? No SCHEDULING CONFIRMATIONS: Please note any and all parts of your conversation with the patient here. 16. We offer all new patients an opportunity to have an appointment with one of our associate care providers to learn more about your upcoming procedure, ask questions and get answers. These appointments are offered via telehealth. Would you be interested in scheduling this appointment? (Only ask if NEW referral patient; skip this question if [facility] provider ordered the procedure.) No 17. Is there any other information or concerns you would like to us to share with your care team inrelation to your upcoming scheduled procedure? No 18. You must have a responsible alliance party who will drive you to your procedure, stay on campus for the entire duration of your procedure, and drive you home from your procedure. Who will likely be your service car driver for the procedure? *Please Verify the height and weight, and adjust if height and/or weight have changed* Estimated body mass index is 37.25 kg/m?? as calculated from the following: Height as of 07/15/22: 172.7 cm (5' 8). Weight as of 07/15/22: 111.1 kg (245 lb). Age:62 y.o. documented in this encounter Plan of Treatment Upcoming Encounters Date Type Department Care Team (Late st Contact Info) Description 07/12/2024 9:30 AM EST Office [place] [address] Walt Wiseman III, MD [facility] [place] [address] documented as of this encounter Visit Diagnoses Not on filedocumented in this encounter Care Teams Oil Painter Relationship Specialty Start Date End Date Bryan Schmid MD [address] [place] [address] [place] [address] PCP - [facility] Medicine 07/19/20 documented as of this encounter
--- OUTSIDE RECORDS SUMMARY | 2024-03-04 19:46 | XMS_ITS | Encounter Summary ---
[place] [address] Care Team Providers Care Stars Coordinator Name Role Phone Bryan Schmid MD Primary Care Provider [phone] Reason for Visit * Physical Therapy (Routine) - Closed Specialty Diagnoses / Procedures Referred By Raffaele taylor Referred To Contact Physical Therapy Diagnoses Dizziness Balance problems Reji Rascon MD [facility] [place] [address] [facility] [place] [address] Referral ID Status Reason Start Date Expiration Date V isits Requested Visits Authorized [id number] Closed Evaluate and Treat 08/17/2020 08/17/2021 100 100 Encounter Details Date Type Department Care Team (Late st Contact Info) Description 12/07/2020 2:00 PM EDT Office [place] [phone] Domenic Cortez PT Dizzy; Persistent headaches; Poor posture; Benign paroxysmal positional vertigo of [...] - Therapy - Domenic Cortez PT - 12/07/2020 2:00 PM EDT Physical Therapy Progress Note Total Timed Code Treatment: 60 minutes Total Treatment Time: 60 minutes Follow up visit for a patient with ICD-10-CM 1. Dizzy R42 2. Persistent headaches R51.9 3. Poor posture R29.3 4. Benign paroxysmal positional vertigo of left ear H81.12 Subjective: Doing better but had some instanced of vertigo turning over in bed. Positional testing negative. Gave exercises. Vertigo increased with exercise but reduced with manual therapy. Objective: Manual Therapy (46586) 15 min Therex: Neuromuscular Re-Ed (21203) 15 min Therex: Strength/Endurance/ROM (54058) 30 min Manual Therapy: 15 min Soft tissue mobilization to cervical spine and upper thoracic spine Cervical lateral glides c2 Cervical flex, lateral bend, rot (pain indicated) Cervical Snag for rotation Scapular mobilization to L shoulder Sub occipital release Cervical distraction Neuromusclar Re- Ed: 15 min Narrow stance eyes closed tadem stance Tandem stance eyes closed tadem stance on airex pad sls sls on airex pad als eyes closed TherEx: 30 min cercical ROM Chin tuck Scapular retraction with theraband Alternating protraction retraction with chin tuck Alternating arm swing with chin tuck Scapular retraction Neck rotation snag Neck extension snag Assessment: Netta did well today learning new exercises required verbal and tactile cues for scapular retraction as she had difficulty with getting shoulder down and back. She had a little pain with Land R side bend at C2 and C5. Pain reduced and neck felt looser with manual therapy and exercises. Gave HEP see scan docs. Goals and plan remain appropriate. FUNCTIONAL GOALS: Therapy Short Term Goals 3 weeks ?? (I) home exercise program ?? Patient will be able to participate in SOT, AT, and MCT testing on DealerRater machine to help set further vestibualr balance goals. ?? Patient will be able to participate in Function gait assessment to set balance goal Therapy Pharmacy General Manager Goals 6 weeks ?? Patient rates confidence [...] scan docs (media) Domenic Cortez PT, DPT [facility] documented in this encounter Plan of Treatment Upcoming Encounters Date Type Department Care Team (Late st Contact Info) Description 07/12/2024 9:30 AM EST Office [place] [address] Walt Wiseman III, MD [facility] [place] [address] documented as of this encounter Visit Diagnoses Diagnosis Dizzy Dizziness and giddiness Persistent headaches Headache Poor posture Abnormal posture Benign paroxysmal positional vertigo of left ear documented in this encounter Care Teams Stars Coordinator Relationship Specialty Start Date End Date Bryan Schmid MD [address] [place] [address] [place] [address] PCP - [facility] Medicine 07/19/20 documented as of this encounter
--- OUTSIDE RECORDS SUMMARY | 2024-03-04 19:46 | XMS_ITS | Encounter Summary ---
Author Organization [facility] [place] [address] Care Team Providers Care Summer Associate Name Role Phone Bryan Schmid MD Primary Care Provider Encounter Details Date Type Department Care Team (Late st Contact Info) Description 11/24/2020 Orders [place] [phone] Walt Wiseman III, MD [facility] [place] [address] Dizziness; Cervicogenic migraine Social History Tobacco Use [...] as of this encounter Progress Notes * Ivy Valderrama RN - 11/24/2020 9:41 AM EDT c documented in this encounter Plan of Treatment Upcoming Encounters Date Type Department Care Team (Late st Contact Info) Description 07/12/2024 9:30 AM EST [place] [phone] Walt Wiseman III, MD [facility] [place] [address] documented as of this encounter Results * Creatinine (11/27/2020 1:01 PM EDT) Creatinine 0.70 0.70 - 1.20 mg/dL [facility] Est Glomerular Filtration Rate 96 >=60 mL/min/1. 73 m?? [facility] Comment: This patient? s estimated [...] Walt Wiseman III, MD CHEMISTRY ORDERAB LES [facility] [place] [address] documented in this encounter Visit Diagnoses Diagnosis Dizziness Dizziness and giddiness Cervicogenic migraine Other forms of migraine, without mention of intractable migraine without mention of status migrainosus documented in this encounter Care Teams Summer Associate Relationship Specialty Start Date End Date Bryan Schmid MD [address] [place] [address] [place] [address] PCP - General [facility] Medicine 07/19/20 documented as of this encounter
--- OUTSIDE RECORDS SUMMARY | 2024-03-04 19:46 | XMS_ITS | Encounter Summary ---
[place] [address] Care Team Providers Care Supervisor Riveting Name Role Phone Bryan Schmid MD Primary Care Provider [phone] Reason for Referral * Diagnostic Test (Routine) - Closed Specialty Diagnoses / Procedures Referred By Contac t Referred To Contact Radiology Diagnoses Cervicogenic migraine Imbalance Hyperreflexia of lower extremity Procedures MRI Cervical Spine wo Contrast (Generic) Walt Wiseman III, MD [facility] [place] [address] [place] [address] Referral ID Status Reason Start Date Expiration Date V isits Requested Visits Authorized [id number] Closed Specialty Service Requested 04/24/2021 10/22/2022 1 1 Reason for Visit * Diagnostic Test (Routine) - Closed Specialty Diagnoses / Procedures Referred By Contac t Referred To Contact Radiology Diagnoses Cervicogenic migraine Imbalance Hyperreflexia of lower extremity Procedures MRI Cervical Spine wo Contrast (Generic) Walt Wiseman III, MD [facility] [place] [address] [place] [address] Referral ID Status Reason Start Date Expiration Date V isits Requested Visits Authorized [id number] Closed Specialty Service Requested 04/24/2021 10/22/2022 1 1 Encounter Details Date Type Department Care Team (Latest Contact Info) Description 05/31/2021 10:02 AM EST - 05/31/2021 11:59 PM EST Hospital [place] [address] Walt Wiseman III, MD [facility] [place] [address] Cervicogenic migraine; Imbalance; Hyperreflexia of lower extremity Discharge Disposition: Home Social History Tobacco Use [...] FOR 28 DAYS 03/28/2021 Narcan 4 mg/actuation [place], Non-Aerosol as needed. 03/28/2021 amoxicillin (Amoxil) 500 mg Capsule Take 2,000 [...] tablet Take 50 mg by mouth nightly. metoprolol succinate XL (Toprol-XL) 100 mg Tablet Sustained Release 24 hr TAKE ONE AND A-HALF TABLETS BY MOUTH ONCE DAILY 04/19/2021 06/04/2021 baclofen (Lioresal) 10 mg Tablet TAKE ONE [...] 9:30 AM EST [place] [address] Walt Wiseman III, MD [facility] [place] [address] documented as of this encounter Procedures Procedure Name Priority Date/Time Associated Diagnosis Comments MRI CERVICAL SPINE WO CONTRAST Routine 05/31/2021 10:50 AM EST Cervicogenic migraine Imbalance Hyperreflexia of lower extremity documented in this encounter Results * MRI Cervical Spine [...] who have questions please contact the health vehicle care specialist that requested your imaging first. ? [...] patients who have questions please contactthe health vehicle care specialist that requested your imaging first. Walt Wiseman III, MD IMG MRI ORDERABLE S documented in this encounter Visit Diagnoses Diagnosis Cervicogenic migraine Other forms of migraine, without mention of intractable migraine without mention of status migrainosus Imbalance Abnormality of gait Hyperreflexia of lower extremity Abnormal reflex documented in this encounter Care Teams Supervisor Riveting Relationship Specialty Start Date End Date Bryan Schmid MD [address] [place] [address] [place] [address] [address]CP - [facility] Medicine 07/19/20 documented as of this encounter
--- OUTSIDE RECORDS SUMMARY | 2024-03-04 19:46 | XMS_ITS | Encounter Summary ---
Author Organization [facility] [place] [address] Care Team Providers Care Landscape Foreman Name Role Phone Bryan Schmid MD Primary Care Provider [phone] Reason for Visit * Auth/Cert (Routine) Specialty Diagnoses / Procedures Referred By Raffaele t Referred To Contact Diagnoses Encounter for screening for malignant neoplasm of colon History of colon polyps Irritable bowel syndrome, unspecified Full incontinence of feces Surveillance colonoscopy - prior TAs Procedures PRO COLONOSCOPY, DIAGNOSTIC PRO COLONOSCOPY, BIOPSY PRO COLONOSCOPY, REMV LESN, SNARE COLONOSCOPY, DIAGNOSTIC Kevin Herrera MD [facility] [place] [address] [facility] Referral ID Status Reason Start Date Expiration Date Visits Re quested Visits Authorized [id number] 1 1 Encounter Details Date Type Department Care Team (Latest Contact Info) Description 07/29/2022 11:27 AM EST - 07/29/2022 2:55 PM [facility] Hospital Encounter [place] [address] Kevin Herrera MD [facility] [place] [address] Discharge Disposition: Home Social History Tobacco Use [...] Sign Reading Time Taken Comments Blood Pressure 107/62 07/29/2022 2:30 PM EST Pulse 68 07/29/2022 1:45 PM EST Temperature 35.6 ??C (96.1 ??F) 07/29/2022 11:[address] Respiratory Rate 19 07/29/2022 1:45 PM EST Oxygen Saturation 90% 07/29/2022 2:30 PM EST Inhaled Oxygen Concentration - - Weight 108.9 kg (240 lb) 07/29/2022 11:52 AM EST Height 172.7 cm (5' 8) 07/29/2022 11:52 AM EST Body Mass Index 36.49 07/29/2022 11:52 AM EST documented in this encounter Discharge Instructions * Attachments The following attachments cannot be sent through Care Everywhere. * Colon Polyps (Ecuadorean) documented in this encounter Medications at Time [...] FOR 28 DAYS 03/28/2021 Narcan 4 mg/actuation [place], Non-Aerosol as needed. 03/28/2021 diazePAM (Valium) 5 [...] for surveillance colonoscopy: two small TAs in 2012 and one small polyp (path not available) [...] 9:30 AM EST Office [place] [address] Walt Wiseman III, MD [facility] [place] [address] documented as of this encounter Procedures Procedure Name Priority Date/Time Associated Diagnosis Comments SPECIMEN TO PATHOLOGY Routine 07/29/2022 1:48 PM EST SPECIMEN TO PATHOLOGY Routine 07/29/2022 1:48 PM EST SURGICAL PATHOLOGY REPORT Routine 07/29/2022 1:33 PM EST Colonoscopy, Remv Ina, Snare ([id number]) 07/29/2022 1:05 PM EST Irritable bowel syndrome, unspecified type Incontinence of feces, unspecified fecal incontinence type COLONOSCOPY Routine 07/29/2022 12:36 PM EST documented in this encounter Results * Specimen to Pathology (07/29/2022 1:48 PM EST) AP Specimen 07/29/2022 1:48 PM EST 07/29/2022 1:48 PM EST Narrative [facility] - 07/29/2022 1:48 PM EST Specimen requisition ordered. ??Separate Pathology report to follow Kevin Herrera MD PATHOLOGY/CYTOLOGY O SHIELA Performing Organization Address [facility] Co de Phone Number [facility] [place] [address] * Specimen to Pathology (07/29/2022 1:48 PM EST) AP Specimen 07/29/2022 1:48 PM EST 07/29/2022 1:48 PM EST Narrative [facility] - 07/29/2022 1:48 PM EST Specimen requisition ordered. ??Separate Pathology report to follow Kevin Herrera MD PATHOLOGY/CYTOLOGY O RDTALIA Performing Organization Address [facility] [place] [address] * Surgical Pathology Report (07/29/2022 1:33 PM EST) Final Diagnosis [id number] ? Location: 4T; EA11; A The signing [...] Maxine Verified: ??08/15/2022 16:06 ??Pathologist Performed at: ??[facility] Dept. of Pathology, [place] [address] Operations Research Group Manager: Gerald Styles MD, [facility], ??CLIA Certificate: [id number] DISCUSSION The case was reviewed at the [...] EST Kevin Herrera MD PATHOLOGY/CYTOLOGY Kvng [facility] [place] [address] [facility] [place] [address] * COLONOSCOPY (07/29/2022 12:36 PM EST) COLONOSCOPY [facility] Endoscopy Procedure Date: 07/29/2022 12:36 PM ? Patient Name: Netta Gregorio ? N: [id number] ? Date of : 1960 ? Age: 62 ? Order #: [id number] ? Instrument Name: [id number] ? Procedure: ? Colonoscopy Indications: ? High [...] Bryan Schmid MD GENERAL SURGICAL ORD ERABLES Performing Organization Address City/State/[facility] Co de Phone Number [employer] documented in this encounter Visit Diagnoses [...] Provider: Gracie Aaron RN)1316 (Given - Provider: Gracie Aaron RN)1323 (Given - Provider: Gracie Aaron, DARIANA) midazolam (pf) (Versed) (1 mg/mL) multi-dose injection (CANCELED) ONCE PRN, Starting on Fri07/29/22 at 1309, Until Fri07/29/22 at 1655, Intra-Operative (Intra-Procedure), Routine 1309 (Given - Provid er: Gracie Aaron RN)1314 (Given - Provider: Gracie Aaron RN)1317 (Given - Provider: Gracie Aaron RN)1323 (Given - Provider: Gracie Aaron RN)1325 (Given - Provider: Gracie Aaron, RN)1328 (Given - Provider: Gracie Aaron, RN)1339 (Given - Provider: Gracie Aaron, RN) documented in this encounter Care Teams Landscape Foreman Relationship Specialty Start Date End Date Bryan Schmid MD [address] [place] [address] [place] [address] PCP - [facility] 07/19/20 documented as of this encounter
--- OUTSIDE RECORDS SUMMARY | 2024-03-04 19:46 | XMS_ITS | Encounter Summary ---
Author Organization [facility] [place] [address] Care Team Providers Care Teacher Associate Name Role Phone Bryan Schmid MD Primary Care Provider [phone] Encounter Details Date Type Department Care Team (Late st Contact Info) Description 05/11/2022 Orders [place] [phone] Brodie Rascon MD [facility] DR [place] [address] H/O total knee replacement, left Social History Tobacco Use Types Packs/Day [...] 9:30 AM EST [place] [phone] Walt Wiseman III, MD [facility] [place] [address] documented as of this encounter Results * [...] who have questions please contact the health patient care manager that requested your imaging first. ? Electronically signed by: Candida Patel MD, [facility] ([phone]), at 07/10/2022 2:08 PM Narrative 07/10/2022 2:08 PM EST EXAMINATION: XR [...] patients who have questions please contactthe health patient care manager that requested your imaging first. Brodie Rascon MD IMG DX ORDERABLES documented in this encounter Visit Diagnoses Diagnosis H/O total knee replacement, left H/O total knee replacement, left documented in this encounter Care Teams Teacher Associate Relationship Specialty Start Date End Date Bryan Schmid MD [address] [place] [address] [place] [address] PCP - [facility] Medicine 07/19/20 documented as of this encounter
--- OUTSIDE RECORDS SUMMARY | 2024-03-04 19:46 | XMS_ITS | Encounter Summary ---
Author Organization [facility] [place] [address] Care Team Providers Care Rock Breaker Name Role Phone Bryan Schmid MD Primary Care Provider [phone] Reason for Referral * Diagnostic Test (Routine) - Closed Specialty Diagnoses / Procedures Referred By Contac t Referred To Contact Radiology Diagnoses Vertigo Procedures CT Angiogram Carotids & Kotlik of Bar Walt Wiseman III, MD [facility] [place] [address] [facility] [place] [address] Referral ID Status Reason Start Date Expiration Date V isits Requested Visits Authorized [id number] Closed Specialty Service Requested 11/15/2020 05/17/2022 1 1 Reason for Visit * Diagnostic Test (Routine) - Closed Specialty Diagnoses / Procedures Referred By Contac t Referred To Contact Radiology Diagnoses Vertigo Procedures CT Angiogram Carotids & Kotlik of BarWalt Harris III, MD [facility] [place] [address] [facility] [place] [address] Referral ID Status Reason Start Date Expiration Date V isits Requested Visits Authorized [id number] Closed Specialty Service Requested 11/15/2020 05/17/2022 1 1 Encounter Details Date Type Department Care Team (Latest Contact Info) Description 11/27/2020 1:32 PM EDT - 11/27/2020 11:59 PM EDT Hospital Encounter CT Scan at [facility] [place] [phone] Walt Wiseman III, MD [facility] [place] [address] Vertigo Discharge Disposition: Home Social History Tobacco Use [...] 2,000 mg by mouth as needed. 04/22/2016 Spiriva with HandiHaler 18 mcg Capsule, w/Inhalation [...] 9:30 AM EST [place] [address] Walt Wiseman III, MD [facility] [place] [address] documented as of this encounter Procedures Procedure Name Priority Date/Time Associated Diagnosis Comments CT CAROTIDS AND LYTTON OF BAR W CONTRAST Routine 11/27/2020 2:20 PM EDT Vertigo documented in this encounter Results * CT Angiogram Carotids & Kotlik of Bar (11/27/2020 2:20 PM EDT) Anatomical Region Laterality Modality Neck, Head Computed Tomogra phy 11/27/2020 2:39 PM EDT Impressions 11/27/2020 5:20 PM EDT No focal intracranial or cervical vascular stenosis. Thank you for letting us participate in the care of this patient. ??If you are a health care provider and have any questions regarding this report, please contact the number below. ??For patients who have questions please contact the health restorative care technician that requested your imaging first. ? Electronically signed by: Conor Cedillo MD, [facility] ([phone]), at 11/27/2020 5:20 PM Narrative 11/27/2020 5:20 PM EDT EXAMINATION: CT ANGIOGRAM CAROTIDS AND LYTTON OF BAR CLINICAL HISTORY: Vertigo, central TECHNIQUE: CTA of the head and neck performed after the intravenous administration contrast. Administered 65.0 ml of OMNIPAQUE 350.00 mg/ml. MIP and 3-D volumetric reconstructions were created. COMPARISON: Neck CT 10/26/2020, brain MR 03/01/2020 FINDINGS: The aortic arch and arch origins are normal. Right carotid: Common carotid origin is normal. Carotid bifurcation is normal. The cervical right ICA is normal in caliber. Left carotid: Common carotid origin is normal. Bifurcation is unremarkable. The cervical left ICA is normal in caliber. Right vertebral artery: Right vertebral artery is small throughout its course. The origin is unremarkable. There is no focal stenosis in the neck. Left vertebral artery: Left vertebral artery origin is normal. The left 2 artery is dominant. There is no focal stenosis in the neck. Intracranial circulation: The intracranial internal carotid arteries are normal in caliber. MCA, MIKAELA, and visualized branches appear unremarkable. Intradural vertebral arteries, basilar artery, and posterior cerebral arteries appear normal in caliber. There is normal opacification of venous structures were technique. Procedure Note Conor Cedillo MD - 11/27/2020 EXAMINATION: CT ANGIOGRAM CAROTIDS AND LYTTON OF BAR CLINICAL HISTORY: Vertigo, central TECHNIQUE: CTA of the head and neck performed after the intravenous administration contrast. Administered 65.0 ml of OMNIPAQUE 350.00 mg/ml. MIP and 3-Dvolumetric reconstructions were created. COMPARISON: Neck CT 10/26/2020, brain MR 03/01/2020 FINDINGS: The aortic arch and arch origins are normal. Right carotid: Common carotid origin is normal. Carotid bifurcation isnormal. The cervical right ICA is normal in caliber. Left carotid: Common carotid origin is normal. Bifurcation isunremarkable. The cervical left ICA is normal in caliber. Right vertebral artery: Right vertebral artery is small throughout itscourse. The origin is unremarkable. There is no focal stenosis in the neck. Left vertebral artery: Left vertebral artery origin is normal. The left 2artery is dominant. There is no focal stenosis in the neck. Intracranial circulation: The intracranial internal carotid arteries arenormal in caliber. MCA, MIKAELA, and visualized branches appear unremarkable.Intradural vertebral arteries, basilar artery, and posterior cerebral arteriesappear normal in caliber. There is normal opacification of venous structures were technique. IMPRESSION No focal intracranial or cervical vascular stenosis. Thank you for letting us participate in the care of this patient. If youare a health care provider and have any questions regarding this report,please contact the number below. For patients who have questions please contactthe health restorative care technician that requested your imaging first. Electronically signed by: Conor Cedillo MD, [facility]([phone]), at 11/27/2020 5:20 PM Walt Wiseman III, MD IMG CT ORDERABLES documented in this encounter Visit Diagnoses Diagnosis Vertigo Dizziness and giddiness documented in this encounter Administered Medications Inactive Administered Medications - up to 3 most recent administrations Medication Order MAR Action Action Date Dose Rate Site iohexoL (Omnipaque) (350 mg/mL) injection solution 0-200 mL 0-200 mL, Intravenous, ONCE PRN, 1 dose, Starting on Fri11/27/20 at 1407, Until Fri11/27/20 at 1414, Per Protocol, Warning Vesicant/Irritant Medication , Radiology Contrast, Routine Given 11/27/2020 2:14 PM EDT 65 mLs documented in this encounter Care Teams Rock Breaker Relationship Specialty Start Date End Date Bryan Schmid MD [address] [place] [address] [place] [address] PCP - [facility] Medicine 07/19/20 documented as of this encounter
--- OUTSIDE RECORDS SUMMARY | 2024-03-04 19:47 | XMS_ITS | Encounter Summary ---
[place] [address] Care Team Providers Care Hydration Plant Operator Name Role Phone Ronnie Stokes MD Primary Care Provider [phone] Reason for Visit * Reason Onset Date Comments Medication Refill 01/14/2014 Encounter Details Date Type Department Care Team (Late st Contact Info) Description 01/14/2014 Refill [place] [phone] Yuli Kaur RN Social History Tobacco Use Types Packs/Day [...] encounter Miscellaneous Notes * Telephone Encounter - Yuli Colon RN - 01/14/2014 3:55 PM EDT Date of surgery: 01/06/14 left TKA Brittaney Last refill: 01/08/14 Dilaudid 2 mg # 100 Patient's usage: about 8 to 10 per day Plan going forward: Continue as needed and wean as tolerated Medication dispensed: Dilaudid 2 mg #80 to be mailed out on Friday and we missed the mail today, patient aware. documented in this encounter Plan of Treatment Upcoming Encounters Date Type Department Care Team (Late st Contact Info) Description 07/12/2024 9:30 AM EST Office [place] [address] Walt Wiseman III, MD [facility] [place] [address] documented as of this encounter Visit Diagnoses Not on filedocumented in this encounter Care Teams Hydration Plant Operator Relationship Specialty Start Date End Date Ronnie Stokes MD [address] [place] [address] [place] [address] PCP - General 12/01/13 04/10/17 documented as of this encounter
--- OUTSIDE RECORDS SUMMARY | 2024-03-04 19:47 | XMS_ITS | Encounter Summary ---
Author Organization [facility] Address [facility] [place] [address] Care Team Providers Care Shop Helper Name Role Phone Ronnie Stokes MD Primary Care Provider [phone] Encounter Details Date Type Department Care Team (Latest Contact Info) Description 02/14/2014 11:12 AM EDT - 02/14/2014 11:59 PM EDT Hospital Encounter XRay at [address] [place] [address] Osteoarthritis of knee Social History Tobacco Use Types Packs/Day Years [...] Sig Dispensed Refills Start Date End Date acetaminophen (TYLENOL) 500 mg tablet Take 2 [...] tablet Take 50 mg by mouth nightly. HYDROmorphone (DILAUDID) 2 mg TabletIndications:After care following joint replacement Take 1-2 tablets by mouth every 4 hours as needed for Pain. 90 tablet 0 02/14/2014 02/28/2014 aspirin 81 mg EC tablet Take 81 mg by mouth once a week. 02/21/2015 Budesonide-Formoterol (SYMBICORT) 160-4.5 mcg/actuation HFAA Inhale 1 puff into the lungs 2 times daily. 04/11/2017 metoprolol (LOPRESSOR) 100 mg tablet Take 150 mg by mouth daily. 01/08/2024 diaZEPam (VALIUM) 5 mg tablet Take 5 mg by mouth every 6 hours as needed. 04/11/2017 MAGNESIUM ORAL Take by mouth daily. 04/05/2015 GLUCOSAMINE HCL/CHONDRO HARRISON A (GLUCOSAMINE-CHONDROITI N ORAL) Take 1,000 mg by mouth 2 times daily. 04/05/2015 diphenoxylate-atropine (LOMOTIL) 2.5-0.025 mg per tablet Take 1 tablet by mouth 4 times daily as needed for Diarrhea. 120 tablet 1 04/13/2012 04/11/2017 documented as of this encounter Plan of Treatment Upcoming Encounters Date Type Department Care Team (Late st Contact Info) Description 07/12/2024 9:30 AM EST Office [place] [address] Walt Wiseman III, MD [facility] [place] [address] documented as of this encounter Procedures Procedure Name Priority Date/Time Associated Diagnosis Comments XR TKA FIRST PO VISIT ALIGNMENT AP LAT SKYLINE Routine 02/14/2014 11:45 AM EDT Osteoarthritis of knee documented in this encounter Results * XR TKA first PO visit alignment AP LAT [place] (02/14/2014 11:45 AM EDT) Anatomical Region Laterality Modality Knee N/A Radiographic Jenn ging 02/14/2014 11:4 5 AM EDT Narrative 02/14/2014 11:59 AM EDT Examination STANDING ALIGNMENT AND LEFT KNEE Clinical History Status Post TKA Comparison 10/19/2013. ?? Technique STANDING ALIGNMENT:Separate images of the pelvis, knees and feet were acquired in the AP projection with the patient standing. In addition to routine views of the knee, these images were stitched together to form a composite image of the pelvis and legs allowing for evaluation of lower extremity alignment in the weight bearing position. LEFT KNEE: AP standing and axial patellar views of both knees, as well as lateral views of left knee. ?? Findings STANDING ALIGNMENT: The mechanical axis of the right lower extremity is neutral. ??The mechanical axis of the left lower extremity is near- neutral. ?? LEFT KNEE: ??Status post interval left knee arthroplasty. The arthroplasty components appear well-seated, with no periprosthetic lucency or periprosthetic fracture identified. Postoperative joint effusion visible on the lateral projection. Unchanged appearance of the right knee. Impression No appreciable post arthroplasty complication identified. Procedure Note Yolande Church MD - 02/14/2014 Examination STANDING ALIGNMENT AND LEFT KNEE Clinical History Status Post TKA Comparison 10/19/2013. Technique STANDING ALIGNMENT:Separate images of the pelvis, knees and feet wereacquired in the AP projection with the patient standing. In addition to routineviews of the knee, these images were stitched together to form a composite image ofthe pelvis and legs allowing for evaluation of lower extremity alignment inthe weight bearing position. LEFT KNEE: AP standing and axial patellar views of both knees, as well as lateral views of left knee. Findings STANDING ALIGNMENT: The mechanical axis of the right lower extremity is neutral. The mechanical axis of the left lower extremity is near-neutral. LEFT KNEE: Status post interval left knee arthroplasty. The arthroplasty components appear well-seated, with no periprosthetic lucency orperiprosthetic fracture identified. Postoperative joint effusion visible on the lateral projection. Unchanged appearance of the right knee. Impression No appreciable post arthroplasty complication identified. Shamir Quispe MD IMG DX ORDERABLES documented in this encounter Visit Diagnoses Diagnosis Osteoarthritis of knee Osteoarthrosis, unspecified whether generalized or localized, lower leg documented in this encounter Care Teams Shop Helper Relationship Specialty Start Date End Date Ronnie Stokes MD [address] [place] [address] [place] [address] PCP - General 12/01/13 04/10/17 documented as of this encounter
--- OUTSIDE RECORDS SUMMARY | 2024-03-04 19:47 | XMS_ITS | Encounter Summary ---
Author Organization [facility] [place] [address] Care Team Providers Care Repeat Photocomposing Machine Operator Name Role Phone Ronnie Stokes MD Primary Care Provider [phone] Encounter Details Date Type Department Care Team (Late st Contact Info) Description 04/18/2014 2:30 PM EST Ancillary Appointment [place] [address] Mike Webb, RVT Knee joint replacement by other means Social History Tobacco Use Types Packs/Day Years [...] 9:30 AM EST Office Visit Neurology at [place] [phone] Walt Wiseman III, MD [facility] [place] [address] documented as of this encounter Procedures Procedure Name Priority Date/Time Associated Diagnosis Comments DUPLEX FOR DVT, LEG, UNILAT Routine 04/18/2014 2:44 PM EST Knee joint replacement by other means documented in this encounter Results * Duplex for DVT, Leg, Unilat (04/18/2014 2:44 PM EST) VB Text Report Department: Vascular Surgery Lab Patient: [id number] ([place]) CPT Code: 93181 ICD-9: 729.5 Referring Physician: SHAMIR CRABTREE Indication: Left calf pain, s/p TKA; ? DVT ICD9 Diagnosis Code: 729.5 LEFT: Patent common femoral vein and popliteal vein with spontaneous, respirophasic Doppler waveforms that respond normally to augmentation maneuvers. The common femoral vein, saphenofemoral junction, femoral vein through the thigh and popliteal vein are fully compressible. Patent posterior tibial and peroneal veins with no evidence of thrombus. Interpretation: LEFT: ??No evidence of lower extremity deep venous thrombosis. Comparison: ??No previous study in our vascular lab database for comparison. Electronically Signed by: KIRBY MELGAR on 2014-04-20 09:57:06 AM VAS[facility] VB Text Report End of Report [facility] 04/18/2014 2:44 PM EST Shamir Crabtree MD VASCULAR ORDERABLES Performing Organization Address City/State/[facility] Co de Phone Number [facility] documented in this encounter Visit Diagnoses Diagnosis Knee joint replacement by other means documented in this encounter Care Teams Repeat Photocomposing Machine Operator Relationship Specialty Start Date End Date Ronnie Stokes MD [address] [place] [address] [place] [address] PCP - General 12/01/13 04/10/17 documented as of this encounter
--- OUTSIDE RECORDS SUMMARY | 2024-03-04 19:47 | XMS_ITS | Encounter Summary ---
Author Organization [facility] [place] [address] Care Team Providers Care Director Export Name Role Phone Ronnie Stokes MD Primary Care Provider [phone] Reason for Visit * Reason Onset Date Comments Medication Refill 01/12/2014 Encounter Details Date Type Department Care Team (Late st Contact Info) Description 01/12/2014 Refill [place] [phone] Shamir Quispe MD [facility] DR [place]OPA[place] [address] Social History Tobacco Use Types Packs/Day Years [...] Miscellaneous Notes * Telephone Encounter - Yuli Colon, RN - 01/12/2014 2:03 PM EDT Date of surgery: 01/06/14 left TKA Brittaney Last refill: 01/08/14 Dilaudid 2 mg # 100 Patient's usage: two about three times a day and is controlling her pain well. She was not sure if she was suppose to stick with this medication or change with the next refill. Everything else is going well. Bowels are fine, working with physical therapy and no concerns with incision Plan going forward: Continue with the Dilaudid. She should call back when she has about 3 days of medication left so we can mail her a new prescription. Medication dispensed: none at this time * Telephone Encounter - Cassandra Vieira - 01/12/2014 1:53 PM EDT Person calling? PATIENT What medication are you refilling? OXYCODONE OR MORPHINE, WOULD LIKE TO DISCUSS WHICH WOULD BE BEST. Best number to reach person calling? [phone] The nurse will call you when your prescription is ready, please allow up to 72 hrs for processing. documented in this encounter Plan of Treatment Upcoming Encounters Date Type Department Care Team (Late st Contact Info) Description 07/12/2024 9:30 AM EST Office [place] [address] Walt Wiseman III, MD [facility] [place] [address] documented as of this encounter Visit Diagnoses Not on filedocumented in this encounter Care Teams Director Export Relationship Specialty Start Date End Date Ronnie Stokes MD [address] [place] [address] [place] [address] PCP - General 12/01/13 04/10/17 documented as of this encounter
--- OUTSIDE RECORDS SUMMARY | 2024-03-04 19:47 | XMS_ITS | Encounter Summary ---
Author Organization [facility] [place] [address] Care Team Providers Care Cmm Inspector Name Role Phone Ronnie Stokes MD Primary Care Provider [phone] Reason for Visit * Reason Onset Date Comments VNA Calls 01/10/2014 Encounter Details Date Type Department Care Team (Late st Contact Info) Description 01/10/2014 Telephone [place] [phone] Shamir Quispe MD [facility] [place] [address] VNA Calls Social History Tobacco Use Types Packs/Day Years [...] encounter Miscellaneous Notes * Telephone Encounter - Kassidy Church LPN - 01/10/2014 4:25 PM EDT Vasquez's call was returned. He was given permission for the PT orders below. * Telephone Encounter - Lisa Suárez - 01/10/2014 3:49 PM EDT Are you calling to report an INR? If yes: I am going to transfer you to the coumadin voice mail - this voice mail is continuously monitored so please leave a detailed message. If no: then please ask the question below. Incision/Wound Concern? no Fever/Chills? no Physical Therapy Concern? yes Documentation/Plan of Care Request? yes REQUESTED CONTINUEING PT . NEEDS ORDER 3X PER WEEK FOR 2WKS,2 X PER WEEK FOR 4 WKS FAX [phone] Name and credentials of caller:PT VASQUEZ [phone] Is the caller in the home? Who should we call back? Best # to call: The nurses continuously monitor their messages and will call back as soon as they are able. documented in this encounter Plan of Treatment Upcoming Encounters Date Type Department Care Team (Late st Contact Info) Description 07/12/2024 9:30 AM EST [place] [address] Walt Wiseman III, MD [facility] [place] [address] documented as of this encounter Visit Diagnoses Not on filedocumented in this encounter Care Teams Cmm Inspector Relationship Specialty Start Date End Date Ronnie Stokes MD [address] [place] [address] [place] [address] PCP - General 12/01/13 04/10/17 documented as of this encounter
--- OUTSIDE RECORDS SUMMARY | 2024-03-04 19:47 | XMS_ITS | Encounter Summary ---
Author [facility] [place] [address] Care Team Providers Care Electrician Machine Shop Name Role Phone Ronnie Stokes MD Primary Care Provider [phone] Encounter Details Date Type Department Care Team (Late st Contact Info) Description 12/01/2013 8:30 AM EDT Office Visit [place] [address] Social History Tobacco Use Types Packs/Day Years [...] AM EST Office [place] [address] Walt Wiseman III, MD [facility] [place] [address] documented as of this encounter Visit Diagnoses Not on filedocumented in this encounter Care Teams Electrician Machine Shop Relationship Specialty Start Date End Date Ronnie Stokes MD [address] [place] [address] [place] [address] PCP - General 12/01/13 04/10/17 documented as of this encounter
--- OUTSIDE RECORDS SUMMARY | 2024-03-04 19:47 | XMS_ITS | Encounter Summary ---
Author Organization [facility] Address [facility] [place] [address] Care Team Providers Care Fountain Helper Name Role Phone Karmen Magana MD Primary Care Provider [phone] Encounter Details Date Type Department Care Team (Latest Contact Info) Description 04/11/2017 2:47 PM EST - 04/11/2017 11:59 PM EST Hospital Encounter XRay at [address] [place] [address] Justin Hsu MD Presence of left artificial knee joint Discharge Disposition: Home Social History Tobacco Use [...] 9:30 AM EST [place] [address] Walt Wiseman III, MD [facility] [place] [address] documented as of this encounter Procedures Procedure Name Priority Date/Time Associated Diagnosis Comments XR KNEE AP & LAT LEFT Routine 04/11/2017 3:12 PM EST Presence of left artificial knee joint documented in this encounter Results * XR Knee 1-2 Views Left (Generic) (04/11/2017 3:12 PM EST) Anatomical Region Laterality Modality Knee Left Digital Radiogra phy Impressions 04/11/2017 3:43 PM EST Stable appearance of the LEFT total knee arthroplasty. Narrative 04/11/2017 3:43 PM EST EXAMINATION: XR KNEE 1-2 VIEWS LEFT (GENERIC) CLINICAL HISTORY: LEFT TKA TECHNIQUE: 2 views of the LEFT knee COMPARISON: 04/05/2015 FINDINGS: Patient status post LEFT total knee arthroplasty. Position and alignment appear unchanged. There is no evidence of loosening infection or other complication. No effusion is seen. Procedure Note Suzette Baugh MD - 04/11/2017 EXAMINATION: XR KNEE 1-2 VIEWS LEFT (GENERIC) CLINICAL HISTORY: LEFT TKA TECHNIQUE: 2 views of the LEFT knee COMPARISON: 04/05/2015 FINDINGS: Patient status post LEFT total knee arthroplasty. Position and alignmentappear unchanged. There is no evidence of loosening infection or othercomplication. No effusion is seen. IMPRESSION Stable appearance of the LEFT total knee arthroplasty. 3:43 PM Justin Hsu MD IMG DX ORDERABLES documented in this encounter Visit Diagnoses Diagnosis Presence of left artificial knee joint Knee joint replacement by other means documented in this encounter Care Teams Fountain Helper Relationship Specialty Start Date End Date Karmen Magana MD [address] [place] [address] [place] [address] PCP - General Family Medicine 04/11/17 07/18/20 documented as of this encounter
--- OUTSIDE RECORDS SUMMARY | 2024-03-04 19:47 | XMS_ITS | Encounter Summary ---
[place] [address] Care Team Providers Care Airline Pilot/First Officer Name Role Phone Ronnie Stokes MD Primary Care Provider [phone] Reason for Visit * Reason Onset Date Comments Medication Refill 02/01/2014 S/P left total knee arthroplasty 01/06/2014 Brittaney. Encounter Details Date Type Department Care Team (Late st Contact Info) Description 02/01/2014 [place] [address] Katharine Mary RN Aftercare following joint replacement (Primary Dx) Social History Tobacco Use Types [...] encounter Miscellaneous Notes * Telephone Encounter - Katharine Mary RN - 02/01/2014 12:39 PM EDT Date of surgery: S/P left total knee arthroplasty 01/06/2014 Brittaney Last refill: 01/21/14 Dilaudid 2 mg #80 1-2 tabs every 4 hours prn pain. Patient's usage: Takes about 8 in 24 hours. Plan going forward: Same. Medication dispensed: Dilaudid 2 mg #70 - script sent to her home address. documented in this encounter Plan of Treatment Upcoming Encounters Date Type Department Care Team (Late st Contact Info) Description 07/12/2024 9:30 AM EST Office [place] [address] Walt Wiseman III, MD [facility] [place] [address] documented as of this encounter Visit Diagnoses Diagnosis Aftercare following joint replacement- Primary documented in this encounter Care Teams Airline Pilot/First Officer Relationship Specialty Start Date End Date Ronnie Stokes MD [address] [place] [address] [place] [address] PCP - General 12/01/13 04/10/17 documented as of this encounter
--- OUTSIDE RECORDS SUMMARY | 2024-03-04 19:47 | XMS_ITS | Encounter Summary ---
Author Organization [facility]ly [facility] [place] [address] Care Team Providers Care Christian Ministries Professor Name Role Phone Ronnie Stokes MD Primary Care Provider [phone] Reason for Visit * Auth/Cert Specialty Diagnoses / Procedures Referred By Raffaele taylor Referred To Contact Diagnoses 3 years due to personal history of multiple polyps Procedures PRO COLONOSCOPY, DIAGNOSTIC COLONOSCOPY, DIAGNOSTIC Referral ID Status Reason Start Date Expiration Date Visits Re quested Visits Authorized [id number] 1 1 Encounter Details Date Type Department Care Team (Latest Contact Info) Description 03/07/2016 9:50 AM EDT - 03/07/2016 12:22 PM EDT Hospital Encounter [place] [address] Alireza James MD [facility] [place] [address] Discharge Disposition: Home Social History Tobacco Use [...] Sign Reading Time Taken Comments Blood Pressure 124/83 03/07/2016 12:13 PM EDT Pulse 65 03/07/2016 12:13 PM EDT Temperature - - Respiratory Rate 16 03/07/2016 12:13 PM EDT Oxygen Saturation 93% 03/07/2016 12:13 PM EDT Inhaled Oxygen Concentration - - Weight - - Height - - Body Mass Index - - documented in this encounter Discharge Instructions * Discharge Instructions* Kali Lee RN - 03/07/2016 12:01 PM EDT Colonoscopy and polyp removal What to expect after the procedure You may feel a little more gassy or bloated than usual, this is normal. You should expect the return of normal bowel function in the next 2 to 3 days. Because some polyps were removed, you may see a little blood with the next few bowel movements, this should be a small amount ( less than a few tablespoons) and will resolve on it's own. ACTIVITY Because of the sedation that you received Your judgement and reaction time are effected ?? Go home and rest for the remainder for the day. You may resume your normal activities tomorrow ?? Change from one position to the next slowly because you may lose your balance unexpectedly. ?? Be careful on stairs, as you may be unsteady. ?? Avoid strenuous activity for 48 to 72 hrs FOR THE NEXT 24 HRS ?? DO NOT DRIVE OR OPERATE MACHINERY ?? DO NOT DRINK ALCOHOLIC BEVERAGES ?? DO NOT SIGN LEGAL DOCUMENTS ?? If you are a smoker: DO NOT SMOKE WHILE YOU ARE ALONE Diet ?? Start by eating small portions of foods that ordinarily will not upset your stomach, avoid gas producing foods for the next few days. ?? Be gentle with what you choose to start with ?? Drink plenty of fluids ( unless your doctor has told you not to). ?? A soft diet may be helpful for the next 3 days as this may help to keep the stools soft Medicines Avoid medicines that influence the way your blood clots for the next week. These would include anti-inflammatory medicine, such as ibuprofen( Advil, Motrin) and naproxen ( Aleve). If you need something for discomfort, Tylenol (Acetaminophen) is safe if used as directed. Your Doctor will tell you when to restart your prescribed blood thinners The IV site-- slight tenderness, or redness is normal, you can use warm compresses if you get concerned. If the tenderness +/or redness increases or foul drainage and a red streak occurs, please contact your PCP immediately. When should you call for help? Call 911 anytime you think you may need emergency care. For example If you pass out (loss of consciousness) If you pass maroon or bloody stools If you have severe belly pain Call your healthcare provider or seek immediate medical care if: Your stools are black or tar like Your stools have streaks of blood that is more pronounced with each BM You have belly pain, or your belly is swollen and firm You vomit You have a fever You are very dizzy Watch closely for changes in your health, and be sure to contact your doctor if you have any problems. Your Doctor will let you know when you will need your next colonoscopy. The results of your test and your risk for colorectal cancer will help your doctor decide how often you need to be checked. Friday-Friday Same Day Endo [phone] 7a-8p Otherwise contact [phone] and ask to speak to the video game technician online education manager Follow up care is a henry part of your treatment and safety. Be sure to make and go to all appointments, and call your doctor if you are having problems. Discharge instructions reviewed with patient who expresses understanding documented in this encounter Medications at Time [...] tablet Take 50 mg by mouth nightly. amoxicillin (AMOXIL) 500 mg TabletIndications:Hx of arthroplasty Take 4 tablets by mouth once as needed (take 4 pills 1 hour prior to dental procedures) for up to 1 dose. 12 tablet 0 09/04/2015 04/16/2016 Budesonide-Formoterol (SYMBICORT) 160-4.5 mcg/actuation HFAA Inhale 1 puff into the lungs 2 times daily. 04/11/2017 metoprolol (LOPRESSOR) 100 mg tablet Take 150 mg by mouth daily. 01/08/2024 diaZEPam (VALIUM) 5 mg tablet Take 5 mg by mouth every 6 hours as needed. 04/11/2017 diphenoxylate-atropine (LOMOTIL) 2.5-0.025 mg per tablet Take 1 tablet by mouth 4 times daily as needed for Diarrhea. 120 tablet 1 04/13/2012 04/11/2017 documented as of this encounter H&P Notes * Eliel Nixon MD - 03/07/2016 11:07 AM EDT Patient Name: Netta Gregorio Patient Age: 56 y.o. Birthdate: 1960 Admit date: 03/07/2016 Attending Physician: Eliel Nixon MD Gastroenterology & Hepatology Pre-Procedure History and Physical Planned Procedure: Colonoscopy: Indication: follow-up of multiple adenomas Patient Active Problem List Diagnosis Code ??? Chest pain, unspecified R07.9 ??? IBS (irritable bowel syndrome) K58.9 ??? GERD (gastroesophageal reflux disease) K21.9 ??? Primary osteoarthritis of left knee M17.12 ??? Obesity E66.9 ??? Sleep apnea G47.30 ??? Asthma J45.909 ??? S/P left total knee arthroplasty 01/06/2014 [facility] Z96.659 Medications: Reviewed in EDH Allergies Allergen Reactions ??? Codeine Phosphate Trouble breathing ??? Darvocet A500 [Propoxyphene N-Acetaminophen] Trouble breathing ??? Unable To Find [Unclassified Drug] Horses, guinea pigs and other animal dander-causes itchy eyes and nasal congestion Social History/Family History: Reviewed in EDH. No changes Exam: Vitals: 03/07/16 1045 BP: 113/63 Pulse: 72 Resp: 18 GEN: NAD, AAOX3 HEENT: NC/AT dryMM, anicteric Chest: CTAB Heart: RRR, nl s1, s2 Abdomen: normal bowel sounds, soft, non tender Assessment and Plan: Proceed with Colonoscopy: ASA Grade: ASA 2 - Patient with mild systemic disease with no functional limitations Mallampati: II (soft palate, uvula, fauces visible) Sedation plan: Moderate Conscious sedation Risks and benefits of the procedure were discussed with the patient. Consent has been signed. documented in this encounter Plan of Treatment Upcoming Encounters Date Type Department Care Team (Late st Contact Info) Description 07/12/2024 9:30 AM EST Office [place] [address] Walt Wiseman III, MD [facility] [place] [address] documented as of this encounter Procedures Procedure Name Priority Date/Time Associated Diagnosis Comments SURGICAL PATHOLOGY REPORT Routine 03/07/2016 12:46 PM EDT SPECIMEN TO PATHOLOGY Routine 03/07/2016 12:46 PM EDT COLONOSCOPY FLEXIBLE, WITH BX (WRVU 3.56) 03/07/2016 11:21 AM EDT 3 years due to personal history of multiple polyps COLONOSCOPY Routine 03/07/2016 11:06 AM EDT documented in this encounter Results * Surgical Pathology Report (03/07/2016 12:46 PM EDT) Final Diagnosis [id number] ? Location: 4T; EA09; A The signing pathologist has (i) examined the relevant preparation(s) for the specimen(s) and (ii) rendered or confirmed the diagnosis(es). . ?Surgical Pathology DIAGNOSIS Ascending colon, ??polypectomy: Tubular adenoma. CR-PX Electronically signed by: ??Andre ENGLISH PhD, Albino Christy Verified: ??03/11/2016 ?Pathologist CLINICAL INFORMATION Specimen Submitted: A - Ascending colon polyp Clinical History: Surveillance Clinical Diagnosis: Same SPECIMEN PROCESSING A - Labeled/Fixativ e: Ascending colon polyp, formalin. Quantity/Size: Two, 0.4 and 0.6 cm. Tissue Description: ??Soft, pink tissues . Sections/Proces sing: (T1) ??sns 03/11/2016 2:24 PM EDT [facility] GI Biopsy 03/07/2016 12:4 6 PM EDT 03/07/2016 12:46 PM EDT Eliel Nixon MD PATHOLOGY/CYTOLOG Y ORDERABLES Performing Organization Address [facility] Co de Phone Number [facility] [place] [address] * Specimen to Pathology (surgical or derm) (03/07/2016 12:46 PM EDT) AP Specimen 03/07/2016 12:4 6 PM EDT 03/07/2016 12:46 PM EDT Narrative [facility] - 03/07/2016 12:46 PM EDT Specimen requisition ordered. ??Separate Pathology report to follow Eliel Nixon MD PATHOLOGY/CYTOLOG Y ORDERABLES Performing Organization Address [facility] [place] [address] * COLONOSCOPY (03/07/2016 11:06 AM EDT) COLONOSCOPY [facility] Procedure Date: 03/07/2016 11:06 AM ? Patient Name: Netta Gregorio ? Date of : 1960 ? Age: 56 ? Order #: [id number] ? Instrument Name: [id number] ? Procedure: ? Colonoscopy Indications: ? Surveillance: Personal history of ? adenomatous polyps on last ? colonoscopy 3 years ago Patient Profile: ? This is a 56 year old female. Refer ? to note in patient chart for ? documentation of history and ? physical. Last Colonoscopy: 2013. Providers: ? Luciana Tinsley ? DARIANA Grossman, Tomeka Pearce, ? Pot Sander Referring MD: ?Ronnie Stokes MD Medicines: ? Midazolam 3 mg IV, Fentanyl 200 ? micrograms IV Complications: ? No immediate complications. Procedure: ? Pre-Anesthesia Assessment: ? - Prior to the procedure, a History ? and Physical was performed, and ? patient medications and allergies ? were reviewed. The patient is ? competent. The risks and benefits of ? the procedure and the sedation ? options and risks were discussed with ? the patient. All questions were ? answered and informed consent was ? obtained. Patient identification and ? proposed procedure were verified by ? the physician, the nurse and the ? instructor adjunct pharmacy technician in the pre-procedure area ? in the procedure room. Mental Status ? Examination: alert and oriented. ? Airway Examination: normal ? oropharyngeal airway and neck ? mobility. Respiratory Examination: ? clear to auscultation. CV ? Examination: normal. Prophylactic ? Antibiotics: The patient does not ? require prophylactic antibiotics. ? Prior Anticoagulants: The patient has ? taken no previous anticoagulant or ? antiplatelet agents. ASA Grade ? Assessment: II - A patient with mild ? systemic disease. After reviewing the ? risks and benefits, the patient was ? deemed in satisfactory condition to ? undergo the procedure. The anesthesia ? plan was to use moderate sedation / ? analgesia (conscious sedation). ? Immediately prior to administration ? of medications, the patient was ? re-assessed for adequacy to receive ? sedatives. The heart rate, ? respiratory rate, oxygen saturations, ? blood pressure, adequacy of pulmonary ? ventilation, and response to care ? were monitored throughout the ? procedure. The physical status of the ? patient was re-assessed after the ? procedure. ? The procedure, indications, benefits, ? risks and alternatives were explained ? to the patient. Specifically ? discussed were potential ? complications including, but not ? limited to, bleeding, perforation, ? infection, missing a cancer, and ? adverse medication reactions. The ? patient was placed in the left ? lateral decubitus position, and a ? digital rectal exam was performed. ? The Colonoscope was inserted in the ? anus and under direct visualization, ? advanced to the terminal ileum, with ? identification of the appendiceal ? orifice and IC valve. Careful ? inspection was made as the ? colonoscope was withdrawn. The ? colonoscopy was performed without ? difficulty. The patient tolerated the ? procedure well. The quality of the ? bowel preparation was good. The ? terminal ileum, ileocecal valve, ? appendiceal orifice, and rectum were ? photographed. ? Findings: ? The perianal and digital rectal examinations were ? normal. ? Multiple small and large-mouthed diverticula were ? found in the sigmoid colon and in the descending ? colon. ? A 4 mm polyp was found in the ascending colon. The ? polyp was sessile. The polyp was removed with a cold ? biopsy forceps. Resection and retrieval were complete. ? The exam was otherwise without abnormality on direct ? and retroflexion views. ? Impression: ?- Diverticulosis in the sigmoid colon ? and in the descending colon. ? - One 4 mm polyp in the ascending ? colon. Resected and retrieved. ? - The examination was otherwise ? normal on direct and retroflexion ? views. Recommendation: ?- Discharge patient to home. ? - High fiber diet. ? - Continue to use Citrucel or other ? psyllium fiber once or twice daily. ? - Repeat colonoscopy in 5 years for ? surveillance. ? Attending Participation: ? I personally performed the entire procedure. ? _ Eliel Hussain, 03/07/2016 11:58:05 AM Number of Addenda: 0 Note Initiated On: 03/07/2016 11:06 AM PROVATION 03/07/2016 11:0 6 AM EDT Ronnie Stokes MD GENERAL SURGICAL OR DERABLES PROVATION documented in this encounter Visit Diagnoses Not on filedocumented in this encounter Administered Medications Inactive Administered Medications - up to 3 most recent administrations Medication Order MAR Action Action Date Dose Rate Site lactated ringers infusion 50 mL/hr, Intravenous, CONTINUOUS, Starting on Gem 03/07/16 at 1115, Until Gem 03/07/16 at 1216, Endoscopy (Day of Procedure) New Bag 03/07/2016 11:15 AM EDT 50 mL/hr 50 mL/hr documented in this encounter Active and Recently Administered Medications Times are shown in EDT. Continuous Medication Order 03/05/2016 03/06/2016 03/07/2016 lactated ringers infusion (CANCELED) 50 mL/hr, Intravenous, CONTINUOUS, Starting on Gem 03/07/16 at 1115, Until Gem 03/07/16 at 1216, Endoscopy (Day of Procedure) 1115 (New Bag - Prov ider: Shannon Eng RN) PRN Medication Order 03/05/2016 03/06/2016 03/07/2016 fentaNYL 50 mcg/mL multi-dose injection (CANCELED) ONCE PRN, Starting on Gem 03/07/16 at 1121, Until Gem 03/07/16 at 1423, Intra-Operative (Intra-Procedure), Routine 1121 (Given - Provid er: Luciana Grossman RN)1127 (Given - Provider: Luciana Grossman RN)1130 (Given - Provider: Luciana Grossman RN)1134 (Given - Provider: Luciana Grossman RN) midazolam (PF) (VERSED) 1 mg/mL multi-dose injection (CANCELED) ONCE PRN, Starting on Gem 10 at 1123, Until Gem 03/07/16 at 1423, Intra-Operative (Intra-Procedure), Routine 1123 (Given - Provid er: Luciana Grossman RN)1127 (Given - Provider: Luciana Grossman RN)1135 (Given - Provider: Luciana Grossman RN) documented in this encounter Care Teams Christian [employer] Professor Relationship Specialty Start Date End Date Ronnie Stokes MD [address] [place] [id number] PCP - General 12/01/13 04/10/17 documented as of this encounter
--- OUTSIDE RECORDS SUMMARY | 2024-03-04 19:47 | XMS_ITS | Encounter Summary ---
Author Organization [facility] Address [facility] [place] [address] Care Team Providers Care Legal Process Specialist Name Role Phone Karmen Magana MD Primary Care Provider [phone] Reason for Visit * Reason Comments Aftercare Of Tjr LEFT TKA DOS: 01/06/14 Encounter Details Date Type Department Care Team (Late st Contact Info) Description 04/11/2017 4:30 PM EST Office Visit [place] [address] Polo Wiseman PA [facility] [place] [address] Hx of arthroplasty Social History Tobacco Use Types Packs/Day Years [...] Sign Reading Time Taken Comments Blood Pressure 85/46 04/11/2017 4:31 PM EST Pulse 62 04/11/2017 4:31 PM EST Temperature - - Respiratory Rate - - Oxygen Saturation - - Inhaled Oxygen Concentration - - Weight 128.4 kg (283 lb) 04/11/2017 4:31 PM EST clothed Height 172.7 cm (5' 8) 04/11/2017 4:31 PM EST v erbal Body Mass Index 43.03 04/11/2017 4:31 PM EST documented in this encounter Progress Notes * Polo Wiseman PA - 04/11/2017 4:30 PM EST Arthroplasty/Orthopaedic History: 1. L TKA - 01/06/14 - Brittaney HPI: Netta Gregorio is a very pleasant 57 y.o. year-old female and is now 3 years post left total kneereplacement The patient has been doing well. The patient is not having any pain.. No fevers, chills, nausea, vomiting, or symptoms of infection. Netta has been ambulating with no assistive device . She is not taking narcotic pain medicine. ROS: Denies: fever, chills, night sweats, nausea, or vomiting BP (!) 85/46 (BP Location (NBP): Left arm, Patient Position: Sitting, BP Cuff Sizes: Large Adult (32-43 cm)) Pulse 62 Ht 172.7 cm (5' 8) Comment: verbal Wt (!) 128.4 kg (283 lb) Comment: clothed BMI 43.03 kg/m2 Physical Exam: Well-appearing female in no acute distress. Alert and Oriented x 3 and answers all questions appropriately. The incision is well healed, with no signs of infection. Knee Exam: Left Knee ROM: Extension:0 Flexion: 115 Alignment: 0-4 degrees Neutral Stability: A/P Translation <5mm Varus <5mm Valgus <5mm Extension La degrees or less Patella Tracking: Normal Pulses Palpable: Left PT:Yes Left DP:Yes Motor/Sensory: Distal Motor: Normal Distal Sensory: Normal Quadriceps Strength: 5 X-RAYS: Multiple radiographic views were obtained at my request and reviewed with the patient. X-rays show a well-placed prosthesis with no evidence of fracture, subsidence, loosening, or periprosthetic complication. IMPRESSION Stable appearance of the LEFT total knee arthroplasty. ?? Questionnaire Responses: [facility] Surgical Postop Visit 04/11/2017 PROMIS-10 General Health Good PROMIS-10 Quality of Life Good PROMIS-10 Physical Health Good PROMIS-10 Mental Health Good PROMIS-10 Social Activity Good PROMIS-10 Everyday Activities Moderately PROMIS-10 Pain 0 -No Pain PROMIS-10 Fatigue Mild PROMIS-10 Social Roles Good PROMIS-10 Anxious or Depressed Sometimes PROMIS PHYSICAL HEALTH SCORE 47.7 PROMIS MENTAL HEALTH SCORE 43.5 KOOS JR Scores 65.99 Problems with surgical incision/wound after surgery No Gone to ER since knee surgery No Where was ER located? - Date of ER visit - Reason for ER visit - Admitted to hospital since recent ortho surgery No Additional surgery on same body part No TKA Grade 8 Pain in other KNEE Mild Back pain at this moment Very severe Satisfaction with Treatment Satisfied Choose Same Treatment Again Definitely yes [facility] Response 04/11/2017 KOOS JR Scores 65.99 Spine [facility] Response 04/11/2017 KOOS JR Scores 65.99 ASSESSMENT/PLAN: Ms. Gregorio is a 57 y.o. year old female status post left total knee replacement Doing well postoperatively. Continue weightbearing as tolerated and working on range of motion. We will see her back in 3 years for repeat examination. X-rays will be needed at that time. Patient may return to normal activities as her pain and function allow. All questions were answered. Signed: OVIDIO Cruz 04/11/2017 documented in this encounter Plan of Treatment Upcoming Encounters Date Type Department Care Team (Late st Contact Info) Description 07/12/2024 9:30 AM EST Office [place] [address] Walt Wiseman III, MD [facility] [place] [address] documented as of this encounter Visit Diagnoses Diagnosis Hx of arthroplasty Personal history of surgery to other organs documented in this encounter Care Teams Legal Process Specialist Relationship Specialty Start Date End Date Karmen Magana MD [address] [place] [address] [place] [address] PCP - General Family Medicine 04/11/17 07/18/20 documented as of this encounter
--- OUTSIDE RECORDS SUMMARY | 2024-03-04 19:47 | XMS_ITS | Encounter Summary ---
Author Organization [facility] [place] [address] Care Team Providers Care State Epidemiologist Name Role Phone Ronnie Stokes MD Primary Care Provider [phone] Encounter Details Date Type Department Care Team (Late st Contact Info) Description 03/30/2015 Orders [place] [phone] Shmair Quispe MD [facility] [place] [address] Presence of left artificial knee joint Social [...] 9:30 AM EST Office [place] [phone] Walt Wiseman III, MD [facility] [place] [address] documented as of this encounter Results * XR Knee Diagnostic 1 Or 2 View Left (NR GENERIC) (04/05/2015 9:26 AM EST) Anatomical Region Laterality Modality Knee Left Digital Radiogra phy Impressions 04/05/2015 10:21 AM EST IMPRESSION: A left knee prosthesis is present without complication or change. Narrative 04/05/2015 10:21 AM EST EXAMINATION: XR KNEE DIAGNOSTIC 1 OR 2 VIEW LEFT CLINICAL HISTORY: Lt TKA DOS 01/06/14 TECHNIQUE: AP standing both knees and lateral left knee COMPARISON: February 14, 2014 FINDINGS: A left-sided knee prosthesis is present. The prosthesis is well-positioned without periprosthetic fracture or lucency. The prosthesis is unchanged in appearance since the prior examination. There is mild narrowing of the medial compartment of the right knee without change. Procedure Note Dev Dowd MD - 04/05/2015 EXAMINATION: XR KNEE DIAGNOSTIC 1 OR 2 VIEW LEFT CLINICAL HISTORY: Lt TKA DOS 01/06/14 TECHNIQUE: AP standing both knees and lateral left knee COMPARISON: February 14, 2014 FINDINGS: A left-sided knee prosthesis is present. The prosthesis iswell-positioned without periprosthetic fracture or lucency. The prosthesis is unchangedin appearance since the prior examination. There is mild narrowing of the medial compartment of the right kneewithout change. IMPRESSION IMPRESSION: A left knee prosthesis is present without complication or change. Shamir Quispe MD IMG DX ORDERABLES documented in this encounter Visit Diagnoses Diagnosis Presence of left artificial knee joint Knee joint replacement by other means Presence of left artificial knee joint Knee joint replacement by other means documented in this encounter Care Teams State Epidemiologist Relationship Specialty Start Date End Date Ronnie Stokes MD [address] [place] [id number] PCP - General 12/01/13 04/10/17 documented as of this encounter
--- OUTSIDE RECORDS SUMMARY | 2024-03-04 19:47 | XMS_ITS | Encounter Summary ---
Author Organization [facility] [place] [address] Care Team Providers Care Time Buyer Name Role Phone Ronnie Stokes MD Primary Care Provider [phone] Reason for Visit * Auth/Cert Specialty Diagnoses / Procedures Referred By Raffaele taylor Referred To Contact Diagnoses 3 years due to personal history of multiple polyps Procedures PRO COLONOSCOPY, DIAGNOSTIC COLONOSCOPY, DIAGNOSTIC Referral ID Status Reason Start Date Expiration Date Visits Re quested Visits Authorized [id number] 1 1 Encounter Details Date Type Department Care Team (Late st Contact Info) Description 03/07/2016 11:00 AM EDT - 03/07/2016 11:45 AM EDT Surgery [place] [phone] Eliel Nixon MD [facility] [place] [address] COLONOSCOPY FLEXIBLE, WITH BX (WRVU 3.56) Social History Tobacco Use Types Packs/Day Years [...] Sign Reading Time Taken Comments Blood Pressure 125/77 03/07/2016 11:45 AM EDT Pulse 78 03/07/2016 11:45 AM EDT Temperature - - Respiratory Rate 9 03/07/2016 11:35 AM EDT Oxygen Saturation 96% 03/07/2016 11:45 AM EDT Inhaled Oxygen Concentration - - Weight [...] to be checked. Friday-Friday Same Day Endo [phone]-8p Otherwise contact [phone] and ask to speak to the human resources department supervisor therapist occupational Follow up care is a henry part [...] left total knee arthroplasty 01/06/2014 Brittaney Z96.659 Medications: Reviewed in EDH Allergies Allergen [...] 9:30 AM EST Office [place] [address] Walt Wiseman III, MD [facility] [place] [place] [address] documented as of this encounter Procedures Procedure [...] Report (03/07/2016 12:46 PM EDT) Final Diagnosis [id number] ? Location: 4T; EA09; A The signing [...] sing: (T1) ??sns 03/11/2016 2:24 PM EDT [facility] GI Biopsy 03/07/2016 12:4 6 PM EDT 03/07/2016 12:46 PM EDT Eliel Nixon MD PATHOLOGY/CYTOLOG Y ORDERABLES Performing Organization Address [facility] Co de Phone Number [facility] [place] [address] * Specimen to Pathology (surgical or derm) (03/07/2016 12:46 PM EDT) AP Specimen 03/07/2016 12:4 6 PM EDT 03/07/2016 12:46 PM EDT Narrative [facility] - 03/07/2016 12:46 PM EDT Specimen requisition ordered. ??Separate Pathology report to follow Eliel Nixon MD PATHOLOGY/CYTOLOG Y ORDERABLES Performing Organization Address City/[facility]/[place]IP [place] [address] * COLONOSCOPY (03/07/2016 11:06 AM EDT) COLONOSCOPY [facility] Endoscopy Procedure Date: 03/07/2016 11:06 AM ? Patient Name: Netta Gregorio ? Date of : 1960 ? Age: 56 ? Order #: [id number] ? Instrument Name: [id number] ? Procedure: ? Colonoscopy Indications: ? Surveillance: Personal history of ? adenomatous polyps on last ? colonoscopy 3 years ago Patient Profile: ? This is a 56 year old female. Refer ? to note in patient chart for ? documentation of history and ? physical. Last Colonoscopy: 2013. Providers: ? Luciana Tinsley ? Ngoc, DARIANA, Tomeka Pearce, ? Water Pump Assembler Referring MD: ?Ronnie Stokes MD Medicines: ? [...] the physician, the nurse and the ? automotive technician in the pre-procedure area ? in [...] Action Action Date Dose Rate Site fentaNYL 50 mcg/mL multi-dose injection ONCE PRN, Starting on Gem 03/07/16 at 1121, Until Gem 03/07/16 at 1423, Intra-Operative (Intra-Procedure), Routine Given 03/07/2016 11:34 AM EDT 50 mcg Given 03/07/2016 11:30 AM EDT 50 mcg Given 03/07/2016 11:27 AM EDT 50 mcg lactated ringers infusion 50 mL/hr, Intravenous, CONTINUOUS, Starting on Gem 1016 at 1115, Until Gem 03/07/16 at 1216, Endoscopy (Day of Procedure) New Bag 03/07/2016 11:15 AM EDT 50 mL/hr 50 mL/hr midazolam (PF) (VERSED) 1 mg/mL multi-dose injection ONCE PRN, Starting on Gem 1016 at 1123, Until Gem 03/07/16 at 1423, Intra-Operative (Intra-Procedure), Routine Given 03/07/2016 11:35 AM EDT 1 mg Given 03/07/2016 11:27 AM EDT 1 mg Given 03/07/2016 11:23 AM EDT 1 mg documented in this encounter Active and Recently Administered Medications Times are shown in EDT. Continuous Medication Order 03/05/2016 03/06/2016 03/07/2016 lactated ringers infusion (CANCELED) 50 mL/hr, Intravenous, CONTINUOUS, Starting on Gem 10 at 1115, Until Gem 03/07/16 at 1216, Endoscopy (Day of Procedure) 1115 (New Bag - Prov ider: Shannon Eng RN) PRN Medication Order 03/05/2016 03/06/2016 03/07/2016 fentaNYL 50 mcg/mL multi-dose injection (CANCELED) ONCE PRN, Starting on Gem 1016 at 1121, Until Gem 03/07/16 at 1423, Intra-Operative (Intra-Procedure), Routine 1121 (Given - Provid er: Luciana Grossman RN)1127 (Given - Provider: Luciana Grossman RN)1130 (Given - Provider: Luciana Grossman RN)1134 (Given - Provider: Luciana Grossman RN) midazolam (PF) (VERSED) 1 mg/mL multi-dose injection (CANCELED) ONCE PRN, Starting on Gem 1016 at 1123, Until Gem 1016 at 1423, Intra-Operative (Intra-Procedure), Routine 1123 (Given - Provid er: Luciana Grossman RN)1127 (Given - Provider: Luciana Grossman RN)1135 (Given - Provider: Luciana Grossman RN) documented in this encounter Care Teams Time Buyer Relationship Specialty Start Date End Date Ronnie Stokes MD [address] [place] [address] [place] [address] PCP - General 12/01/13 04/10/17 documented as of this encounter
--- OUTSIDE RECORDS SUMMARY | 2024-03-04 19:47 | XMS_ITS | Encounter Summary ---
Author Organization [facility] [address] Care Team Providers Care Brickmason Apprentice Name Role Phone Ronnie Stokes MD Primary Care Provider [phone] Reason for Visit * Reason Onset Date Comments Reminder Appointment 11/24/2014 Encounter Details Date Type Department Care Team (Late st Contact Info) Description 11/24/2014 [place] [phone] Shamir Quispe MD [facility] [place] [address] Reminder Appointment Social History Tobacco Use Types Packs/Day Years [...] encounter Miscellaneous Notes * Telephone Encounter - Kendra Boston - 11/30/2014 3:16 PM EDT Was not able to contact patient, letter sent. * Telephone Encounter - Kendra Boston - 11/29/2014 9:46 AM EDT I have called and left a 2nd message for patient to call and schedule their reminder appointment. LEYDA PATIENT * Telephone Encounter - Jeimy Welch - 11/24/2014 3:46 PM EDT [id number] to schedule a reminder appointment with Dr. Garcia. documented in this encounter Plan of Treatment Upcoming Encounters Date Type Department Care Team (Late st Contact Info) Description 07/12/2024 9:30 AM EST [place] [address] Walt Wiseman III, MD [facility] [place] [address] documented as of this encounter Visit Diagnoses Not on filedocumented in this encounter Care Teams Brickmason Apprentice Relationship Specialty Start Date End Date Ronnie Stokes MD [address] [place] [address] [place] [address] PCP - General 12/01/13 04/10/17 documented as of this encounter
--- OUTSIDE RECORDS SUMMARY | 2024-03-04 19:47 | XMS_ITS | Encounter Summary ---
[place] [address] Care Team Providers Care Silk Screen Cutter Name Role Phone Ronnie Stokes MD Primary Care Provider [phone] Encounter Details Date Type Department Care Team (Late st Contact Info) Description 01/06/2014 2:56 PM EDT Anesthesia Event [place] [address] Demian Blanco MD [facility] [place] [address] Sherman Villagomez CRNA [facility] [place] [address] Anesthesia Record Procedure Summary Procedure Name Responsible Anesthesiologist Anesthesia Start Time Anesthesia Stop Time TOTAL KNEE ARTHROPLASTY (WRVU 19.6) (Left: Knee) Demian Blanco MD 01/06/14 1456 01/06/14 1710 Events Date Time Event Comment 01/06/2014 1346 1456 AN Verify 1456 Start 1500 An Start Data 1510 An Induction 1512 An Intubation 1520 Anesthesia Ready 1528 An Tourn Inflated 1529 Procedure Start 1626 An Tourn Deflated 1700 Extubation/LMA Out Pt extuba flaco smoothly after criteria met. Full reversal & recovery of muscle relaxation, exchanging well, lucid/following commands. orpharynx suctioned. VSS. Exchanging well after extubation. 1703 an stop data 1710 Stop Meds Name Total Midazolam 2 mg fentaNYL 250 mcg lidocaine IV 50 mg propofol 200 mg Rocuronium 50 mg ondansetron 4 mg dexAMETHasone 6 mg Neostigmine 2 mg Glycopyrrolate 0.4 mg tranexamic acid (CYKLOKAPRON) 1,740 mg i n sodium chloride 0.9% 117.4 mL 1,749 mg HYDROmorphone 1.4 mg ceFAZolin (ANCEF) 2g in dextrose 5% 50 m L 2 g Labetalol 15 mg lactated ringers 1,000 mL lactated ringers 1,000 mL * Agents Name O2 Air N2O Sevoflurane (et) * Blood No blood administrations on file. Lines, Drains, and Airways Type Details Placement Removal (RETIRED) Peripheral IV Line - Single Lumen 06/03/12; 1420; 01/06/14; 1639 06/03/12 1420 by Lexi Lyman 01/06/14 1639 by Radha Layton RN Urethral Catheter 01/06/14; indwelling double lumen catheter; 100% silicone; 16; inserted at this facility; 1; 5; 10; drainage bag to dependent drainage; tubing intact, per protocol/policy; 01/07/14; 0530 01/06/14 0000 by Hadley Shaw RN 01/07/14 0530 by Kami Russell RN Incision 01/06/14; knee; 01/28/22 (LDA cleanup utility RA#[id number]); 1715 (LDA cleanup utility RA#[id number]) 01/06/14 0000 by Hadley Shaw RN 01/28/22 1715 by Marvin Devlin (RETIRED) Peripheral IV Line - Single Lumen 01/06/14; 1335; metacarpal vein left (top of hand); [id number]-asrybc catheter system; 18 gauge, 1 in length; anesthesia Sterling; distraction, intradermal injection, tolerated well, appears comfortable; 09/15/17 (Auto removal via utility); 09 (Auto removal via utility) 01/06/14 1335 by Konrad Hernandez, DARIANA 09/15/17 0921 by Keon Walsh (RETIRED) Peripheral IV Line - Single Lumen metacarpal vein right (top of hand); 16 gauge; [employer]CHNICIAN; 09/15/17 (Auto removal via utility); 0921 (Auto removal via utility) 01/06/14 1525 by 09/15/17 0921 by Epic, User ETT Mask Ventilation: Adjunct (2); ETT Size: 7 mm; Rockwell Blade: 2; Notes: Asleep, Stylette, Pre-O2; Attempts: 1; Laryngoscopy Grade: 1; ETT Placement Verified By: Auscultation, Capnometry; Secured at Teeth: 21 cm; Removal Date: 01/06/14; Removal Time: 1700 01/06/14 1529 by 01/06/14 1700 by Sherman Villagomez CRNA Drain/Device Site 01/06/14; 1630; Left ; knee; 01/07/14 01/06/14 1630 by Radha Layton RN 01/07/14 0000 by Kami Russell RN documented in this encounter Social History Tobacco Use Types Packs/Day Years Used Date Smoking Tobacco: Never Smokeless Tobacco: Never Alcohol Use Standard Drinks/Week Comments Yes 0 (1 standard drink = 0.6 oz pur e alcohol) occasional Sex and Gender Information Value Date Recorded Sex Assigned at Not on file Gender Identity Not on file Sexual Orientation Not on file documented as of this encounter OR Notes * Anesthesia Postprocedure Evaluation - Demian Blanco MD - 01/07/2014 9:35 AM EDT Patient: Netta Gregorio Procedure(s) Performed: Procedure(s): @TOTAL KNEE ARTHROPLASTY MODIFIER PFC STABILIZED FIXED MODULAR DEPUY Actual Anesthetic: general, regional Patient location: PACU Post-op pain: Adequate analgesia Post-op nausea: no nausea or vomiting Last Vitals: Filed Vitals: 01/07/14 0848 BP: 109/61 Pulse: 67 Temp: 36.7 ??C (98.1 ??F) Resp: 17 Post-op cardiovascular and respiratory status: is stable Level of consciousness: awake, alert and oriented Complications: no apparent complications and tolerated the procedure well Fluid Status: normal * Anesthesia Procedure Notes - Rommel Gonzalez MD - 01/06/2014 2:01 PM EDT Associated Order(s): ANESTHESIA BLOCK Procedure: Anesthesia Block Block: Post-op Pain Control, adductor canal block Post-op pain management at the request of surgeon. Start time: 01/06/2014 1:50 PM End time: 01/06/2014 2:00 PM This patient was greeted in the block room and the risks and benefits of the anesthetic block were reviewed. The risks of infection, bleeding, local anesthetic toxicity, and nerve injury were discussed. Specifically, the approximate risk of nerve injury (06/2999-06/4999) including neuropathy, loss of sensation and motor function, whether permanent or temporary, was discussed as well as the fact that post-surgical nerve injury can be unrelated to the actual injection and may be related to intra-operative issues such as positioning and tourniquet usage. The anesthetic consent was obtained. The timeout was performed prior to procedure start. Standard ASA monitors were applied. Indication/Prep Position: supine Prep: chlorhexidine and patient draped Laterality: left Ultrasound Guidance: live and in-plane Skin Medication lidocaine 1% 3 ml Injection Injection technique:single-shot Needle Length: 10 cm Gauge: 22 Needle Type: S-pdvyi-aiwbd Medication injection made incrementally with aspirations. Nerve infiltration solution through a needle Ropivicaine 0.5% 30 mL Additional Notes Intermittently negative aspiration throughout injection of local anesthetic. Resident: Carlos Fellow: Attending Physician: [place] ~~~~~~~~~~~~~~~~~~~~~~~~~~~~~~~~~~~~~~~~~~~~~~~~~~~~~~~~~~~~ * Anesthesia Preprocedure Evaluation - Rommel Gonzalez MD - 01/06/2014 9:38 AM EDT Pre-Anesthesia Evaluation for: Netta Gregorio a 53 y.o. female. Procedure(s): @TOTAL KNEE ARTHROPLASTY MODIFIER PFC STABILIZED FIXED MODULAR DEPUY Patient Active Problem List Diagnosis ??? Obesity ??? Sleep apnea ??? Asthma ??? Primary osteoarthritis of left knee ??? IBS (irritable bowel syndrome) ??? GERD (gastroesophageal reflux disease) ??? Chest pain, unspecified No past medical history on file. Past Surgical History Procedure Date ??? Colonoscopy, biopsy 06/03/2012 COLONOSCOPY FLEXIBLE, WITH BX performed by Alireza James MD at [facility] ??? Upper gi endoscopy, biopsy 06/03/2012 EGD WITH BIOPSY performed by Alireza James MD at [facility] ??? Back surgery 01/2013 ??? Meniscectomy 1996 left ??? Anterior cruciate ligament repair 2011 left ??? Hand surgery bilat thumb ligament repair, small finger on right hand x2 (fx) ??? Cholecystectomy, laparoscopic 2011 ??? Laparoscopy 1995 ??? [place] tooth extraction three teeth ??? Dilation and curettage of uterus 2011 History Substance Use Topics ??? Smoking status: Never Smoker ??? Smokeless tobacco: Never Used ??? Alcohol Use: 0.0 oz/week 0 Cans of beer per week Comment: occasional History Drug Use No Allergies Allergen Reactions ??? Codeine Phosphate Trouble breathing ??? Darvocet A500 (Propoxyphene N-Acetaminophen) Trouble breathing ??? Unable To Find (Unclassified Drug) Horses, guinea pigs and other animal dander-causes itchy eyes and nasal congestion Medications: MAR and/or home medications have been reviewed. Physical Exam: There were no vitals filed for this visit. There is no height or weight on file to calculate BMI. Airway Assessment: Mallampati: II TM distance: <3 FB Neck ROM: full Cardiovascular Assessment: Pulmonary Assessment: Dental Assessment: [facility] Assessment: Anesthesia Plan: ASA 3 general and regional, with a(n) intravenous induction This is a 53 year old female with a past medical history significant for morbid obesity, HTN, asthma, J[place] (not using CPAP) and GERD who presents for a LEFT TKA. Notable labs: Hgb 13.6, platelets/ coags wnl, lytes acceptable, T&S active/ Ab neg Plan GETA, 2nd PIV, RA Discussed anesthetic plan with the patient. She agrees to the above with an adjuvant adductor canalblock for postoperative pain control. She understands the risk of bleeding, infection, and permanent nerve injury and would like to proceed. Region - Other Informed Consent: [facility]. Assessment: documented in this encounter Miscellaneous Notes * Addendum Note - Oscar Putnam MD - 02/21/2014 9:36 AM EDT Addendum created 02/21/14935 by Oscar Putnam MD Modules edited:Anesthesia Attestations, Charges VN * Addendum Note - Oscar Putnam MD - 02/21/2014 9:36 AM EDT Addendum created 02/21/14935 by Oscar Putnam MD Modules edited:Anesthesia Attestations, Charges VN documented in this encounter Plan of Treatment Upcoming Encounters Date Type Department Care Team (Late st Contact Info) Description 07/12/2024 9:30 AM EST [place] [address] Walt Wiseman III, MD [facility] [place] [address] documented as of this encounter Procedures Procedure Name Priority Date/Time Associated Diagnosis Comments ANESTHESIA BLOCK Routine 01/06/2014 2:02 PM EDT documented in this encounter Results * Anesthesia Block (01/06/2014 2:02 PM EDT) Narrative Rmomel Gonzalez MD - 01/06/2014 2:02 PM EDT Rommel Gonzalez MD ? 01/06/2014 ??2:02 PM Procedure: ??Anesthesia Block Block: Post-op Pain Control, adductor canal block Post-op pain management at the request of surgeon. Start time: 01/06/2014 1:50 PM End time: 01/06/2014 2:00 PM This patient was greeted in the block room and the risks and benefits of the anesthetic block were reviewed. ??The risks of infection, bleeding, local anesthetic toxicity, and nerve injury were discussed. ??Specifically, the approximate risk of nerve injury (06/2999-06/4999) including neuropathy, loss of sensation and motor function, whether permanent or temporary, was discussed as well as the fact that post-surgical nerve injury can be unrelated to the actual injection and may be related to intra-operative issues such as positioning and tourniquet usage. ?? The anesthetic consent was obtained. The timeout was performed prior to procedure start. ??Standard ASA monitors were applied. Indication/Prep Position: supine Prep: chlorhexidine and patient draped Laterality: left Ultrasound Guidance: live and in-plane Skin Medication lidocaine 1% 3 ml Injection Injection technique:single-shot Needle Length: 10 cm Gauge: 22 Needle Type: T-stzke-rkbaz Medication injection made incrementally with aspirations. Nerve infiltration solution through a needle Ropivicaine 0.5% 30 mL Additional Notes Intermittently negative aspiration throughout injection of local anesthetic. Resident: Carlos Fellow: Attending Physician: [place] ~~~~~~~~~~~~~~~~~~~~~~~~~~~~~~~~~~~~~~~~~~~~~~~~~~~~~~~~~~~~ Procedure Note Rommel Gonzalez MD - 01/06/2014 2:01 PM EDT Procedure: Anesthesia Block Block: Post-op Pain Control, adductor canal block Post-op pain management at the request of surgeon. Start time: 01/06/2014 1:50 PM End time: 01/06/2014 2:00 PM This patient was greeted in the block room and the risks and benefits ofthe anesthetic block were reviewed. The risks of infection, bleeding,local anesthetic toxicity, and nerve injury were discussed. Specifically,the approximate risk of nerve injury (06/2999-06/4999) including neuropathy,loss of sensation and motor function, whether permanent or temporary, wasdiscussed as well as the fact that post- surgical nerve injury can beunrelated to the actual injection and may be related to intra-operativeissues such as positioning and tourniquet usage. The anesthetic consentwas obtained. The timeout was performed prior to procedure start.Standard ASA monitors were applied. Indication/Prep Position: supine Prep: chlorhexidine and patient draped Laterality: left Ultrasound Guidance: live and in-plane Skin Medication lidocaine 1% 3 ml Injection Injection technique:single-shot Needle Length: 10 cm Gauge: 22 Needle Type: V-fftxi-dypne Medication injection made incrementally with aspirations. Nerve infiltration solution through a needle Ropivicaine 0.5% 30 mL Additional Notes Intermittently negative aspiration throughout injection of localanesthetic. Resident: Carlos Fellow: Attending Physician: [place] ~~~~~~~~~~~~~~~~~~~~~~~~~~~~~~~~~~~~~~~~~~~~~~~~~~~~~~~~~~~~ Rommel Gonzalez MD VEHICLE OPERATOR [facility] documented in this encounter Visit Diagnoses Not on filedocumented in this encounter Administered Medications Inactive Administered Medications - up to 3 most recent administrations Medication Order MAR Action Action Date Dose Rate Site ceFAZolin (ANCEF) 2g in dextrose 5% 50 mL 2 g, Intravenous, ONCE, 1 dose, On Gem 01/06/14 at 1330, To be administered upon arrival to the OR within one hour prior to incision., Day of Surgery (Day of Procedure), Indication for (Active or Suspected): Prophylaxis Given 01/06/2014 3:15 PM EDT 2 g dexamethasone (DECADRON) injection PRN, Starting on Gem 01/06/14 at 1535, Until Gem 01/06/14 at 1717, Anesthesia Intra-op, Routine Given 01/06/2014 3:35 PM EDT 6 mg fentaNYL 50mcg/mL injection PRN, Starting on Gem 01/06/14 at 1510, Until Gem 01/06/14 at 1717, Pain, Anesthesia Intra-op, Routine Given 01/06/2014 3:39 PM EDT 50 mcg Given 01/06/2014 3:28 PM EDT 50 mcg Given 01/06/2014 3:10 PM EDT 150 mcg glycopyrrolate (ROBINUL) injection PRN, Starting on Gem 01/06/14 at 1647, Until Gem 01/06/14 at 1717, Anesthesia Intra-op, Routine Given 01/06/2014 4:47 PM EDT 0.4 mg HYDROmorphone (DILAUDID) injection PRN, Starting on Gem 01/06/14 at 1540, Until Gem 01/06/14 at 1717, Pain, Anesthesia Intra-op, Routine Given 01/06/2014 4:55 PM EDT 0.2 mg Given 01/06/2014 4:51 PM EDT 0.2 mg Given 01/06/2014 3:40 PM EDT 1 mg labetalol (NORMODYNE;TRANDATE) injection PRN, Starting on Gem 01/06/14 at 1619, Until Gem 01/06/14 at 1717, High Blood Pressure, Anesthesia Intra-op, Routine Given 01/06/2014 4:51 PM EDT 5 mg Given 01/06/2014 4:39 PM EDT 5 mg Given 01/06/2014 4:19 PM EDT 5 mg lactated ringers infusion CONTINUOUS PRN, Starting on Gem 01/06/14 at 1456, Until Gem 01/06/14 at 1717, Anesthesia Intra-op New Bag 01/06/2014 3:49 PM EDT mL New Bag 01/06/2014 2:56 PM EDT mL lactated ringers infusion CONTINUOUS PRN, Starting on Gem 01/06/14 at 1520, Until Gem 01/06/14 at 1717, Anesthesia Intra-op New Bag 01/06/2014 3:20 PM EDT mL lidocaine (PF) (XYLOCAINE) 100 mg/5 mL (2 %) injection PRN, Starting on Gem 01/06/14 at 1510, Until Gem 01/06/14 at 1717, Anesthesia Intra-op, Routine Given 01/06/2014 3:10 PM EDT 50 mg midazolam (PF) (VERSED) 1 mg/mL injection PRN, Starting on Gem 01/06/14 at 1456, Until Gem 01/06/14 at 1717, Sleep, Anesthesia Intra-op, Routine Given 01/06/2014 3:00 PM EDT 1 mg Given 01/06/2014 2:56 PM EDT 1 mg neostigmine (PROSTIGMINE) injection PRN, Starting on Gem 01/06/14 at 1647, Until Gem 01/06/14 at 1717, Anesthesia Intra-op, Routine Given 01/06/2014 4:47 PM EDT 2 mg ondansetron (ZOFRAN) injection PRN, Starting on Gem 01/06/14 at 1636, Until Gem 01/06/14 at 1717, Nausea, Anesthesia Intra-op, Routine Given 01/06/2014 4:36 PM EDT 4 mg propofol (DIPRIVAN) 10 mg/mL bolus injection (Anesthesia) PRN, Starting on Gem 01/06/14 at 1510, Until Gem 01/06/14 at 1717, Anesthesia Intra-op Given 01/06/2014 3:10 PM EDT 200 mg rocuronium (ZEMURON) injection PRN, Starting on Gem 01/06/14 at 1500, Until Gem 01/06/14 at 1717, Anesthesia Intra-op, Routine Given 01/06/2014 3:00 PM EDT 50 mg tranexamic acid (CYKLOKAPRON) 1,740 mg in sodium chloride 0.9% 117.4 mL 1,740 mg (15 mg/kg/dose ? 116.6 kg), Intravenous, ONCE, 1 dose, On Gem 01/06/14 at 1330, Administer over 30 Minutes, Dilute tranexamic acid dose in 100 mL sodium chloride 0.9% prior to administration. For patients less than or equal to 200 kg infuse over 30 minutes. For patients greater than 200 kg infuse over 60 minutes., Day of Surgery (Day of Procedure) [facility] [place] 01/06/2014 2:56 PM EDT 1,749 mg documented in this encounter Care Teams Silk Screen Cutter Relationship Specialty Start Date End Date Ronnie Stokes MD [address] [place] [address] [place] [address] PCP - General 12/01/13 04/10/17 documented as of this encounter
--- OUTSIDE RECORDS SUMMARY | 2024-03-04 19:47 | XMS_ITS | Encounter Summary ---
Author Organization [facility] Address [facility] [place] [address] Care Team Providers Care Drafter Civil Name Role Phone Ronnie Stokes MD Primary Care Provider [phone] Reason for Visit * Reason Comments Aftercare Of Tjr LT TKA 01/06/14 Encounter Details Date Type Department Care Team (Late st Contact Info) Description 04/05/2015 10:40 AM EST Office [place] [address] Shamir Quispe MD [facility] [place] [address] Status post total left knee replacement Social [...] Sign Reading Time Taken Comments Blood Pressure 114/70 04/05/2015 10:15 AM EST Pulse 63 04/05/2015 10:15 AM EST Temperature - - Respiratory Rate - - Oxygen Saturation - - Inhaled Oxygen Concentration - - Weight 119.2 kg (262 lb 12. 8 oz) 04/05/2015 10:15 AM EST fully dressed Height 172.7 cm (5' 8) 04/05/2015 10:1 5 AM EST verbal Body Mass Index 39.96 04/05/2015 10:15 AM EST documented in this encounter Progress Notes * Adan Cummins PA - 04/05/2015 10:43 AM EST Subjective: Netta Zavala is now 1 year post left total knee arthroplasty. Pain is controlled without any medications. The patient denies fever, wound drainage, increasing redness, pus, increasing pain, increasing swelling. Problems reported: Patient states that on occasion the knee aches and is stiff if she s its for awhile and crosses her legs She is ambulating with a normal gait and no assistive devices. ROS: Denies fevers, chills, night sweats, nausea, or vomiting. Objective: BP 114/70 mmHg Pulse 63 Ht 172.7 cm (5' 8) Wt 119.205 kg (262 lb 12.8 oz) BMI 39.97 kg/m2 General : alert, appears stated age and cooperative Gait: Normal. Tenderness: none Effusion: no DVT Evaluation: No evidence of DVT seen on physical exam. I have made the following determinations: Post Op left Knee Exam: Gait Abnormality: Normal Knee ROM: Extension:0 Flexion: 120 Alignment: 0-4 degrees Varus Stability: A/P Translation <5mm Varus (lateral stability) <5mm Valgus (medial stability) <5mm Extension La degrees or less Patella Tracking: Normal Pulses Palpable: left PT:Yes left DP:Yes Motor/Sensory: Distal Motor: Normal Distal Sensory: Normal Quadriceps Strength:5 Imaging X-rays demonstrate a well seated arthroplasty Assessment: Status post left total knee arthroplasty. Plan: Continue with activities as tolerated We discussed the appropriate precautions surrounding dental prophylaxis. We also discussed maintaining good foot care and giving prompt attention to any source of infection throughout the body including foot ulcers and urinary tract infections. Follow up: 1 year. with x-rays of the left knee OVIDIO CRABTREE documented in this encounter Plan of Treatment Upcoming Encounters Date Type Department Care Team (Late st Contact Info) Description 07/12/2024 9:30 AM EST [place] [address] Walt Wiseman III, MD [facility] [place] [address] documented as of this encounter Visit Diagnoses Diagnosis Status post total left knee replacement documented in this encounter Care Teams Drafter Civil Relationship Specialty Start Date End Date Ronnie Stokes MD [address] [place] [address] [place] [address] PCP - General 12/01/13 04/10/17 documented as of this encounter
--- OUTSIDE RECORDS SUMMARY | 2024-03-04 19:47 | XMS_ITS | Encounter Summary ---
Author Organization [facility] Address [facility] [place] [address] Care Team Providers Care Pens And Pencils Dipper Name Role Phone Ronnie Stokes MD Primary Care Provider [phone] Reason for Visit * Reason Comments Follow-up left TKA - DOS 4 Encounter Details Date Type Department Care Team (Late st Contact Info) Description 04/18/2014 1:30 PM EST Office [place] [address] Shamir Crabtree MD [facility] [place] [address] Knee joint replacement by other means Discharge Disposition: Home Social History Tobacco Use [...] Sign Reading Time Taken Comments Blood Pressure 118/76 04/18/2014 1:52 PM EST Pulse 59 04/18/2014 1:52 PM EST Temperature 36.6 ??C (97.9 ??F) 04/18/2014 1:52 PM ES T Respiratory Rate - - Oxygen Saturation - - Inhaled Oxygen Concentration - - Weight 112.9 kg (249 lb) 04/18/2014 1:52 PM EST fully clothed Height 172.7 cm (5' 8) 04/18/2014 1:52 PM EST v erbalized Body Mass Index 37.86 04/18/2014 1:52 PM EST documented in this encounter Progress Notes * Shamir Crabtree MD - 04/18/2014 1:56 PM EST Patient Name: Whitney Al : 1960 MR#: [id number] Case Date: 01/06/2014 Surgeon: Surgeon(s) and Role: * Diane Rangel PA - Physician Vice President Supply Chain * Marco A Vera MD - Resident-Remote Ruby On Rails Developer * Shamir Crabtree MD - Primary PROCEDURE: left total knee arthroplasty. HPI: Whitney Al is a very pleasant 54 y.o. year-old female who presents for a 3 months follow-up of the above procedure. The patient has been doing very well and her pain is moderately improved overpreoperative status. No fevers, chills, nausea, vomiting, or symptoms of infection. Whitney has been ambulating with no assistive device and working with PT. She has noticed some calf pain over the pastcouple of weeks, but no difficulty breathing. Physical Exam: Well-appearing female in no acute distress. Alert and Oriented x 3 and answers all questions appropriately. The incision is well healed, with no signs of infection. Mild calf tenderness and mildly positive Abigail's sign. Knee Exam: Left Gait Abnormality: Antalgic Knee ROM: Extension:0 Flexion: 115 Alignment: 0-4 degrees Neutral Stability: A/P Translation <5mm Varus <5mm Valgus <5mm Extension La degrees or less Patella Tracking: Normal Pulses Palpable: Left PT:Yes Left DP:Yes Motor/Sensory: Distal Motor: Normal Distal Sensory: Normal Quadriceps Strength: 4 ASSESSMENT/PLAN: 3 months post-op and doing well. We will order a DVT study today to be on the safeside, but my suspicion is fairly low. If neg, we will continue PT. Continue weightbearing as tolerated and working on range of motion, and we will see her back in 9 months for repeat examination. X-rays will be needed at that time. Patient may return to normal activities as her pain and function allow. We discussed the appropriate precautions surrounding dental prophylaxis. I stressed that she shouldavoid elective dental procedures for the first 6 months after surgery and then call the office for a prescription prior to any further dental work for the lifetime of the joint replacement. We also discussed maintaining good foot care and giving prompt attention to any source of infection throughout the body including foot ulcers and urinary tract infections. Signed: SHAMIR CRABTREE MD 04/18/2014 documented in this encounter Plan of Treatment Upcoming Encounters Date Type Department Care Team (Late st Contact Info) Description 07/12/2024 9:30 AM EST Office [place] [address] Walt Wiseman III, MD [facility] [place] [address] documented as of this encounter Results * Duplex for DVT, Leg, Unilat (04/18/2014 2:44 PM EST) VB Text Report Department: Vascular Surgery Lab Patient: [id number] (WHITNEY AL) CPT Code: 36646 ICD-9: 729.5 Referring Physician: SHAMIR CRABTREE Indication: [...] PM EST Shamir Crabtree MD VASCULAR ORDERABLES [facility]AS[facility] documented in this encounter Visit Diagnoses Diagnosis Knee joint replacement by other means documented in this encounter Care Teams Pens And Pencils Dipper Relationship Specialty Start Date End Date Ronnie Stokes MD [address] [place] [address] [place] [address] PCP - General 12/01/13 04/10/17 documented as of this encounter
--- OUTSIDE RECORDS SUMMARY | 2024-03-04 19:47 | XMS_ITS | Encounter Summary ---
Author Organization [facility] Address [facility] [place] [address] Care Team Providers Care Director Revenue Name Role Phone Ronnie Stokes MD Primary Care Provider [phone] Reason for Visit * Reason Comments Left Knee Pain 01/06/2014 L TKR Encounter Details Date Type Department Care Team (Late st Contact Info) Description 03/14/2014 12:50 PM EDT Office [place] [address] Shamir Quispe MD [facility] DR ORTHOPA[place] [address] Aftercare following joint replacement (Primary Dx); S/P total knee arthroplasty, left Discharge Disposition: Home Social History Tobacco [...] Sign Reading Time Taken Comments Blood Pressure 120/66 03/14/2014 1:26 PM EDT Pulse 120 03/14/2014 1:26 PM EDT Temperature - - Respiratory Rate - - Oxygen Saturation - - Inhaled Oxygen Concentration - - Weight 112.5 kg (248 lb) 03/14/2014 1:26 PM EDT Height 172.7 cm (5' 8) 03/14/2014 1:26 PM EDT Body Mass Index 37.71 03/14/2014 1:26 PM EDT documented in this encounter Progress Notes * Shamir Quispe MD - 03/14/2014 1:57 PM EDT HISTORY: Ms. Gregorio is a 54-year-old female who is two months status post left total knee arthroplasty. I had her come back today just to check on her range of motion. She has been making good progress with outpatient PT and feels like things are improving. She still has some pain and is taking Dilaudid before PT, but other than that is doing well. PHYSICAL EXAMINATION: She has a well healed surgical incision. Her range of motion is 0 to 105 degrees today. She has got good stability throughout. ASSESSMENT/PLAN: A 54-year-old female two months status post left total knee arthroplasty. Ms. Gregorio is making good gains since the last time I saw her. She is now back on track and I think she will achieve an excellent range of motion. I have encouraged her to continue working with outpatient PT. I refilled her Dilaudid today. We will see her back in one month for final range of motion check. If things are looking good, then we will put her on a regular followup schedule. I have made the following determinations: Post Op Left Knee Exam: Gait Abnormality: Antalgic Knee ROM: Extension:0 Flexion: 105 Alignment: 0-4 degrees Neutral Stability: A/P Translation <5mm Varus (lateral stability) <5mm Valgus (medial stability) <5mm Extension La degrees or less Patella Tracking: Normal Pulses Palpable: Left PT:Yes Left DP:Yes Motor/Sensory: Distal Motor: Normal Distal Sensory: Normal Quadriceps Strength:4 documented in this encounter Plan of Treatment Upcoming Encounters Date Type Department Care Team (Late st Contact Info) Description 07/12/2024 9:30 AM EST [place] [address] Walt Wiseman III, MD [facility] [place] [address] documented as of this encounter Visit Diagnoses Diagnosis Aftercare following joint replacement- Primary S/P total knee arthroplasty, left documented in this encounter Care Teams Director Revenue Relationship Specialty Start Date End Date Ronnie Stokes MD [address] [place] [address] [place] [address] PCP - General 12/01/13 04/10/17 documented as of this encounter
--- OUTSIDE RECORDS SUMMARY | 2024-03-04 19:47 | XMS_ITS | Encounter Summary ---
[place] [address] Care Team Providers Care Director Television Name Role Phone Ronnie Stokes MD Primary Care Provider [phone] Reason for Visit * Reason Onset Date Comments Medication Refill 02/28/2014 Encounter Details Date Type Department Care Team (Late st Contact Info) Description 02/28/2014 [place] [id number] Yuli Kaur RN Aftercare following joint replacement (Primary Dx) [...] Telephone Encounter - Yuli Colon RN - 02/28/2014 1:51 PM EDT Date of surgery: S/P left total knee arthroplasty 01/06/2014 Brittaney Last refill: 02/14/14 Dilaudid 2 mg #90 Patient's usage: 8 per day Plan going forward: continue as needed and wean as tolerated Medication dispensed: Dilaudid 2 mg #80 - script sent to her home address. documented in this encounter Plan of Treatment Upcoming Encounters Date Type Department Care Team (Late st Contact Info) Description 07/12/2024 9:30 AM EST [place] [address] Walt Wiseman III, MD [facility] [place] [address] documented as of this encounter Visit Diagnoses Diagnosis Aftercare following joint replacement- Primary documented in this encounter Care Teams Director Television Relationship Specialty Start Date End Date Ronnie Stokes MD [address] [place] [address] [place] [address] PCP - General 12/01/13 04/10/17 documented as of this encounter
--- OUTSIDE RECORDS SUMMARY | 2024-03-04 19:47 | XMS_ITS | Encounter Summary ---
[place] [address] Care Team Providers Care Maintenance Mechanic Helper Name Role Phone Ronnie Stokes MD Primary Care Provider [phone] Encounter Details Date Type Department Care Team (Late st Contact Info) Description 04/16/2016 Orders Only [place] [address] Maricruz Archer, RN Hx of arthroplasty Social History Tobacco Use [...] AM EST Office Visit [place] [address] Walt Wiseman III, MD [facility] [place] [address] documented as of this encounter Visit Diagnoses Diagnosis Hx of arthroplasty Personal history of surgery to other organs documented in this encounter Care Teams Maintenance Mechanic Helper Relationship Specialty Start Date End Date Ronnie Stokes MD [address] [place] [address] [place] [address] PCP - General 12/01/13 04/10/17 documented as of this encounter
--- OUTSIDE RECORDS SUMMARY | 2024-03-04 19:47 | XMS_ITS | Encounter Summary ---
[place] [address] Care Team Providers Care Roll Capper Name Role Phone Ronnie Stokes MD Primary Care Provider [phone] Encounter Details Date Type Department Care Team (Late st Contact Info) Description 12/23/2013 Anti-Coag Telephone [place] [address] Yuli Kaur RN Social History Tobacco Use [...] as of this encounter Progress Notes * Yuli Colon RN - 12/23/2013 10:22 AM EDT When patient was seen on 12/01/13 she did not have her prescription insurance information with her. She was to call back so we could check her benefits for Xarelto. There have been 3 messages left for her since that time to call back with the information. Surgery is planned for 12/28/13 and as of today we do not have benefit determination. documented in this encounter Plan of Treatment Upcoming Encounters Date Type Department Care Team (Late st Contact Info) Description 07/12/2024 9:30 AM EST Office [place] [address] Walt Wiseman III, MD [facility] [place] [address] documented as of this encounter Visit Diagnoses Not on filedocumented in this encounter Care Teams Roll Capper Relationship Specialty Start Date End Date Ronnie Stokes MD [address] [place] [address] [place] [address] PCP - General 12/01/13 04/10/17 documented as of this encounter
--- OUTSIDE RECORDS SUMMARY | 2024-03-04 19:47 | XMS_ITS | Encounter Summary ---
[place] [address] Care Team Providers Care Pediatric Occupational Therapist Name Role Phone Ronnie Stkoes MD Primary Care Provider [phone] Reason for Visit * Reason Onset Date Comments Medication Refill 03/23/2014 Encounter Details Date Type Department Care Team (Late st Contact Info) Description 03/23/2014 Refill [place] [phone] Yuli Kaur RN Aftercare following joint replacement [...] Telephone Encounter - Yuli Colon RN - 03/23/2014 3:13 PM EDT Date of surgery: S/P left total knee arthroplasty 01/06/2014 Brittaney Last refill: 03/14/14 Dilaudid 2 mg #60 Patient's usage: 6 per day. She has returned to work half days and finds that she still needs the medication when she gets home and before bed. Plan going forward: suggested she try adding an anti inflammatory such as ibuprofen or aleve and decreasing her pain medication. We would like for her to be off of the medication by three months postop (around the first week of April) Medication dispensed: Dilaudid 2 mg #50 - script to be sent to her home address tomorrow. documented in this encounter Plan of Treatment Upcoming Encounters Date Type Department Care Team (Late st Contact Info) Description 07/12/2024 9:30 AM EST Office [place] [address] Walt Wiseman III, MD [facility] [place] [address] documented as of this encounter Visit Diagnoses Diagnosis Aftercare following joint replacement- Primary documented in this encounter Care Teams Pediatric Occupational Therapist Relationship Specialty Start Date End Date Ronnie Stokes MD [address] [place] [address] [place] [address] PCP - General 12/01/13 04/10/17 documented as of this encounter
--- OUTSIDE RECORDS SUMMARY | 2024-03-04 19:47 | XMS_ITS | Encounter Summary ---
Author Organization [facility] [place] [address] Care Team Providers Care Shot Core Drill Operator Name Role Phone Adiel Ryder MD Primary Care Provider [phone] Encounter Details Date Type Department Care Team (Late st Contact Info) Description 01/06/2014 2:54 PM EDT - 01/06/2014 5:22 PM EDT Surgery [place] [address] Shamir Crabtree MD [facility] DR [place]OP[place] [address] TOTAL KNEE ARTHROPLASTY (WRVU 19.6) Social History Tobacco Use Types Packs/Day Years [...] Sign Reading Time Taken Comments Blood Pressure 119/79 01/08/2014 9:46 AM EDT Pulse 82 01/08/2014 9:46 AM EDT Temperature 36.9 ??C (98.4 ??F) 01/08/2014 9:46 AM ED T Respiratory Rate 18 01/08/2014 9:46 AM EDT Oxygen Saturation 97% 01/08/2014 9:46 AM EDT Inhaled Oxygen Concentration - - Weight 117.9 kg (260 lb) 01/06/2014 1:17 PM EDT Height 172.7 cm (5' 8) 01/06/2014 1:17 PM EDT Body Mass Index 39.53 01/06/2014 1:17 PM EDT documented in this encounter Discharge Instructions * Discharge Instructions* Marline Granado PA - 01/08/2014 9:29 AM EDT Activity: You can weight bearing as tolerated on your Left leg remembering to use a walker or crutches at all times for balance and protection. Flexion AND extension are important to work on at home.You should NOT place a pillow under your knee. To help with extension you can place a pillow under your heel or lower leg or placed lengthwise along the leg. Again DO NOT place a pillow under the operated knee for comfort. You should wear the LEDY hose to knee bilaterally until you are seen in followup. Remove these at least once per day to inspect your skin. Anti-coagulation follow up: You have been discharged on Rivaroxaban 10mg daily 12 days from surgery. On stop the Rivaroxaban and on February 11 begin Enteric coated Aspirin 325mg twice a day for a total anticoagulation time of 6 weeks. On February 18 stop the Aspirin. Take with food. Diet: Resume usual diet, but increase your intake of fluids and fiber while you are on narcotic pain meds to prevent constipation Driving: No, not until you are cleared to do so by your Orthopedic surgeon. Ideally you should not drive if you are on narcotic pain meds as these can affect your judgement and reaction time. Call your surgeon with any questions. Medication: 1. The pain medication that you are using can cause constipation, so make sure you increase your intake of fluids and fiber while you are on them. You should also take the stool softener that was ordered, sennakot, to factilitate a bowel movement. An ifcy-kac-nkyvhdy medication, miralax can also beused if needed to combat constipation 2. If you need a renewal on your narcotic pain medication, you need to give the Orthopedic clinic enough time to process your request. This can take up to three days, so plan accordingly. 3. You have been discharged on a long and short acting narcotic. You will be on these medications for a limited period of time only. Taper off these medications as indicated on your prescription overthe next 2 days. 4. Continue the tylenol 1000 mg every 8 hours around the clock for the next 10 days (January 16) -it can be effective in controlling pain along with your other medications. After January 16, you may continue to take tylenol as needed. DO NOT EXCEED 3000 mg tylenol in a 24 hour period. Shower: 1. You can shower but remember your activity limitations and always have a chair available for balance and protection. DO NOT submerge the dressing/incision. 2. (Mepilex) Do not let water run over the operative dressing. If it becomes wet lightly pat the dressing dry. When this operative dressing is removed you can let water gently run over the incision. DO NOT submerge the incision. 3. If you have peggy/sutures always cover them with a waterproof dressing or plastic bag when showering until they are removed. 4. After peggy/sutures are removed you can let water run gently over the incision. Wound (Mepilex): 1. Sutures/peggy: Staple/suture removal 11-14 days after surgery (approximately January 20). 2. Remove your operative dressing 7 days from your surgery (January 13). When it is removed you can leave the incision open to air or cover it with a light dressing. Do not peel dressing back to look at incision unless there is a problem. It will not re adhere to your skin. 3. If you have lots of drainage when you get home (and it is before January 13), remove this operative dressing and replace it with dry sterile gauze. Continue with daily dressing changes (and as needed) until the drainage stops, then remove the dressing and leave the incision open to air or lightly covered. FOLLOWUP APPOINTMENTS: 1. You will have followup appointments at [facility] as indicated in Future Appointments and Orders. You will have an xray prior to those appointments so please come to Radiology, desk 3T, 1 hour BEFORE your appointment for those x- rays. (at 11 am on Feb 14) Future Appointments Date Time Provider Department Center 02/14/2014 12:00 PM Shamir Crabtree MD [facility] None If you have questions or concerns: Friday through Friday, 8 AM- 5 PM, please call Dr. Crabtree's office at . If it is after 5 PM or on the weekend, please call and ask for orthopedic resident on-call to be paged. documented in this encounter Medications at Time [...] tablet Take 50 mg by mouth nightly. oxyCODONE (OXYCONTIN) 10 mg CR tablet Take 1 tablet by mouth 2 times daily for 2 days. 4 tablet 0 01/08/2014 01/10/2014 polyethylene glycol (MIRALAX) 17 gram packet Take 17 g by mouth 2 times daily for 3 days. 14 each 0 01/08/2014 01/11/2014 rivaroxaban (XARELTO) 10 mg Tab tablet Take 1 tablet by mouth daily for 10 days. 10 tablet 0 01/08/2014 01/18/2014 HYDROmorphone (DILAUDID) 2 mg tablet Take 1-3 tablets by mouth every 3 hours as needed for Pain. 100 tablet 0 01/08/2014 01/14/2014 aspirin 81 mg EC tablet Take 81 [...] 04/13/2012 04/11/2017 documented as of this encounter Progress Notes * Leny Wu - 01/08/2014 12:48 PM EDT Physical Therapy Treatment Note Visit # 2 Patient Dx: R TKA, POD#2 Precautions: WBAT Interval History: uneventful S: Wants to make it home today for a family reunion around lunch time; walked the lap four times since PT yesterday O: Pt demonstrated the following ?? Patient transfers sit<>stand indep. ?? Patient transfers supine<>sit indep. ?? Ambulated 150 ft using walker with supervision; pt is able to do so independently at this time. ?? Stairs: Negotiated platform step using walker with standby supervision and cues; Did six stairs using bilat handrails with standby supervision and cues (as she has at home) Performed 10 reps each ankle pumps, quad sets, short arc quads (with assist), seated heel slides, and long arc quads (with assist). Pt in possession of handout illustrating the exercises and was instructed to perform them as able 3x per day. Pain: tolerable Education: Education topics included role of PT, dispo planning. Pt verbalized/demonstrated understanding. Staff Communication: Patient status, treatment, and mobility recommendations discussed with nursing/other staff. A: Pt tolerated PT well. Presents with decreased ROM, decreased functional mobility and ambulation status, and currently requires assistance and adaptive equipment for safe mobility. Pt will benefit from ongoing skilled physical therapy to improved knee ROM and strength, and to restore prior level of independence with functional mobility and ambulation. Recommend continued home PT. Range of Motion: AROM R knee extension = near full, flexion = 70 degrees Ambulation distance: 50 feet Goals: (to be achieved by 1-3 days) Goal met? Yes No Pt will be knowledgeable of prescribed exercises. x Pt will demonstrate AROM knee extension 0-15 degrees and flexion 80-90 degrees x Pt will move supine<>sit indep. x Pt will move sit<>stand indep. x Pt will ambulate 150 feet using walker indep x Pt will negotiate flight of steps w/double rails using rails with supervision. x P: transition to home PT Total time spent with patient: 25 minutes Total timed interventions: 25 minutes for functional activity training and therapeutic exercise. Pager: [phone] Leny Wu PT Physical Therapy Dept of Rehabilitation * Reji Briones RN - 01/08/2014 11:54 AM EDT S: O O: Pt. dressed and ready for d/c. Prescriptions given. Return appointment made with doctor. Hep cap(s) removed. ADL limitations understood. Denies question with regard to home care. [facility] to follow. A: Pt. Stable P: D/C'ed to home. * Annalise Calle RN - 01/08/2014 10:46 AM EDT Office of Care Management/Clinical Shirt Turner (CRC)/Discharge Planning Note CRC Annalise Calle RN (pager [phone]) Patient: Netta Gregorio : 1960 (53 y.o.) Home: [facility] [id number] LOS: 2 days Care reviewed with OVIDIO Hewitt. Reviewed record and interviewed patient. Reviewed CRC role and services accepted. ?? Anticipated barriers to discharge: None ?? Identified patient/family concerns r/t discharge: None ?? Baseline functional status/mobility: Independent ?? Current functional status/mobility: Walker with stand by assist ?? Admission status: 01/06/14 IPI Order to Admit is appropriate and signed by attending provider Dr. Shamir Crabtree. ?? Anticipated discharge date: Today, Monday 01/08 ?? Anticipated discharge place: Home into care of friends ?? Anticipated discharge needs: [facility] ?? Home health agency: [facility] MARIALUISA RN/PT orders pended. ?? Transportation at discharge: Friend ?? PCP: ADIEL RYDER MD, Future Appointments Date Time Provider Department Center 02/14/2014 12:00 PM Shamir Crabtree MD [facility] None Plan: Care Management will continue to monitor progress, follow for continuity of care, and assist with discharge planning. Patient Active Problem List Diagnosis Code ??? Chest pain, unspecified 786.50 ??? IBS (irritable bowel syndrome) 564.1 ??? GERD (gastroesophageal reflux disease) 530.81 ??? Primary osteoarthritis of left knee 715.16 ??? Obesity 278.00 ??? Sleep apnea 780.57 ??? Asthma 493.90 ??? S/P left total knee arthroplasty 01/06/2014 [facility] V43.65 * Adan Shin RN - 01/07/2014 2:48 PM EDT S: My pain is about a 7. O: Chart reviewed and met with pt and SO. Pt is lying in bed in NAD. Pt had L TKA yesterday by Dr Crabtree. 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 Pt denies the need for in-pt rehab and feels she can manage at home with VNA. Pt requests the [facility] for services. She will need SR in 10-14 days and Home PT 3xwk (including weekends) Pt requests a FWW and has no preference so I have ordered from [facility] who will deliver to pt's room this afternoon. A: Progressing toward d/c to home with VNA, DME, and family assist. P: Anticipate d/c in 24 hrs. * Shamir Crabtree MD - 01/07/2014 9:06 AM EDT .Orthopaedic Surgery Inpatient Progress Note Netta Gregorio is a 53 y.o. female who underwent a left total knee arthroplasty on 01/06/2014 Attending: Dr. Crabtree 24 HOUR Interval HX: Doing well. OOB to chair. Denies CP or SOB. Using oral meds with d/c of LEVEL VIAL SETTER. Denies nausea or vomiting. MEDICATIONS: Scheduled Meds: ??? sertraline 100 mg Oral Daily ??? [COMPLETED] ceFAZolin 2 g Intravenous Once ??? [COMPLETED] tranexamic acid (CYLOKAPRON) IVPB 15 mg/kg/dose Intravenous Once ??? amLODIPine 5 mg Oral Daily ??? atorvastatin 40 mg Oral Nightly ??? loratadine 10 mg Oral Daily ??? levothyroxine 25 mcg Oral QAM ??? metoprolol 150 mg Oral Daily ??? traZODone 50 mg Oral Nightly ??? sodium chloride 0.9 % 5 mL Intravenous BID ??? polyethylene glycol 17 g Oral BID ??? senna-docusate 1-4 tablet Oral BID ??? multivitamin Wrid-Hf-QN-Min 1 tablet Oral Daily ??? ceFAZolin 2 g Intravenous Q8H ??? acetaminophen 1,000 mg Oral Q8H KELLEY ??? esomeprazole 40 mg Oral Daily ??? rivaroxaban 10 mg Oral Daily ??? fluticasone-salmeterol 1 puff Inhalation Q12H KELLEY ??? [DISCONTINUED] sodium chloride 0.9 % 5 mL Intravenous Q12H ??? [DISCONTINUED] midazolam (PF) ??? [DISCONTINUED] Budesonide-Formoterol 1 puff Inhalation BID ??? [DISCONTINUED] sertraline 100 mg Oral Daily Continuous Infusions: ??? lactated ringers 1,000 mL (01/06/14 9115) ??? HYDROmorphone ??? LEVEL VIAL SETTER henry ??? [DISCONTINUED] lactated ringers Temp: [36.3 ??C (97.3 ??F)-36.7 ??C (98.1 ??F)] Heart Rate: [60-76] Resp: [12-17] BP: (105-143)/(48-82) SpO2: [94 %-99 %] I/O last 3 completed shifts: In: 4074 [P.O.:440; I.V.:3634] Out: 1490 [Urine:1160; Other:80; Blood:250] I/O this shift: In: 260 [P.O.:260] Out: - Physical Exam: General: Well appearing, no acute distress, AAOx3 left Lower Extremity Exam: 2+ DP/PT pulses Foot WWP Sensation intact to light touch to DP/SP/T nerve distributions Motor intact to ADF/APF/EHL (5/5) Unable to straight leg raise due to pain Dressing c/d/i Drain removed without difficulty (80cc output). Laboratory Recent Labs Basename 01/07/14 0440 WBC 10.1* HGB 11.9 HCT 37.0 PLATELET 157 NA 138 K 4.6 CL 101 CO2 26 BUN 10 CREATININE 0.65* INR -- XRAY:no xray Assessment: 53 y.o. female s/p left TKA. POD #1 doing well post-op Plan: ?? Active Issues: mobilization and pain managment ?? Mobilize with Physical Therapy - Weight bearing as tolerated with appropriate precautions ?? Dressing: mepilex x 7 days. Nilo wrap- remove 01/08/14 ?? Gómez: discontinued. Monitor for void. ?? Antibiotics x 24 hours ?? Pain Control: oral meds ?? DVT Prophalaxis: rivaroxaban. ?? Discharge Planning: Home vs rehab per PT final recommendations. . Future Appointments Date Time Provider Department Center 02/14/2014 12:00 PM Shamir Crabtree MD [facility] None [facility] BAXTER 01/07/2014 Reason for Admission: TKA See Diane Rangel's note for details. I saw and evaluated the patient and agree with her findings and plans as written. Pt is comfortable this am. Mobilize with PT. Disposition: pending mobility and PT clearance. Shamir Crabtree MD MS * Ena Wallace - 01/06/2014 8:38 PM EDT Post-Operative Progress Note Patient: Netta Gregorio s/p Surgery: 01/06/2014 [id number] Procedure(s) (LRB): @TOTAL KNEE ARTHROPLASTY (Left) MODIFIER PFC STABILIZED FIXED MODULAR DEPUY (Left) Surgeon(s) and Role: * Diane Rangel PA - Physician Fisher [facility] * Marco A Vera MD - Resident-Station Captain * Shamir Crabtree MD - Primary: 2 Hr 8 Min 11 Sec * No complications entered in OR log * Short History: Awakened from anesthesia, extubated and taken to the recovery room in a stable condition, having suffered no apparent untoward event. Patient reports feeling well. Denies pain. Comfortable with no questions or concerns at this time. Patient location: PACU Post-op Consciousness awake, alert and oriented Post-op pain: Adequate analgesia Post-op nausea: no nausea or vomiting Post-op Cardiovascular Status: No chest pain, palpitations and tachypnea Post-op Respiratory Status: No shortness of breath and cough Post-op Wound Status No redness, swelling, pain and discharge clean, dry, intact, L knee drain in place Pain: Pain controlled with current regimen ROS: Patient denies chest pain, shortness of breath, dizziness, headache, abdominal pain, nausea, vomiting. Objective: Vitals: Temp: [36.3 ??C (97.3 ??F)-36.4 ??C (97.5 ??F)] Heart Rate: [60-76] Resp: [12-16] BP: (106-143)/(60-82) SpO2: [94 %-99 %] Intake/Output Summary (Last 24 hours) at 01/06/142037 Last data filed at 01/06/141999 Gross per 24 hour Intake 2600 ml Output 760 ml Net 1840 ml Exam: General: NAD, awake/alert, responds to questions HEENT: Normocephalic, atraumatic Cardiac: RRR, S1/S2, No M/R/G Resp: Breathing comfortably, CTAB Ext: WWP. Moving all 4 spontaneously LLE: Dressing is C/D/I. Drain in place. No swelling or erythema. Toes are warm and well perfused with brisk capillary refill. 5/5 motor in EHL/FHL/TA/Gastrocs, SILT SPN/DPN/TN. PT and DP pulses palpable. Calves are soft and non-tendor B/L. Neuro: No gross focal deficits. Wound: Dressing: clean, dry, intact Imaging: No post-op imaging r A/P: 53 y.o. year old female POD#0 s/p L TKA. she is having the following post op complications: none - Vitals stable. - Continue all post-operative care ENA WALLACE MD 01/06/2014 8:38 PM * Radha Layton RN - 01/06/2014 7:42 PM EDT 1930- Still waiting for room to be cleaned. Pt. Dozing. * Radha Layton RN - 01/06/2014 6:[address] Wallace informed that some orders need reconciliation. * Radha Layton RN - 01/06/2014 5:53 PM EDT Pt. Started on sips of H2O. documented in this encounter H&P Notes * Shamir Crabtree MD - 01/06/2014 2:12 PM EDT Patient Name: Netta Gregorio Patient Age: 53 y.o. Birthdate: 1960 Admit date: 01/06/2014 Attending Physician: Shamir Crabtree MD Please see H&P note for visit documentation and PCP note under scanned documents. The patient's history and physical exam have been reviewed and completed. There has been no interval change from that of the pre-operative history and physical exam done within the last 30 days. documented in this encounter Procedure Notes * Provider, Scanning - 01/10/2014 11:09 AM EDTAssociated Order(s): SCAN DOC: IMPLANTABLE DEVICES documented in this encounter Miscellaneous Notes * Miscellaneous - Provider, Scanning - 01/10/2014 11:09 AM EDT * Miscellaneous - Provider, Scanning - 01/10/2014 11:09 AM EDT * Plan of Care - Reji Briones RN - 01/08/2014 9:00 AM EDT Problem: Skin Integrity Impairment, Risk/Actual (Adult, Obstetrics) Intervention: Pressure Reduction Techniques Pt.'s room organized to minimize risk of injury secondary to falls. Obstacles in pt. pathway to bathroom and chair removed. Call tineo and belongings placed within reach at all times. Instructions given with regard to notifying nurse when pt. is about to ambulate so nurse may provide assistance if needed. * Plan of Care - Reji Briones RN - 01/08/2014 8:59 AM EDT Problem: Pain, Acute (Adult, Obstetrics) Intervention: Pain Management Interventions Pt.'s room organized to minimize risk of injury secondary to falls. Obstacles in pt. pathway to bathroom and chair removed. Call tineo and belongings placed within reach at all times. Instructions given with regard to notifying nurse when pt. is about to ambulate so nurse may provide assistance if needed. * Plan of Care - Reji Briones RN - 01/08/2014 8:59 AM EDT Problem: Fall/Trauma/Injury Risk (Adult, Obstetrics) Intervention: Sensory Stimulation Regulation Pt.'s room organized to minimize risk of injury secondary to falls. Obstacles in pt. pathway to bathroom and chair removed. Call tineo and belongings placed within reach at all times. Instructions given with regard to notifying nurse when pt. is about to ambulate so nurse may provide assistance if needed. * Plan of Care - Kami Russell RN - 01/08/2014 5:30 AM EDT Problem: Fall/Trauma/Injury Risk (Adult, Obstetrics) Goal: Identify Signs and Symptoms and Related Risk Factors Signs and symptoms and related risk factors are identified upon initiation of Human Response Clinical Practice Guideline (CPG) Outcome: Absent and monitoring Patient ambulating with one person assist and a walker. Bed in low position, side rails up x 2. Patient remains free of falls during this hospitalization. Patient has a call tineo within reach, and aware to alert RN when they are wanting to mobilize. Problem: Pain, Acute (Adult, Obstetrics) Goal: Identify Signs and Symptoms and Related Risk Factors Signs and symptoms and related risk factors are identified upon initiation of Human Response Clinical Practice Guideline (CPG) Outcome: Present (see interventions, notes) Patient with left knee pain. Tolerating po oxycodone for pain. Pain meds effective. Patient states pain is 7/10 prior to pain meds. Patient aware to alert RN if pain is not being controlled with current pain medication. RN will monitor patient * Discharge Summary - Marline Granado PA - 01/07/2014 2:43 PM EDT Discharge Summary Patient Name: Netta Gregorio Patient Age: 53 y.o. Language: Khmer Race: White Ethnicity: Not nor Admit date: 01/06/2014 Discharge date and time: 01/10/2014 Attending Physician: No att. providers found Discharge Physician: No att. providers found Follow-up Recommendations for Providers: Please see patient discharge instructions for additional details. Inpatient Provider Contact Information: No att. providers found Joints: [phone] After hours and weekends, call [facility] Hat Forming Machine Operator, , and have Orthopedic resident paged. Discharge Diagnoses (Hospital Problems) and Secondary Diagnoses (Chronic Problems): Active Hospital Problems Diagnosis ??? S/P left total knee arthroplasty 01/06/2014 [facility] Resolved Hospital Problems Diagnosis Date Resolved No resolved problems to display. Active Non-Hospital Problems Diagnosis ??? S/P left total knee arthroplasty 01/06/2014 [facility] ??? Obesity ??? Sleep apnea ??? Asthma ??? Primary osteoarthritis of left knee ??? IBS (irritable bowel syndrome) ??? GERD (gastroesophageal reflux disease) ??? Chest pain, unspecified Operations/Major Procedures: 01/06/2014 left total knee arthroplasty. Surgeon(s) and Role: * Diane Rangel PA - Physician Fisher Lampara Net * Marco A Vera MD - Resident-Station Captain * Shamir Crabtree MD - Primary History of Presentation: Netta Gregorio, a 53 yo female has exhausted non-operative treatment options including NSAIDS, physical therapy, walking aids, and injections. The patient was felt to be an appropriate candidate for totalknee arthroplasty based on the severity of symptoms and the loss of function associated with knee pain. We discussed the risks and benefits of operative treatment including bleeding, infection, need for revision, fracture, damage to nerves and blood vessels, hematoma, DVT, PE, and cardiopulmonary complications, and she elected to proceed with surgery. Informed consent was signed. Hospital Course: The patient was admitted via Same Day Surgery for the above operation. DVT prophylaxis: Rivaroxaban. Patient began rehab on POD#1 w/ weight bearing as tolerated of left leg remembering to use protection at all times for balance and protection. Drains were removed POD# 1. Gómez was removed POD#1 and patient was voiding spontaneously. Wound inspected POD#2 and found to be benign. Patient did not have a bowel movement prior to discharge but was passing flatus . By POD#2 the patient was medically stable and was cleared for safe discharge to home. Vital Signs at Discharge: Weight: Wt Readings from Last 1 Encounters: 01/06/14 117.935 kg (260 lb) Height: Ht Readings from Last 1 Encounters: 01/06/14 172.7 cm (5' 8) HC: HC Readings from Last 1 Encounters: No data found for HC BMI: Body mass index is 39.54 kg/(m^2). Last value Range last 24 hrs Temperature Temp: 36.9 ??C (98.4 ??F) Heart Rate Heart Rate: 82 Heart Rate: -- Blood Pressure BP: 119/79 mmHg @[id number]@ Respiratory Rate Resp: 18 Resp: -- SpO2 SpO2: 97 % @[id number]@ Art BP BP (Arterial Line): -- Functional and Cognitive Status: Patient is ambulating with assistive device. Cognitively intact. Important Studies and Lab Data: Labs: Last wbc, hgb, hct plt Recent Labs Basename 01/08/14 0409 WBC 7.9 HGB 11.4 HCT 35.3 Last 3 Lytes Recent Labs Basename 01/08/14 0409 01/07/14 0440 12/01/13 1124 NA 144 138 139 K 4.1 4.6 3.9 CL 103 101 100 CO2 25 26 29 BUN 8 10 19* CREATININE 0.62* 0.65* 0.81 Transfusions: No Studies: None Discharge Conditions/Prognosis: Stable, awake, and alert. Mobilizing with walker/crutches, pain controlled on oral medications. Discharge to: Home Updated Allergies/ADRs: Allergies Allergen Reactions ??? Codeine Phosphate Trouble breathing ??? Darvocet A500 (Propoxyphene N-Acetaminophen) Trouble breathing ??? Unable To Find (Unclassified Drug) Horses, guinea pigs and other animal dander-causes itchy eyes and nasal congestion Immunizations Given this Hospitalization: There is no immunization history on file for this patient. Discharge Medications: Your Medications As of 01/10/2014 9:08 AM New Medications Dose Details acetaminophen 500 mg tablet Commonly known as: TYLENOL Take 2 tablets by mouth every 8 hours. 1000 mg Quantity: 30 tablet Refills: 1 HYDROmorphone 2 mg tablet Commonly known as: DILAUDID Take 1-3 tablets by mouth every 3 hours as needed for Pain. 2-6 mg Quantity: 100 tablet Refills: 0 oxyCODONE 10 mg CR tablet Commonly known as: OxyCONTIN Take 1 tablet by mouth 2 times daily for 2 days. 10 mg Quantity: 4 tablet Refills: 0 polyethylene glycol 17 gram packet Commonly known as: MIRALAX Take 17 g by mouth 2 times daily for 3 days. 17 g Quantity: 14 each Refills: 0 rivaroxaban 10 mg Tab tablet Commonly known as: XARELTO Take 1 tablet by mouth daily for 10 days. 10 mg Quantity: 10 tablet Refills: 0 Continued medications, unchanged Dose Details albuterol 90 mcg/actuation inhaler Commonly known as: PROVENTIL HFA;VENTOLIN HFA Inhale 2 puffs into the lungs every 4 hours as needed. Use with spacer 2 puff Refills: 0 AMBIEN 10 mg tablet Take 10 mg by mouth nightly. Generic drug: zolpidem 10 mg Refills: 0 amLODIPine 5 mg tablet Commonly known as: NORVASC Take 5 mg by mouth daily. 5 mg Refills: 0 atorvastatin 40 mg tablet Commonly known as: LIPITOR Take 40 mg by mouth nightly. 40 mg Refills: 0 cetirizine 10 mg tablet Commonly known as: ZyrTEC Take 10 mg by mouth nightly. 10 mg Refills: 0 diaZEPam 5 mg tablet Commonly known as: VALIUM Take 5 mg by mouth every 6 hours as needed. 5 mg Refills: 0 diphenoxylate-atropine 2.5-0.025 mg per tablet Commonly known as: LOMOTIL Take 1 tablet by mouth 4 times daily as needed for Diarrhea. 1 tablet Quantity: 120 tablet Refills: 1 esomeprazole 40 mg capsule Commonly known as: NexIUM Take 40 mg by mouth every morning (before breakfast). 40 mg Refills: 0 GLUCOSAMINE-CHONDROITIN ORAL Take 1,000 mg by mouth 2 times daily. 1000 mg Refills: 0 levothyroxine 25 mcg tablet Commonly known as: SYNTHROID Take 25 mcg by mouth daily. 25 mcg Refills: 0 MAGNESIUM ORAL Take by mouth daily. Refills: 0 meclizine 25 mg tablet Commonly known as: ANTIVERT Take 25 mg by mouth 3 times daily as needed. 25 mg Refills: 0 metoprolol 100 mg tablet Commonly known as: LOPRESSOR Take 150 mg by mouth daily. 150 mg Refills: 0 sertraline 100 mg tablet Commonly known as: ZOLOFT Take 100 mg by mouth daily. 100 mg Refills: 0 SYMBICORT 160-4.5 mcg/actuation Hfaa Inhale 1 puff into the lungs 2 times daily. Generic drug: Budesonide-Formoterol 1 puff Refills: 0 traZODone 50 mg tablet Commonly known as: DESYREL Take 50 mg by mouth nightly. 50 mg Refills: 0 STOPPED Medications aspirin 81 mg EC tablet oxyCODONE-acetaminophen 5-325 mg per tablet Commonly known as: PERCOCET Smoking Status at Discharge: History Smoking status ??? Never Smoker Smokeless tobacco ??? Never Used Instructions Given to Patient at Discharge: There are no Patient Instructions on file for this visit. General Instructions Activity: You can weight bearing as tolerated on your Left leg remembering to use a walker or crutches at all times for balance and protection. Flexion AND extension are important to work on at home.You should NOT place a pillow under your knee. To help with extension you can place a pillow under your heel or lower leg or placed lengthwise along the leg. Again DO NOT place a pillow under the operated knee for comfort. You should wear the LEDY hose to knee bilaterally until you are seen in followup. Remove these at least once per day to inspect your skin. Anti-coagulation follow up: You have been discharged on Rivaroxaban 10mg daily 12 days from surgery. On stop the Rivaroxaban and on February 11 begin Enteric coated Aspirin 325mg twice a day for a total anticoagulation time of 6 weeks. On February 18 stop the Aspirin. Take with food. Diet: Resume usual diet, but increase your intake of fluids and fiber while you are on narcotic pain meds to prevent constipation Driving: No, not until you are cleared to do so by your Orthopedic surgeon. Ideally you should not drive if you are on narcotic pain meds as these can affect your judgement and reaction time. Call your surgeon with any questions. Medication: 1. The pain medication that you are using can cause constipation, so make sure you increase your intake of fluids and fiber while you are on them. You should also take the stool softener that was ordered, sennakot, to factilitate a bowel movement. An vyqh-exb-zcgmxyt medication, miralax can also beused if needed to combat constipation 2. If you need a renewal on your narcotic pain medication, you need to give the Orthopedic clinic enough time to process your request. This can take up to three days, so plan accordingly. 3. You have been discharged on a long and short acting narcotic. You will be on these medications for a limited period of time only. Taper off these medications as indicated on your prescription overthe next 2 days. 4. Continue the tylenol 1000 mg every 8 hours around the clock for the next 10 days (January 16) -it can be effective in controlling pain along with your other medications. After January 16, you may continue to take tylenol as needed. DO NOT EXCEED 3000 mg tylenol in a 24 hour period. Shower: 1. You can shower but remember your activity limitations and always have a chair available for balance and protection. DO NOT submerge the dressing/incision. 2. (Mepilex) Do not let water run over the operative dressing. If it becomes wet lightly pat the dressing dry. When this operative dressing is removed you can let water gently run over the incision. DO NOT submerge the incision. 3. If you have peggy/sutures always cover them with a waterproof dressing or plastic bag when showering until they are removed. 4. After peggy/sutures are removed you can let water run gently over the incision. Wound (Mepilex): 1. Sutures/peggy: Staple/suture removal 11-14 days after surgery (approximately January 20). 2. Remove your operative dressing 7 days from your surgery (January 13). When it is removed you can leave the incision open to air or cover it with a light dressing. Do not peel dressing back to look at incision unless there is a problem. It will not re adhere to your skin. 3. If you have lots of drainage when you get home (and it is before January 13), remove this operative dressing and replace it with dry sterile gauze. Continue with daily dressing changes (and as needed) until the drainage stops, then remove the dressing and leave the incision open to air or lightly covered. FOLLOWUP APPOINTMENTS: 1. You will have followup appointments at [facility] as indicated in Future Appointments and Orders. You will have an xray prior to those appointments so please come to Radiology, desk 3T, 1 hour BEFORE your appointment for those x- rays. (at 11 am on Feb 14) Future Appointments Date Time Provider Department Center 02/14/2014 12:00 PM Shamir Crabtree MD [facility] None If you have questions or concerns: Friday through Friday, 8 AM- 5 PM, please call Dr. Crabtree's office at . If it is after 5 PM or on the weekend, please call and ask for orthopedic resident on-call to be paged. Future Appointments and Orders Future Appointments: Provider: Department: Dept Phone: Center: 02/14/2014 12:00 PM Shamir Crabtree MD Orthopaedics [phone] None Joint Appt Health Question [facility] [phone] None Future Orders Please Complete By Expires Referral to Home Health - at DISCHARGE [[id number] CPT(R)] Process Instructions: Scheduling Instructions: Comments: DISCHARGE DOCUMENTATION FOR VNA SERVICES (INCLUDING THOSE PATIENTS WITH MEDICARE COVERAGE BEING DISCHARGED HOME WITH VNA SERVICES AND THOSE PATIENTS WITH MEDICARE COVERAGE WHO ARE BEING DISCHARGED HOME WITH HOSPICE SERVICES) In discussion with the attending physician, it is certified that this patient is under their care and that they, or a nurse practitioner, clinical nurse specialist or physician's office assistant who is working directly with them, had a face to face encounter that meets the physician face to face encounter requirements with this patient on 01/07/2014 The encounter with the patient was in whole, or in part, for the following medical condition, whichis the primary reason for home health care services: [ L TKA ] In discussion with the primary medical team, it is certified that, based on their findings, the indicated services are medically necessary and appropriate for home health services. HOME HEALTH AGENCY: [facility] Home care orders for Total Knee Replacements for PT: Usp(SN) eval if indicated on admission visit 1. Pt will be on Rivaroxaban so will not need bld draws. 2.Do not lift the edge of the mepilex dressing to observe the incision; this dressing needs to stayin place until 7 days after surgery. 3. Suture or Staple removal in 10-14 days - PER MD/CASING SEWER/PA ORDERS 4. Continue PT rehab for balance, endurance, joint mobility, ROM, Strength, TKA protocol Please note that any additional orders needs or changes will need to be obtained from this patient's PCP: ADIEL RYDER MD [address] [place] [address] [place] [address] All VNA agencies which cover the area of patient's residence have been reviewed, either verbally damian writing, and patient/family have chosen the indicated home health care agency for home services. [facility] Fax: Questions: Responses: Agency name and contact information [facility] Patient location post discharge home What services are requested Start date Responsible MD post discharge contact info Primary Care Provider: ADIEL RYDER MD [phone] * Initial Assessments - Leny Wu - 01/07/2014 8:02 AM EDT Physical Therapy Evaluation Total Knee Arthroplasty Patient Profile: Pt. is a 53 y.o. female admitted on 01/06/2014 by Shamir Novoa MD for L TKA. PMH: No past medical history on file. PSH: Past Surgical History Procedure Date ??? Colonoscopy, biopsy 06/03/2012 COLONOSCOPY FLEXIBLE, WITH BX performed by Alireza James MD at [facility] ??? Upper gi endoscopy, biopsy 06/03/2012 EGD WITH BIOPSY performed by Alireza James MD at [facility] END[facility] ??? Back surgery 01/2013 ??? Meniscectomy 1996 left ??? Anterior cruciate ligament repair 2011 left ??? Hand surgery bilat thumb ligament repair, small finger on right hand x2 (fx) ??? Cholecystectomy, laparoscopic 2011 ??? Laparoscopy 1995 ??? [place] tooth extraction three teeth ??? Dilation and curettage of uterus 2011 ??? Total knee arthroplasty 01/06/2014 @TOTAL KNEE ARTHROPLASTY performed by Shamir Crabtree MD at [facility] MAIN OR Social History: Patient lives in one level home, has someone available to help at all times if needed at home. Has flight of steps with double rails to a deck them on single step to get into the house, all needs on one floor. Has a commode and a shower chair, needs walker, does not like crutches. Precautions/Special Considerations: WBAT Post-operative course: Uneventful Subjective: Hopes to go home by tomorrow; Feeling slightly nauseous today and cannot lift leg on her own yet Objective: Vitals: SpO2:b 95% on room air, HR 70 Most recent Hgb value: 11.9 Pain: 6-7/10, tolerable, fresh cryocuff applied after session Strength: Quad strength currently is WFL for mobility with assistance using a walker. Functional Mobility: Supine->sit n/t Sit->supine min assist for leg Sit->stand contact guard asssit Stand->sit contact guard assist (cues for technique on all) Gait: Ambulated using walker with contact guard assist and cues for technique. Gait pattern: Slow, step-to pattern, knee holding steady in extension Pt. to utilize walker and contact guard assist to ambulate with nursing staff. Today???s Treatment: 1. Evaluation 2. Performed 10 reps each ankle pumps, quad sets, short arc quads, seated heel slides, and long arcquads. Pt in possession of handout illustrating the exercises and was instructed to perform them asable 3x per day. Informed Consent: The patient agrees to and understands the PT treatment plan and goals. Education: patient educated on Bed mobility, Transfers, Assistive device/technique, Exercise, Positioning, Precautions/protocol, Gait , Role of therapy and Discharge planning and verbalizes understanding. Patient status, treatment, and mobility recommendations discussed with nursing staff. Assessment: Pt is POD#1 L TKA. Pt. tolerated today???s session fairly. Slight nausea and some apprehension withmovements. Presents with decreased ROM, decreased functional mobility and ambulation status, and currently requires assistance and adaptive equipment for safe mobility. Pt will benefit from ongoing skilled physical therapy to improved knee ROM and strength, and to restore prior level of independence with functional mobility and ambulation. Anticipate home at d/c, likely to achieve PT goals by tomorrow. Range of Motion: AROM R knee extension = near full, flexion = 55 degrees Ambulation distance: 50 feet Goals: (to be achieved by 1-3 days) Goal met? Yes No Pt will be knowledgeable of prescribed exercises. x Pt will demonstrate AROM knee extension 0-15 degrees and flexion 80-90 degrees x Pt will move supine<>sit indep. x Pt will move sit<>stand indep. x Pt will ambulate 150 feet using walker indep x Pt will negotiate flight of steps w/double rails using rails with supervision. x Discharge Recommendations: Patient would benefit from continued therapeutic interventions 2-3 times a week as provided in a home environment to progress toward functional goals. Physical Therapist recommends: No other consults recommended at this time Plan: Patient to be seen 5-7x/week for physical therapy to include initial evaluation, therapeutic exercises, functional mobility training, and recommendations for discharge planning. Patient agrees to theplan as stated. Equipment needs: Rolling walker. Activity plan w/nursing assist (discussed with nursing staff): OOB and amb as ata with assistance Total treatment time: 40 minutes for evaluation Total timed treatment: 0 minutes LENY WU, PT Pager: [phone] Physical Therapy Department of Rehabilitation * Plan of Care - Kami Russell RN - 01/07/2014 2:50 AM EDT Problem: Fall/Trauma/Injury Risk (Adult, Obstetrics) Goal: Identify Signs and Symptoms and Related Risk Factors Signs and symptoms and related risk factors are identified upon initiation of Human Response Clinical Practice Guideline (CPG) Outcome: Present (see interventions, notes) Patient currently on bedrest. Pt to ambulate with PT in the morning. Bedrails up x 2, bed in low position. Patient remains free of falls during this hospitalization. Patient has a call tineo within reach, and aware to alert RN when they are wanting to mobilize. Problem: Pain, Acute (Adult, Obstetrics) Goal: Identify Signs and Symptoms and Related Risk Factors Signs and symptoms and related risk factors are identified upon initiation of Human Response Clinical Practice Guideline (CPG) Outcome: Present (see interventions, notes) Patient having right knee pain Tolerating dilaudid LEVEL VIAL SETTER and oxycodone. Patient states pain is 7/10 and needed oxycodone to supplement her LEVEL VIAL SETTER for more effective pain management. Patient aware to alertRN if pain is not being controlled with current pain medication. RN will monitor patient Problem: Skin Integrity Impairment, Risk/Actual (Adult, Obstetrics) Goal: Identify Signs and Symptoms and Related Risk Factors Signs and symptoms and related risk factors are identified upon initiation of Human Response Clinical Practice Guideline (CPG) Outcome: Present (see interventions, notes) Patients skin to be intact at this time, other than documented incision on left knee. Dressing clean dry and intact. Pressure reducing measures in place. Patient able to reposition herself in bed. DARIANAwill monitor skin * Op Note - Shamir Crabtree MD - 01/06/2014 4:42 PM EDT [facility] Operative Note Patient Name: Netta Gregorio : [id number] MR#: [id number] Case Date: 01/06/2014 Surgeon: Surgeon(s) and Role: * Diane Rangel PA - Physician [place] [facility] * Marco A Vera MD - Resident-Station Captain * Shamir Crabtree MD - Primary PROCEDURE: left total knee arthroplasty. PREOPERATIVE DIAGNOSIS: Tricompartmental Osteoarthritis POSTOPERATIVE DIAGNOSIS: Tricompartmental Osteoarthritis ANESTHESIA: GET and Femoral Nerve Block ESTIMATED BLOOD LOSS: 300 mL. COMPLICATIONS: None. FINDINGS: Chondromalacia was present as listed: Patellofemoral Compartment: Grade 3-4 Medial Compartment: Grade 4 Lateral Compartment-: Grade 3 SPECIMENS: Bone cuts were sent for gross pathology. DRAINS: Hemovac x1. TOURNIQUET TIME: 58 minutes at 300 mmHg. INSTRUMENTATION USED: DePuy PFC Sigma knee system 1. Size 4 lugged posterior stabilized femoral component. 2. Size 3 tibial tray. 3. 12.5 mm polyethylene insert. 4. 35 mm oval all-polyethylene patellar component. 5. 1 batch of gentamycin bone cement. INDICATIONS: The patient presented to the orthopaedic surgery clinic with severe knee pain. The x-ray and exam findings are consistent with degenerative disease of the knee. SIGNIFICANT MEDICAL COMORBIDITIES: Patient Active Problem List Diagnosis Code ??? Chest pain, unspecified 786.50 ??? IBS (irritable bowel syndrome) 564.1 ??? GERD (gastroesophageal reflux disease) 530.81 ??? Primary osteoarthritis of left knee 715.16 ??? Obesity 278.00 ??? Sleep apnea 780.57 ??? Asthma 493.90 She has exhausted non-operative treatment options including NSAIDS, physical therapy, walking aids,and injections. The patient was felt to be an appropriate candidate for total knee arthroplasty based on the severity of symptoms and the loss of function associated with knee pain. We discussed the risks and benefits of operative treatment including bleeding, infection, need for revision, fracture, damage to nerves and blood vessels, hematoma, DVT, PE, and cardiopulmonary complications, and she elected to proceed with surgery. Informed consent was signed. I personally marked the surgical site in the pre-operative holding area. DESCRIPTION OF PROCEDURE: After careful identification of the patient in the holding area and confirmation of the procedure, the patient was transferred to the operating room. Appropriate anesthesia was administered by the anesthesiology staff. Femoral nerve block had previously been placed in the [facility] area. Antibiotic prophylaxis was given and a Gómez catheter was placed. The lower extremity was then prepped and draped in the usual sterile fashion. Time-out for safe surgery was undertaken and all agreed on the surgical side and to proceed with total knee arthroplasty. The limb was then exsanguinated and tourniquet inflated. Using a #10 blade, a midline skin incisionwas then carried out. Dissection was carried down to the level of the extensor mechanism. Using a medial parapatellar arthrotomy, the knee joint was then entered. The anterior horn of the medial meniscus was divided. A medial subperiosteal peel was then undertaken using Bovie electrocautery. A portion of the patellar fat pad was taken down. The lateral patellofemoral ligaments were released with scissors. The synovium was released circumferentially around the patella to allow for easier eversion. Care was taken to protect the extensor mechanism during this release. The knee was then carefullyflexed up. Careful attention was paid to the tibial tubercle to be sure that there was no violationof the patellar tendon insertion as we flexed. The anterior and posterior cruciate ligaments were then released as well as the anterior horn of the lateral meniscus. The tibia was subluxated forward using a blunt Hohmann and attention was turned to tibial cut. The extramedullary tibial alignment guide was placed and set for a 4 mm resection off the medial compartment. The alignment mohit was set inthe center of the ankle joint. Appropriate posterior slope was then set. The guide was then pinned into position. Proximal tibial resection was undertaken using an oscillating saw. Care was taken to protect the medial and lateral collateral ligaments during the cut. The bone was removed and alignment guide was placed with a drop mohit. We had excellent alignment. Attention was then turned to the femur. The femoral canal was opened using a starting drill just anterior to the PCL insertion. The canal was irrigated and suctioned prior to insertion of the intramedullary guide mohit. This was then placed and set for 6 degrees of valgus angle. The distal femoral cut guide was then placed and set for 9 mm resection depth. This was then pinned into position. The cut depth was checked with an farnaz wing. The oscillating saw was then used to perform the distal femoral cut. The posterior referencing sizing guide was then placed and pins were set in 3 degrees of external rotation from the posterior condylar axis in line with the transepicondylar axis. The sizing g uide was placed and the size chosen that would provide the best fit and avoid anterior notching. Threaded pins were placed and the sizer removed. The cut block was then pinned into position. The anterior cut was performed followed by the posterior cuts. The anterior and posterior chamfer cuts were then performed. Flexion and extension blocks were then used to check the flexion and extension gaps to be sure that they were symmetric. Appropriate soft tissue releases were used where necessary to balance them. The notch cutting guide was then placed taking care to lateralize the femoral componentappropriately. It was pinned into position. The notch cut was carried out with oscillating saw. We then placed the trial femoral component followed by the trial tibia and polyethylene. The knee was brought up to full extension. It was found to have good stability to varus and valgus stresses in both flexion and extension. We then proceeded with the patellar preparation. The patellar thickness was then measured with caliper. We then used the claw-toothed patellar clamp to align the cut. We then used the saw to remove the articular surface. The patella was measured and the appropriate-sized jig used to prepare the drill holes. Patellar trial was placed and caliper measurement reconfirmed to assure that there was no over-stuffing of the patellofemoral joint. The patellar trial was placed and taken through range of motion. It was found to track well without any evidence of liftoff. Lug holes were then drilled in the femur. The trial components were then removed and the final preparation of the tibia was undertaken. The tibia was exposed and the trial placed. It was pinned into position taking care to maintain the appropriate external rotation and adequate tibial coverage. This was then completed using the step drill and broach. All bony surfaces were then thoroughly irrigated using normal saline pulsatile lavage. The components were opened onto the field except for the final polyethylene. Cement mixing was begun on the backtable using vacuum technique. We then placed cement onto the tibial plateau and digitally pressurized it into the bone. We then placed the tibial component and impacted into position using an impactor and mallet. Excess cement was removed with a [place]. We then placed the cement onto the anterior and distal aspects of the femur. The cement was placed on the posterior aspect of the prosthetic condyles. The femoral component was then placed and impacted into position. Excess cement was removed with a [place]. The polyethylene trial was then placed and the knee brought out to full extension where it was held for the entire polymerization time. Cement was then pressurized into the patellar bone and the patellar component placed. The patella was clamped. Excess cement was removed with a [place]. After all cement had hardened, the knee was flexed up and the trial polyethylene removed. We checked the posterior femoral condyles for cement. We also subluxated the tibia forward and checked for any remaining cement. It was removed with an osteotome and rongeurs where necessary. The posterior capsule was then injected with local anesthetic. The knee was thoroughly irrigated using normal saline pulsatile lavage. We then placed our trial polyethylene and went through ligament testing both in flexion and extension. We decided on the appropriate polyethylene, it was opened onto the field. It was then inserted and the knee brought out to full extension. It was taken through a full range of motionand had excellent stability to varus and valgus testing in both flexion and extension. The final alignment was excellent. The patella tracked well without liftoff using the no thumbs technique. Local anesthetic was then injected into the arthrotomy site both proximally and distally. The woundwas irrigated once again. A drain was placed through a separate superolateral stab incision and hooked into the suction system. The arthrotomy was then closed using absorbable suture. The deep dermallayers were closed using absorbable suture. The skin was then closed using peggy, taking care to tha the edges. The wound was cleansed, dried, and dressing consisting of Mepilex silver. This was then secured with Nilo bandages. The patient was [facility] by the [facility]hesiology [facility] Sequential compression devices were placed. [facility]. All sponge instrument and needle counts were correct at the end of the case. POSTOPERATIVE PLAN: The patient will be admitted to the floor for pain control and montioring. Prophylactic IV antibiotics x 3 doses. Weight bearing status of operative extremity: Weight bearing as tolerated Wound closure: Peggy (remove 10-14 days) Dressing changes: Mepilex Silver (Do not remove for 7 days. Dry Dressings PRN after that) Follow-up Plan: As scheduled prior to surgery Anticoagulation: Rivaroxaban 12 days followed by 4 weeks of Aspirin 325mg twice daily Any possible barriers to discharge: None Plan for hospital stay: Standard Anticipated Length of Stay: 1-2 days. Implant Name Type Inv. Item Serial No. Event Producer Lot No. LRB No. Used Action CEMENT,BNE,CMW 1,GNTA,40GM ([id number]) - [id number] IMPLANTS CEMENT,BNE,CMW 1,GNTA,40GM ([id number]) [employer] - [facility]7 [id number] Left 1 Implanted DIEGO,PFC,SGM,OVL,3PG,SM,35MM ([id number]) (AUTOREQ) - [id number] IMPLANTS DIEGO,PFC,SGM,OVL,3PG,SM,35MM ([id number]) (AUTOREQ) [employer] Machine Builder - [facility] [id number] Left 1 Implanted COMPO,SGM,FEM,PS,CMNT,LUG,L,4 ([id number]) (AUTOREQ) - [id number] IMPLANTS COMPO,SGM,FEM,PS,CMNT,LUG,L,4 ([id number]) (AUTOREQ) [employer] Autom[employer] Machine Builder - [facility] [id number] Left 1 Implanted TRAY,TIB,SGM,MOD,CMNT,SZ3 ([id number]) (AUTOREQ) - [id number] IMPLANTS TRAY,TIB,SGM,MOD,CMNT,SZ3 ([id number]) (AUTOREQ) [facility] - [id number] Left 1 Implanted INSER,SGM,STAB,CRSLNK,3X12.5MM ([id number]) (AUTOREQ) - [id number] IMPLANTS INSER,SGM,STAB,CRSLNK,3X12.5MM ([id number]) (AUTOREQ) [id number] Left 1 Implanted * OR Attestation - Shamir Crabtree MD - 01/06/2014 4:42 PM EDT Attestation: Case Date: 01/06/2014 I was present and I participated during the entire procedure (does not need to include opening and closing). SHAMIR CRABTREE MD 01/06/2014 * Miscellaneous - Provider, Scanning - 01/06/2014 3:05 PM EDT documented in this encounter Plan of Treatment Upcoming Encounters Date Type Department Care Team (Late st Contact Info) Description 07/12/2024 9:30 AM EST Office Visit [place] [address] Walt Wiseman III, MD [facility] [place] [address] documented as of this encounter Procedures Procedure Name Priority Date/Time Associated Diagnosis Comments IMPLANTABLE DEVICES SCAN 01/10/2014 11:09 AM EDT HEMOGRAM Routine 01/08/2014 4:09 AM EDT DIFFERENTIAL, AUTOMATED Routine 01/08/2014 4:09 AM EDT CBC (WITH DIFF) Routine 01/08/2014 4:09 AM EDT BASIC METABOLIC PANEL Routine 01/08/2014 4:09 AM EDT HEMOGRAM Routine 01/07/2014 4:40 AM EDT DIFFERENTIAL, AUTOMATED Routine 01/07/2014 4:40 AM EDT CBC (WITH DIFF) Routine 01/07/2014 4:40 AM EDT BASIC METABOLIC PANEL Routine 01/07/2014 4:40 AM EDT SURGICAL PATHOLOGY REPORT Routine 01/06/2014 5:04 PM EDT SPECIMEN TO PATHOLOGY Routine 01/06/2014 3:32 PM EDT MODIFIER PFC STABILIZED FIXED MODULAR DEPUY 01/06/2014 2:48 PM EDT Osteoarthritis of knee TOTAL KNEE ARTHROPLASTY (WRVU 19.6) 01/06/2014 2:48 PM EDT Osteoarthritis of knee documented in this encounter Results * SCAN DOC: IMPLANTABLE DEVICES (01/10/2014 11:09 AM EDT) Narrative 01/10/2014 11:09 AM EDT Procedure Note Provider, Scanning - 01/10/2014 11:09 AM EDT Scanning Provider MEDIA MGR SCAN EXT O RDR/RSLT * Differential, Automated (01/08/2014 4:09 AM EDT) Neutrophil % 67.8 34.0 - 71.0 % CERNER MILLENNIUM Neutrophil Absolute 5.36 1.50 - 6.30 x10(3)/mcL CERNER MILLENNIUM Lymph % 20.3 19.0 - 53.0 % CERNER MILLENNIUM Lymphocytes Abs 1.6 1.0 - 3.6 x10(3)/mcL CERNER MILLENNIUM Monocyte % 11.2 4.0 - 13.0 % CERNER MILLENNIUM Monocyte Abs 0.9 0.2 - 1.0 x10(3)/mcL CERNER MILLENNIUM Eos % 0.3 0.0 - 7.0 % CERNER MILLENNIUM Eosinophils Abs 0.0 0.0 - 0.5 x10(3)/mcL CERNER MILLENNIUM Basophil % 0.1 0.0 - 2.0 % CERNER MILLENNIUM Baso Absolute 0.0 0.0 - 0.2 x10(3)/mcL CERNER MILLENNIUM Immature Gran % 0.30 0.00 - 0.66 % CERNER MILLENNIUM Comment: Immature granulocytes(IG's)percentage and absolute count will include metamyelocytes, myelocytes, and promyelocytes. Blood smears from CBCs yielding IG's will be scanned manually for concordance. If this scan disagrees with the automated IG or if promyelocytes are noted, a manual differential will be performed. Immature Gran Absolute 0.02 0.00 - 0.05 x10(3)/mcL CERNER MILLENNIUM Blood specimen (specimen) 01/08/2014 4:09 AM EDT 01/08/2014 4:41 AM EDT Narrative Resulting Agency Comment Spec In Lab Shamir Crabtree MD HEMATOLOGY ORDERABLE S [facility] * (ABNORMAL) Hemogram (01/08/2014 4:09 AM EDT) White Blood Cell 7.9 4.0 - 10.0 x10(3)/mc L CERNER MILLENNIUM Red Blood Cell 3.81(L) 3.93 - 5.22 x10(6)/mc L CERNER MILLENNIUM Hemoglobin 11.4 11.2 - 15.7 gm/dL CERNER MILLENNIUM Hematocrit 35.3 34.0 - 45.0 % CERNER MILLENNIUM Mean Cell Volume 92.7 79.0 - 94.0 fL CERNER MILLENNIUM Mean Cell Hemoglobin 29.9 26.6 - 32.2 pg CERNER MILLENNIUM Mean Cell Hemoglobin Concentration 32.3 32.0 - 36.5 gm/dL CERNER MILLENNIUM Platelet 129(L) 145 - 370 x10(3)/mc L CERNER MILLENNIUM RDW Standard Deviation 46.1(H) 35.0 - 46.0 fL CERNER MILLENNIUM RDW coefficient of variation 13.7 10.9 - 14.4 % CERNER MILLENNIUM Mean Platelet Volume 11.8 9.0 - 12.0 fL CERNER MILLENNIUM Blood specimen (specimen) 01/08/2014 4:09 AM EDT 01/08/2014 4:41 AM EDT Narrative Resulting Agency Comment Spec In Lab Shamir Crabtree MD HEMATOLOGY ORDERABLE S CERNER MILLENNIUM * (ABNORMAL) Basic Metabolic Panel (non-fasting) (01/08/2014 4:09 AM EDT) Glucose 137 60 - 199 mg/dL CERNER MILLENNIUM Comment:Diabetes: >=200 mg/d L plus symptoms Blood Urea Nitrogen 8 8 - 18 mg/dL CERNER MILLENNIUM Creatinine 0.62(L) 0.70 - 1.20 mg/dL CERNER MILLENNIUM Comment: Please note that the pediatric reference intervals supplied above were not validated at [facility]. Results from pediatric patients should be interpreted [...] the following links into your internet browser. [email or web address] Blood specimen (specimen) 01/08/2014 4:09 AM EDT 01/08/2014 4:41 AM EDT Narrative Resulting Agency Comment Spec In Lab Shamir Crabtree MD CHEMISTRY ORDERABLES CERNER MILLENNIUM * (ABNORMAL) Differential, Automated (01/07/2014 4:40 AM EDT) Neutrophil % 84.6(H) 34.0 - 71.0 % CERNER MILLENNIUM Neutrophil Absolute 8.52(H) 1.50 - 6.30 x10(3)/mc L CERNER MILLENNIUM Lymph % 7.4(L) 19.0 - 53.0 % CERNER MILLENNIUM Lymphocytes Abs 0.7(L) 1.0 - 3.6 x10(3)/mc L CERNER MILLENNIUM Monocyte % 7.8 4.0 - 13.0 % CERNER MILLENNIUM Monocyte Abs 0.8 0.2 - 1.0 x10(3)/mc L CERNER MILLENNIUM Eos % 0.0 0.0 - 7.0 % CERNER MILLENNIUM Eosinophils Abs 0.0 0.0 - 0.5 x10(3)/mc L CERNER MILLENNIUM Basophil % 0.1 0.0 - 2.0 % CERNER MILLENNIUM Baso Absolute 0.0 0.0 - 0.2 x10(3)/mc L CERNER MILLENNIUM Immature Gran % 0.10 0.00 - 0.66 % CERNER MILLENNIUM Comment: Immature granulocytes(IG's)percentage and absolute count will include metamyelocytes, myelocytes, and promyelocytes. Blood smears from CBCs yielding IG's will be scanned manually for concordance. If this scan disagrees with the automated IG or if promyelocytes are noted, a manual differential will be performed. Immature Gran Absolute 0.01 0.00 - 0.05 x10(3)/mc L CERNER MILLENNIUM Blood specimen (specimen) 01/07/2014 4:40 AM EDT 01/07/2014 5:04 AM EDT Narrative Resulting Agency Comment Spec In Lab Shamir Crabtree MD HEMATOLOGY ORDERABLE S Performing Organization Address [facility] Co de Phone Number CERAKANKSHA ACOSTAENNIUM * (ABNORMAL) Hemogram (01/07/2014 4:40 AM EDT) White Blood Cell 10.1(H) 4.0 - 10.0 x10(3)/mc L CERNER MILLENNIUM Red Blood Cell 3.98 3.93 - 5.22 x10(6)/mc L CERNER MILLENNIUM Hemoglobin 11.9 11.2 - 15.7 gm/dL CERNER MILLENNIUM Hematocrit 37.0 34.0 - 45.0 % CERNER MILLENNIUM Mean Cell Volume 93.0 79.0 - 94.0 fL CERNER MILLENNIUM Mean Cell Hemoglobin 29.9 26.6 - 32.2 pg CERNER MILLENNIUM Mean Cell Hemoglobin Concentration 32.2 32.0 - 36.5 gm/dL CERNER MILLENNIUM Platelet 157 145 - 370 x10(3)/mc L CERNER MILLENNIUM RDW Standard Deviation 46.7(H) 35.0 - 46.0 fL CERNER MILLENNIUM RDW coefficient of variation 13.7 10.9 - 14.4 % CERNER MILLENNIUM Mean Platelet Volume 11.6 9.0 - 12.0 fL CERNER MILLENNIUM Blood specimen (specimen) 01/07/2014 4:40 AM EDT 01/07/2014 5:04 AM EDT Narrative Resulting Agency Comment Spec In Lab Shamir Crabtree MD HEMATOLOGY ORDERABLE S Performing Organization Address City/[facility]/ZIP Co de Phone Number CERAKANKSHA ACOSTAENNIUM * (ABNORMAL) Basic Metabolic Panel (non-fasting) (01/07/2014 4:40 AM EDT) Glucose 149 60 - 199 mg/dL CERNER MILLENNIUM Comment:Diabetes: >=200 mg/d L plus symptoms Blood Urea Nitrogen 10 8 - 18 mg/dL CERNER MILLENNIUM Creatinine 0.65(L) 0.70 - 1.20 mg/dL CERNER MILLENNIUM Comment: Please note that the pediatric reference intervals supplied above were not validated at [facility]. Results from pediatric patients should be interpreted in conjunction to the patient's age, height and muscle mass. Sodium 138 135 - 145 mmol/L CERNER MILLENNIUM Potassium 4.6 3.5 - 5.0 mmol/L CERNER MILLENNIUM Comment: Please note: ??Patients with WBC >100,000 may have falsely elevated Potassium levels. ??For accurate Potassium quantification in these patients send serum separator tube (gold top) for subsequent determinations. ??Contact the Clinical Chemistry Laboratory if there are any questions. Chloride 101 98 - 107 mmol/L CERNER MILLENNIUM Carbon Dioxide 26 22 - 31 mmol/L CERNER MILLENNIUM Anion Gap 11 5 - 15 mmol/L CERNER MILLENNIUM Calcium 8.4(L) 8.5 - 10.5 mg/dL CERNER MILLENNIUM Est [...] the following links into your internet browser. [email or web address] Blood specimen (specimen) 01/07/2014 4:40 AM EDT 01/07/2014 5:04 AM EDT Narrative Resulting Agency Comment Spec In Lab Shamir Crabtree MD CHEMISTRY ORDERABLES JAMILAH AMADOR * Surgical Pathology Report (01/06/2014 5:04 PM EDT) Final Diagnosis ? [facility] ? Provider: ?? LEYDA, SHAMIR M ?Pt. Name: ?? NETTA GREGORIO ? Acc #: ?[id number] ?Pt. ? Col Date: ?? 01/06/2014 ?/Sex: ?1960,(53 years),Female ? Rec Date: ?? 01/06/2014 ?LOC: ?[id number] ? SURGICAL PATHOLOGY ? ---Pathologic Diagnosis--- ? A - Articular bone and soft tissue consistent with osteoarthritis, left ? knee. ?Gross surgical pathology examination. ? CR-0 ? 01/06/14 ? PPS ? 01/10/14 Verified by: ? Gino Schwartz MD ? Pathologist ? (Electronic Signature) ? The attending pathologist whose signature appears on this report has ? reviewed all diagnostic slides and has edited the gross and/or ? microscopic portion of the report in rendering the final pathologic ? diagnosis. ? ---Gross Description--- ? A - Labeled/Fixative: Bone and tissue left knee, fresh. ? Quantity/Size: Multiple, 9.5 x 7.3 x 3.4 cm in aggregate. ? Tissue Description: Fragments of yellow-white, hard, irregular bone, ? cartilage and soft tissue. ? Articular Surface: Granular, degroot-yellow. ? Eburnation: Focal. ? Osteophytes: Present. ? Sections/Processi ng: No sections are submitted. ??pps ? ---Clinical Information--- ? Specimen Submitted: ? A - Bone and tissue, left knee ? Clinical History: ? Osteoarthritis ? Clinical Diagnosis: ? Osteoarthritis 01/10/2014 11:21 AM EDT [facility] KNEE REGION STRUCTURE / Unknown 01/06/2014 5:04 PM EDT 01/06/2014 5:04 PM EDT Shamir Crabtree MD PATHOLOGY/CYTOLOGY O SHIELA Performing Organization Address City/[facility] Co de Phone Number JAMILAH AMADOR [facility] [place] [address] * Specimen to Pathology (surgical or derm) (01/06/2014 3:32 PM EDT) AP Specimen 01/06/2014 3:32 PM EDT 01/06/2014 3:32 PM EDT Narrative JAMILAH AMADOR - 01/06/2014 3:32 PM EDT Specimen requisition ordered. ??Separate Pathology report to follow Shamir Crabtree MD PATHOLOGY/CYTOLOGY O SHIELA Performing Organization Address City/[facility] Co de Phone Number JAMILAH AMADOR documented in this encounter Visit Diagnoses Diagnosis S/P left total knee arthroplasty 01/06/2014 Leyda- Primary Knee joint replacement by other means Osteoarthritis of knee Osteoarthrosis, unspecified whether generalized or localized, lower leg Osteoarthritis of knee Osteoarthrosis, unspecified whether generalized or localized, lower leg documented in this encounter Administered Medications Inactive Administered Medications - up to 3 most recent administrations Medication Order MAR Action Action Date Dose Rate Site ROpivacaine (NAROPIN) 2 mg/mL (0.2 %) injection ONCE PRN, Starting on Gem 01/06/14 at 1541, Until Gem 01/06/14 at 1731, Intra-Operative (Intra-Procedure), Routine Given 01/06/2014 3:41 PM EDT 60 mLs 19- Surgical Site documented in this encounter Active and Recently Administered Medications Times are shown in EDT. Scheduled Medication Order 01/06/2014 01/07/2014 01/08/2014 acetaminophen (TYLENOL) tablet 1,000 mg 1,000 mg, Oral, EVERY 8 HOURS SCHEDULED, First dose on Gem 01/06/14 at 2200, Until Discontinued, Maximum dose of acetaminophen is 4000 mg from all sources in 24 hours., Routine 2218 (Given - Provider: Kami Altman RN) 0536 (Given - Provider: Kami Altman RN)132 (Given - Provider: Melissa Bhatti RN)2118 (Given - Provider: Kami Altman RN) 05 (Given - Provider: Kami Altman RN) amLODIPine (NORVASC) tablet 5 mg (CANCELED) 5 mg, Oral, DAILY, First dose on Fri01/07/14 at 0900, Until Discontinued, Routine 09 (Given - Provider: Maren Rendon RN) 08 (Given - Provider: Reji Briones RN) atorvastatin (LIPITOR) tablet 40 mg (CANCELED) 40 mg, Oral, NIGHTLY, First dose on Gem 01/06/14 at 2200, Until Discontinued, Routine 2218 (Given - Provider: Kami Altman RN) 2118 (Given - Provider: Kami Altman RN) ceFAZolin (ANCEF) 2g in dextrose 5% 50 mL (COMPLETED) 2 g, Intravenous, ONCE, 1 dose, On Gem 01/06/14 at 1330, To be administered upon arrival to the OR within one hour prior to incision., Day of Surgery (Day of Procedure), Indication for (Active or Suspected): Prophylaxis 1515 (Given - Provider: Sherman Villagomez CRNA) ceFAZolin (ANCEF) 2g in dextrose 5% 50 mL (COMPLETED) 2 g, Intravenous, EVERY 8 HOURS, 3 doses, First dose on Gem 01/06/14 at 1900, Last dose on Fri01/07/14 at 1100, Adjust to 4 hours from intraoperative dose. * Beta-lactam based antibiotics (eg. Ampicillin, Cefazolin, Aztreonam) should be administered within 4 hours of the preceding intraoperative dose. * Vancomycin, Flouroquinolones, Clindamycin, Gentamicin, and Metronidazole should be administered within 8 hours of the preceding intraoperative dose., Recovery (Recovery-Hospital Unit), Indication for (Active or Suspected): Prophylaxis 190 (Given - Provider: Rhonda Wick RN) 033 (Given - Provider: Kami Altman RN)1128 (Given - Provider: Maren Rendon RN) esomeprazole (NexIUM) capsule 40 mg (CANCELED) 40 mg, Oral, DAILY, First dose on Fri01/07/14 at 0900, Until Discontinued, Routine 09 (Given - Provider: Maren Rendon RN) 08 (Given - Provider: Reji Briones RN) fluticasone-salmeterol (ADVAIR HFA) 115-21 mcg/actuation inhaler 1 puff (CANCELED) 1 puff, Inhalation, EVERY 12 HOURS SCHEDULED (2 times per day), First dose on Fri01/06/14 at 2200, Until Discontinued, Rinse mouth after administration Therapeutically substituted for Budesonide-formoterol 2218 (Given - Provider: Kami Altman RN) 914 (Given - Provider: Maren Rendon RN)2118 (Given - Provider: Kami Altman RN) 826 (Given - Provider: Reji Briones RN) levothyroxine (SYNTHROID) tablet 25 mcg (CANCELED) 25 mcg, Oral, EVERY MORNING, First dose on Fri01/07/14 at 0600, Until Discontinued, Routine 0536 (Given - Provider: Kami Altman RN) 05 (Given - Provider: Kami Altman RN) loratadine (CLARITIN) tablet 10 mg (CANCELED) 10 mg, Oral, DAILY, First dose on Fri01/07/14 at 0900, Until Discontinued 18 (Given - Provider: Kami Altman RN)2117 (Given - Provider: Kami Altman RN) metoprolol tartrate (LOPRESSOR) tablet 150 mg (CANCELED) 150 mg, Oral, DAILY, First dose on Fri01/07/14 at 0900, Until Discontinued, Hold for sbp less 100. Hr less 60, Routine 0908 (Given - Provider: Maren Rendon RN) 0825 (Given - Provider: Reji Briones, DARIANA) multivitamin Tpyx-Uo-YC-Min (THERAPEUTIC-M) 27-0.4 mg tablet 1 tablet (CANCELED) 1 tablet, Oral, DAILY, First dose on Fri01/07/14 at 0900, Until Discontinued 908 (Given - Provider: Maren Rendon RN) 08 (Given - Provider: Reji Briones, RN) oxyCODONE (OxyCONTIN) CR tablet 10 mg 10 mg, Oral, EVERY 12 HOURS SCHEDULED (2 times per day), First dose on Fri01/08/14 at 0900, 6 doses, Last dose on Fri01/10/14 at 2100 0824 (Given - Provider: Reji Briones, DARIANA) oxyCODONE (ROXICODONE) immediate release tablet 10 mg (COMPLETED) 10 mg, Oral, ONCE, 1 dose, On Fri01/07/14 at 2345, Routine 0006 (Given - Provider: Kami Altman, DARIANA) polyethylene glycol (MIRALAX) packet 17 g 17 g, Oral, 2 TIMES DAILY, First dose on Fri01/06/14 at 2115, Until Discontinued, Administer if needed per patient's routine or if no bowel movement within 48 hours, Routine 2218 (Given - Provider: Kami Altman RN) 909 (Given - Provider: Maren Rendon RN)2118 (Given - Provider: Kami Altman, DARIANA) 08 (Given - Provider: Reji Briones, DARIANA) rivaroxaban (XARELTO) tablet 10 mg 10 mg, Oral, DAILY, First dose on Fri01/07/14 at 0900, Until Discontinued, Routine, Restricted anticoagulant, choose the most appropriate response: Approved indication of knee replacement DVT prophylaxis 1021 (Given - Provider: Maren Rendon RN) 0826 (Given - Provider: Reji Briones, DARIANA) senna-docusate (PERICOLACE) 8.6-50 mg per tablet 1-4 tablet (CANCELED) 1-4 tablet, Oral, 2 TIMES DAILY, First dose on Gem 01/06/14 at 2115, Until Discontinued, Start with 1 tablet or liquid equivalent orally twice daily and titrate up to achieve: 1. One bowel movement at least every 48 hours, AND 2. Without straining, Routine 2218 (Given - Provider: Kami Altman RN) 09 (Given - Provider: Maren Rendon RN)2118 (Given - Provider: Kami Altman RN) 08 (Given - Provider: Reji Briones RN) sertraline (ZOLOFT) tablet 100 mg (CANCELED) 100 mg, Oral, DAILY, First dose on Fri01/07/14 at 1000, Until Discontinued, Routine 09 (Given - Provider: Maren Rendon RN) 08 (Given - Provider: Reji Briones RN) sodium chloride 0.9 % flush 5 mL (CANCELED) 5 mL, Intravenous, 2 TIMES DAILY, First dose on Gem 01/06/14 at 2115, Until Discontinued, Recovery (Recovery-Hospital Unit), Routine 2220 (Given - Provider: Kami Altman RN) 102 (Given - Provider: Maren Rendon RN)2121 (Given - Provider: Kami Altman RN) 08 (Given - Provider: Reji Briones RN) tranexamic acid (CYKLOKAPRON) 1,740 mg in sodium chloride 0.9% 117.4 mL (COMPLETED) 1,740 mg (15 mg/kg/dose ? 116.6 kg), Intravenous, ONCE, 1 dose, On Gem 01/06/14 at 1330, Administer over 30 Minutes, Dilute tranexamic acid dose in 100 mL sodium chloride 0.9% prior to administration. For patients less than or equal to 200 kg infuse over 30 minutes. For patients greater than 200 kg infuse over 60 minutes., Day of Surgery (Day of Procedure) 1456 (New Bag - Provider: Demian Blanco MD) traZODone (DESYREL) tablet 50 mg (CANCELED) 50 mg, Oral, NIGHTLY, First dose on Gem 01/06/14 at 2200, Until Discontinued, Routine 221 (Given - Provider: Kami Altman RN) 2118 (Given - Provider: Kami Altman RN) Continuous Medication Order 01/06/2014 01/07/2014 01/08/2014 HYDROmorphone (DILAUDID) 1 mg/mL LEVEL VIAL SETTER 30 mL (CANCELED) Intravenous, LEVEL VIAL SETTER ONLY, Starting on Gem 01/06/14 at 1800, Until 01/08/14 at 0644, Recovery (Recovery-Hospital Unit) 1738 (New Syringe/Cartridge - Provider: Radha Layton RN) lactated ringers infusion 1,000 mL (CANCELED) 1,000 mL, at 100 mL/hr, Intravenous, CONTINUOUS, Starting on Gem 01/06/14 at 1800, Until 01/08/14 at 0644, Recovery (Recovery-Hospital Unit) 1735 (New Bag - Provider: Radha Layton, RN) PRN Medication Order 01/06/2014 01/07/2014 01/08/2014 HYDROmorphone (DILAUDID) 0.2 mg/mL 10mL Syringe (CANCELED) 0.2-0.4 mg, Intravenous, EVERY 5 MIN PRN, Pain, Starting on Gem 01/06/14 at 1640, Until Gem 01/06/14 at 2004, For moderate pain give: 0.2 mg every 5 minute prn For severe pain give: 0.4 mg every 5 minutes prn Maximum dose: 4 mg per hour Hold for respiratory rate less than 10 per minute., PACU Recovery 1730 (Given - Provider: Radha Layton RN)1738 (Given - Provider: Radha Layton RN)1755 (Given - Provider: Radha Layton RN)1804 (Given - Provider: Radha Layton, DARIANA)1820 (Given - Provider: Radha Layton RN) HYDROmorphone (DILAUDID) tablet 2-6 mg 2-6 mg, Oral, EVERY 3 HOURS PRN, Starting on 01/08/14 at 0644, Until 01/08/14 at 1353, Pain, Routine oxyCODONE (ROXICODONE) immediate release tablet 10 mg (CANCELED)(Linked Group 1) 10 mg, Oral, EVERY 4 HOURS PRN, Starting on Gem 01/06/14 at 1730, Until 01/08/14 at 0644, Pain, moderate pain, For Moderate pain. Do not exceed 15 mg in 4 hours. If pain not relieved, call provider., Routine 0203 (Given - Provider: Kami Altman RN)0536 (Given - Provider: Kami Altman RN)0911 (Given - Provider: Maren Rendon RN)132 (See Alternative - Provider: Melissa Bhatti RN)1814 (See Alternative - Provider: Reji Briones RN)2124 (See Alternative - Provider: Kami Altman RN) 05 (See Alternative - Provider: Kami Altman RN) oxyCODONE (ROXICODONE) immediate release tablet 15 mg (CANCELED)(Linked Group 1) 15 mg, Oral, EVERY 4 HOURS PRN, Starting on Gem 01/06/14 at 1730, Until 01/08/14 at 0644, Pain, severe pain, For severe pain. Do not exceed 15 mg in 4 hours. If pain not relieved, call provider., Routine 0203 (See Alternative - Provider: Kami Altman RN)0536 (See Alternative - Provider: Kami Altman RN)0911 (See Alternative - Provider: Maren Rendon RN)132 (Given - Provider: Melissa Bhatti RN)1814 (Given - Provider: Reji Briones RN)2124 (Given - Provider: Kami Altman RN) 05 (Given - Provider: Kami Altman RN) ROpivacaine (NAROPIN) 2 mg/mL (0.2 %) injection (CANCELED) ONCE PRN, Starting on Gem 01/06/14 at 1541, Until Gem 01/06/14 at 1731, Intra-Operative (Intra-Procedure), Routine 1541 (Given - Provider: Shamir Crabtree MD) Linked Groups Order Group 1: oxyCODONE (ROXICODONE) immediate release tablet 5 mg (CANCELED) 5 mg, Oral, EVERY 4 HOURS PRN, Starting on Gem 01/06/14 at 1730, Until 01/08/14 at 0644, Pain, mild pain, For Mild pain. Do not exceed 15 mg in 4 hours. If pain not relieved, call provider, Routine Or oxyCODONE (ROXICODONE) immediate release tablet 10 mg (CANCELED)Jump to med 10 mg, Oral, EVERY 4 HOURS PRN, Starting on Gem 01/06/14 at 1730, Until 01/08/14 at 0644, Pain, moderate pain, For Moderate pain. Do not exceed 15 mg in 4 hours. If pain not relieved, call provider., Routine Or oxyCODONE (ROXICODONE) immediate release tablet 15 mg (CANCELED)Jump to med 15 mg, Oral, EVERY 4 HOURS PRN, Starting on Gem 01/06/14 at 1730, Until 01/08/14 at 0644, Pain, severe pain, For severe pain. Do not exceed 15 mg in 4 hours. 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
--- OUTSIDE RECORDS SUMMARY | 2024-03-04 19:47 | XMS_ITS | Encounter Summary ---
Author Organization [facility] [place] [address] Care Team Providers Care Switchboard Operator Supervisor Name Role Phone Ronnie Stokes MD Primary Care Provider [phone] Reason for Visit * Reason Onset Date Comments Reminder Appointment 03/20/2016 Encounter Details Date Type Department Care Team (Late st Contact Info) Description 03/20/2016 [place] [phone] Polo Wiseman PA [facility] [place] [address] Reminder Appointment Social History Tobacco Use Types [...] encounter Miscellaneous Notes * Telephone Encounter - Adan Meraz - 03/20/2016 6:32 PM EDT Spoke with pt. She will call back to schedule. documented in this encounter Plan of Treatment Upcoming Encounters Date Type Department Care Team (Late st Contact Info) Description 07/12/2024 9:30 AM EST [place] [phone] Walt Wiseman III, MD [facility] [place] [address] documented as of this encounter Visit Diagnoses Not on filedocumented in this encounter Care Teams Switchboard Operator Supervisor Relationship Specialty Start Date End Date Ronnie Stokes MD [address] [place] [address] [place] [address] PCP - General 12/01/13 04/10/17 documented as of this encounter
--- OUTSIDE RECORDS SUMMARY | 2024-03-04 19:47 | XMS_ITS | Encounter Summary ---
Author Organization [facility] Address [facility] [place] [address] Care Team Providers Care Parakeet Raiser Name Role Phone Ronnie Stokes MD Primary Care Provider [phone] Reason for Referral * Physical Therapy (Routine) - Complete - Patient Will Schedule External Appt Specialty Diagnoses / Procedures Referred By Contac t Referred To Contact Physical Therapy Diagnoses Knee joint replacement by other means Diane Rangel PA [facility] [place] [address] Referral ID Status Reason Start Date Expiration Date Visits Requested Visits Authorized [id number] Complete - Patient Will Schedule External Appt Evaluate and Treat 02/14/2014 08/13/2014 12 12 Reason for Visit * Reason Comments Post Op left TKA - DOS 4 Encounter Details Date Type Department Care Team (Late st Contact Info) Description 02/14/2014 12:00 PM EDT Office [place] [address] Shamir Quispe MD [facility] [place] [address] Knee joint replacement by other means (Primary Dx); S/P total knee arthroplasty, left; Aftercare following joint replacement Discharge Disposition: Home Social History Tobacco [...] Sign Reading Time Taken Comments Blood Pressure 117/66 02/14/2014 12:28 PM EDT Pulse 69 02/14/2014 12:28 PM EDT Temperature 36.8 ??C (98.3 ??F) 02/14/2014 1 2:28 PM EDT Respiratory Rate - - Oxygen Saturation - - Inhaled Oxygen Concentration - - Weight 113.9 kg (251 lb 3.2 oz) 014 12:28 PM EDT Height 172.7 cm (5' 8) 02/14/2014 12:2 8 PM EDT verbalized Body Mass Index 38.19 02/14/2014 12:28 PM EDT documented in this encounter Progress Notes * Shamir Quispe MD - 02/14/2014 12:51 PM EDT I saw this patient in conjunction with OVIDIO Hidalgo today. Please see her note for details of the history and physical examination. I am in agreement with the plan as stated. Netta Gregorio is a 54 y.o. year old female who is 4 weeks status post left TKA. She is doing well and making progress with PT. I have advised her to continue working on ROM and strengthening exercises. 5-90 degrees today. She is struggling with flexion to some degree, but we discussed outpatient PT andbetter pain management. Radiographs today show a well-placed prosthesis without any evidence of fracture or loosening. We discussed the appropriate precautions surrounding dental prophylaxis. The patient should call the office for a prescription prior to any further dental work for the life of the joint replacement. We also discussed giving prompt attention to any source of infection throughout the body. She will follow up in 1 months for repeat examination. Shamir Quispe MD MS * Diane Rangel PA - 02/14/2014 12:31 PM EDT Patient Name: Netta Gregorio : 1960 MR#: [id number] Case Date: 01/03/14 Surgeon: Laxmi Quispe Procedure: left total knee replacement HPI: Netta Gregorio is a very pleasant 54 y.o. year-old female who presents for a 4 weeks follow-up ofthe above procedure. The patient has been doing very well and her pain is moderately improved over preoperative status. No fevers, chills, nausea, vomiting, or symptoms of infection. Netta has been ambulating with a cane and working with PT. Physical Exam: Well-appearing female in no acute distress. Alert and Oriented x 3 and answers all questions appropriately. The incision is well healed, with no signs of infection. Knee Exam: Left Gait Abnormality: Antalgic Knee ROM: Extension:0 Flexion: 90 Alignment: 0-4 degrees Neutral Stability: A/P Translation <5mm Varus <5mm Valgus <5mm Extension La degrees or less Patella Tracking: Normal Pulses Palpable: Left PT:Yes Left DP:Yes Motor/Sensory: Distal Motor: Normal Distal Sensory: Normal Quadriceps Strength: 4 X-RAYS: Multiple radiographic views were obtained at my request and reviewed with the patient. X-rays show a well-placed prosthesis with no evidence of fracture or loosening. ASSESSMENT/PLAN: 4 weeks post-op and doing well. Continue weightbearing as tolerated and working onrange of motion, and we will see her back in 4 weeks for repeat examination. No x-rays will be needed at that time. Patient may return to normal activities as her pain and function allow. Will followup earlier for check of ROM. She did talk about being sensitive to light touch over left knee. Suggested desensitization process. We discussed the appropriate precautions surrounding dental [...] foot ulcers and urinary tract infections. Signed: OVIDIO BAXTER 02/14/2014 documented in this encounter Plan of Treatment Upcoming Encounters Date Type Department Care Team (Late st Contact Info) Description 07/12/2024 9:30 AM EST Office [place] [address] Walt Wiseman III, MD [facility] [place] [address] Scheduled Referrals Name Type Priority Associated Diagnoses Orde r Schedule Referral to Physical Therapy Outpatient Referral Routine Knee joint replacement by other means Ordered: 02/14/2014 documented as of this encounter Visit Diagnoses Diagnosis Knee joint replacement by other means- Primary S/P total knee arthroplasty, left Aftercare following joint replacement documented in this encounter Care Teams Parakeet Raiser Relationship Specialty Start Date End Date Ronnie Stokes MD [address] [place] [address] [place] [address] PCP - General 12/01/13 04/10/17 documented as of this encounter
--- OUTSIDE RECORDS SUMMARY | 2024-03-04 19:47 | XMS_ITS | Encounter Summary ---
Author Organization [place] [address] Care Team Providers Care Piping Engineer Name Role Phone Karmen Magana MD Primary Care Provider [phone] Reason for Visit * Reason Comments Back Pain * Surgical (Routine) - Closed Specialty Diagnoses / Procedures Referred By Contac t Referred To Contact Orthopaedics Diagnoses Spinal stenosis, lumbar lumbar stenosis/ MRI 10/19/18 [facility] / ?XR Bryan Schmid MD [address] [place] [id number] [facility] [address] [place] [phone] Referral ID Status Reason Start Date Expiration Date Visits Re quested Visits Authorized [id number] Closed 10/21/2018 10/21/2019 1 1 Encounter Details Date Type Department Care Team (Late st Contact Info) Description 10/28/2018 8:40 AM EDT Office [place] [address] Alfa Hidalgo MD [facility] [place] [address] Chronic midline low back pain with left-sided sciatica Social History Tobacco Use Types Packs/Day Years Used Date Smoking Tobacco: Never Smokeless Tobacco: Never Alcohol Use Standard Drinks/Week Comments Yes 0 (1 standard drink = 0.6 oz pur e alcohol) occasional Sex and Gender Information Value Date Recorded Sex Assigned at Not on file Gender Identity Not on file Sexual Orientation Not on file documented as of this encounter Patient Instructions * Patient Instructions* Alfa Hidalgo MD - 10/28/2018 8:40 AM EDT Follow-up with pain clinic in [place] to discuss further injections. documented in this encounter Progress Notes * Alfa Hidalgo MD - 10/28/2018 8:40 AM EDT Chief complaint: Low back pain greater than left lower extremity pain History of present illness: Ms. Gregorio is a 58-year-old female I am seeing in consultation for Dr. Schmid regards to her back pain that radiates to her bilateral buttocks as well as to her left posterior thigh and leg. She notes that she has had back pain for many years and developed the left lower extremity pain about 6 years ago. She underwent what sounds like a left-sided L4-L5 decompression for a facet cyst in [address] Marrero at [facility]. She notes that she did not get much relief from that surgery and that she developed worsening left lower extremity pain following the surgery. She has had the left lower extremity pain since then, though she feels it has been somewhat worse as of late. Her pain is equally as bad with sitting and standing, with sitting giving her left lower extremity pain and standing causing her back pain. Her standing is currently limited to about 5 minutes and walking to less than 100 yards. She gets relief by laying down. She reports numbness diffusely in the left lower extremity and also feels as though the left lower extremity is weak when it is painful. The pain does bother her at night. She denies constitutional symptoms. She notes long-standing urinary and bowel incontinence intermittently that has been worse as of late. She is taking Flexeril, oxycodone, Tylenol and finds the oxycodone somewhat helpful. She did a course of physical therapy that helped some, and she is currently doing home exercises. He had a lumbar epidural steroid injection in June that gave her about 1 month of relief. Past medical history: Morbid obesity, hyperlipidemia, hypothyroidism, diabetes, sleep apnea, heart disease status post IN in 2006 Past surgical history: Total knee arthroplasty, cholecystectomy, hand surgeries, lumbar decompression as above Medications and allergies were reviewed and are in ED H. Family history: Alzheimer's, cancer Social history: The patient is a school cafeteria head cook, though she has been out of work since last October due to her back pain. She does not smoke and occasionally drinks. Review of systems: All negative except musculoskeletal as above. Physical exam General: Patient is comfortable, no acute distress Back: She has a well-healed midline incision. Her back is mildly tender to palpation in the midline. She can flex 40 degrees and extend 10 degrees. Neurological exam: She walks an antalgic gait. She can Heel Walk and Toe Walk. Motor exam reveals 5/5 strength of all lower extremity motor groups. She has normal sensory exam. Reflexes are 2/4 at the knees and ankles and symmetric. Straight leg raise negative bilaterally. She has no clonus, and Babinski is negative. Hip exam: She has normal, painless range of motion of both hips. Vascular exam: She is palpable pulses bilaterally. Imaging: AP and lateral flexion-extension x-rays of the lumbar spine obtained today were reviewed. These demonstrate a mild apex left lumbar curve with a rotational component. On the lateral view, she has mild degenerative changes with no spondylolisthesis or instability. MRI of the lumbar spine from 10/19/2018 was reviewed. This shows mild degenerative changes in the lumbar spine. She has facet hypertrophy on the right at L2-L3 that does not cause significant stenosis. There is no stenosis at L2-3-L4 or L4-L5. There is evidence of prior surgery on the left at L4-L5.There is no nerve compression at L5-S1. Assessment/plan: Ms. Gregorio is a 58-year-old female with chronic back pain radiating to her left lower extremity. She did undergo a prior L4-L5 decompression for a facet cyst, from which she did not get much improvement. She has mild degenerative changes throughout the lumbar spine. I do not see any a reas of nerve compression. Her left lower extremity pain could be related to scarring around the left L5 nerve root following her prior surgery, though that is difficult to say definitively. She did get 1 month of relief from her last injection, suggesting that the lumbar spine is the source of herpain. We discussed treatment options for this that include continued medication, further physical therapy, and repeat injection. I did recommend that she continue her home exercises and consider setting up an appointment with the pain specialist who did her last injection. I see no role for surgeryat this point. documented in this encounter Plan of Treatment Upcoming Encounters Date Type Department Care Team (Late st Contact Info) Description 07/12/2024 9:30 AM EST [place] [address] Walt Wiseman III, MD [facility] [place] [address] documented as of this encounter Visit Diagnoses Diagnosis Chronic midline low back pain with left-sided sciatica documented in this encounter Care Teams Piping Engineer Relationship Specialty Start Date End Date Karmen Magana MD [address] [place] [address] [place] [address] PCP - General Family Medicine 04/11/17 07/18/20 documented as of this encounter
--- OUTSIDE RECORDS SUMMARY | 2024-03-04 19:47 | XMS_ITS | Encounter Summary ---
Author Organization [facility] [place] [address] Care Team Providers Care 3Rd Grade Reading Teacher Name Role Phone Adiel Ryder MD Primary Care Provider [phone] Encounter Details Date Type Department Care Team (Latest Contact Info) Description 01/06/2014 12:51 PM EDT - 01/08/2014 11:53 AM EDT Hospital Encounter [address] [place] [address] Shamir Crabtree MD [facility] [address] [place] [address] Osteoarthritis of knee Discharge Disposition: Home with VNA Social History Tobacco Use Types Packs/Day Years [...] sennakot, to factilitate a bowel movement. An zdaj-rvt-fhgcbrk medication, miralax can also beused if needed [...] 1. You will have followup appointments at [facility] as indicated in Future Appointments and Orders. [...] functional activity training and therapeutic exercise. Pager: [phone] Leny Wu PT Physical Therapy Dept of [...] 10:46 AM EDT Office of Care Management/Clinical Power House Engineer (CRC)/Discharge Planning Note CRC Annalise Calle RN (pager [phone]) Patient: Netta Gregorio : 1960 (53 y.o.) Home: [facility] [id number] LOS: 2 days Care reviewed with OVIDIO [...] [facility] RN/PT orders pended. ?? Transportation at [...] S/P left total knee arthroplasty 01/06/2014 Brittaney V43.65 * Adan Shin RN - 01/07/2014 2:48 PM EDT S: My pain is about a 7. O: Chart reviewed and met with pt and SO. Pt is lying in bed in NAD. Pt had L TKA yesterday by Dr Crabtree. 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 Pt denies the need for in-pt rehab and feels she can manage at home with VNA. Pt requests the [facility] for services. She will need SR [...] SOB. Using oral meds with d/c of MUSHROOM CUTTER. Denies nausea or vomiting. MEDICATIONS: Scheduled Meds: [...] senna-docusate 1-4 tablet Oral BID ??? multivitamin Cdrl-Hw-PC-Min 1 tablet Oral Daily ??? ceFAZolin 2 [...] Infusions: ??? lactated ringers 1,000 mL (01/06/14 6541) ??? HYDROmorphone ??? MUSHROOM CUTTER henry ??? [DISCONTINUED] lactated ringers Temp: [36.3 [...] Note Patient: Netta Gregorio s/p Surgery: 01/06/2014 [id number] Procedure(s) (LRB): @TOTAL KNEE ARTHROPLASTY (Left) MODIFIER PFC STABILIZED FIXED MODULAR DEPUY (Left) Surgeon(s) and Role: * Diane Rangel PA - Physician Bridge Expert * Marco A Vera MD - Resident-Retaining Room Cutter * Shamir Crabtree MD - Primary: 2 [...] Netta Gregorio Patient Age: 53 y.o. Language: Slovenian Race: White Ethnicity: Not nor Admit date: 01/06/2014 Discharge date and time: 01/10/2014 Attending Physician: No att. providers found Discharge Physician: No att. providers found Follow-up Recommendations for Providers: Please see patient discharge instructions for additional details. Inpatient Provider Contact Information: No att. providers found Joints: [phone] After hours and weekends, call [facility] Blindstitch Hemmer, , and have Orthopedic resident paged. Discharge Diagnoses (Hospital Problems) and Secondary Diagnoses (Chronic Problems): Active Hospital Problems Diagnosis ??? S/P left total knee arthroplasty 01/06/2014 Brittaney Resolved Hospital Problems Diagnosis Date Resolved No resolved problems to display. Active Non-Hospital Problems Diagnosis ??? S/P left total knee arthroplasty 01/06/2014 Brittaney ??? Obesity ??? Sleep apnea ??? Asthma ??? Primary osteoarthritis of left knee ??? IBS (irritable bowel syndrome) ??? GERD (gastroesophageal reflux disease) ??? Chest pain, unspecified Operations/Major Procedures: 01/06/2014 left total knee arthroplasty. Surgeon(s) and Role: * Diane Rangel PA - Physician Bridge Expert * Marco A Vera MD - Resident-Retaining Room Cutter * Shamir Crabtree MD - Primary History [...] Rate: -- Blood Pressure BP: 119/79 mmHg @jukvapd32@ Respiratory Rate Resp: 18 Resp: -- SpO2 SpO2: 97 % @[id number]@ Art BP BP (Arterial Line): -- Functional [...] sennakot, to factilitate a bowel movement. An zryz-qvo-mwxrcxi medication, miralax can also beused if needed [...] 1. You will have followup appointments at [facility] as indicated in Future Appointments and Orders. [...] 02/14/2014 12:00 PM Shamir Crabtree MD Orthopaedics [phone] None Joint Appt Health Question Three C Ortho Orthopaedics [phone] None Future Orders Please Complete By Expires Referral to Home Health - at DISCHARGE [[id number] CPT(R)] Process Instructions: Scheduling Instructions: Comments: DISCHARGE [...] nurse practitioner, clinical nurse specialist or physician's assistant curator who is working directly with them, had [...] for home health services. HOME HEALTH AGENCY: [facility] Home care orders for Total Knee Replacements for PT: Nursing Home(SN) eval if indicated on admission visit 1. Pt will be on Rivaroxaban so will not need bld draws. 2.Do not lift the edge of the mepilex dressing to observe the incision; this dressing needs to stayin place until 7 days after surgery. 3. Suture or Staple removal in 10-14 days - PER MD/ART PROFESSOR/PA ORDERS 4. Continue PT rehab for balance, endurance, joint mobility, ROM, Strength, TKA protocol Please note that any additional orders needs or changes will need to be obtained from this patient's PCP: ADIEL RYDER MD [address] [place] [address] [place] [address] All VNA agencies which cover the area of patient's residence have been reviewed, either verbally damian writing, and patient/family have chosen the indicated home health care agency for home services. [facility] Fax: Questions: Responses: Agency name and contact information [facility] Patient location post discharge home What services are requested Start date Responsible MD post discharge contact info Primary Care Provider: ADIEL RYDER MD [phone] * Initial Assessments - Leny Wu - 01/07/2014 8:02 AM EDT Physical Therapy Evaluation Total Knee Arthroplasty Patient Profile: Pt. is a 53 y.o. female admitted on 01/06/2014 by Shamir Novoa MD for L TKA. PMH: No past medical history on file. PSH: Past Surgical History Procedure Date ??? Colonoscopy, biopsy 06/03/2012 COLONOSCOPY FLEXIBLE, WITH BX performed by Alireza James MD at [facility] ENDOSCOPY ??? Upper gi endoscopy, biopsy 06/03/2012 EGD WITH BIOPSY performed by Alireza James MD at [facility] ENDOSCOPY ??? Back surgery 01/2013 ??? Meniscectomy 1996 left ??? Anterior cruciate ligament repair 2011 left ??? Hand surgery bilat thumb ligament repair, small finger on right hand x2 (fx) ??? Cholecystectomy, laparoscopic 2011 ??? Laparoscopy 1995 ??? [place] tooth extraction three teeth ??? Dilation and curettage of uterus 2011 ??? Total knee arthroplasty 01/06/2014 @TOTAL KNEE ARTHROPLASTY performed by Shamir Crabtree MD at [facility] MAIN OR Social History: Patient lives in [...] treatment: 0 minutes LENY WU, PT Pager: [phone] Physical Therapy Department of Rehabilitation * Plan [...] Patient having right knee pain Tolerating dilaudid MUSHROOM CUTTER and oxycodone. Patient states pain is 7/10 and needed oxycodone to supplement her MUSHROOM CUTTER for more effective pain management. Patient aware [...] Patient able to reposition herself in bed. Jenifer monitor skin * Op Note - Shamir Crabtree MD - 01/06/2014 4:42 PM EDT [facility] Operative Note Patient Name: Netta Gregorio : [id number] MR#: [id number] Case Date: 01/06/2014 Surgeon: Surgeon(s) and Role: * Diane Rangel PA - Physician Bridge Expert * Marco A Vera MD - Resident-Retaining Room Cutter * Shamir Crabtree MD - Primary PROCEDURE: [...] block had previously been placed in the [facility] area. Antibiotic prophylaxis was given and a [...] mallet. Excess cement was removed with a [place]. We then placed the cement onto the anterior and distal aspects of the femur. The cement was placed on the posterior aspect of the prosthetic condyles. The femoral component was then placed and impacted into position. Excess cement was removed with a [place]. The polyethylene trial was then placed and the knee brought out to full extension where it was held for the entire polymerization time. Cement was then pressurized into the patellar bone and the patellar component placed. The patella was clamped. Excess cement was removed with a [place]. After all cement had hardened, the knee [...] by the anesthesiology staff and [facility]. Sequential compression devices were placed. [facility] condition. [...] Implant Name Type Inv. Item Serial No. Client Onboarding Analyst Lot No. LRB No. Used Action CEMENT,BNE,CMW 1,GNTA,40GM ([id number]) - [id number] IMPLANTS CEMENT,BNE,CMW 1,GNTA,40GM ([id number]) [email or web address] - [facility] [id number] Left 1 Implanted DIEGO,PFC,SGM,OVL,3PG,SM,35MM ([id number]) (AUTOREQ) - [id number] IMPLANTS DIEGO,PFC,SGM,OVL,3PG,SM,35MM ([id number]) (AUTOREQ) [email or web address] - [facility]7 [id number] Left 1 Implanted COMPO,SGM,FEM,PS,CMNT,LUG,L,4 ([id number]) (AUTOREQ) - [id number] IMPLANTS COMPO,SGM,FEM,PS,CMNT,LUG,L,4 ([id number]) (AUTOREQ) [email or web address] - [facility] [id number] Left 1 Implanted TRAY,TIB,SGM,MOD,CMNT,SZ3 ([id number]) (AUTOREQ) - [id number] IMPLANTS TRAY,TIB,SGM,MOD,CMNT,SZ3 ([id number]) (AUTOREQ) [facility] Tech - [id number] Left 1 Implanted INSER,SGM,STAB,CRSLNK,3X12.5MM ([id number]) (AUTOREQ) - [id number] IMPLANTS INSER,SGM,STAB,CRSLNK,3X12.5MM ([id number]) (AUTOREQ) [id number] Left 1 Implanted * OR Attestation - [...] 9:30 AM EST [place] [address] Walt Wiseman III, MD [facility] [place] [address] documented as of this encounter Procedures Procedure [...] Shamir Crabtree MD HEMATOLOGY ORDERABLE S CERNER KARLAENNIUM * (ABNORMAL) Hemogram (01/08/2014 4:09 AM EDT) [...] intervals supplied above were not validated at [facility]. Results from pediatric patients should be interpreted [...] the following links into your internet browser. [email or web address] Blood specimen (specimen) 01/08/2014 4:09 AM EDT [...] MD HEMATOLOGY ORDERABLE S Performing Organization Address [facility] Co de Phone Number CERAKANKSHA MILLENNIUM * (ABNORMAL) Hemogram (01/07/2014 4:40 AM EDT) [...] MD HEMATOLOGY ORDERABLE S Performing Organization Address [facility]/ZIP Co de Phone Number CERAKANKSHA MILLENNIUM * (ABNORMAL) Basic Metabolic Panel (non-fasting) (01/07/2014 4:40 AM EDT) Glucose 149 60 - 199 mg/dL CERNER MILLENNIUM Comment:Diabetes: >=200 mg/d L plus symptoms Blood Urea Nitrogen 10 8 - 18 mg/dL CERNER MILLENNIUM Creatinine 0.65(L) 0.70 - 1.20 mg/dL CERNER MILLENNIUM Comment: Please note that the pediatric reference intervals supplied above were not validated at [facility]. Results from pediatric patients should be interpreted [...] the following links into your internet browser. [email or web address] Blood specimen (specimen) 01/07/2014 4:40 AM EDT 01/07/2014 5:04 AM EDT Narrative Resulting Agency Comment Spec In Lab Shamir Crabtree MD CHEMISTRY ORDERABLES JAMILAH AMADOR * Surgical Pathology Report (01/06/2014 5:04 PM EDT) Final Diagnosis ? [facility] ? Provider: ?? SHAMIR CRABTREE ?Pt. Name: ?? NETTA GREGORIO ? Acc #: ?[id number] ?Pt. ? Col Date: ?? 01/06/2014 ?/Sex: [...] Diagnosis: ? Osteoarthritis 01/10/2014 11:21 AM EDT [facility] KNEE REGION STRUCTURE / Unknown 01/06/2014 5:04 PM EDT 01/06/2014 5:04 PM EDT Shamir Crabtree MD PATHOLOGY/CYTOLOGY O SHIELA Performing Organization Address City/[facility]/ZIP Co de Phone Number JAMILAH AMADOR [facility] [place] [address] * Specimen to Pathology (surgical or derm) (01/06/2014 3:32 PM EDT) AP Specimen 01/06/2014 3:32 PM EDT 01/06/2014 3:32 PM EDT Narrative JAMILAH AMADOR - 01/06/2014 3:32 PM EDT Specimen requisition ordered. ??Separate Pathology report to follow Shamir Crabtree MD PATHOLOGY/CYTOLOGY O SHIELA Performing Organization Address City/[facility]/ZIP Co de Phone Number JAMILAH ACOSTARONALD documented in this encounter Visit Diagnoses Diagnosis S/P left total knee arthroplasty 01/06/2014 Brittaney- Primary Knee joint replacement by other means Osteoarthritis of knee Osteoarthrosis, unspecified whether generalized or localized, lower leg documented in this encounter Administered Medications Inactive Administered Medications - up to 3 most recent administrations Medication Order MAR Action Action Date Dose Rate Site acetaminophen (TYLENOL) tablet 1,000 mg 1,000 mg, Oral, EVERY 8 HOURS SCHEDULED, First dose on Fri01/06/14 at 2200, Until Discontinued, Maximum dose of acetaminophen is 4000 mg from all sources in 24 hours., Routine Given 01/08/2014 5:26 AM EDT 1,000 mg Given 01/07/2014 9:19 PM EDT 1,000 mg Given 01/07/2014 1:27 PM EDT 1,000 mg amLODIPine (NORVASC) tablet 5 mg 5 mg, Oral, DAILY, First dose on Fri01/07/14 at 0900, Until Discontinued, Routine Given 01/08/2014 8:25 AM EDT 5 mg Given 01/07/2014 9:08 AM EDT 5 mg atorvastatin (LIPITOR) tablet 40 mg 40 mg, Oral, NIGHTLY, First dose on Fri01/06/14 at 2200, Until Discontinued, Routine Given 01/07/2014 9:19 PM EDT 40 mg Given 01/06/2014 10:19 PM EDT 40 mg ceFAZolin (ANCEF) 2g in dextrose 5% 50 mL 2 g, Intravenous, EVERY 8 HOURS, 3 doses, First dose on Fri01/06/14 at 1900, Last dose on Fri01/07/14 at 1100, Adjust to 4 hours from intraoperative dose. * Beta-lactam based antibiotics (eg. Ampicillin, Cefazolin, Aztreonam) should be administered within 4 hours of the preceding intraoperative dose. * Vancomycin, Flouroquinolones, Clindamycin, Gentamicin, and Metronidazole should be administered within 8 hours of the preceding intraoperative dose., Recovery (Recovery-Hospital Unit), Indication for (Active or Suspected): Prophylaxis Given 01/07/2014 11:28 AM EDT 2 g Given 01/07/2014 3:34 AM EDT 2 g Given 01/06/2014 7:05 PM EDT 2 g esomeprazole (NexIUM) capsule 40 mg 40 mg, Oral, DAILY, First dose on Fri01/07/14 at 0900, Until Discontinued, Routine Given 01/08/2014 8:26 AM EDT 40 mg Given 01/07/2014 9:10 AM EDT 40 mg fluticasone-salmeterol (ADVAIR HFA) 115-21 mcg/actuation inhaler 1 puff 1 puff, Inhalation, EVERY 12 HOURS SCHEDULED (2 times per day), First dose on Fri01/06/14 at 2200, Until Discontinued, Rinse mouth after administration Therapeutically substituted for Budesonide-formoterol Given 01/08/2014 8:27 AM EDT 1 puff Given 01/07/2014 9:19 PM EDT 1 puff Given 01/07/2014 9:15 AM EDT 1 puff HYDROmorphone (DILAUDID) 0.2 mg/mL 10mL Syringe 0.2-0.4 mg, Intravenous, EVERY 5 MIN PRN, Pain, Starting on Fri01/06/14 at 1640, Until Gem 01/06/14 at 2004, For moderate pain give: 0.2 mg every 5 minute prn For severe pain give: 0.4 mg every 5 minutes prn Maximum dose: 4 mg per hour Hold for respiratory rate less than 10 per minute., PACU Recovery Given 01/06/2014 6:20 PM EDT 0.4 mg Given 01/06/2014 6:04 PM EDT 0.4 mg Given 01/06/2014 5:55 PM EDT 0.4 mg HYDROmorphone (DILAUDID) 1 mg/mL MUSHROOM CUTTER 30 mL Intravenous, MUSHROOM CUTTER ONLY, Starting on Gem 01/06/14 at 1800, Until 01/08/14 at 0644, Recovery (Recovery-Hospital Unit) New Syringe/Cartridge 01/06/2014 5:38 PM EDT 30 mg lactated ringers infusion 1,000 mL 1,000 mL, at 100 mL/hr, Intravenous, CONTINUOUS, Starting on Gem 01/06/14 at 1800, Until 01/08/14 at 0644, Recovery (Recovery-Hospital Unit) New Bag 01/06/2014 5:35 PM EDT 1,000 mLs 100 mL/hr levothyroxine (SYNTHROID) tablet 25 mcg 25 mcg, Oral, EVERY MORNING, First dose on Fri01/07/14 at 0600, Until Discontinued, Routine Given 01/08/2014 5:26 AM EDT 25 mcg Given 01/07/2014 5:36 AM EDT 25 mcg loratadine (CLARITIN) tablet 10 mg 10 mg, Oral, DAILY, First dose on Fri01/07/14 at 0900, Until Discontinued Given 01/07/2014 9:18 PM EDT 10 mg Given 01/07/2014 12:19 AM EDT 10 mg metoprolol tartrate (LOPRESSOR) tablet 150 mg 150 mg, Oral, DAILY, First dose on Fri01/07/14 at 0900, Until Discontinued, Hold for sbp less 100. Hr less 60, Routine Given 01/08/2014 8:25 AM EDT 150 mg Given 01/07/2014 9:08 AM EDT 150 mg multivitamin Kupk-Ak-FX-Min (THERAPEUTIC-M) 27-0.4 mg tablet 1 tablet 1 tablet, Oral, DAILY, First dose on Fri01/07/14 at 0900, Until Discontinued Given 01/08/2014 8:24 AM EDT 1 tablet Given 01/07/2014 9:09 AM EDT 1 tablet oxyCODONE (OxyCONTIN) CR tablet 10 mg 10 mg, Oral, EVERY 12 HOURS SCHEDULED (2 times per day), First dose on 01/08/14 at 0900, 6 doses, Last dose on Fri01/10/14 at 2100 Given 01/08/2014 8:24 AM EDT 10 m g oxyCODONE (ROXICODONE) immediate release tablet 10 mg 10 mg, Oral, EVERY 4 HOURS PRN, Starting on Gem 01/06/14 at 1730, Until 01/08/14 at 0644, Pain, moderate pain, For Moderate pain. Do not exceed 15 mg in 4 hours. If pain not relieved, call provider., Routine Given 01/07/2014 9:11 AM EDT 10 mg Given 01/07/2014 5:36 AM EDT 10 mg Given 01/07/2014 2:03 AM EDT 10 mg oxyCODONE (ROXICODONE) immediate release tablet 10 mg 10 mg, Oral, ONCE, 1 dose, On Fri01/07/14 at 2345, Routine Given 01/08/2014 12:06 AM EDT 10 mg oxyCODONE (ROXICODONE) immediate release tablet 15 mg 15 mg, Oral, EVERY 4 HOURS PRN, Starting on Gem 01/06/14 at 1730, Until 01/08/14 at 0644, Pain, severe pain, For severe pain. Do not exceed 15 mg in 4 hours. If pain not relieved, call provider., Routine Given 01/08/2014 5:26 AM EDT 15 mg Given 01/07/2014 9:25 PM EDT 15 mg Given 01/07/2014 6:15 PM EDT 15 mg polyethylene glycol (MIRALAX) packet 17 g 17 g, Oral, 2 TIMES DAILY, First dose on Gem 01/06/14 at 2115, Until Discontinued, Administer if needed per patient's routine or if no bowel movement within 48 hours, Routine Given 01/08/2014 8:23 AM EDT 17 g Given 01/07/2014 9:19 PM EDT 17 g Given 01/07/2014 9:10 AM EDT 17 g rivaroxaban (XARELTO) tablet 10 mg 10 mg, Oral, DAILY, First dose on Fri01/07/14 at 0900, Until Discontinued, Routine, Restricted anticoagulant, choose the most appropriate response: Approved indication of knee replacement DVT prophylaxis Given 01/08/2014 8:26 AM EDT 10 mg Given 01/07/2014 10:21 AM EDT 10 mg senna-docusate (PERICOLACE) 8.6-50 mg per tablet 1-4 tablet 1-4 tablet, Oral, 2 TIMES DAILY, First dose on Fri01/06/14 at 2115, Until Discontinued, Start with 1 tablet or liquid equivalent orally twice daily and titrate up to achieve: 1. One bowel movement at least every 48 hours, AND 2. Without straining, Routine Given 01/08/2014 8:25 AM EDT 2 tablets Given 01/07/2014 9:19 PM EDT 2 tablets Given 01/07/2014 9:11 AM EDT 1 tablet sertraline (ZOLOFT) tablet 100 mg 100 mg, Oral, DAILY, First dose on Fri01/07/14 at 1000, Until Discontinued, Routine Given 01/08/2014 8:24 AM EDT 100 mg Given 01/07/2014 9:16 AM EDT 100 mg sodium chloride 0.9 % flush 5 mL 5 mL, Intravenous, 2 TIMES DAILY, First dose on Fri01/06/14 at 2115, Until Discontinued, Recovery (Recovery-Hospital Unit), Routine Given 01/08/2014 8:26 AM EDT 5 mLs Given 01/07/2014 9:22 PM EDT 5 mLs Given 01/07/2014 10:22 AM EDT 5 mLs traZODone (DESYREL) tablet 50 mg 50 mg, Oral, NIGHTLY, First dose on Fri01/06/14 at 2200, Until Discontinued, Routine Given 01/07/2014 9:19 PM EDT 50 mg Given 01/06/2014 10:18 PM EDT 50 mg documented in this encounter Active and Recently Administered Medications Times are shown in EDT. Scheduled Medication Order 01/06/2014 01/07/2014 01/08/2014 acetaminophen (TYLENOL) tablet 1,000 mg 1,000 mg, Oral, EVERY 8 HOURS SCHEDULED, First dose on Fri01/06/14 at 2200, Until Discontinued, Maximum dose of acetaminophen is 4000 mg from all sources in 24 hours., Routine 2218 (Given - Provider: Kami Altman RN) 0536 (Given - Provider: Kami Altman RN)132 (Given - Provider: Melissa Bhatti RN)2118 (Given - Provider: Kami Altman RN) 0526 (Given - Provider: Kami Altman RN) amLODIPine (NORVASC) tablet 5 mg (CANCELED) 5 mg, Oral, DAILY, First dose on Fri01/07/14 at 0900, Until Discontinued, Routine 09 (Given - Provider: Maren Rendon RN) 0825 (Given - Provider: Reji Briones RN) atorvastatin (LIPITOR) tablet 40 mg (CANCELED) 40 mg, Oral, NIGHTLY, First dose on Fri01/06/14 at 2200, Until Discontinued, Routine 2218 (Given [...] Procedure), Indication for (Active or Suspected): Prophylaxis 1514 (Given - Provider: Sherman Villagomez CRNA) ceFAZolin (ANCEF) 2g in dextrose 5% 50 mL (COMPLETED) 2 g, Intravenous, EVERY 8 HOURS, 3 doses, First dose on Fri01/06/14 at 1900, Last dose on Fri01/07/14 at [...] 190 (Given - Provider: Rhonda Wick RN) 0334 (Given - Provider: Kami Altman RN)1128 (Given - Provider: Maren Rendon RN) esomeprazole (NexIUM) capsule 40 mg (CANCELED) 40 mg, Oral, DAILY, First dose on Fri01/07/14 at 0900, Until Discontinued, Routine 909 (Given - Provider: Maren Rendon RN) 825 (Given - Provider: Reji Briones, DARIANA) fluticasone-salmeterol (ADVAIR HFA) 115-21 mcg/actuation inhaler 1 [...] on Fri01/07/14 at 0600, Until Discontinued, Routine 05 (Given - Provider: Kami lAtman RN) 05 (Given - Provider: Kami Altman [...] sbp less 100. Hr less 60, Routine 09 (Given - Provider: Maren Rendon RN) 08 (Given - Provider: Reji Briones RN) multivitamin Vlpo-Zw-RH-Min (THERAPEUTIC-M) 27-0.4 mg tablet 1 tablet (CANCELED) 1 tablet, Oral, DAILY, First dose on Fri01/07/14 at 0900, Until Discontinued 09 (Given - Provider: Maren Rendon RN) 0824 (Given - Provider: Reji Briones RN) oxyCODONE (OxyCONTIN) CR tablet 10 mg 10 mg, Oral, EVERY 12 HOURS SCHEDULED (2 times per day), First dose on Fri01/08/14 at 0900, 6 doses, Last dose on Fri01/10/14 at 2100 0824 (Given - Provider: Reji Briones RN) oxyCODONE (ROXICODONE) immediate release tablet 10 mg (COMPLETED) 10 mg, Oral, ONCE, 1 dose, On Fri01/07/14 at 2345, Routine 0006 (Given - Provider: Kami Altman RN) polyethylene glycol (MIRALAX) packet 17 g 17 g, Oral, 2 TIMES DAILY, First dose on Gem 01/06/14 at 211, Until Discontinued, Administer if needed per patient's routine or if no bowel movement within 48 hours, Routine 2218 (Given - Provider: Kami Altman RN) 909 (Given - Provider: Maren Rendon RN)2118 (Given - Provider: Kami Altman, DARIANA) 08 (Given - Provider: Reji Briones RN) rivaroxaban (XARELTO) tablet 10 mg 10 mg, Oral, DAILY, First dose on Fri01/07/14 at 0900, Until Discontinued, Routine, Restricted anticoagulant, choose the most appropriate response: Approved indication of knee replacement DVT prophylaxis 1021 (Given - Provider: Maren Rendon RN) 0826 (Given - Provider: Reji Briones RN) senna-docusate (PERICOLACE) 8.6-50 mg per tablet 1-4 tablet (CANCELED) 1-4 tablet, Oral, 2 TIMES DAILY, First dose on Fri01/06/14 at 211, Until Discontinued, Start with 1 tablet or liquid equivalent orally twice daily and titrate up to achieve: 1. One bowel movement at least every 48 hours, AND 2. Without straining, Routine 2218 (Given - Provider: Kami Altman RN) 910 (Given - Provider: Maren Rendon RN)2118 (Given - Provider: Kami Altman RN) 08 (Given - Provider: Reji Briones RN) sertraline (ZOLOFT) tablet 100 mg (CANCELED) 100 mg, Oral, DAILY, First dose on Fri01/07/14 at 1000, Until Discontinued, Routine 0916 (Given - Provider: Maren Rendon RN) 08 [...] Gem 01/06/14 at 2200, Until Discontinued, Routine 2217 (Given - Provider: Kami Altman RN) 2118 (Given - Provider: Kami Altman RN) Continuous Medication Order 01/06/2014 01/07/2014 01/08/2014 HYDROmorphone (DILAUDID) 1 mg/mL MUSHROOM CUTTER 30 mL (CANCELED) Intravenous, MUSHROOM CUTTER ONLY, Starting on Gem 01/06/14 at 1800, Until 01/08/14 at 0644, Recovery (Recovery-Hospital Unit) 1738 (New Syringe/Cartridge - Provider: Radha Layton RN) lactated ringers infusion 1,000 mL (CANCELED) 1,000 mL, at 100 mL/hr, Intravenous, CONTINUOUS, Starting on Gem 01/06/14 at 1800, Until 01/08/14 at 0644, Recovery (Recovery-Hospital Unit) 1735 (New Bag - Provider: Radha Layton RN) PRN Medication Order 01/06/2014 01/07/2014 01/08/2014 [...] Radha Layton RN)1804 (Given - Provider: Radha Layton RN)1820 (Given - Provider: Radha Layton RN) HYDROmorphone (DILAUDID) tablet 2-6 mg 2-6 mg, Oral, EVERY 3 HOURS PRN, Starting on 01/08/14 at 0644, Until 01/08/14 at 1353, Pain, Routine oxyCODONE (ROXICODONE) immediate release tablet 10 mg (CANCELED)(Linked Group 1) 10 mg, Oral, EVERY 4 HOURS PRN, Starting on Gem 01/06/14 at 1730, Until Sat 8 at 0644, Pain, moderate pain, For Moderate pain. Do not exceed 15 mg in 4 hours. If pain not relieved, call provider., Routine 0203 (Given - Provider: Kami Altman RN)0536 (Given - Provider: Kami Altman RN)0911 (Given - Provider: Maren Rendon RN)1327 (See Alternative - Provider: Melissa Bhatti RN)1814 (See Alternative - Provider: Reji Briones RN)2124 (See Alternative - Provider: Kami Altman RN) 05 (See Alternative - Provider: Kami Altman RN) oxyCODONE (ROXICODONE) immediate release tablet 15 mg (CANCELED)(Linked Group 1) 15 mg, Oral, EVERY 4 HOURS PRN, Starting on Gem 8 at 1730, Until 01/08/14 at 0644, Pain, severe pain, For severe pain. Do not exceed 15 mg in 4 hours. If pain not relieved, call provider., Routine 0203 (See Alternative - Provider: Kami Altman RN)0536 (See Alternative - Provider: Kami Altman RN)0911 (See Alternative - Provider: Maren Rendon RN)1327 (Given - Provider: Melissa Bhatti RN)1814 (Given - Provider: Reji Briones RN)2124 (Given - Provider: Kami Altman RN) 525 (Given - Provider: Kami Altman RN) ROpivacaine (NAROPIN) 2 mg/mL (0.2 %) injection (CANCELED) ONCE PRN, Starting on Gem 01/06/14 at 1541, Until Gem 01/06/14 at 1731, Intra-Operative (Intra-Procedure), Routine 1541 (Given - Provider: Shamir Crabtree MD) Linked Groups Order Group 1: oxyCODONE (ROXICODONE) immediate release tablet 5 mg (CANCELED) 5 mg, Oral, EVERY 4 HOURS PRN, Starting on Gem 8 at 1730, Until 01/08/14 at 0644, Pain, mild pain, For Mild pain. Do not exceed 15 mg in 4 hours. If pain not relieved, call provider, Routine Or oxyCODONE (ROXICODONE) immediate release tablet 10 mg (CANCELED)Jump to med 10 mg, Oral, EVERY 4 HOURS PRN, Starting on Gem 8 at 1730, Until Sat 8 at 0644, Pain, moderate pain, For Moderate [...] Routine documented in this encounter Care Teams 3Rd Grade Reading Teacher Relationship Specialty Start Date End Date Adiel Ryder MD [address] [place] [address] [place] [address] PCP - General 12/01/13 04/10/17 documented as of this encounter
--- OUTSIDE RECORDS SUMMARY | 2024-03-04 19:47 | XMS_ITS | Encounter Summary ---
Author Organization [facility] [place] [address] Care Team Providers Care Composition Siding Worker Name Role Phone Ronnie Stokes MD Primary Care Provider [phone] Reason for Visit * Reason Onset Date Comments Medication Refill 01/20/2014 Encounter Details Date Type Department Care Team (Late st Contact Info) Description 01/20/2014 [place] [address] Yuli Kaur, RN Social History Tobacco Use Types Packs/Day [...] 9:30 AM EST [place] [address] Walt Wiseman III, MD [facility] [place] [address] documented as of this encounter Visit Diagnoses Not on filedocumented in this encounter Care Teams Composition Siding Worker Relationship Specialty Start Date End Date Ronnie Stokes MD [address] [place] [address] [place] [address] PCP - General 12/01/13 04/10/17 documented as of this encounter
--- OUTSIDE RECORDS SUMMARY | 2024-03-04 19:47 | XMS_ITS | Encounter Summary ---
[place] [address] Care Team Providers Care Loan Approver Name Role Phone Ronnie Stokes MD Primary Care Provider [phone] Encounter Details Date Type Department Care Team (Latest Contact Info) Description 12/01/2013 11:00 AM EDT Clinical [place] [phone] Osteoarthritis of knee Social History Tobacco Use [...] Sign Reading Time Taken Comments Blood Pressure - - Pulse 75 12/01/2013 10:42 AM EDT Temperature - - Respiratory Rate - - Oxygen Saturation 95% 12/01/2013 10:42 AM EDT room air Inhaled Oxygen Concentration - - Weight 90.7 kg (200 lb) 12/01/2013 10:42 AM EDT Height 172.7 cm (5' 8) 12/01/2013 10:42 AM EDT Body Mass Index 30.41 12/01/2013 10:42 AM EDT documented in this encounter Progress Notes * Vi Augustine, RN - 12/01/2013 11:12 AM EDT PAT questionnaire reviewed with patient while in Pre Admission testing. States that she had a heartattack in 2006 and takes nitroglycerin as needed for chest pain, but last time had chest pain was in May. [facility] PCP is aware of this. [facility] does not have a C-PAP machine, but had a recent sleep study done and plans on going back for follow up regarding treatment for this after she has had her surgery. Had a C-PAP machine in the past, but was unable to tolerate the mask. Pre-operative instruction booklet reviewed. Patient verbalizes a good understanding of all information reviewed. PLAN: Testing: Blood work, urine testing and EKG Special medication instructions: none Procedure date: 12/28/2013 documented in this encounter Miscellaneous Notes * Miscellaneous - Provider, Scanning - 01/10/2014 11:09 AM EDT documented in this encounter Plan of Treatment Upcoming Encounters Date Type Department Care Team (Late st Contact Info) Description 07/12/2024 9:30 AM EST [place] [address] Walt Wiseman III, MD [facility] [place] [address] documented as of this encounter Procedures Procedure Name Priority Date/Time Associated Diagnosis Comments EKG 12-LEAD Routine 12/01/2013 11:17 AM EDT Osteoarthritis of knee documented in this encounter Results * EKG 12 Lead (12/01/2013 11:17 AM EDT) Ventricular rate 56 BPM MUSE SYSTEM Atrial Rate 56 BPM MUSE SYSTEM P-R Interval 148 ms MUSE SYSTEM QRS Duration 76 ms MUSE SYSTEM Q-T Interval 432 ms MUSE SYSTEM QTC Calculated (Bezet) 416 ms MUSE SYSTEM Calculated P [place] 11 degrees MUSE SYSTEM Calculated R [place] 1 degrees MUSE SYSTEM Calculated T [place] 18 degrees MUSE SYSTEM INTERPRETATION Sinus bradycardia Otherwise normal ECG When compared with ECG of 08-OCT-2006 07:37, T wave inversion no longer evident in Inferior leads T wave inversion no longer evident in Anterolateral leads Confirmed by MD Mona, Brodie Torres ([id number]) on 12/01/2013 12:34:14 PM MUSE SYSTEM 12/01/2013 11:1 7 AM EDT 12/01/2013 12:34 PM EDT Shamir Quispe MD ECG ORDERABLES MUSE SYSTEM documented in this encounter Visit Diagnoses Diagnosis Osteoarthritis of knee Osteoarthrosis, unspecified whether generalized or localized, lower leg documented in this encounter Care Teams Loan Approver Relationship Specialty Start Date End Date Ronnie Stokes MD [address] [place] [address] [place] [address] PCP - General 12/01/13 04/10/17 documented as of this encounter
--- OUTSIDE RECORDS SUMMARY | 2024-03-04 19:47 | XMS_ITS | Encounter Summary ---
Author Organization [facility] [place] [address] Care Team Providers Care Senior Instrumentation Engineer Name Role Phone Ronnie Stokes MD Primary Care Provider [phone] Encounter Details Date Type Department Care Team (Late st Contact Info) Description 12/24/2013 Anti-Coag Telephone [place] [address] Yuli Kaur RN Social History [...] Progress Notes * Yuli Colon RN - 12/24/2013 8:33 AM EDT No prior authorization needed for Rivaroxaban. Patient has a $15 co pay for this medication and is aware. documented in this encounter Plan of Treatment Upcoming Encounters Date Type Department Care Team (Late st Contact Info) Description 07/12/2024 9:30 AM EST [place] [phone] Walt Wiseman III, MD [facility] [place] [address] documented as of this encounter Visit Diagnoses Not on filedocumented in this encounter Care Teams Senior Instrumentation Engineer Relationship Specialty Start Date End Date Ronnie Stokes MD [address] [place] [address] [place] [address] PCP - General 12/01/13 04/10/17 documented as of this encounter
--- OUTSIDE RECORDS SUMMARY | 2024-03-04 19:47 | XMS_ITS | Encounter Summary ---
Author Organization [facility] [place] [address] Care Team Providers Care Staff Combat Information Center Officer Name Role Phone Karmen Magana MD Primary Care Provider [phone] Encounter Details Date Type Department Care Team (Late st Contact Info) Description 10/19/2018 Ancillary Procedure Radiology Library at [facility] [place] [address] Karmen Magana MD [address] [place] [phone] Social History Tobacco Use Types Packs/Day Years [...] 9:30 AM EST [place] [address] Walt Wiseman III, MD [facility] [place] [address] documented as of this encounter Procedures Procedure Name Priority Date/Time Associated Diagnosis Comments FILM LIBRARY STORAGE ONLY MR SPINE Routine 10/19/2018 12:00 AM EDT documented in this encounter Results * Film Library- Storage Only MR Spine (10/19/2018 12:00 AM EDT) Narrative ROLO KAY - 10/20/2018 8:43 PM EDT This exam is auto-finalizing. It's purpose is for storage only. Karmen Magana MD IMG FILM LIBRARY OR DERABLES [place], [place] documented in this encounter Visit Diagnoses Not on filedocumented in this encounter Care Teams Staff Combat Information Center Officer Relationship Specialty Start Date End Date Karmen Magana MD [address] [place] [address] [place] [phone] PCP - General Family Medicine 04/11/17 07/18/20 documented as of this encounter
--- OUTSIDE RECORDS SUMMARY | 2024-03-04 19:47 | XMS_ITS | Encounter Summary ---
[place] [address] Care Team Providers Care Service Technician Name Role Phone Ronnie Stokes MD Primary Care Provider [phone] Reason for Visit * Reason Onset Date Comments Medication Refill 01/21/2014 Encounter Details Date Type Department Care Team (Late st Contact Info) Description 01/21/2014 Refill [place] [address] Yuli Kaur RN Social History Tobacco Use [...] Telephone Encounter - Yuli Colon RN - 01/21/2014 8:43 AM EDT Date of surgery: 01/06/14 left TKA Brittaney Last refill: 01/17/14 Dilaudid 2 mg # 80 Patient's usage: about 8 to 10 per day Plan going forward: Continue as needed and wean as tolerated Medication dispensed: Dilaudid 2 mg #80 to be mailed out today documented in this encounter Plan of Treatment Upcoming Encounters Date Type Department Care Team (Late st Contact Info) Description 07/12/2024 9:30 AM EST Office [place] [address] Walt Wiseman III, MD [facility] [place] [address] documented as of this encounter Visit Diagnoses Not on filedocumented in this encounter Care Teams Service Technician Relationship Specialty Start Date End Date Ronnie Stokes MD [address] [place] [address] [place] [address] PCP - General 12/01/13 04/10/17 documented as of this encounter
--- OUTSIDE RECORDS SUMMARY | 2024-03-04 19:47 | XMS_ITS | Encounter Summary ---
Author Organization [facility] Address [facility] [place] [address] Care Team Providers Care Virology Teacher Name Role Phone Ronnie Stokes MD Primary Care Provider [phone] Encounter Details Date Type Department Care Team (Latest Contact Info) Description 04/05/2015 9:12 AM EST - 04/05/2015 11:59 PM [facility] Hospital Encounter XRay at [address] [place] [address] Shamir Quispe MD [facility] [place] [address] Presence of left artificial knee joint Discharge [...] tablet Take 50 mg by mouth nightly. Budesonide-Formoterol (SYMBICORT) 160-4.5 mcg/actuation HFAA Inhale 1 [...] 9:30 AM EST Office [place] [address] Walt Wiseman III, MD [facility] [place] [place] [address] documented as of this encounter Procedures Procedure Name Priority Date/Time Associated Diagnosis Comments XR KNEE DIAGNOSTIC 1 OR 2 VIEW LEFT Routine 04/05/2015 9:26 AM EST Presence of left artificial knee joint documented in this encounter Results * XR Knee Diagnostic [...] means documented in this encounter Care Teams Virology Teacher Relationship Specialty Start Date End Date Ronnie Stokes MD [address] [place] [address] [place] [address] PCP - General 12/01/13 04/10/17 documented as of this encounter
--- OUTSIDE RECORDS SUMMARY | 2024-03-04 19:47 | XMS_ITS | Encounter Summary ---
Author Organization [facility] [place] [address] Care Team Providers Care Insurance Account Executive Name Role Phone Ronnie Stokes MD Primary Care Provider [phone] Reason for Visit * Reason Onset Date Comments Medication Refill 09/04/2015 Encounter Details Date Type Department Care Team (Late st Contact Info) Description 09/04/2015 [place] [phone] Adan Cummins PA [facility] [place] [address] Hx of arthroplasty Social History Tobacco Use [...] encounter Miscellaneous Notes * Telephone Encounter - Lyndsey Archer RN - 09/04/2015 10:35 AM EDT DENTAL PROPHYLAXIS 17 months post left total knee arthroplasty.- Dr. Quispe. Dental office calling for rx as patient has appointment for dental cleaning this week. Called patient to discuss - had to leave message. Patient to call us if she has new allergies to note Amoxicillin E- scribed to her pharmacy listed in e-Dh documented in this encounter Plan of Treatment Upcoming Encounters Date Type Department Care Team (Late st Contact Info) Description 07/12/2024 9:30 AM EST [place] [address] Walt Wiseman III, MD [facility] [place] [address] documented as of this encounter Visit Diagnoses Diagnosis Hx of arthroplasty Personal history of surgery to other organs documented in this encounter Care Teams Insurance Account Executive Relationship Specialty Start Date End Date Ronnie Stokes MD [address] [place] [address] [place] [address] PCP - General 12/01/13 04/10/17 documented as of this encounter
--- OUTSIDE RECORDS SUMMARY | 2024-03-04 19:48 | XMS_ITS | Encounter Summary ---
Author Organization [facility] [place] [address] Care Team Providers Care Coal Washer Tender Name Role Phone Brodie Darby MD Primary Care Provider [phone] Encounter Details Date Type Department Care Team (Late st Contact Info) Description 09/09/2011 Orders [place] [phone] Carmen Valencia APRN [facility] [place] [address] Social History Tobacco Use Types Packs/Day Years [...] 9:30 AM [place] [phone] Walt Wiseman III, MD [facility] [place] [address] documented as of this encounter Procedures Procedure Name Priority Date/Time Associated Diagnosis Comments FILM LIBRARY STORAGE ONLY NUCLEAR MEDICINE Routine 09/09/2011 11:45 AM EDT documented in this encounter Results * FILM LIBRARY- STORAGE ONLY NUCLEAR MEDICINE (09/09/2011 11:45 AM EDT) Anatomical Region Laterality Modality Other 09/09/2011 11:4 5 AM EDT Narrative 07/22/2013 9:41 PM EST This is a non-reportable exam. Procedure Note Cody Boone - 07/22/2013 This is a non-reportable exam. Tracia Erik DATA SCIENTIST IMG FILM LIBRARY ORD ERABLES documented in this encounter Visit Diagnoses Not on filedocumented in this encounter Care Teams Coal Washer Tender Relationship Specialty Start Date End Date Brodie Darby MD [address] [place] [address] [place] [address] PCP - General 04/24/10 11/30/13 documented as of this encounter
--- OUTSIDE RECORDS SUMMARY | 2024-03-04 19:48 | XMS_ITS | Encounter Summary ---
Author Organization [facility] [place] [address] Care Team Providers Care Manager Molecular Name Role Phone Brodie Darby MD Primary Care Provider [phone] Encounter Details Date Type Department Care Team (Late st Contact Info) Description 04/02/2012 External Results XRay at [address] [place] [address] Maren Ramesh, KNOWLEDGE MANAGEMENT CONSULTANT [address] [place] [address] Social History Tobacco Use Types Packs/Day Years [...] 9:30 AM EST [place] [address] Walt Wiseman III, MD [facility] [address] documented as of this encounter Procedures Procedure Name Priority Date/Time Associated Diagnosis Comments ULTRASOUND SCAN (SCAN) Routine 01/14/2012 PET SCAN (SCAN) Routine 09/09/2011 PET SCAN (SCAN) Routine 09/09/2011 documented in this encounter Results * Scan Doc: Ultrasound (01/14/2012) Anatomical Region Laterality Modality Other Maren Ramesh APRN [facility] MGR SCAN E XT ORDR/RSLT * Scan Doc: PET Scan (09/09/2011) Anatomical Region Laterality Modality Other Jose Antonio Kim MD MEDIA MGR SCAN EXT O RDR/RSLT * Scan Doc: PET Scan (09/09/2011) Anatomical Region Laterality Modality Other Jose Antonio Kim MD MEDIA MGR SCAN EXT O RDR/RSLT documented in this encounter Visit Diagnoses Not on filedocumented in this encounter Care Teams Manager Molecular Relationship Specialty Start Date End Date Brodie Darby MD [address] [place] [address] [place] [address] PCP - General 04/24/10 11/30/13 documented as of this encounter
--- OUTSIDE RECORDS SUMMARY | 2024-03-04 19:48 | XMS_ITS | Encounter Summary ---
Author Organization [facility] [place] [address] Care Team Providers Care Load Mixer Name Role Phone Brodie Darby MD Primary Care Provider [phone] Encounter Details Date Type Department Care Team (Late st Contact Info) Description 08/26/2013 Orders [place] [address] Shamir Quispe MD [facility] [place] [address] Social History Tobacco Use Types Packs/Day Years Used Date Smoking Tobacco: Never Sex and Gender Information Value Date Recorded Sex Assigned at Not on file Gender Identity Not on file Sexual Orientation Not on file documented as of this encounter Plan of Treatment Upcoming Encounters Date Type Department Care Team (Late st Contact Info) Description 07/12/2024 9:30 AM EST Office [place] [address] Walt Wiseman III, MD [facility] [place] [address] documented as of this encounter Procedures Procedure Name Priority Date/Time Associated Diagnosis Comments FILM LIBRARY STORAGE ONLY DX KNEE Routine 08/26/2013 9:29 AM EDT documented in this encounter Results * Film Library- Storage only DX Knee (08/26/2013 9:29 AM EDT) Anatomical Region Laterality Modality Other 08/26/2013 9:29 AM EDT Narrative 10/02/2013 9:40 AM EDT This is a Non-reportable exam Procedure Note 10/02/2013 This is a Non-reportable exam Shamir Quispe MD [facility] FILM LIBRARY ORD ERABLES documented in this encounter Visit Diagnoses Not on filedocumented in this encounter Care Teams Load Mixer Relationship Specialty Start Date End Date Brodie Darby MD [address] [place] [address] [place] [address] PCP - General 04/24/10 11/30/13 documented as of this encounter
--- OUTSIDE RECORDS SUMMARY | 2024-03-04 19:48 | XMS_ITS | Encounter Summary ---
[place] [address] Care Team Providers Care Retail Advertising Sales Manager Name Role Phone Brodie Darby MD Primary Care Provider [phone] Encounter Details Date Type Department Care Team (Late st Contact Info) Description 10/20/2013 Telephone [place] [address] Shraddha Bloaños CMA Social History Tobacco Use Types Packs/Day Years Used Date Smoking Tobacco: Never Sex and Gender Information Value Date Recorded Sex Assigned at Not on file Gender Identity Not on file Sexual Orientation Not on file documented as of this encounter Miscellaneous Notes * Telephone Encounter - Shraddha Webre CMA - 10/21/2013 1:30 PM EDT In preparation for patients upcoming appointments the following lists have been updated and the following information has been obtained: Medication List: yes Allergy List: yes Problem List: yes Surgical List: yes External Labs entered and scanned: not applicable Previous operative notes if appropriate: yes Implant Stickers if appropriate: not applicable The following issues still need to be addressed: * Telephone Encounter - Shraddha Weber CMA - 10/20/2013 4:23 PM EDT Left message at [phone] for patient to call back regarding appointment with Dr. Quispe on 10/27/13 to go over flight check information. Patient can call back and leave a message at [phone]. documented in this encounter Plan of Treatment Upcoming Encounters Date Type Department Care Team (Late st Contact Info) Description 07/12/2024 9:30 AM EST [place] [address] Walt Wiseman III, MD [facility] [place] [address] documented as of this encounter Visit Diagnoses Not on filedocumented in this encounter Care Teams Retail Advertising Sales Manager Relationship Specialty Start Date End Date Brodie Darby MD [address] [place] [address] [place] [address] PCP - General 04/24/10 11/30/13 documented as of this encounter
--- OUTSIDE RECORDS SUMMARY | 2024-03-04 19:48 | XMS_ITS | Encounter Summary ---
Author Organization [facility] [address] Care Team Providers Care Cnc Service Engineer Name Role Phone Brodie Darby MD Primary Care Provider [phone] Encounter Details Date Type Department Care Team (Late st Contact Info) Description 04/10/2012 Orders [place] [phone] Shamir Quispe MD [facility] DR [place] [address] Social History Tobacco Use Types Packs/Day Years [...] 9:30 AM EST Office [place] [phone] Walt Wiseman III, MD [facility] [place] [address] documented as of this encounter Procedures Procedure Name Priority Date/Time Associated Diagnosis Comments FILM LIBRARY STORAGE ONLY MR KNEE Routine 04/10/2012 9:25 AM EST documented in this encounter Results * Film Library- Storage only MR Knee (04/10/2012 9:25 AM EST) Anatomical Region Laterality Modality Other 04/10/2012 9:25 AM EST Narrative 10/02/2013 9:36 AM EDT This is a Non-reportable exam Procedure Note 10/02/2013 This is a Non-reportable exam Shamir Quispe MD [facility] FILM LIBRARY ORD ERABLES documented in this encounter Visit Diagnoses Not on filedocumented in this encounter Care Teams Cnc Service Engineer Relationship Specialty Start Date End Date Brodie Darby MD [address] [place] [address] [place] [address] PCP - General 04/24/10 11/30/13 documented as of this encounter
--- OUTSIDE RECORDS SUMMARY | 2024-03-04 19:48 | XMS_ITS | Encounter Summary ---
Author Organization [facility] [place] [address] Care Team Providers Care Industrial Controller Name Role Phone Brodie Darby MD Primary Care Provider [phone] Encounter Details Date Type Department Care Team (Late st Contact Info) Description 06/22/2012 Notes [place] [phone] Arleen Lipscomb RN Social History Tobacco Use Types Packs/Day Years Used Date Smoking Tobacco: Never Sex and Gender Information Value Date Recorded Sex Assigned at Not on file Gender Identity Not on file Sexual Orientation Not on file documented as of this encounter Progress Notes * Arleen Lipscomb RN - 06/22/2012 3:41 PM EST [email or web address] message sent to patient regarding stool studies, which were negative. documented in this encounter Plan of Treatment Upcoming Encounters Date Type Department Care Team (Late st Contact Info) Description 07/12/2024 9:30 AM EST [place] [phone] Walt Wiseman III, MD [facility] [address] documented as of this encounter Visit Diagnoses Not on filedocumented in this encounter Care Teams Industrial Controller Relationship Specialty Start Date End Date Brodie Darby MD [address] [place] [address] [place] [address] PCP - General 04/24/10 11/30/13 documented as of this encounter
--- OUTSIDE RECORDS SUMMARY | 2024-03-04 19:48 | XMS_ITS | Encounter Summary ---
Author Organization [facility] [place] [address] Care Team Providers Care Flower Shop Manager Name Role Phone Brodie Darby MD Primary Care Provider [phone] Reason for Visit * Reason Comments GI Problem Encounter Details Date Type Department Care Team (Late st Contact Info) Description 04/13/2012 11:00 AM EST Office Visit [place] [phone] Nancy Valencia APRN [facility] [place] [address] Diarrhea (Primary Dx) Discharge Disposition: Home Social History Tobacco Use Types Packs/Day Years Used Date Smoking Tobacco: Never Sex and Gender Information Value Date Recorded Sex Assigned at Not on file Gender Identity Not on file Sexual Orientation Not on file documented as of this encounter Last Filed Vital Signs Vital Sign Reading Time Taken Comments Blood Pressure 122/74 04/13/2012 11:01 AM EST Pulse 80 04/13/2012 11:01 AM EST Temperature - - Respiratory Rate - - Oxygen Saturation - - Inhaled Oxygen Concentration - - Weight 120.2 kg (265 lb) 04/13/2012 11:01 AM EST Height 172.7 cm (5' 8) 04/13/2012 11:01 AM EST Body Mass Index 40.29 04/13/2012 11:01 AM EST documented in this encounter Progress Notes * Nancy Valencia RN - 04/13/2012 12:22 PM ESTAddended by: NANCY VALENCIA on: 04/13/2012 Modules accepted: Orders * Nancy Valencia RN - 04/13/2012 11:54 AM EST Section of Gastroenterology and Hepatology [address] [place], [place] [id number] .Netta Gregorio : 1960 Patient is here for further evaluation of gastrointestinal symptoms at the request of Brodie Darby MD. HPI: Off and on diarrhea for a couple of years. Exacerbated this past winter to July. At that time, began new job, was having vertigo. Underwent a CT scan of abdomen and pelvis, normal exam.Then pt underwent hida scan, which showed ejection fraction 15.8%, pt underwent a cholecystectomy. Diarrhea did not worsen after gallbladder removal. Also, pt was having ruq pain as well has lower abdominal pain. This continues now. Hx of cdiff in 2009. After gallbladder removal, underwent a colonoscopy, [facility], polyps removed. Pt says some of the polyps were the type I need to repeat 2-3 years. Bx do not appear to have been done. Not mentioned in colo report. Recently pt underwent an upper endoscopy at [facility], no report available, per pt she had gastritis, hiatal hernia, bx were done, but no report. Stool studies done in August 2011, per pt normal results. Per pt normal ttg and small bowel bx. Per pt she had cbc, cmp, tsh in August 2011. Diarrhea occurs each day. Occurs 3-5x per day but can be more has been as much as 10-15x in a day. Experiences urgency, explosive stools. Eating is a trigger but it does not have to be. Tried avoiding fatty foods and dairy with no effect. Does not awake with having to have a stool. Incontinent episodes. Blood in stool, sometimes on top of water, on paper, bright red. Could be the blood is from anal irritation. The doctor at one time said I had an anal fissure. The blood seems to happen afterI have had a lot of diarrhea. Mucous in stools. Associated n/v. Seems to occur with significant abdominal cramping/pain. Tried Imodium, it does help. But can cause constipation. Tried Florastor for one month, no significant help. Only recently has she started to take chronic nsaids for knee injury. No food allergies. Weight stable. Long hx of reflux. Takes Nexium 40mg qd. Finds this works well. No dysphagia, odynophagia. Off and on chest pain, cardiac hx, ntg prn. During visit obtained colo/egd/bx reports. TA and tubulovillous polyps. Egd showed gastritis and small gastric ulcers. Pt is on nexium 40mg qd. Pt at that time was not on nsaids. No bx obtained of stomach. History Social History ??? Marital Status: Spouse Name: N/A Number of Children: N/A ??? Years of Education: N/A Occupational History ??? Not on file. Social History Main Topics ??? Smoking status: Never Smoker ??? Smokeless tobacco: Not on file ??? Alcohol Use: Not on file ??? Drug Use: Not on file ??? Sexually Active: Not on file Other Topics Concern ??? Not on file Social History Narrative ??? No narrative on file Medical History:AL 2007, asthma, diabetes, hx of cdiff, sleep apnea, vertigo Surgical History: cholecystectomy, D&C, right finger and thumb surgery, knee surgery, left thumb Family History: mother: diverticulitis Allergies Allergen Reactions ??? Codeine Phos ??? Propoxyphene Hcl ??? Percocet (Oxycodone-acetaminophen) ??? Darvocet A500 (Propoxyphene N-acetaminophen) Current outpatient prescriptions:metoprolol (LOPRESSOR) 100 mg tablet, Take 100 mg by mouth daily.,Disp: , Rfl: ; amlodipine (NORVASC) 5 mg tablet, Take 5 mg by mouth daily., Disp: , Rfl: ; venlafaxine (EFFEXOR) 75 mg tablet, Take 150 mg by mouth daily., Disp: , Rfl: ; traZODone (DESYREL) 50 mg tablet, Take 50 mg by mouth nightly., Disp: , Rfl: ; ALBUTEROL SULFATE (VENTOLIN INHL), Inhale into the lungs., Disp: , Rfl: diaZEPam (VALIUM) 5 mg tablet, Take 5 mg by mouth every 6 hours as needed., Disp: , Rfl: ; hydroCODone-acetaminophen (VICODIN) 5-500 mg per tablet, Take 1 tablet by mouth every 6 hours as needed., Disp: , Rfl: ; MECLIZINE HCL (MECLIZINE ORAL), Take by mouth as needed., Disp: , Rfl: ; ibuprofen (ADVI L;MOTRIN) 600 mg tablet, Take 600 mg by mouth 3 times daily., Disp: , Rfl: ; MAGNESIUM ORAL, Take by mouth daily., Disp: , Rfl: cyanocobalamin (VITAMIN B-12) 1,000 mcg tablet, Take 1,000 mcg by mouth daily., Disp: , Rfl: ; GLUCOSAMINE HCL/CHONDRO HARRISON A (GLUCOSAMINE-CHONDROITIN ORAL), Take 1,000 mg by mouth 2 times daily., Disp: , Rfl: ; cetirizine (ZYRTEC) 10 mg tablet, , Disp: , Rfl: ; esomeprazole (NEXIUM) 40 mg capsule, ,Disp: , Rfl: ; zolpidem (AMBIEN) 10 mg tablet, , Disp: , Rfl: fluticasone-salmeterol (ADVAIR DISKUS) 100-50 mcg/dose diskus inhaler, , Disp: , Rfl: ; atorvastatin (LIPITOR) 40 mg tablet, 40 MG = 1 Tablet(s), PO, Once daily, Disp: , Rfl: ; DISCONTD: CIS Free Text Med - ASA (Aspirin), , Disp: , Rfl: ; DISCONTD: CIS Free Text Med - Effexor, , Disp: , Rfl: ; DISCONTD: CIS Free Text Med - Albuterol, , Disp: , Rfl: ; DISCONTD: atenolol (TENORMIN) 25 mg tablet, , Disp: , Rfl: DISCONTD: Magnesium Oxide 250 mg Tab, , Disp: , Rfl: ; DISCONTD: carvedilol (COREG) 6.25 mg tablet,6.25 MG = 1 Tablet(s), PO, Twice daily, Disp: , Rfl: ; DISCONTD: nitroGLYcerin (NITROSTAT) 0.4 mg SL tablet, 0.4 MG = 1 Tablet(s), Sublingual, PRN, Disp: , Rfl: Review of Systems - Negative except General: Cardiac:see medical hx, controlled Resp: asthma controlled GI:see above : MS: Neuro: Skin: Psyche: Sleep: Endo:diabetes, borderline Impression: 1. IBS vs IBD: stool studies. Cbc, cmp, tsh. Obtain egd/bx report. ?underlining microscopic colitis, consider colonoscopy with bx. fodmap diet. Lomotil prn. F/u with pt once results received. 2. Gastritis: Nexium 40mg bid. Especially since pt on chronic nsaids at this time. Upper endoscopy. I spent a total of 53 minutes face to face with this patient; 32 minutes were spent counseling the patient in the medical problems described above. Sincerely, Nancy Valencia NP Section of Gastroenterology and Hepatology documented in this encounter Plan of Treatment Upcoming Encounters Date Type Department Care Team (Late st Contact Info) Description 07/12/2024 9:30 AM EST Office [place] [address] Walt Wiseman III, MD [facility] [place] [address] documented as of this encounter Procedures Procedure Name Priority Date/Time Associated Diagnosis Comments DIFFERENTIAL, AUTOMATED Routine 04/13/2012 12:45 PM EST CBC (WITH DIFF) Routine 04/13/2012 12:45 PM EST Diarrhea TSH Routine 04/13/2012 12:45 PM EST Diarrhea COMPREHENSIVE METABOLIC PANEL Routine 04/13/2012 12:45 PM EST Diarrhea documented in this encounter Results * DIFFERENTIAL, AUTOMATED (04/13/2012 12:45 PM EST) Neutrophil % 49.7 34.0 - 71.0 % CERNER MILLENNIUM Neutrophil Absolute 3.80 1.50 - 6.30 x10(3)/mcL CERNER MILLENNIUM Lymph % 39.1 19.0 - 53.0 % CERNER MILLENNIUM Lymphocytes Abs 3.0 1.0 - 3.6 x10(3)/mcL CERNER MILLENNIUM Monocyte % 5.9 4.0 - 13.0 % CERNER MILLENNIUM Monocyte Abs 0.4 0.2 - 1.0 x10(3)/mcL CERNER MILLENNIUM Eos % 4.1 0.0 - 7.0 % CERNER MILLENNIUM Eosinophils Abs 0.3 0.0 - 0.5 x10(3)/mcL CERNER MILLENNIUM Basophil % 0.7 0.0 - 2.0 % CERNER MILLENNIUM Baso Absolute 0.0 0.0 - 0.2 x10(3)/mcL CERNER MILLENNIUM Immature Gran % 0.50 0.00 - 0.66 % CERNER MILLENNIUM Comment: Immature granulocytes(IG's)percentage and absolute count will include metamyelocytes, myelocytes, and promyelocytes. Blood smears from CBCs yielding IG's will be scanned manually for concordance. If this scan disagrees with the automated IG or if promyelocytes are noted, a manual differential will be performed. Immature Gran Absolute 0.04 0.00 - 0.05 x10(3)/mcL [facility] Blood specimen (specimen) 04/13/2012 12:45 PM EST 04/13/2012 12:50 PM EST Alireza James MD HEMATOLOGY ORDERABLE S [facility] * (ABNORMAL) TSH (04/13/2012 12:45 PM EST) Thyroid Stimulating Hormone 4.61(H) 0.27 - 4.20 mcIU/mL [facility] Blood specimen (specimen) 04/13/2012 12:45 PM EST 04/13/2012 12:49 PM EST Narrative Resulting Agency Comment Spec In Lab Alireza James MD CHEMISTRY ORDERABLES [facility] * (ABNORMAL) Comprehensive metabolic panel (non-fasting) (04/13/2012 12:45 PM EST) Glucose 109 60 - 199 mg/dL [facility] Comment:Diabetes: >=200 mg/d L plus symptoms Blood Urea Nitrogen 14 8 - 18 mg/dL CERNER MILLENNIUM Creatinine 0.65(L) 0.70 - 1.20 mg/dL CERNER MILLENNIUM Comment: Please note that the pediatric reference intervals supplied above were not validated at [facility]. Results from pediatric patients should be interpreted in conjunction to the patient's age, height and muscle mass. Sodium 140 135 - 145 mmol/L CERNER MILLENNIUM Potassium 4.2 3.5 - 5.0 mmol/L CERNER MILLENNIUM Comment: Please note: ??Patients with WBC >100,000 may have falsely elevated Potassium levels. ??For accurate Potassium quantification in these patients send serum separator tube (gold top) for subsequent determinations. ??Contact the Clinical Chemistry Laboratory if there are any questions. Chloride 104 98 - 107 mmol/L CERNER MILLENNIUM Carbon Dioxide 26 22 - 31 mmol/L CERNER MILLENNIUM Anion Gap 10 5 - 15 mmol/L CERNER MILLENNIUM Calcium 9.3 8.5 - 10.5 mg/dL CERNER MILLENNIUM Protein, Total 7.5 6.4 - 8.3 gm/dL CERNER MILLENNIUM Albumin 4.6 3.2 - 5.2 gm/dL CERNER MILLENNIUM Aspartate Aminotransferase 23 0 - 30 unit/L CERNER MILLENNIUM Alanine Aminotransferase 31(H) 0 - 30 unit/L CERNER MILLENNIUM Alkaline Phosphatase 79 40 - 104 unit/L CERNER MILLENNIUM Bilirubin, Total 0.1(L) 0.2 - 1.3 mg/dL CERNER MILLENNIUM Bilirubin, Direct 0.1 0.0 - 0.3 mg/dL CERNER MILLENNIUM Est Glomerular Filtration Rate >60 >=60 CERNER MILLENNIUM Comment: The National Kidney Disease Education Program (NKDEP) has recommended all laboratories report estimated GFR (eGFR) along with plasma creatinine measurements to assist you with recognition of early kidney disease. Caveats: ??Plasma creatinine should be at steady-state (unchanged within the past week). For patients multiply eGFR by 1.2. The MDRD equation was developed using patients between the ages of 18 and 70 years. ?? The MDRD equation has not been validated for patients < 18 years of age and should not be used to assess renal function in the pediatric population. ??The MDRD eGFR equation will also overestimate the true GFR of patients above the age of 70. ??This overestimation is variable but increases with age. At present, NKDEP does NOT recommend using the MDRD equation for drug dosing purposes and pharmacists should continue to use their current dosing methods. In addition, numerical eGFR values greater than 60 ml/min/1.73 square meters should be treated as > 60, and not an exact number due to greater inaccuracies at these higher values. Per NKDEP, they classify normal renal function as any GFR >60ml/min/1.73 square meters; chronic kidney disease when GFR <60, and renal failure when GFR <15. ??This calculation may not be valid for patients with atypical muscle mass (very lean or obese), acute renal failure, and in patients with diabetic kidney disease. References: http://nkdep.nih.gov/resources/NKDEP_Suggestn4Labs_0606_508.pdf http://www.kidney.org/professionals/kls/pdf/faq_gfr.pdf Isaiah K, Renetta NA, Cecelia AK, Christos TS, Kathy AD, Benjamin MANDY. Relative performance of the MDRD and CKD-EPI equations for estimating glomerular filtration rate among patients with varied clinical presentations. Clin J Am Soc Nephrol;6:1963-72. Blood specimen (specimen) 04/13/2012 12:45 PM EST 04/13/2012 12:49 PM EST Narrative Resulting Agency Comment Spec In Lab Alireza James MD CHEMISTRY ORDERABLES [facility] * (ABNORMAL) CBC (with Diff) (04/13/2012 12:45 PM EST) White Blood Cell 7.6 4.0 - 10.0 x10(3)/mc L CERNER MILLENNIUM Red Blood Cell 5.04 3.93 - 5.22 x10(6)/mc L CERNER MILLENNIUM Hemoglobin 15.0 11.2 - 15.7 gm/dL CERNER MILLENNIUM Hematocrit 46.2(H) 34.0 - 45.0 % CERNER MILLENNIUM Mean Cell Volume 91.7 79.0 - 94.0 fL CERNER MILLENNIUM Mean Cell Hemoglobin 29.8 26.6 - 32.2 pg CERNER MILLENNIUM Mean Cell Hemoglobin Concentration 32.5 32.0 - 36.5 gm/dL CERNER MILLENNIUM Platelet 202 145 - 370 x10(3)/mc L CERNER MILLENNIUM RDW Standard Deviation 44.5 35.0 - 46.0 fL CERNER MILLENNIUM RDW coefficient of variation 13.4 10.9 - 14.4 % CERNER MILLENNIUM Mean Platelet Volume 11.7 9.0 - 12.0 fL CERNER MILLENNIUM Blood specimen (specimen) 04/13/2012 12:45 PM EST 04/13/2012 12:50 PM EST Narrative Resulting Agency Comment Spec In Lab Alireza James MD HEMATOLOGY ORDERABLE S [facility] documented in this encounter Visit Diagnoses Diagnosis Diarrhea- Primary documented in this encounter Care Teams Flower Shop Manager Relationship Specialty Start Date End Date Brodie Darby MD [address] [place] [address] [place] [address] PCP - General 04/24/10 11/30/13 documented as of this encounter
--- OUTSIDE RECORDS SUMMARY | 2024-03-04 19:48 | XMS_ITS | Encounter Summary ---
Author Organization [facility] [place] [address] Care Team Providers Care Psychological Operations Name Role Phone Brodie Darby MD Primary Care Provider [phone] Reason for Visit * Reason Comments Chest Pain Encounter Details Date Type Department Care Team (Late st Contact Info) Description 10/23/2010 10:15 AM EDT Office Visit [facility] [address] [place] [phone] Walt Moore MD [facility] [place] [address] Chest pain (Primary Dx) Social History Tobacco Use Types Packs/Day Years Used Date Smoking Tobacco: Never Assessed Sex and Gender Information Value Date Recorded Sex Assigned at Not on file Gender Identity Not on file Sexual Orientation Not on file documented as of this encounter Progress Notes * Cheo Decker - 11/01/2010 3:47 PM EDT * Walt Moore - 10/23/2010 10:52 AM EDT Scanned note [facility] documented in this encounter Plan of Treatment Upcoming Encounters Date Type Department Care Team (Late st Contact Info) Description 07/12/2024 9:30 AM EST [place] [address] Walt Wiseman III, MD [facility] NEUROLOGY [facility] [place] [address] documented as of this encounter Visit Diagnoses Diagnosis Chest pain- Primary Chest pain, unspecified documented in this encounter Care Teams Psychological Operations Relationship Specialty Start Date End Date Broide Darby MD [address] [place] [address] [place] [address] PCP - General 04/24/10 11/30/13 documented as of this encounter
--- OUTSIDE RECORDS SUMMARY | 2024-03-04 19:48 | XMS_ITS | Encounter Summary ---
Author Organization [facility] Address [facility] [place] [address] Care Team Providers Care Motors Assembler Name Role Phone Brodie Darby MD Primary Care Provider Encounter Details Date Type Department Care Team (Late st Contact Info) Description 10/27/2013 8:15 AM EDT - 10/27/2013 11:59 PM EDT Hospital Encounter XRay at [address] [place] [address] Left knee pain Social History Tobacco Use Types Packs/Day [...] every 8 hours. 30 tablet 1 01/08/2014 albuterol (PROVENTIL HFA;VENTOLIN HFA) 90 mcg/actuation inhaler [...] for Pain. 100 tablet 0 01/08/2014 01/14/2014 Budesonide-Formoterol (SYMBICORT) 160-4.5 mcg/actuation HFAA Inhale 1 puff into the lungs 2 times daily. 04/11/2017 oxyCODONE-acetaminophen (PERCOCET) 5-325 mg per tablet Take 1-2 tablets by mouth every 6 hours as needed. 09/05/2013 01/08/2014 metoprolol (LOPRESSOR) 100 mg tablet Take 150 mg by mouth daily. 01/08/2024 diaZEPam (VALIUM) 5 mg tablet Take 5 mg by mouth every 6 hours as needed. 04/11/2017 MAGNESIUM ORAL Take by mouth daily. 04/05/2015 cyanocobalamin (VITAMIN B-12) 1,000 mcg tablet Take 1,000 mcg by mouth daily. 12/01/2013 GLUCOSAMINE HCL/CHONDRO HARRISON A (GLUCOSAMINE-CHONDROITI N ORAL) Take 1,000 mg by mouth 2 times daily. 04/05/2015 diphenoxylate-atropine (LOMOTIL) 2.5-0.025 mg per tablet Take 1 tablet by mouth 4 times daily as needed for Diarrhea. 120 tablet 1 04/13/2012 04/11/2017 cetirizine (ZYRTEC) 10 mg tablet 10/08/2006 12/01/2013 zolpidem (AMBIEN) 10 mg tablet 10/08/2006 12/01/2013 atorvastatin (LIPITOR) 40 mg tablet 40 MG = 1 Tablet(s), PO, Once daily 10/08/2006 12/01/2013 documented as of this encounter Plan of Treatment Upcoming Encounters Date Type Department Care Team (Late st Contact Info) Description 07/12/2024 9:30 AM EST Office [place] [address] Walt Wiseman III, MD [facility] [place] [address] documented as of this encounter Procedures Procedure Name Priority Date/Time Associated Diagnosis Comments XR JOINT TEAM ALIGNMENT AP LAT SCHUSS SKYLINE Routine 10/27/2013 8:40 AM EDT Left knee pain documented in this encounter Results * XR JOINT TEAM ALIGNMENT AP LAT SCHUSS SKYLINE (10/27/2013 8:40 AM EDT) Anatomical Region Laterality Modality N/A Radiographic Jenn ging 10/27/2013 8:40 AM EDT Narrative 10/27/2013 12:41 PM EDT Examination JOINT TEAM STANDING ALIGNMENT AP LAT SCHUSS SKYLINE/LEFT Clinical History LEFT KNEE PAIN/DOS OP Comparison Outside images August 26, 2013. Technique Separate images of the pelvis, knees and feet were acquired in the AP projection with the patient standing. In addition to routine views of the knee, these images were stitched together to form a composite image of the pelvis and legs allowing for evaluation of lower extremity alignment in the weight bearing position. AP, Schuss, and axial view of both knees. ??Lateral view of left knee. Findings Standing alignment: ??Cherokee of gravitation runs through the medial tibial plateau on the left and through the medial tibial eminence on the right. No significant pelvic or talar tilt. ?? Bilateral knees: Mild medial femorotibial joint space narrowing on the right and moderate to severe medial femorotibial joint space narrowing on the left. In addition degenerative changes of the femoropatellar joint on the left are indicated by lateral joint space narrowing, osteophytes, and subchondral sclerosis. A small to moderate size left knee joint effusion appears to be present. ?? Impression Mild varus alignment of the right knee and mild to moderate varus alignment of the left knee. Degenerative changes of the knees are primarily seen on the left and involve especially the medial femorotibial joint and the femoropatellar joint space as indicated by joint space narrowing, osteophytes, and subchondral sclerosis. A left knee joint effusion is present. Procedure Note Rita Coyle MD - 10/27/2013 Examination JOINT TEAM STANDING ALIGNMENT AP LAT SCHUSS SKYLINE/LEFT Clinical History LEFT KNEE PAIN/DOS OP Comparison Outside images August 26, 2013. Technique Separate images of the pelvis, knees and feet were acquired in the AP projection with the patient standing. In addition to routine views of theknee, these images were stitched together to form a composite image of thepelvis and legs allowing for evaluation of lower extremity alignment in the weightbearing position. AP, Schuss, and axial view of both knees. Lateral view of left knee. Findings Standing alignment: Cherokee of gravitation runs through the medial tibialplateau on the left and through the medial tibial eminence on the right. Nosignificant pelvic or talar tilt. Bilateral knees: Mild medial femorotibial joint space narrowing on theright and moderate to severe medial femorotibial joint space narrowing on theleft. In addition degenerative changes of the femoropatellar joint on the leftare indicated by lateral joint space narrowing, osteophytes, and subchondral sclerosis. A small to moderate size left knee joint effusion appears to be present. Impression Mild varus alignment of the right knee and mild to moderate varusalignment of the left knee. Degenerative changes of the knees are primarily seen on the left andinvolve especially the medial femorotibial joint and the femoropatellar jointspace as indicated by joint space narrowing, osteophytes, and subchondralsclerosis. A left knee joint effusion is present. Shamir Quispe MD IMG DX ORDERABLES documented in this encounter Visit Diagnoses Diagnosis Left knee pain Pain in joint, lower leg documented in this encounter Care Teams Motors Assembler Relationship Specialty Start Date End Date Brodie Darby MD [address] [place] [address] [place] [address] PCP - General 04/24/10 11/30/13 documented as of this encounter
--- OUTSIDE RECORDS SUMMARY | 2024-03-04 19:48 | XMS_ITS | Encounter Summary ---
Author Organization [facility] [place] [address] Care Team Providers Care Rn Psychiatric Name Role Phone Brodie Darby MD Primary Care Provider [phone] Encounter Details Date Type Department Care Team (Late st Contact Info) Description 06/03/2012 2:30 PM EST - 06/03/2012 3:30 PM EST Surgery [place] [phone] Crystal Sesay MD [facility] [place] [address] COLONOSCOPY FLEXIBLE, WITH BX (WRVU 3.56) Social History Tobacco Use Types Packs/Day Years Used Date Smoking Tobacco: Never Sex and Gender Information Value Date Recorded Sex Assigned at Not on file Gender Identity Not on file Sexual Orientation Not on file documented as of this encounter Last Filed Vital Signs Vital Sign Reading Time Taken Comments Blood Pressure 97/57 06/03/2012 3:46 PM EST Pulse 60 06/03/2012 3:46 PM EST Temperature 37.1 ??C (98.8 ??F) 06/03/2012 2:06 PM ES T Respiratory Rate 17 06/03/2012 3:46 PM EST Oxygen Saturation 93% 06/03/2012 3:46 PM EST Inhaled Oxygen Concentration - - Weight - - Height - - Body Mass Index - - documented in this encounter Discharge Instructions * Discharge Instructions* Shannon Eng RN - 06/03/2012 3:48 PM EST Please call [phone], before 5pm with problems, questions or concerns, after 5pm call the Hospital at [phone] and ask to speak to the Longitudinal Float Operator special investigation unit investigator and the metal rivet machine operator will contactthat person for you. Discharge instructions reviewed with patient who expresses understanding. You may have received medications before and/or during your procedure which effects your judgement and reaction time. Do not drive, operate machinery, drink alcoholic beverages or make important decisions for 24 hours. Be careful on stairs as you may be unsteady on your feet. You may eat a regular diet as tolerated. Do not smoke if you are alone. IV site: Slight redness or tenderness is normal, you can use a warm compress if you would like. If tenderness and/or redness increase or if foul drainage occurs, please contact your Doctor. * Patient Instructions* Crystal Sesay MD - 06/03/2012 3:42 PM EST Please see Recommendations in the Provation procedure report which is documented in the procedural note in E-DH. * Attachments The following attachments cannot be sent through Care Everywhere. * COLONOSCOPY: WHAT TO EXPECT AT HOME (ITALIAN) * UPPER GI ENDOSCOPY: WHAT TO EXPECT AT HOME (ITALIAN) documented in this encounter Medications at Time of Discharge Medication Sig Dispensed Refills Start Date End Date levothyroxine (SYNTHROID) 25 mcg tablet Take 25 mcg by mouth daily. amlodipine (NORVASC) 5 mg tablet Take 5 mg by mouth daily. traZODone (DESYREL) 50 mg tablet Take 50 mg by mouth nightly. esomeprazole (NEXIUM) 40 mg capsule Take 1 capsule by mouth 2 times daily. 60 capsule 12 05/01/2012 05/22/2013 metoprolol (LOPRESSOR) 100 mg tablet Take 150 mg by mouth daily. 01/08/2024 venlafaxine (EFFEXOR) 75 mg tablet Take 150 mg by mouth daily. 10/21/2013 ALBUTEROL SULFATE (VENTOLIN INHL) Inhale into the lungs. 10/21/2013 diaZEPam (VALIUM) 5 mg tablet Take 5 mg by mouth every 6 hours as needed. 04/11/2017 hydroCODone-acetaminoph en (VICODIN) 5-500 mg per tablet Take 1 tablet by mouth every 6 hours as needed. 10/21/2013 MECLIZINE HCL (MECLIZINE ORAL) Take by mouth as needed. 10/21/2013 ibuprofen (ADVIL;MOTRIN) 600 mg tablet Take 600 mg by mouth 3 times daily. 07/29/2012 MAGNESIUM ORAL Take by mouth daily. 04/05/2015 [...] zolpidem (AMBIEN) 10 mg tablet 10/08/2006 12/01/2013 fluticasone-salmeterol (ADVAIR DISKUS) 100-50 mcg/dose diskus inhaler 10/08/200610/01 atorvastatin (LIPITOR) 40 mg tablet 40 MG = 1 Tablet(s), PO, Once daily 10/08/2006 12/01/2013 documented as of this encounter H&P Notes * Crystal Sesay MD - 06/03/2012 2:25 PM EST See pcp notes and gi consult notes; no interval change in H + P; consent signed for colo and egd. documented in this encounter Miscellaneous Notes * Miscellaneous - Provider, Scanning - 06/03/2012 11:08 PM EST * Miscellaneous - Provider, Scanning - 06/03/2012 2:06 PM EST documented in this encounter Plan of Treatment Upcoming Encounters Date Type Department Care Team (Late st Contact Info) Description 07/12/2024 9:30 AM EST Office [place] [address] Walt Wiseman III, MD [facility] [place] [address] documented as of this encounter Procedures Procedure Name Priority Date/Time Associated Diagnosis Comments SURGICAL PATHOLOGY REPORT Routine 06/03/2012 5:27 PM EST SPECIMEN TO PATHOLOGY Routine 06/03/2012 3:43 PM EST SPECIMEN TO PATHOLOGY Routine 06/03/2012 3:43 PM EST SPECIMEN TO PATHOLOGY Routine 06/03/2012 3:43 PM EST EGD WITH BIOPSY(RADHA) Routine 06/03/2012 3:37 PM EST SPECIMEN TO PATHOLOGY Routine 06/03/2012 3:29 PM EST SPECIMEN TO PATHOLOGY Routine 06/03/2012 3:29 PM EST SPECIMEN TO PATHOLOGY Routine 06/03/2012 3:29 PM EST SPECIMEN TO PATHOLOGY Routine 06/03/2012 3:29 PM EST SPECIMEN TO PATHOLOGY Routine 06/03/2012 3:29 PM EST COLONOSCOPY FLEXIBLE-WITH BX (MSCHAD) Routine 06/03/2012 3:04 PM EST EGD WITH BIOPSY (WRVU 2.39) 06/03/2012 2:44 PM EST diarrhea, colonic bx to rule out microscopic colitis, also gastritis,chronic NSAIDS, gastric biopsy? H-Pylori (local) COLONOSCOPY FLEXIBLE, WITH BX (WRVU 3.56) 06/03/2012 2:44 PM EST diarrhea, colonic bx to rule out microscopic colitis, also gastritis,chronic NSAIDS, gastric biopsy? H-Pylori (local) COLONOSCOPY Routine 06/03/2012 2:35 PM EST documented in this encounter Results * Surgical Pathology Report (06/03/2012 5:27 PM EST) Surgical Pathology Report ? [facility] ? Provider: ?? CRYSTAL SESAY ? Pt. Name: ?? GREGORIO NETTA Call ? Acc #: ?[id number] ?Pt. ? Col Date: ?? 06/03/2012 ?/Sex: ?1960,(52 years),Female ? Rec Date: ?? 06/03/2012 ?LOC: ?4T ? SURGICAL PATHOLOGY ? ---Pathologic Diagnosis--- ? A - Duodenum, biopsy: ? Duodenal mucosa, [...] - Sigmoid colon, polypectomy: ? Tubular adenoma. ? CR-0, CR-PX ? 06/04/12 ? JLL ? 06/04/12 Verified by: ? Luc Calix MD ? Pathologist ? (Electronic Signature) ? The attending pathologist whose signature appears on this report has ? reviewed all diagnostic slides and has edited the gross and/or ? microscopic portion of the report in rendering the final pathologic ? diagnosis. ? ---Microscopic Description--- ? Slides reviewed, microscopic description not recorded. ? [facility] ? Provider: ?? CRYSTAL SESAY ? Pt. Name: ?? NETTA GREGORIO ? Acc #: ?[id number] ?Pt. ? Col Date: ?? 06/03/2012 ?/Sex: ?1960,(52 years),Female ? Rec Date: ?? 06/03/2012 ?LOC: ?4T ? SURGICAL PATHOLOGY ? ---Gross Description--- ? A - Labeled/Fixative: Duodenum, formalin. ? Qty/Size/Weight: ?Four, ranging from 0.2 cm to 0.4 cm in ? greatest dimension. ? Tissue Description: ?? Soft, degroot tissues. ? Sections/Processi ng: ??(T1) ? B - Labeled/Fixative: Stomach, formalin. ? Qty/Size/Weight: ?Four, ranging from 0.1 cm to 0.5 cm in ? greatest dimension. ? Tissue Description: ?? Soft, degroot tissues. ? Sections/Processi ng: ??(T1) ? C - Labeled/Fixative: Esophagus, formalin. ? Qty/Size/Weight: ?Five, averaging 0.2 x 0.1 x 0.1 cm. ? Tissue Description: ?? Soft, degroot tissues. ? Sections/Processi ng: ??(T1) ? D - Labeled/Fixative: Colon - random, formalin. ? Qty/Size/Weight: ?Six, averaging 0.2 x 0.2 x 0.1 cm. ? Tissue Description: ?? Soft, degroot tissues. ? Sections/Processi ng: ??(T2) ? E - Labeled/Fixative: Ascending colon, formalin. ? Qty/Size/Weight: ?Two, averaging 0.2 x 0.1 x 0.1 cm. ? Tissue Description: ?? Soft, degroot tissues. ? Sections/Processi ng: ??(T1) ? F - Labeled/Fixative: Transverse colon, formalin. ? Qty/Size/Weight: ?Single, 0.4 x 0.3 x 0.2 cm. ? Tissue Description: ?? Soft, degroot tissue. ? Sections/Processi ng: ??(T1) ? G - Labeled/Fixative: Sigmoid colon, formalin. ? Qty/Size/Weight: ?Two, averaging 0.3 x 0.2 x 0.2 cm. ? Tissue Description: ?? Soft, degroot tissues. ? Sections/Processi ng: ??(T1) ? H - Labeled/Fixative: Sigmoid colon polyp, formalin. ? Qty/Size/Weight: ?Two, ranging from 0.2 cm to 0.6 cm in ? greatest dimension. ? Tissue Description: ?? Soft, degroot tissues. ? Sections/Processi ng: ??(T1) ??aje/SHB ? [facility] ? Provider: ?? CRYSTAL SESAY ? Pt. Name: ?? GREGORIO, NETTA Call ? Acc #: ?[id number] ?Pt. ? Col Date: ?? 06/03/2012 ?/Sex: ?1960,(52 years),Female ? Rec Date: ?? 06/03/2012 ?LOC: ?4T ? SURGICAL PATHOLOGY ? ---Clinical Information--- ? Specimen Submitted: ? A - Duodenum ? B - Stomach ? C - Esophagus ? D - Colon - random ? E - Ascending colon ? F - Transverse colon ? G - Sigmoid colon ? H - Sigmoid colon polyp ? Clinical History/Diagnosis : ? A-C - Chronic diarrhea; HX of gastric ulcer disease ? D-G - Chronic diarrhea; abdominal pain ? Comment: ? A - ? celiac disease ? B - ? gastric erythema; HX of ulcers; ? HP ? C - Irregular Z line at 35 cm; ? Lopez's ? D - Random from throughout the colon; ? microscopic colitis ? E - Two small polyps in ascending colon - 2 mm and 4 mm; ? TAs ? F - 4-mm polyp; ? TA ? G - Erythema at 25-30 cm; ? ischemic ? H - 4-mm sigmoid colon polyp; ? TA CERNER MILLENNIUM 06/03/2012 5:27 PM EST Crystal Sesay MD PATHOLOGY/CYTOLOGY O SHIELA Performing Organization Address [facility] de Phone Number [facility] * Specimen to Pathology (surgical or derm) (06/03/2012 3:43 PM EST) AP Specimen 06/03/2012 3:43 PM EST 06/03/2012 3:43 PM EST Narrative [facility] - 06/03/2012 3:43 PM EST Specimen requisition ordered. ??Separate Pathology report to follow Crystal Sesay MD PATHOLOGY/CYTOLOGY O SHIELA Performing Organization Address [facility] de Phone Number [facility] * Specimen to Pathology (surgical or derm) (06/03/2012 3:43 PM EST) AP Specimen 06/03/2012 3:43 PM EST 06/03/2012 3:[address] [facility] - 06/03/2012 3:43 PM EST Specimen requisition ordered. ??Separate Pathology report to follow Crystal Sesay MD PATHOLOGY/CYTOLOGY O SHIELA Performing Organization Address [facility] Co de Phone Number [facility] * Specimen to Pathology (surgical or derm) (06/03/2012 3:43 PM EST) AP Specimen 06/03/2012 3:43 PM EST 06/03/2012 3:43 PM EST Narrative [facility] - 06/03/2012 3:43 PM EST Specimen requisition ordered. ??Separate Pathology report to follow Crystal Sesay MD PATHOLOGY/CYTOLOGY O RDTALIA Performing Organization Address [facility] Co de Phone Number [facility] * Specimen to Pathology (surgical or derm) (06/03/2012 3:29 PM EST) AP Specimen 06/03/2012 3:29 PM EST 06/03/2012 3:29 PM EST Narrative JAMILAH AMADOR - 06/03/2012 3:29 PM EST Specimen requisition ordered. ??Separate Pathology report to follow Crystal Sesay MD PATHOLOGY/CYTOLOGY O SHIELA Performing Organization Address [facility] Phone Number JAMILAH AMADOR * Specimen to Pathology (surgical or derm) (06/03/2012 3:29 PM EST) AP Specimen 06/03/2012 3:29 PM EST 06/03/2012 3:29 PM EST Narrative JAMILAH AMADOR - 06/03/2012 3:29 PM EST Specimen requisition ordered. ??Separate Pathology report to follow Crystal Sesay MD PATHOLOGY/CYTOLOGY O SHIELA Performing Organization Address [facility] Phone Number JAMILAH AMADOR * Specimen to Pathology (surgical or derm) (06/03/2012 3:29 PM EST) AP Specimen 06/03/2012 3:29 PM EST 06/03/2012 3:29 PM EST Narrative JAMILAH QUINTANILLAIUM - 06/03/2012 3:29 PM EST Specimen requisition ordered. ??Separate Pathology report to follow Crystal Sesay MD PATHOLOGY/CYTOLOGY O SHIELA Performing Organization Address [facility] Phone Number JAMILAH AMADOR * Specimen to Pathology (surgical or derm) (06/03/2012 3:29 PM EST) AP Specimen 06/03/2012 3:29 PM EST 06/03/2012 3:29 PM EST Narrative JAMILAH AMADOR - 06/03/2012 3:29 PM EST Specimen requisition ordered. ??Separate Pathology report to follow Crystal Sesay MD PATHOLOGY/CYTOLOGY O RDTALIA Performing Organization Address [facility] Co de Phone Number JAMILAH AMADOR * Specimen to Pathology (surgical or derm) (06/03/2012 3:29 PM EST) AP Specimen 06/03/2012 3:29 PM EST 06/03/2012 3:29 PM EST Narrative JAMILAH AMADOR - 06/03/2012 3:29 PM EST Specimen requisition ordered. ??Separate Pathology report to follow Crystal Sesay MD PATHOLOGY/CYTOLOGY Kvng KUO JAMILAH AMADOR * COLONOSCOPY (06/03/2012 2:35 PM EST) COLONOSCOPY [facility] Endoscopy ___ Patient Name: Netta Gregorio ? Procedure Date: 06/03/2012 2:35 PM ? [facility]: [id number] ? Date of : 1960 ? Age: 52 ? Order #: [id number] ? ___ Procedure: ? Colonoscopy Indications: ? Chronic diarrhea Providers: ? Crystal Sesay MD, Bailey Lama, ? RN, Gretchen Alfonso Referring : ?Brodie Darby MD Requesting Provider: Sherine Nuñez Medicines: ? Midazolam 3 mg IV, Fentanyl 150 ? micrograms IV, Diphenhydramine 50 mg ? IV Complications: ? No immediate complications. ___ Procedure: ? The procedure, indications, benefits, ? risks [...] direct visualization, ? advanced to the terminal ileum. ? Careful inspection was made as the ? colonoscope was withdrawn. The ? colonoscopy was performed without ? difficulty. The patient tolerated the ? procedure well. The quality of the ? bowel preparation was good. ? Findings: ? The terminal ileum appeared normal. The cecum ? appeared normal. The proximal ascending colon ? appeared normal. Biopsies were taken with a cold ? forceps from the ascending colon, transverse colon ? and descending colon for evaluation of microscopic ? colitis due to chronic diarrhea (jar 1). Two sessile ? polyps were found in the mid ascending colon. The ? polyp was 2 to 4 mm in size. The polyps were removed ? with a cold snare. Resection and retrieval were ? complete (jar 2). A sessile polyp was found in the ? mid transverse colon. The polyp was 4 mm in size. The ? polyp was removed with a cold biopsy forceps. ? Resection and retrieval were complete (jar 3). The ? descending colon appeared normal. A localized area of ? mildly congested, erythematous and ? mkdzmwpb-pcqpdtn-dc creased mucosa was found in the ? sigmoid colon. Biopsies were taken with a cold ? forceps for histology to rule out ischemic colitis ? (jar 4). A sessile polyp was found in the sigmoid ? colon. The polyp was 4 mm in size. The polyp was ? removed with a cold biopsy forceps. Resection and ? retrieval were complete (jar 5). The rectum appeared ? normal. ? - Scattered diverticula noted in the transverse colon ? and sigmoid colon. ? Impression: ?- The examined portion of the [...] normal. ? - Congested, erythematous and ? awywstge-eychmaz-bd creased mucosa in ? the sigmoid colon. This was biopsied. ? - One 4 mm polyp in the sigmoid ? colon. Resected and retrieved. ? - The rectum is normal. ? - Biopsies were taken with a cold ? forceps from the ascending colon, ? transverse colon and descending colon ? for evaluation of microscopic colitis. Recommendation: ?- Await pathology results. ? - Letter will be sent to patient and ? referring provider in 8-10 days ? - Return to primary care physician as ? previously scheduled. ? Attending Participation: ? I personally performed the entire procedure. ? Crystal Sesay MD 06/03/2012 3:30 PM This report has been signed electronically. Number of Addenda: 0 Note Initiated On: 06/03/2012 2:35 PM PROVATION 06/03/2012 2:35 PM EST Brodie Darby MD GENERAL SURGICAL ORD ERABLES PROVATION documented in this encounter Visit Diagnoses Not on filedocumented in this encounter Administered Medications Inactive Administered Medications - up to 3 most recent administrations Medication Order MAR Action Action Date Dose Rate Site benzocaine (HURRICANE) 20 % oral spray ONCE PRN, Pain, Starting on Fri06/03/12 at 1525, Until Fri06/03/12 at 1910, For Procedural use. Machias on area for one second. May repeat if necessary. Do not exceed a spray duration of 2 seconds., Intra-Operative (Intra-Procedure) Given 06/03/2012 3:25 PM EST 1 each diphenhydrAMINE (BENADRYL) injection ONCE PRN, Starting on Fri06/03/12 at 1449, Until Fri06/03/12 at 1910, Itching, Intra-Operative (Intra-Procedure), Routine Given 06/03/2012 2:50 PM EST 25 mg Right Arm Given 06/03/2012 2:47 PM EST 25 mg Ri ght Arm fentaNYL 50mcg/mL injection ONCE PRN, Starting on Fri06/03/12 at 1447, Until Fri06/03/12 at 1910, Pain, Intra-Operative (Intra-Procedure), Routine Given 06/03/2012 3:32 PM EST 50 mcg Right Arm Given 06/03/2012 3:25 PM EST 50 mcg Ri ght Arm Given 06/03/2012 2:59 PM EST 50 mcg Ri ght Arm midazolam (VERSED) injection ONCE PRN, Starting on Fri06/03/12 at 1447, Until Fri06/03/12 at 1910, Sleep, Intra-Operative (Intra-Procedure), Routine Given 06/03/2012 3:32 PM EST 1 mg Right Arm Given 06/03/2012 3:25 PM EST 1 mg Ri ght Arm Given 06/03/2012 2:59 PM EST 1 mg Ri ght Arm documented in this encounter Active and Recently Administered Medications Times are shown in EST. PRN Medication Order 06/01/2012 06/02/2012 06/03/2012 benzocaine (HURRICANE) 20 % oral spray (CANCELED) ONCE PRN, Pain, Starting on Fri06/03/12 at 1525, Until Fri06/03/12 at 1910, For Procedural use. Machias on area for one second. May repeat if necessary. Do not exceed a spray duration of 2 seconds., Intra-Operative (Intra-Procedure) 1525 (Given - Provid er: Bailey Lama RN) diphenhydrAMINE (BENADRYL) injection (CANCELED) ONCE PRN, Starting on Fri06/03/12 at 1449, Until Fri06/03/12 at 1910, Itching, Intra-Operative (Intra-Procedure), Routine 1447 (Given - Provid er: Bailey Laam RN)1450 (Given - Provider: Bailey Lama RN) fentaNYL 50mcg/mL injection (CANCELED) ONCE PRN, Starting on Fri06/03/12 at 1447, Until Fri06/03/12 at 1910, Pain, Intra-Operative (Intra-Procedure), Routine 1447 (Given - Provid er: Bailey Lama RN)1450 (Given - Provider: Bailey Lama RN)1459 (Given - Provider: Bailey Lama RN)1525 (Given - Provider: Bailey Lama RN)1532 (Given - Provider: Bailey Lama RN) midazolam (VERSED) injection (CANCELED) ONCE PRN, Starting on Fri06/03/12 at 1447, Until Fri06/03/12 at 1910, Sleep, Intra-Operative (Intra-Procedure), Routine 1447 (Given - Provid er: Bailey Lama RN)1450 (Given - Provider: Bailey Lama RN)1459 (Given - Provider: Bailey Lama RN)1525 (Given - Provider: Bailey Lama, RN)1532 (Given - Provider: Bailey Lmaa, DARIANA) documented in this encounter Care Teams Rn Psychiatric Relationship Specialty Start Date End Date Brodie Darby MD [address] [place] [address] [place] [address] PCP - General 04/24/10 11/30/13 documented as of this encounter
--- OUTSIDE RECORDS SUMMARY | 2024-03-04 19:48 | XMS_ITS | Encounter Summary ---
[place] [address] Care Team Providers Care Acquisition Specialist Name Role Phone Brodie Darby MD Primary Care Provider [phone] Reason for Visit * Reason Onset Date Comments Referral 09/28/2013 Encounter Details Date Type Department Care Team (Late st Contact Info) Description 09/28/2013 Telephone [place] [id number] Juana Yanes Referral Social History Tobacco Use Types Packs/Day Years Used Date Smoking Tobacco: Never Sex and Gender Information Value Date Recorded Sex Assigned at Not on file Gender Identity Not on file Sexual Orientation Not on file documented as of this encounter Miscellaneous Notes * Telephone Encounter - Kendra Boston - 10/12/2013 2:05 PM EDT APPT 10/27/13 * Telephone Encounter - Kendra Boston - 10/01/2013 11:47 AM EDT Got notes from [facility] * Telephone Encounter - Juana Pizarro - 09/28/2013 1:34 PM EDT Ask patient to verify the following:VERIFIED Full name: Netta Gregorio : 1960 Phone number: [phone] (home) Mailing address: o [address] o [place] [address] Intake: LEFT KNEE PAIN Is this an injury that happened: NO ?? At work? ?? Playing a sport? ?? If yes to either, what is DOI? Tell me how this how long you've had these symptoms? 10 YEARS Has anyone ever seen you before for this issue? YES Have you tried: YES ?? Physical Therapy-[facility] PT ?? INJECTION -[facility] ?? Other therapies Have you had any of the following studies for this issue? YES ?? X-Ray -[facility] ?? MRI [facility] ?? CT Scan ?? LABS Have you seen an Orthopaedic surgeon for the this issue? YES If YES: Who did you see? ?? Where were you seen (facility)? -[facility] When? 1996- /[phone] /[phone] Have you ever had surgery for this issue? YES If YES and different than above: Who performed surgery? Where did you have the surgery (facility)? When? Phone # Fax# If patient is implanted with hardware fixation or joint prosthesis retrieve OPERATIVE REPORT and IMPLANT STICKERS. documented in this encounter Plan of Treatment Upcoming Encounters Date Type Department Care Team (Late st Contact Info) Description 07/12/2024 9:30 AM EST [place] [address] Walt Wiseman III, MD [facility] [place] [address] documented as of this encounter Visit Diagnoses Not on filedocumented in this encounter Care Teams Acquisition Specialist Relationship Specialty Start Date End Date Brodie Darby MD [address] [place] [address] [place] [address] PCP - General 04/24/10 11/30/13 documented as of this encounter
--- OUTSIDE RECORDS SUMMARY | 2024-03-04 19:48 | XMS_ITS | Encounter Summary ---
Author Organization [facility] [place] [address] Care Team Providers Care Automotive Brake Specialist Name Role Phone Brodie Darby MD Primary Care Provider [phone] Encounter Details Date Type Department Care Team (Late st Contact Info) Description 01/14/2012 Orders [place] [phone] Carmen Valencia APRN [facility] [address] [place]STR[place] [address] Social History Tobacco Use Types Packs/Day Years [...] 9:30 AM EST Office [place] [phone] Walt Wiseman III, MD [facility] [place] [address] documented as of this encounter Procedures Procedure Name Priority Date/Time Associated Diagnosis Comments FILM LIBRARY STORAGE ONLY ULTRASOUND STUDY Routine 01/14/2012 11:15 AM EDT documented in this encounter Results * FILM LIBRARY- STORAGE ONLY ULTRASOUND STUDY (01/14/2012 11:15 AM EDT) Anatomical Region Laterality Modality Other 01/14/2012 11:1 5 AM EDT Narrative 07/22/2013 9:41 PM EST This is a non-reportable exam. Procedure Note Cody Boone - 07/22/2013 This is a non-reportable exam. Tracia Erik TRAVELING ACCOUNTANT IMG FILM LIBRARY ORD ERABLES documented in this encounter Visit Diagnoses Not on filedocumented in this encounter Care Teams Automotive Brake Specialist Relationship Specialty Start Date End Date Brodie Darby MD [address] [place] [address] [place] [address] PCP - General 04/24/10 11/30/13 documented as of this encounter
--- OUTSIDE RECORDS SUMMARY | 2024-03-04 19:48 | XMS_ITS | Encounter Summary ---
Author Organization [facility] [place] [address] Care Team Providers Care Director Physical Name Role Phone Brodie Darby MD Primary Care Provider [phone] Encounter Details Date Type Department Care Team (Late st Contact Info) Description 06/04/2012 External Results [place] [phone] Carmen Valencia APRN [facility] [place] [address] Social History Tobacco Use Types Packs/Day Years Used Date Smoking Tobacco: Never Sex and Gender Information Value Date Recorded Sex Assigned at Not on file Gender Identity Not on file Sexual Orientation Not on file documented as of this encounter Plan of Treatment Upcoming Encounters Date Type Department Care Team (Late st Contact Info) Description 07/12/2024 9:30 AM EST Office [place] [phone] Walt Wiseman III, MD [facility] [place] [place] [address] documented as of this encounter Procedures Procedure Name Priority Date/Time Associated Diagnosis Comments LAB SCAN Routine 05/30/2012 documented in this encounter Results * Scan Doc: Lab (05/30/2012) 05/30/2012 Tracia O'Alee REFINERY OPERATOR [employer] MED[employer] MGR SCAN EXT O RDR/RSLT documented in this encounter Visit Diagnoses Not on filedocumented in this encounter Care Teams Director Physical Relationship Specialty Start Date End Date Brodie Draby MD [address] [place] [address] [place] [address] PCP - General 04/24/10 11/30/13 documented as of this encounter
--- OUTSIDE RECORDS SUMMARY | 2024-03-04 19:48 | XMS_ITS | Encounter Summary ---
Author Organization [facility] [address] Care Team Providers Care President [employer] Name Role Phone Karmen Magana MD Primary Care Provider [phone] Encounter Details Date Type Department Care Team (Late st Contact Info) Description 02/25/2013 Interpretation Only Radiology [address] [place] [address] [place] [phone] Unknown None Social History Tobacco Use Types Packs/Day Years Used Date Smoking Tobacco: Never Sex and Gender Information Value Date Recorded Sex Assigned at Not on file Gender Identity Not on file Sexual Orientation Not on file documented as of this encounter Plan of Treatment Upcoming Encounters Date Type Department Care Team (Late st Contact Info) Description 07/12/2024 9:30 AM EST Office [place] [phone] Walt Wiseman III, MD [facility] [place] [address] documented as of this encounter Procedures Procedure Name Priority Date/Time Associated Diagnosis Comments XR FLUORO NO RAD <1HR - RADIOLOGY USE Routine 02/25/2013 6:00 AM EDT documented in this encounter Results * XR Fluoro <1Hr - Radiology Use (02/25/2013 6:00 AM EDT) Anatomical Region Laterality Modality N/A Radiographic Jenn ging 02/25/2013 6:00 AM EDT Narrative 02/25/2013 6:00 AM EDT APD Historical Result Principal Pediatric Geneticist: ??PIERRE ??Aki FLUOROSCOPIC ASSISTANCE: A total of 11.0 seconds of fluoroscopic assistance was provided to Dr Marrero during the performance of a surgical procedure. ??This results in a cumulative dose of 1.02 rad. ??One image records the event. No Radiologist was in attendance during service provision. Pierre Hernández MD, FACR [facility] [id number] CC: Procedure Note Unknown - 11/30/2018 APD Historical Result Principal Pediatric Geneticist: PIERRE Prabhakar FLUOROSCOPIC ASSISTANCE: A total of 11.0 seconds of fluoroscopic assistance was provided to Juan during the performance of a surgical procedure. This results in a cumulative dose of1.02 rad. One image records the event. No Radiologist was in attendance during service provision. Pierre Hernández MD, FACR [facility] [id number] CC: Unknown IMG FLUORO ORDERABLE S documented in this encounter Visit Diagnoses Not on filedocumented in this encounter Care Teams President [employer] Relationship Specialty Start Date End Date Karmen Magana MD [address] [place] [address] [place] [address] PCP - General Family Medicine 04/11/17 07/18/20 documented as of this encounter
--- OUTSIDE RECORDS SUMMARY | 2024-03-04 19:48 | XMS_ITS | Encounter Summary ---
Author Organization [facility] [place] [address] Care Team Providers Care Is Consultant Name Role Phone Brodie Darby MD Primary Care Provider [phone] Reason for Visit * Reason Onset Date Comments Medication Refill 05/01/2012 Encounter Details Date Type Department Care Team (Late st Contact Info) Description 05/01/2012 Ref[place] [phone] Liz Gutiérrez, RN Social History Tobacco Use Types Packs/Day [...] 9:30 AM EST [place] [address] Walt Wiseman III, MD [facility] [place] [address] documented as of this encounter Visit Diagnoses Not on filedocumented in this encounter Care Teams Is Consultant Relationship Specialty Start Date End Date Brodie Darby MD [address] [place] [address] [place] [address] PCP - General 04/24/10 11/30/13 documented as of this encounter
--- OUTSIDE RECORDS SUMMARY | 2024-03-04 19:48 | XMS_ITS | Encounter Summary ---
Author Organization [facility] [place] [address] Care Team Providers Care Loom Operator Name Role Phone Brodie Darby MD Primary Care Provider [phone] Encounter Details Date Type Department Care Team (Late st Contact Info) Description 09/28/2013 Orders [place] [phone] Shamir Quispe MD [facility] [place] [address] Left knee pain Social History Tobacco Use [...] EST [place] [phone] Walt Wiseman III, MD [facility] [place] [address] documented as of this encounter Results * XR JOINT TEAM [...] view of left knee. Findings Standing alignment: ??[place] of gravitation runs through the medial tibial [...] view of left knee. Findings Standing alignment: [place] of gravitation runs through the medial tibialplateau [...] knee pain Pain in joint, lower leg Left knee pain Pain in joint, lower leg documented in this encounter Care Teams Loom Operator Relationship Specialty Start Date End Date Brodie Darby MD [address] [place] [address] [place] [address] PCP - General 04/24/10 11/30/13 documented as of this encounter
--- OUTSIDE RECORDS SUMMARY | 2024-03-04 19:48 | XMS_ITS | Encounter Summary ---
Author Organization [facility] [place] [address] Care Team Providers Care Supervisor [employer] Cash[employer] Name Role Phone Brodie Darby MD Primary Care Provider [phone] Reason for Visit * Reason Comments Follow-up Encounter Details Date Type Department Care Team (Late st Contact Info) Description 07/29/2012 12:00 PM EST Follow-[place] [phone] Carmen Valencia APRN [facility] [place] [address] IBS (irritable bowel syndrome) (Primary Dx) Discharge Disposition: Home Social History Tobacco Use Types Packs/Day Years Used Date Smoking Tobacco: Never Sex and Gender Information Value Date Recorded Sex Assigned at Not on file Gender Identity Not on file Sexual Orientation Not on file documented as of this encounter Last Filed Vital Signs Vital Sign Reading Time Taken Comments Blood Pressure 109/72 07/29/2012 11:44 AM EST Pulse 69 07/29/2012 11:44 AM EST Temperature - - Respiratory Rate - - Oxygen Saturation - - Inhaled Oxygen Concentration - - Weight 115.2 kg (254 lb) 07/29/2012 11:44 AM EST Height 172.7 cm (5' 8) 07/29/2012 11:44 AM EST Body Mass Index 38.62 07/29/2012 11:44 AM EST documented in this encounter Progress Notes * Carmen Valencia RN - 07/29/2012 12:02 PM EST Pt is here f/u regarding recent testing. Pt underwent an upper and lower endoscopy. Upper endoscopyand bx did not reveal any worrisome features. Pt is taking Nexium 40mg bid. This is working well. Reflux controlled. Denies dysphagia, odynophagia, n/v, chest pain. Fodmap diet has been helpful is having less ibs sx. Colonoscopy revealed hyperplastic and TA polyps. Eating is a trigger. Will have 3-5 loose stools per day. Associated cramping, urgency which resolves once able to empty. No blood in stool. No incontinence. Imodium in the past has caused constipation. Used Lomotil on a prn basis with some effect. Florastor with no effect. Normal cbc, cmp, tsh, ttg. Normal stool studies. Plan: 1. Gerd: nexium 40mg bid. Gerd diet and lifestyle modifications. 2. IBS: fodmap diet. Bentyl 10mg ac and qhs. Pt to contact gi with progress. Repeat colo in 2-3 years. documented in this encounter Plan of Treatment Upcoming Encounters Date Type Department Care Team (Late st Contact Info) Description 07/12/2024 9:30 AM EST [place] [address] Walt Wiseman III, MD [facility] [place] [address] documented as of this encounter Visit Diagnoses Diagnosis IBS (irritable bowel syndrome)- Primary Irritable bowel syndrome documented in this encounter Care Teams Supervisor [employer] Checkers And Cashiers Relationship Specialty Start Date End Date Brodie Darby MD [address] [place] [address] [place] [address] PCP - General 04/24/10 11/30/13 documented as of this encounter
--- OUTSIDE RECORDS SUMMARY | 2024-03-04 19:48 | XMS_ITS | Encounter Summary ---
Author Organization [facility] [place] [address] Care Team Providers Care Hospice Coordinator Name Role Phone Brodie Darby MD Primary Care Provider [phone] Reason for Visit * Reason Comments Medication Refill Encounter Details Date Type Department Care Team (Late st Contact Info) Description 08/08/2013 Refill [place] [address] Carmen Valencia APRN [facility] [place] [address] Social History Tobacco Use Types Packs/Day Years Used Date Smoking Tobacco: Never Sex and Gender Information Value Date Recorded Sex Assigned at Not on file Gender Identity Not on file Sexual Orientation Not on file documented as of this encounter Plan of Treatment Upcoming Encounters Date Type Department Care Team (Late st Contact Info) Description 07/12/2024 9:30 AM EST Office [place] [address] Walt Wiseman III, MD [facility] [place] [address] documented as of this encounter Visit Diagnoses Not on filedocumented in this encounter Care Teams Hospice Coordinator Relationship Specialty Start Date End Date Brodie Darby MD [address] [place] [address] [place] [address] PCP - General 04/24/10 11/30/13 documented as of this encounter
--- OUTSIDE RECORDS SUMMARY | 2024-03-04 19:48 | XMS_ITS | Encounter Summary ---
Author Organization [facility] Address [facility] [place] [address] Care Team Providers Care Boot Liner Maker Name Role Phone Ronnie Stokes MD Primary Care Provider [phone] Reason for Visit * Reason Comments Left Knee Pain CASE REQ 12/28/13 lef t TKA Encounter Details Date Type Department Care Team (Latest Contact Info) Description 12/01/2013 12:00 PM EDT Office [place] [address] Shamir Crabtree MD [facility] [place] [address] Osteoarthritis of knee; DJD (degenerative joint disease) of knee; Primary osteoarthritis of left knee Discharge Disposition: Home Social History Tobacco Use [...] Sign Reading Time Taken Comments Blood Pressure 119/65 12/01/2013 12:25 PM EDT Pulse 58 12/01/2013 12:25 PM EDT Temperature - - Respiratory Rate - - Oxygen Saturation - - Inhaled Oxygen Concentration - - Weight 117.9 kg (260 lb) 12/01/2013 12:25 PM EDT Height 172.7 cm (5' 8) 12/01/2013 12:25 PM EDT Body Mass Index 39.53 12/01/2013 12:25 PM EDT documented in this encounter Progress Notes * Shamir Crabtree MD - 12/01/2013 12:27 PM EDT This note is recorded by Yuli Colon RN acting as a scribe for Shamir Crabtree MD. PREOPERATIVE VISIT HISTORY OF PRESENT ILLNESS: Very pleasant 53 y.o. year-old female with severe osteoarthritis of theknee. I have seen the patient previously and the plan is for left total knee arthroplasty. Please refer to my previous note for the full history. She reports that the pain has not changed and has actually gotten a bit worse. She has reviewed theshared decision making video and is confident in the decision to go forward with total joint arthroplasty. PHYSICAL EXAMINATION: Exam is previously documented in my note and is unchanged. RELEVANT LAB STUDIES: Lab Results Component Value Date WBC 6.9 12/01/2013 HGB 13.6 12/01/2013 HCT 42.2 12/01/2013 PLATELET 192 12/01/2013 CREATININE 0.81 12/01/2013 INR 0.8* 12/01/2013 The CrCl is unknown because both a height and weight (above a minimum accepted value) are required for this calculation. type and screen done. ASSESSMENT/PLAN: A 53 y.o. year-old female who presents for preoperative appointment today. I had along discussion with her regarding the risks and benefits of total knee arthroplasty. We talked about bleeding, infection, need for further surgery, fracture, blood clots, implant failure, blood transfusion, and the complications of anesthesia up to and including . I used total knee implants to demonstrate for her how we perform the procedure and all questions were answered. I did review thehistory and physical today which says she is cleared for surgery and has no specific recommendations for further testing. I reviewed the labs and there were no issues with those. Informed consent was signed in the clinic today. We discussed DNR status and the patient is a full code. We will plan touse Rivaroxaban for 12 days postoperatively for DVT prophylaxis. I discussed with them the possibledischarge scenarios including going home versus needing to go to a rehab facility. We will make that determination after seeing how well mobilization is progressing. PCP recommendations: Moderate sleep apnea. Care should be taken post operatively if patient is sedated. As a precaution CPAP at 10-11cm/H2O should be considered. Mild persistant asthma. May require respiratory therapy in the immediate post operative period. I have personally evaluated the patient and agree with the above note as recorded by Yuli Colon RN. documented in this encounter Plan of Treatment Upcoming Encounters Date Type Department Care Team (Late st Contact Info) Description 07/12/2024 9:30 AM EST [place] [address] Walt Wiseman III, MD [facility] [address] [place] [address] documented as of this encounter Procedures Procedure Name Priority Date/Time Associated Diagnosis Comments HEMOGRAM Routine 12/01/2013 11:24 AM EDT Osteoarthritis of knee DIFFERENTIAL, AUTOMATED Routine 12/01/2013 11:24 AM EDT Osteoarthritis of knee TYPE AND SCREEN, SDP (FUTURE SURGERY, [facility] SAME DAY PROGRAM ONLY) Routine 12/01/2013 11:24 AM EDT Osteoarthritis of knee ABO/RH TYPING Routine 12/01/2013 11:24 AM EDT Osteoarthritis of knee PROTHROMBIN TIME Routine 12/01/2013 11:2 4 AM EDT Osteoarthritis of knee CBC (WITH DIFF) Routine 12/01/2013 11:24 AM EDT Osteoarthritis of knee ANTIBODY SCREEN Routine 12/01/2013 11:24 AM EDT Osteoarthritis of knee HEMOGLOBIN A1C Routine 12/01/2013 11:24 AM EDT Osteoarthritis of knee BASIC METABOLIC PANEL Routine 12/01/2013 11:24 AM EDT Osteoarthritis of knee URINALYSIS WITH REFLEX CULTURE Routine 12/01/2013 11:14 AM EDT Osteoarthritis of knee URINE CULTURE Routine 12/01/2013 11:14 AM EDT Osteoarthritis of knee documented in this encounter Results * Antibody screen (12/01/2013 11:24 AM EDT) Ab Screen Interp Negative CERNER MILLENNIUM Expires at 2359 on: [id number] CERNER MILLENNIUM Comment:Corrected from 12/31 12:00 [Unknown] on 12/28/13 02:42 by Tex Schmidt. Blood specimen (specimen) 12/01/2013 11:24 AM EDT 12/01/2013 11:25 AM EDT Narrative Resulting Agency Comment Spec In Lab Shamir Crabtree MD BLOOD BANK LAB ORDER SELENE Performing Organization Address City/State/[facility] Co de Phone Number CERAKANKSHA ACOSTAENNIUM * ABO/Rh Typing (12/01/2013 11:24 AM EDT) ABORH Type O Pos CERNER KARLAENNIUM Blood specimen (specimen) 12/01/2013 11:24 AM EDT 12/01/2013 11:25 AM EDT Narrative Resulting Agency Comment Spec In Lab Shamir Crabtree MD BLOOD BANK LAB ORDER SELENE CERAKANKSHA ACOSTAENNIUM * Differential, Automated (12/01/2013 11:24 AM EDT) Neutrophil % 45.2 34.0 - 71.0 % CERNER MILLENNIUM Neutrophil Absolute 3.13 1.50 - 6.30 x10(3)/mcL CERNER MILLENNIUM Lymph % 42.5 19.0 - 53.0 % CERNER MILLENNIUM Lymphocytes Abs 2.9 1.0 - 3.6 x10(3)/mcL CERNER MILLENNIUM Monocyte % 7.1 4.0 - 13.0 % CERNER MILLENNIUM Monocyte Abs 0.5 0.2 - 1.0 x10(3)/mcL CERNER MILLENNIUM Eos % 3.9 0.0 - 7.0 % CERNER MILLENNIUM Eosinophils Abs 0.3 0.0 - 0.5 x10(3)/mcL CERNER MILLENNIUM Basophil % 0.7 0.0 - 2.0 % CERNER MILLENNIUM Baso Absolute 0.0 0.0 - 0.2 x10(3)/mcL CERNER MILLENNIUM Immature Gran % 0.60 0.00 - 0.66 % CERNER MILLENNIUM Comment: Immature granulocytes(IG's)percentage and absolute count will include metamyelocytes, myelocytes, and promyelocytes. Blood smears from CBCs yielding IG's will be scanned manually for concordance. If this scan disagrees with the automated IG or if promyelocytes are noted, a manual differential will be performed. Immature Gran Absolute 0.04 0.00 - 0.05 x10(3)/mcL CERNER MILLENNIUM Blood specimen (specimen) 12/01/2013 11:24 AM EDT 12/01/2013 11:41 AM EDT Narrative Resulting Agency Comment Spec In Lab Shamir Crabtree MD HEMATOLOGY ORDERABLE S CERNER MILLENNIUM * (ABNORMAL) Hemogram (12/01/2013 11:24 AM EDT) White Blood Cell 6.9 4.0 - 10.0 x10(3)/mc L CERNER MILLENNIUM Red Blood Cell 4.59 3.93 - 5.22 x10(6)/mc L CERNER MILLENNIUM Hemoglobin 13.6 11.2 - 15.7 gm/dL CERNER MILLENNIUM Hematocrit 42.2 34.0 - 45.0 % CERNER MILLENNIUM Mean Cell Volume 91.9 79.0 - 94.0 fL CERNER MILLENNIUM Mean Cell Hemoglobin 29.6 26.6 - 32.2 pg CERNER MILLENNIUM Mean Cell Hemoglobin Concentration 32.2 32.0 - 36.5 gm/dL CERNER MILLENNIUM Platelet 192 145 - 370 x10(3)/mc L CERNER MILLENNIUM RDW Standard Deviation 46.7(H) 35.0 - 46.0 fL CERNER MILLENNIUM RDW coefficient of variation 14.1 10.9 - 14.4 % CERNER MILLENNIUM Mean Platelet Volume 11.5 9.0 - 12.0 fL CERNER MILLENNIUM Blood specimen (specimen) 12/01/2013 11:24 AM EDT 12/01/2013 11:41 AM EDT Narrative Resulting Agency Comment Spec In Lab Shamir Crabtree MD HEMATOLOGY ORDERABLE S [facility] * (ABNORMAL) Hemoglobin A1c (12/01/2013 11:24 AM EDT) Hemoglobin A1c 5.9(H) <=5.6 % [facility] Comment: Reference Range: 4.3 ? 5.6% 5.7 ? 6.4% - Increased Risk of Developing Diabetes Mellitus 6.5% - Consistent with diagnosis of Diabetes Mellitus In the absence of hyperglycemia (i.e. plasma glucose > 200 mg/dL) or classic symptoms of hyperglycemia a repeat measurement of HbA1c should be performed on a separate sample to confirm the diagnosis. Diagnosis and Classification of Diabetes Mellitus, Diabetes Care 2013; 36: Suppl. 1, S67-74 Estimated Average Glucose 123 mg/dL [facility] Comment: eAG equivalents for HbA1c percentages: HbA1c(%) ?eAG(mg/dL) 6.0 ?126 6.5 ?140 7.0 ?154 7.5 ?169 8.0 ?183 8.5 ?197 9.0 ?212 9.5 ?226 10.0 ? 240 Limitations: The eAG calculation has not been validated on women, individuals below 18 years old and above 70 years old, and individuals with hemoglobinopathies. Additional resources are available on the ADA website: http://tinyurl.com/[facility] Jeff HAGAN, Grace J, Saige R, et al. ??Translating the A1C assay into estimated average glucose values. ??Diabetes Care 2008:31(8):1032-0987. Blood specimen (specimen) 12/01/2013 11:24 AM EDT 12/01/2013 11:41 AM EDT Narrative Resulting Agency Comment Spec In Lab Shamir Crabtree MD CHEMISTRY ORDERABLES Performing Organization Address [facility] Co de Phone Number [facility]ANKSHA [facility] * (ABNORMAL) Prothrombin Time (12/01/2013 11:24 AM EDT) Prothrombin Time 12.2(L) 12.5 - 15.5 sec CERNER MILLENNIUM Comment: [facility] Transfusion Committee Guidelines: INR less than 2.0, PTT less than OR equal to 43.5 seconds, or Fibrinogen greater than or equal to 100 mg/dl indicate adequate procoagulant activity for hemostasis in patients without underlying bleeding disorders. International Normalization Ratio 0.8(L) 0.9 - 1.1 CERNER MILLENNIUM Blood specimen (specimen) 12/01/2013 11:24 AM EDT 12/01/2013 11:41 AM EDT Narrative Resulting Agency Comment Spec In Lab Shamir Crabtree MD HEMATOLOGY ORDERABLE S Performing Organization Address [facility] de Phone Number CERAKANKSHA QUINTANILLAIUM * (ABNORMAL) Basic Metabolic Panel (non-fasting) (12/01/2013 11:24 AM EDT) Glucose 119 60 - 199 mg/dL CERNER MILLENNIUM Comment:Diabetes: >=200 mg/d L plus symptoms Blood Urea Nitrogen 19(H) 8 - 18 mg/dL CERNER MILLENNIUM Creatinine 0.81 0.70 - 1.20 mg/dL CERNER MILLENNIUM Comment: Please note that the pediatric reference intervals supplied above were not validated at [facility]. Results from pediatric patients should be interpreted in conjunction to the patient's age, height and muscle mass. Sodium 139 135 - 145 mmol/L CERNER MILLENNIUM Potassium 3.9 3.5 - 5.0 mmol/L CERNER MILLENNIUM Comment: Please note: ??Patients with WBC >100,000 may have falsely elevated Potassium levels. ??For accurate Potassium quantification in these patients send serum separator tube (gold top) for subsequent determinations. ??Contact the Clinical Chemistry Laboratory if there are any questions. Chloride 100 98 - 107 mmol/L CERNER MILLENNIUM Carbon Dioxide 29 22 - 31 mmol/L CERNER MILLENNIUM Anion Gap 10 5 - 15 mmol/L CERNER MILLENNIUM Calcium 9.1 8.5 - 10.5 mg/dL CERNER MILLENNIUM Est [...] the following links into your internet browser. http://Omise/DHnkdep [email or web address]://Omise/DHMCnkf Blood specimen (specimen) 12/01/2013 11:24 AM EDT 12/01/2013 11:41 AM EDT Narrative Resulting Agency Comment Spec In Lab Shamir Crabtree MD CHEMISTRY ORDERABLES JAMILAH AMADOR * Urine culture Clean Catch Urine (12/01/2013 11:14 AM EDT) Urine Culture ? Patient Name: NETTA AL ? Ordered By: SHAMIR CRABTREE ? MR#: [id number] ?LOC: ??3C ? /Sex: ??1960 (53 years), ? Female ? PROCEDURE: Urine Culture ?SOURCE: U CC ? COLLECTED: 12/01/2013 11:14 ? STARTED: 12/01/2013 11:44 ? FINAL REPORT ? Final Report ? Verified:2013 08:22 ? 1,000-9,000 cfu/ml Gram Positive organisms , probable contaminant ? CERNER MILLENNIUM Urine specimen obtained by clean catch procedure (specimen) 12/01/2013 11:14 AM EDT 12/01/2013 11:44 AM EDT Narrative Resulting Agency Comment Spec In Lab Shamir Crabtree MD MICROBIOLOGY - GENER AL ORDERABLES CERNER MILLENNIUM * (ABNORMAL) Urinalysis with microscopic (12/01/2013 11:14 AM EDT) Glucose, Urine Dipstick Negative Negative mg/dL CERNER MILLENNIUM Protein, Urine Dipstick Trace(A) Negative mg/dL CERNER MILLENNIUM Bilirubin, Urine Dipstick Negative Negative mg/dL CERNER MILLENNIUM Comment: Clinical correlation required for positive Urine Bilirubin results as false positive may occur with some drugs and drug related products. If a false positive is suspected a serum total bilirubin should be considered if clinically indicated. Urobilinogen, Urine Dipstick Normal Normal mg/dL CERNER MILLENNIUM pH, Urn (dipstick) 5.5 5.0 - 8.0 CERNER MILLENNIUM Blood, Urine Dipstick Negative Negative mg/dL CERNER MILLENNIUM Ketone, Urine Dipstick Negative Negative mg/dL CERNER MILLENNIUM Nitrite, Urine Dipstick Negative Negative CERNER MILLENNIUM Leukocytes, Urine Dipstick Negative Negative mcL CERNER MILLENNIUM Appearance, Urine Dipstick Clear Clear CERNER MILLENNIUM Specific [place] Urine Automated 1.021 1.002 - 1.030 CERNER MILLENNIUM Color, Urine Dipstick Yellow Yellow CERNER MILLENNIUM RBC, Urine 2 0 - 4 /HPF CERNER MILLENNIUM WBC, Urine 1 0 - 5 /HPF CERNER MILLENNIUM Squamous Epithelial Cells, Urine 1 <=4 /HPF CERNER MILLENNIUM Hyaline Casts, Urine 4(H) 0 - 2 /LPF CERNER MILLENNIUM Urine specimen (specimen) 12/01/2013 11:14 AM EDT 12/01/2013 11:26 AM EDT Narrative Resulting Agency Comment Spec In Lab Shamir Crabtree MD URINE ORDERABLES CERNER MILLENNIUM documented in this encounter Visit Diagnoses Diagnosis Osteoarthritis of knee Osteoarthrosis, unspecified whether generalized or localized, lower leg DJD (degenerative joint disease) of knee Osteoarthrosis, unspecified whether generalized or localized, lower leg Primary osteoarthritis of left knee Primary localized osteoarthrosis, lower leg documented in this encounter Administered Medications Inactive Administered Medications - up to 3 most recent administrations Medication Order MAR Action Action Date Dose Rate Site mupirocin (BACTROBAN) 2 % ointment Topical, 2 TIMES DAILY, First dose on Fri12/23/13 at 0900, 10 doses, Last dose on Fri12/27/13 at 2100, Patient is instructed to administer Mupirocin into the nares twice daily starting 5 days prior to surgery date. Additional instructions given to patient at time medication was dispensed. Given 12/01/2013 12:43 PM EDT documented in this encounter Care Teams Boot Liner Maker Relationship Specialty Start Date End Date Ronnie Stokes MD [address] [place] [address] [place] [address] PCP - General 12/01/13 04/10/17 documented as of this encounter
--- OUTSIDE RECORDS SUMMARY | 2024-03-04 19:48 | XMS_ITS | Encounter Summary ---
Author Organization [facility] [place] [address] Care Team Providers Care Orchestra Director Name Role Phone Brodie Darby MD Primary Care Provider [phone] Encounter Details Date Type Department Care Team (Latest Contact Info) Description 06/03/2012 1:32 PM EST - 06/03/2012 4:30 PM EST Hospital Encounter [place] [address] Crystal Sesay MD [facility] [place] [address] Discharge Disposition: Home Social History Tobacco Use [...] - 06/03/2012 3:48 PM EST Please call [phone], before 5pm with problems, questions or concerns, after 5pm call the Hospital at [phone] and ask to speak to the Sleeve Maker phonograph needle tip maker and the equipment operator wage hand will contactthat person for you. Discharge instructions [...] * COLONOSCOPY: WHAT TO EXPECT AT HOME (NAURUAN) * UPPER GI ENDOSCOPY: WHAT TO EXPECT AT HOME (NAURUAN) documented in this encounter Medications at Time [...] 9:30 AM EST [place] [address] Walt Wiseman III, MD [facility] [place] [address] documented as of this encounter Procedures Procedure [...] 5:27 PM EST) Surgical Pathology Report ? [facility] ? Provider: ?? CRYSTAL SESAY ? Pt. Name: ?? NETTA GREGORIO ? Acc #: ?[id number] ?Pt. ? Col Date: ?? 06/03/2012 ?/Sex: [...] Slides reviewed, microscopic description not recorded. ? [facility] ? Provider: ?? CRYSTAL SESAY ? Pt. Name: ?? NETTA GREGORIO ? Acc #: ?[id number] ?Pt. ? Col Date: ?? 06/03/2012 ?/Sex: [...] tissues. ? Sections/Processi ng: ??(T1) ??aje/SHB ? [facility] ? Provider: ?? CRYSTAL SESAY ? Pt. Name: ?? GREGORIO NETTA Oneyda ? Acc #: ?[id number] ?Pt. ? Col Date: ?? 06/03/2012 ?/Sex: [...] - 4-mm sigmoid colon polyp; ? TA JAMILAH QUINTANILLAIUM 06/03/2012 5:27 PM EST Crystal Sesay MD PATHOLOGY/CYTOLOGY O SHIELA Performing Organization Address [facility] Phone Number [facility] * Specimen to Pathology (surgical or derm) (06/03/2012 3:43 PM EST) AP Specimen 06/03/2012 3:43 PM EST 06/03/2012 3:43 PM EST Narrative JAMILAH QUINTANILLAIUM - 06/03/2012 3:43 PM EST Specimen requisition ordered. ??Separate Pathology report to follow Crystal Sesay MD PATHOLOGY/CYTOLOGY O SHIELA Performing Organization Address [facility] Phone Number [facility] * Specimen to Pathology (surgical or derm) (06/03/2012 3:43 PM EST) AP Specimen 06/03/2012 3:43 PM EST 06/03/2012 3:43 PM EST Narrative JAMILAH QUINTANILLAIUM - 06/03/2012 3:43 PM EST Specimen requisition ordered. ??Separate Pathology report to follow Crystal Sesay MD PATHOLOGY/CYTOLOGY O SHIELA Performing Organization Address [facility] Phone Number [facility] * Specimen to Pathology (surgical or derm) (06/03/2012 3:43 PM EST) AP Specimen 06/03/2012 3:43 PM EST 06/03/2012 3:43 PM EST Narrative JAMILAH AMADOR - 06/03/2012 3:43 PM EST Specimen requisition ordered. ??Separate Pathology report to follow Crystal Sesay MD PATHOLOGY/CYTOLOGY O RDTALIA Performing Organization Address [facility] Co de Phone Number [facility] * Specimen to Pathology (surgical or derm) (06/03/2012 3:29 PM EST) AP Specimen 06/03/2012 3:29 PM EST 06/03/2012 3:29 PM EST Narrative JAMILAH AMADOR - 06/03/2012 3:29 PM EST Specimen requisition ordered. ??Separate Pathology report to follow Crystal Sesay MD PATHOLOGY/CYTOLOGY O SHIELA Performing Organization Address [facility] Co de Phone Number JAMILAH AMADOR * Specimen to Pathology (surgical or derm) (06/03/2012 3:29 PM EST) AP Specimen 06/03/2012 3:29 PM EST 06/03/2012 3:29 PM EST Narrative JAMILAH AMADOR - 06/03/2012 3:29 PM EST Specimen requisition ordered. ??Separate Pathology report to follow Crystal Sesay MD PATHOLOGY/CYTOLOGY O SHIELA Performing Organization Address [facility] Co de Phone Number JAMILAH AMADOR * Specimen to Pathology (surgical or derm) (06/03/2012 3:29 PM EST) AP Specimen 06/03/2012 3:29 PM EST 06/03/2012 3:29 PM EST Narrative JAMILAH AMADOR - 06/03/2012 3:29 PM EST Specimen requisition ordered. ??Separate Pathology report to follow Crystal Sesay MD PATHOLOGY/CYTOLOGY O SHIELA Performing Organization Address [facility] Co de Phone Number JAMILAH AMADOR * Specimen to Pathology (surgical or derm) (06/03/2012 3:29 PM EST) AP Specimen 06/03/2012 3:29 PM EST 06/03/2012 3:29 PM EST Narrative JAMILAH AMADOR - 06/03/2012 3:29 PM EST Specimen requisition ordered. ??Separate Pathology report to follow Crystal Sesay MD PATHOLOGY/CYTOLOGY O SHIELA Performing Organization Address [facility] Co de Phone Number [facility] * Specimen to Pathology (surgical or derm) (06/03/2012 3:29 PM EST) AP Specimen 06/03/2012 3:29 PM EST 06/03/2012 3:29 PM EST Narrative JAMILAH AMADOR - 06/03/2012 3:29 PM EST Specimen requisition ordered. ??Separate Pathology report to follow Crystal Sesay MD PATHOLOGY/CYTOLOGY Kvng KUO JAMILAH AMADOR * COLONOSCOPY (06/03/2012 2:35 PM EST) COLONOSCOPY [facility] Endoscopy ___ Patient Name: Netta Darline ? Procedure Date: 06/03/2012 2:35 PM ? N: [id number] ? Date of : 1960 ? Age: 52 ? Order #: [id number] ? ___ Procedure: ? Colonoscopy Indications: ? Chronic diarrhea Providers: ? Crystal Sesay MD, Bailey Lama, ? RN, Gretchen Alfonso Referring MD: ?Brodie Darby MD Requesting Provider: Sherine Nuñez [...] of ? mildly congested, erythematous and ? ftybjvov-[id number] creased mucosa was found in the ? [...] normal. ? - Congested, erythematous and ? ypkmdxfv-[id number]-gr creased mucosa in ? the sigmoid colon. [...] Until Fri06/03/12 at 1910, For Procedural use. [place] on area for one second. May repeat if necessary. Do not exceed a spray duration of 2 seconds., Intra-Operative (Intra-Procedure) 1525 (Given - Provid er: Bailey Lama RN) diphenhydrAMINE (BENADRYL) injection (CANCELED) ONCE PRN, Starting on Fri06/03/12 at 1449, Until Fri06/03/12 at 1910, Itching, Intra-Operative (Intra-Procedure), Routine 1447 (Given - Provid er: Bailey Lama RN)1450 (Given - Provider: Bailey Lama RN) [...] RN)1532 (Given - Provider: Bailey Lama RN) documented in this encounter Care Teams Orchestra Director Relationship Specialty Start Date End Date Brodie Darby MD [address] [place] [address] [place] [address] PCP - General 04/24/10 11/30/13 documented as of this encounter
--- OUTSIDE RECORDS SUMMARY | 2024-03-04 19:48 | XMS_ITS | Encounter Summary ---
[place] [address] Care Team Providers Care Die Storage Worker Name Role Phone Brodie Darby MD Primary Care Provider [phone] Encounter Details Date Type Department Care Team (Latest Contact Info) Description 02/22/2011 11:41 AM EDT - 02/22/2011 11:59 PM EDT Hospital Encounter [place] [phone] CLINIC, Brodie Colunga MD [address] [place] [address] [place] [address] Chest pain, unspecified Discharge Disposition: Home Social History Tobacco Use Types Packs/Day Years Used Date Smoking Tobacco: Never Assessed Sex and Gender Information Value Date Recorded Sex Assigned at Not on file Gender Identity Not on file Sexual Orientation Not on file documented as of this encounter Medications at Time of Discharge Medication Sig Dispensed Refills Start Date End Date CIS Free Text Med - ASA (Aspirin) 10/08/2006 04/13/2012 CIS Free Text Med - Effexor 10/08/2006 04/13/2012 CIS Free Text Med - Albuterol 10/08/2006 04/13/2012 atenolol (TENORMIN) 25 mg tablet 10/08/2006 04/13/2012 cetirizine (ZYRTEC) 10 mg tablet 10/08/2006 12/01/2013 esomeprazole (NEXIUM) 40 mg capsule 10/08/2006 04/13/2012 zolpidem (AMBIEN) 10 mg tablet 10/08/2006 12/01/2013 Magnesium Oxide 250 mg Tab 10/08/2006 04/13/2012 fluticasone-salmeterol (ADVAIR DISKUS) 100-50 mcg/dose diskus inhaler 10/08/200610/01 carvedilol (COREG) 6.25 mg tablet 6.25 MG = 1 Tablet(s), PO, Twice daily 10/08/2006 04/13/2012 atorvastatin (LIPITOR) 40 mg tablet 40 MG = 1 Tablet(s), PO, Once daily 10/08/2006 12/01/2013 nitroGLYcerin (NITROSTAT) 0.4 mg SL tablet 0.4 MG = 1 Tablet(s), Sublingual, PRN 10/08/2006 04/13/2012 documented as of this encounter Plan of Treatment Upcoming Encounters Date Type Department Care Team (Late st Contact Info) Description 07/12/2024 9:30 AM EST Office [place] [address] Walt Wiseman III, MD [facility] [place] [address] documented as of this encounter Procedures Procedure Name Priority Date/Time Associated Diagnosis Comments NM EXERCISE STRESS AND REST MYOCARDIAL PERFUSION Routine 02/22/2011 1:45 PM EDT documented in this encounter Results * NM MYOCARDIAL PERFUSION MYOVIEW- STRESS & REST (02/22/2011 1:45 PM EDT) Anatomical Region Laterality Modality Other 02/22/2011 1:45 PM EDT Impressions 02/23/2011 9:04 AM EDT IMPRESSION: Normal myocardial perfusion scan. ? Film and interpretation reviewed by the attending Narrative 02/23/2011 9:04 AM EDT PHARMACOLOGIC MYOCARDIAL PERFUSION SCAN: INDICATION: ??Chest pain. TECHNIQUE: During rest, 12 mCi of technetium-99m sestamibi were administered intravenously. ??Approximately 15 minutes later, SPECT images of the heart were obtained with reconstruction in the short, vertical long and horizontal long axes. The patient exercised to a maximum capacity of 7 mets to a maximal heart rate of 162 bpm, which is 94% of the maximum predicted heart rate maximum for this age. ??37.8 mCi of technetium-99m sestamibi were then administered intravenously and the patient was exercised for one and one half additional minutes. ??Images of the heart were then again obtained with SPECT reconstruction. A low-dose CT scan was acquired for the purpose of attenuation correction. FINDINGS: ??There are no fixed or reversible myocardial perfusion defects. ??The left ventricular myocardium shows normal contractility and wall motion with a calculated left ventricular ejection fraction of 62%. Procedure Note Dev Dowd MD - 02/23/2011 PHARMACOLOGIC MYOCARDIAL PERFUSION SCAN: INDICATION: Chest pain. TECHNIQUE: During rest, 12 mCi of technetium-99m sestamibi were administered intravenously. Approximately 15 minutes later, SPECT images of the heartwere obtained with reconstruction in the short, vertical long and horizontallong axes. The patient exercised to a maximum capacity of 7 mets to a maximal heartrate of 162 bpm, which is 94% of the maximum predicted heart rate maximum forthis age. 37.8 mCi of technetium-99m sestamibi were then administeredintravenously and the patient was exercised for one and one half additional minutes.Images of the heart were then again obtained with SPECT reconstruction. A low-dose CT scan was acquired for the purpose of attenuation correction. FINDINGS: There are no fixed or reversible myocardial perfusion defects.The left ventricular myocardium shows normal contractility and wall motionwith a calculated left ventricular ejection fraction of 62%. IMPRESSION IMPRESSION: Normal myocardial perfusion scan. Film and interpretation reviewed by the attending Brodie Darby MD IM NM ORDERABLES documented in this encounter Visit Diagnoses Diagnosis Chest pain, unspecified documented in this encounter Care Teams Die Storage Worker Relationship Specialty Start Date End Date Brodie Darby MD [address] [place] [address] [place] [address] PCP - General 04/24/10 11/30/13 documented as of this encounter
--- OUTSIDE RECORDS SUMMARY | 2024-03-04 19:48 | XMS_ITS | Encounter Summary ---
Author Organization [facility] [place] [address] Care Team Providers Care Baling Machine Operator Name Role Phone Brodie Darby MD Primary Care Provider [phone] Reason for Visit * Reason Comments Medication Refill Encounter Details Date Type Department Care Team (Late st Contact Info) Description 2013 Refill [place] [address] Carmen Valencia APRN [facility] [place] [address] Social History Tobacco Use Types Packs/Day Years [...] AM EST Office [place] [address] Walt Wiseman III, MD [facility] [place] [address] documented as of this encounter Visit Diagnoses Not on filedocumented in this encounter Care Teams Baling Machine Operator Relationship Specialty Start Date End Date Brodie Darby MD [address] [place] [address] [place] [address] PCP - General 04/24/10 11/30/13 documented as of this encounter
--- OUTSIDE RECORDS SUMMARY | 2024-03-04 19:48 | XMS_ITS | Encounter Summary ---
Author Organization [facility] [place] [address] Care Team Providers Care Testing Manager Name Role Phone Brodie Darby MD Primary Care Provider [phone] Encounter Details Date Type Department Care Team (Late st Contact Info) Description 02/10/2012 Orders [place] [phone] Shamir Quispe MD [facility] [place] [address] Social History Tobacco Use Types Packs/Day Years [...] 9:30 AM EST Office [place] [phone] Walt Wiseman III, MD [facility] [place] [address] documented as of this encounter Procedures Procedure Name Priority Date/Time Associated Diagnosis Comments FILM LIBRARY STORAGE ONLY DX KNEE Routine 02/10/2012 9:50 AM EDT documented in this encounter Results * Film Library- Storage only DX Knee (02/10/2012 9:50 AM EDT) Anatomical Region Laterality Modality Other 02/10/2012 9:50 AM EDT Narrative 10/02/2013 10:03 AM EDT This is a Non-reportable exam Procedure Note 10/02/2013 This is a Non-reportable exam Shamir Qiuspe MD [facility] FILM LIBRARY ORD ERABLES documented in this encounter Visit Diagnoses Not on filedocumented in this encounter Care Teams Testing Manager Relationship Specialty Start Date End Date Brodie Darby MD [address] [place] [address] [place] [address] PCP - General 04/24/10 11/30/13 documented as of this encounter
--- OUTSIDE RECORDS SUMMARY | 2024-03-04 19:48 | XMS_ITS | Encounter Summary ---
Author Organization [facility] [place] [address] Care Team Providers Care Sander Portable Machine Name Role Phone Brodie Darby MD Primary Care Provider [phone] Reason for Visit * Reason Comments Medication Refill Encounter Details Date Type Department Care Team (Late st Contact Info) Description 05/22/2013 [place] [address] Carmen Valencia APRN [facility] DR GASTROENTEROLOGY [place] [address] Esophageal reflux (Primary Dx) Social History Tobacco Use Types [...] 9:30 AM EST [place] [address] Walt Wiseman III, MD [facility] [place] [address] documented as of this encounter Visit Diagnoses Diagnosis Esophageal reflux- Primary documented in this encounter Care Teams Sander Portable Machine Relationship Specialty Start Date End Date Brodie Darby MD [address] [place] [address] [place] [address] PCP - General 04/24/10 11/30/13 documented as of this encounter
--- OUTSIDE RECORDS SUMMARY | 2024-03-04 19:48 | XMS_ITS | Encounter Summary ---
Author [facility] [place] [address] Care Team Providers Care Manufacturing Project Engineer Name Role Phone Brodie Darby MD Primary Care Provider [phone] Encounter Details Date Type Department Care Team (Late st Contact Info) Description 09/15/2012 Orders [place] [address] Shamir Quispe MD [facility] DR ORTHOPAEDIC [place] [address] Social History Tobacco Use Types Packs/Day Years Used Date Smoking Tobacco: Never Sex and Gender Information Value Date Recorded Sex Assigned at Not on file Gender Identity Not on file Sexual Orientation Not on file documented as of this encounter Plan of Treatment Upcoming Encounters Date Type Department Care Team (Late st Contact Info) Description 07/12/2024 9:30 AM EST Office [place] [address] Walt Wiseman III, MD [facility] [place] [address] documented as of this encounter Procedures Procedure Name Priority Date/Time Associated Diagnosis Comments FILM LIBRARY STORAGE ONLY ULTRASOUND STUDY Routine 09/15/2012 9:47 AM EDT documented in this encounter Results * Film Library- Storage only Ultrasound Study (09/15/2012 9:47 AM EDT) Anatomical Region Laterality Modality Other 09/15/2012 9:47 AM EDT Narrative 10/02/2013 9:58 AM EDT This is a Non-reportable exam Procedure Note 10/02/2013 This is a Non-reportable exam Shamir Quispe MD [facility] FILM LIBRARY ORD ERABLES documented in this encounter Visit Diagnoses Not on filedocumented in this encounter Care Teams Manufacturing Project Engineer Relationship Specialty Start Date End Date Brodie Darby MD [address] [place] [address] [place] [address] PCP - General 04/24/10 11/30/13 documented as of this encounter
--- OUTSIDE RECORDS SUMMARY | 2024-03-04 19:48 | XMS_ITS | Encounter Summary ---
Author Organization [facility] [place] [address] Care Team Providers Care Parking Officer Name Role Phone Brodie Darby MD Primary Care Provider [phone] Reason for Visit * Reason Onset Date Comments Other 04/27/2012 fax tsh Encounter Details Date Type Department Care Team (Late st Contact Info) Description 04/27/2012 Telephone [place] [phone] Carmen Valencia, RELISH BLENDER [facility] [address] [place] [address] Other (fax tsh) Social History Tobacco Use Types Packs/Day Years Used Date Smoking Tobacco: Never Sex and Gender Information Value Date Recorded Sex Assigned at Not on file Gender Identity Not on file Sexual Orientation Not on file documented as of this encounter Miscellaneous Notes * Telephone Encounter - Liz Gutiérrez RN - 04/27/2012 1:54 PM EST tsh slightly elevated. ?hypothyroid. Make pt aware. Fax results to pcp. Have pcp f/u and watch tsh. I faxed the above results after speaking with Dr. Darby's nurse and informed pt. documented in this encounter Plan of Treatment Upcoming Encounters Date Type Department Care Team (Late st Contact Info) Description 07/12/2024 9:30 AM EST [place] [address] Walt Wiseman III, MD [facility] [place] [address] documented as of this encounter Visit Diagnoses Not on filedocumented in this encounter Care Teams Parking Officer Relationship Specialty Start Date End Date Brodie Darby MD [address] [place] [address] [place] [address] PCP - General 04/24/10 11/30/13 documented as of this encounter
--- OUTSIDE RECORDS SUMMARY | 2024-03-04 19:48 | XMS_ITS | Encounter Summary ---
Author Organization Formerly [facility] [place] [address] Care Team Providers Care Clam Shucking Machine Tender Name Role Phone Brodie Darby MD Primary Care Provider Reason for Referral * Physical Therapy (Routine) - Complete - Patient Will Schedule External Appt Specialty Diagnoses / Procedures Referred By Contac t Referred To Contact Physical Therapy Diagnoses Osteoarthritis of knee Adan Cummins PA [facility] DR [place] [address] Referral ID Status Reason Start Date Expiration Date Visits Requested Visits Authorized [id number] Complete - Patient Will Schedule External Appt Evaluate and Treat 10/27/2013 04/25/2014 12 12 Reason for Visit * Reason Comments Left Knee Pain Encounter Details Date Type Department Care Team (Latest Contact Info) Description 10/27/2013 8:50 AM EDT Office [place] [address] Shamir Crabtree MD [facility] [place] [address] Osteoarthritis of knee; Knee joint replacement by other means Discharge Disposition: Home Social History Tobacco Use Types Packs/Day Years Used Date Smoking Tobacco: Never Sex and Gender Information Value Date Recorded Sex Assigned at Not on file Gender Identity Not on file Sexual Orientation Not on file documented as of this encounter Last Filed Vital Signs Vital Sign Reading Time Taken Comments Blood Pressure 113/70 10/27/2013 9:03 AM EDT Pulse 66 10/27/2013 9:03 AM EDT Temperature - - Respiratory Rate - - Oxygen Saturation - - Inhaled Oxygen Concentration - - Weight 116.6 kg (257 lb) 10/27/2013 9:03 AM EDT Height 172.7 cm (5' 8) 10/27/2013 9:03 AM EDT Body Mass Index 39.08 10/27/2013 9:03 AM EDT documented in this encounter Progress Notes * Adan Cummins PA - 10/28/2013 12:56 PM EDT Subjective: Netta Al is a 53 y.o. female here for evaluation and treatment of left knee pain. The pain beganseveral years ago. The pain's location is medial, anterior. She describes the symptoms as aching and throbbing. Symptoms improve with rest. Symptoms worsen with activity. The knee has not given out or felt unstable. Treatment to date has been NSAID's, cortisone injection, therapy, without significant relief. Allergies Allergen Reactions ??? Codeine Phosphate ??? Darvocet A500 (Propoxyphene N-Acetaminophen) Current Outpatient Prescriptions Medication Sig Dispense Refill ??? albuterol (PROVENTIL HFA;VENTOLIN HFA) 90 mcg/actuation inhaler Inhale 2 puffs into the lungs every 4 hours as needed. Use with spacer ??? Budesonide-Formoterol (SYMBICORT) 160-4.5 mcg/actuation HFAA Inhale 1 puff into the lungs 2 times daily. ??? meclizine (ANTIVERT) 25 mg tablet Take 25 mg by mouth 3 times daily as needed. ??? esomeprazole (NEXIUM) 40 mg capsule Take 40 mg by mouth every morning (before breakfast). ??? sertraline (ZOLOFT) 100 mg tablet Take 100 mg by mouth daily. ??? oxyCODONE-acetaminophen (PERCOCET) 5-325 mg per tablet Take 1-2 tablets by mouth every 6 hours as needed. ??? levothyroxine (SYNTHROID) 25 mcg tablet Take 25 mcg by mouth daily. ??? metoprolol (LOPRESSOR) 100 mg tablet Take 150 mg by mouth daily. ??? amlodipine (NORVASC) 5 mg tablet Take 5 mg by mouth daily. ??? traZODone (DESYREL) 50 mg tablet Take 50 mg by mouth nightly. ??? diaZEPam (VALIUM) 5 mg tablet Take 5 mg by mouth every 6 hours as needed. ??? MAGNESIUM ORAL Take by mouth daily. ??? cyanocobalamin (VITAMIN B-12) 1,000 mcg tablet Take 1,000 mcg by mouth daily. ??? GLUCOSAMINE HCL/CHONDRO HARRISON A (GLUCOSAMINE-CHONDROITIN ORAL) Take 1,000 mg by mouth 2 times daily. ??? diphenoxylate-atropine (LOMOTIL) 2.5-0.025 mg per tablet Take 1 tablet by mouth 4 times daily as needed for Diarrhea. 120 tablet 1 ??? cetirizine (ZYRTEC) 10 mg tablet ??? zolpidem (AMBIEN) 10 mg tablet ??? atorvastatin (LIPITOR) 40 mg tablet 40 MG = 1 Tablet(s), PO, Once daily Patient Active Problem List Diagnosis Code ??? Chest pain, unspecified 786.50 ??? IBS (irritable bowel syndrome) 564.1 ??? GERD (gastroesophageal reflux disease) 530.81 ??? Primary osteoarthritis of left knee 715.16 Past Surgical History Procedure Date ??? Colonoscopy, biopsy 06/03/2012 COLONOSCOPY FLEXIBLE, WITH BX performed by Alireza James MD at [facility] ENDOSCOPY ??? Upper gi endoscopy, biopsy 06/03/2012 EGD WITH BIOPSY performed by Alireza James MD at [facility] ENDOSCOPY ??? Back surgery 01/2013 ??? Meniscectomy 1996 left ??? Anterior cruciate ligament repair 2011 left ??? Hand surgery bilat thumb ligament repair, small finger on right hand x2 (fx) ??? Cholecystectomy, laparoscopic 2011 ??? Laparoscopy 1995 ??? Jackson tooth extraction three teeth ??? Dilation and curettage of uterus 2012 History Social History ??? Marital Status: Spouse Name: N/A Number of Children: N/A ??? Years of Education: N/A Occupational History ??? Not on file. Social History Main Topics ??? Smoking status: Never Smoker ??? Smokeless tobacco: Not on file ??? Alcohol Use: ??? Drug Use: No ??? Sexually Active: Other Topics Concern ??? Not on file Social History Narrative ??? No narrative on file ROS: Denies fevers, chills, night sweats, nausea, or vomiting. Objective: BP 113/70 Pulse 66 Ht 172.7 cm (5' 8) Wt 116.574 kg (257 lb) BMI 39.09 kg/m2 General : alert, appears stated age and cooperative Gait: Antalgic. The patient can bear weight on the injured extremity. I have made the following determinations: Knee Exam: left Prior surgery on this joint: Yes two knee arthroscopies Gait Abnormality: Antalgic Knee ROM: Extension:0 Flexion: 120 Alignment: 0-4 degrees Varus Stability: A/P Translation <5mm Varus (lateral stability) <5mm Valgus (medial stability) <5mm Extension La degrees or less Radiographic evidence of joint damage: [0= normal; 1=minimal ; 2= some osteophytes , some narrowing ; 3= moderate osteophytes, significantnarrowing, mild deformity; 4= large osteophytes, marked narrowing, obvious deformity]: 3= moderate osteophytes, significant narrorwing, mild deformity Patella Tracking: Normal Skin Integrity: Normal Pulses Palpable: Left PT:Yes Left DP:Yes Motor/Sensory: Distal Motor:Normal Distal Sensory: Normal Quadriceps Strength:5 Knee Effusion: 0-1+ Ecchymosis: none Patella: Patellar apprehension test: negative Patellar compression test: positive Tenderness: medial joint line, medial facet of the patella and lateral facet of the patella Imaging X-rays: 4 views of the knee demonstrate degenerative changes. Assessment: DJD left knee. Plan: Questions solicited and answered. Patient voiced understanding to info/instructions given. Treatment options discussed including Surgical options discussed knee left total knee., Synvisc, Cortisone injection discussed, Physical Therapy discussed and ordered, Activity modification discussedand recommended, weight loss recommended. Radiology studies and anatomy of joint knee reviewed. Patient decided to proceed with a cortisone injection and physical therapy Patient was seen and evaluated with Dr Crabtree PROCEDURE NOTE: left knee intra-articular Injeciton A time-out was performed and the left knee was confirmed to be the site of injection. The patient was confirmed to have no allergies to betadine, local anesthetics, or corticosteroids. The patient was reminded that blood glucose can be transiently elevated by the corticosteroid injection. The patient was counseled about the potential risks of the procedure, including infection, bleeding and incomplete relief of symptoms. I also discussed with the patient that cortisone is not healthy for muscletendons or cartilage and that there is an increased risk with repeated injections. The skin was prepped widely over the lateral left knee with chlor prep. Then, using sterile technique, a solution consisting of 4cc 1% lidocaine (40 mg), and 1 cc Kenalog (40 mg) was injected into the left knee using a 22 gauge needle. The needle was felt to slide into the joint and the mixture flowed freely. The skin was cleaned with alcohol and a Band-Aid was applied. The patient tolerated the procedure well. OVIDIO CRABTREE * Shamir Crabtree MD - 10/27/2013 10:37 AM EDT I saw this patient in conjunction with OVIDIO Marquez today. Please see her note for details of the history and physical examination. I am in agreement with the plan as stated. Netta Al is a 53 y.o. year old female with left knee pain. She has a history, clinical exam, and radiographic findings consistent with Osteoarthritis, most impressive in the medial and PF compartments. We had a discussion of the treatment options including activity modification, weight reduction, PT, NSAIDS, corticosteroid injection, as well as total knee replacement. The patient has reviewed the shared decisionmaking video. She feels that she has exhausted non- operative treatment measures at this point including NSAIDS, PT, activity modification and injections. She would like to proceed with TKA. We discussed the risks of surgery including bleeding requiring transfusion, infection, need for further surgery, fracture, damage to nerves or blood vessels, blood clots, failure of the prosthesis, cardiopulmonary complications, and . All questions were answered. She will need PCP clearance prior to surgery, but given her clean cardiac catheterization in 2006, I do not think we need Cardiology clearance. We will proceed with a Depuy PFC fixed bearing cruciate substiuting component with antibiotic cement since she is pre-diabetic. We have evaluated the patient using the AAOS recommended criteria for bleeding and DVT risk. She is a normal/normal risk of bleeding and DVT. Therefore, we will plan for rivaroxaban therapy x 12 days after surgery. Shamir Crabtree MD [place] documented in this encounter Plan of Treatment Upcoming Encounters Date Type Department Care Team (Late st Contact Info) Description 07/12/2024 9:30 AM EST Office [place] [address] Walt Wiseman III, MD [facility] [place] [address] Scheduled Referrals Name Type Priority Associated Diagnoses Orde r Schedule Referral to Physical Therapy Outpatient Referral Routine Osteoarthritis of knee Ordered: 10/27/2013 documented as of this encounter Procedures Procedure Name Priority Date/Time Associated Diagnosis Comments TOTAL KNEE ARTHROPLASTY Routine 10/28/19 14 10:12 AM EDT Osteoarthritis of knee documented in this encounter Results * XR TKA first PO visit alignment AP LAT Atco (02/14/2014 11:45 AM EDT) Anatomical Region Laterality [...] No appreciable post arthroplasty complication identified. Shamir Crabtree MD IMG DX ORDERABLES * (ABNORMAL) Hemoglobin A1c (12/01/2013 11:24 AM EDT) Hemoglobin A1c 5.9(H) <=5.6 % KING AMADOR Comment: Reference Range: 4.3 ? 5.6% 5.7 [...] Mellitus, Diabetes Care 2013; 36: Suppl. 1, A27-32 Estimated Average Glucose 123 mg/dL JAMILAH AMADOR Comment: eAG equivalents for HbA1c percentages: HbA1c(%) ?eAG(mg/dL) 6.0 ?126 6.5 ?140 7.0 ?154 7.5 ?169 8.0 ?183 8.5 ?197 9.0 ?212 9.5 ?226 10.0 ? 240 Limitations: The eAG calculation has not been validated on women, individuals below 18 years old and above 70 years old, and individuals with hemoglobinopathies. Additional resources are available on the ADA website: http://TVSmiles.SiriusDecisions/DHMCadacalc Jeff HAGAN, Grace J, Saige R, et al. ??Translating the A1C assay into estimated average glucose values. ??Diabetes Care 2008:31(8):7393-7819. Blood specimen (specimen) 12/01/2013 11:24 AM EDT 12/01/2013 11:41 AM EDT Narrative Resulting Agency Comment Spec In Lab Shamir Crabtree MD CHEMISTRY ORDERABLES Performing Organization Address [facility] Co de Phone Number JAMILAH Rontal Applications * (ABNORMAL) Prothrombin Time (12/01/2013 11:24 AM EDT) Prothrombin Time 12.2(L) 12.5 - 15.5 sec CERNER MILLENNIUM Comment: [facility] Transfusion Committee Guidelines: INR less than 2.0, PTT less than OR equal to 43.5 seconds, or Fibrinogen greater than or equal to 100 mg/dl indicate adequate procoagulant activity for hemostasis in patients without underlying bleeding disorders. International Normalization Ratio 0.8(L) 0.9 - 1.1 CERAKANKSHA Drais PharmaceuticalsENNIUM Blood specimen (specimen) 12/01/2013 11:24 AM EDT 12/01/2013 11:41 AM EDT Narrative Resulting Agency Comment Spec In Lab Shamir Crabtree MD HEMATOLOGY ORDERABLE S Performing Organization Address [facility] Co de Phone Number JAMILAH Rontal Applications * (ABNORMAL) Basic Metabolic Panel (non-fasting) (12/01/2013 11:24 AM EDT) [facility] Glucose 119 60 - 199 mg/dL CERNER MILLENNIUM Comment:Diabetes: >=200 mg/d L plus symptoms Blood Urea Nitrogen 19(H) 8 - 18 mg/dL CERNER MILLENNIUM Creatinine 0.81 0.70 - 1.20 mg/dL CERNER MILLENNIUM Comment: Please note that the pediatric reference intervals supplied above were not validated at [facility]. Results from pediatric patients should be interpreted [...] the following links into your internet browser. http://TVSmiles.SiriusDecisions/DHnkdep [email or web address]://TVSmiles.SiriusDecisions/DHMCnkf Blood specimen (specimen) 12/01/2013 11:24 AM EDT 12/01/2013 11:41 AM EDT Narrative Resulting Agency Comment Spec In Lab Shamir Crabtree MD CHEMISTRY ORDERABLES [facility] KARLAShiftPlanningIUM * EKG 12 Lead (12/01/2013 11:17 AM EDT) Ventricular rate 56 BPM MUSE SYSTEM Atrial Rate 56 BPM MUSE SYSTEM P-R Interval 148 ms MUSE SYSTEM QRS Duration 76 ms MUSE SYSTEM Q-T Interval 432 ms MUSE SYSTEM QTC Calculated (Bezet) 416 ms MUSE SYSTEM Calculated P Loco 11 degrees MUSE SYSTEM Calculated R Loco 1 degrees MUSE SYSTEM Calculated T Loco 18 degrees MUSE SYSTEM INTERPRETATION Sinus bradycardia Otherwise normal ECG When compared with ECG of 08-OCT-2006 07:37, T wave inversion no longer evident in Inferior leads T wave inversion no longer evident in Anterolateral leads Confirmed by MD Mona, Brodie Torres ([id number]) on 12/01/2013 12:34:14 PM MUSE SYSTEM 12/01/2013 11:1 7 AM EDT 12/01/2013 12:34 PM EDT Shamir Crabtree MD ECG ORDERABLES MUSE SYSTEM * Urine culture Clean Catch Urine (12/01/2013 11:14 AM EDT) Urine Culture ? Patient Name: NETTA AL ? Ordered By: SHAMIR CRABTREE ? MR#: [id number] ?LOC: ??3C ? /Sex: ??1960 (53 years), [...] Urine Dipstick Clear Clear CERNER MILLENNIUM Specific [place] Urine Automated 1.021 1.002 - 1.030 CERNER [...] In Lab Shamir Crabtree MD URINE ORDERABLES JAMILAH AMADOR documented in this encounter Visit Diagnoses Diagnosis Osteoarthritis of knee Osteoarthrosis, unspecified whether generalized or localized, lower leg Knee joint replacement by other means Osteoarthritis of knee Osteoarthrosis, unspecified whether generalized or localized, lower leg documented in this encounter Care Teams Clam Shucking Machine Tender Relationship Specialty Start Date End Date Brodie Darby MD [address] [place] [address] [place] [address] PCP - General 04/24/10 11/30/13 documented as of this encounter
--- OUTSIDE RECORDS SUMMARY | 2024-03-04 19:48 | XMS_ITS | Encounter Summary ---
Author Organization [facility] [place] [address] Care Team Providers Care Dried Yeast Supervisor Name Role Phone Brodie Darby MD Primary Care Provider [phone] Encounter Details Date Type Department Care Team (Late st Contact Info) Description 06/08/2012 External Results [place] [id number] Carmen Valencia APRN [facility] [place] [address] Social History Tobacco Use Types Packs/Day Years Used Date Smoking Tobacco: Never Sex and Gender Information Value Date Recorded Sex Assigned at Not on file Gender Identity Not on file Sexual Orientation Not on file documented as of this encounter Plan of Treatment Upcoming Encounters Date Type Department Care Team (Late st Contact Info) Description 07/12/2024 9:30 AM EST Office [place] [address] Walt Wiseman III, MD [facility] [place] [address] documented as of this encounter Procedures Procedure Name Priority Date/Time Associated Diagnosis Comments MICROBIOLOGY SCAN Routine 05/30/2012 documented in this encounter Results * Scan Doc: Microbiology (05/30/2012) 05/30/2012 Tracia O'Alee STUD DRIVER MEDIA MGR SCAN EXT O RDR/RSLT documented in this encounter Visit Diagnoses Not on filedocumented in this encounter Care Teams Dried Yeast Supervisor Relationship Specialty Start Date End Date Brodie Darby MD [address] [place] [address] [place] [address] PCP - General 04/24/10 11/30/13 documented as of this encounter
--- OUTSIDE RECORDS SUMMARY | 2024-03-04 19:48 | XMS_ITS | Encounter Summary ---
Author Organization Formerly [facility] [place] [address] Care Team Providers Care Barometers Calibrator Name Role Phone Brodie Darby MD Primary Care Provider [phone] Encounter Details Date Type Department Care Team (Late st Contact Info) Description 08/28/2011 Orders Only [place] [phone] Carmen Valencia APRN [facility] [place] [address] Social History Tobacco Use Types Packs/Day Years [...] 9:30 AM EST Office [place] [phone] Walt Wiseman III, MD [facility] [place] [address] documented as of this encounter Procedures Procedure Name Priority Date/Time Associated Diagnosis Comments FILM LIBRARY STORAGE ONLY CT ABDOMEN AND PELVIS Routine 08/28/2011 11:30 AM EDT documented in this encounter Results * FILM LIBRARY- STORAGE ONLY CT ABDOMEN & PELVIS (08/28/2011 11:30 AM EDT) Anatomical Region Laterality Modality Abdomen, Pelvis Other 08/28/2011 11:3 0 AM EDT Narrative 07/22/2013 9:41 PM EST This is a non-reportable exam. Procedure Note Cody Boone - 07/22/2013 This is a non-reportable exam. Tracia Erik CENTRAL SUPPLY TECH IMG FILM LIBRARY ORD ERABLES documented in this encounter Visit Diagnoses Not on filedocumented in this encounter Care Teams Barometers Calibrator Relationship Specialty Start Date End Date Brodie Darby MD [address] [place] [address] [place] [address] PCP - General 04/24/10 11/30/13 documented as of this encounter
[2024-03-05 19:47] LABS: IgE 18 IU/mL (<158)
== END 2024-03-04 19:44 | disposition home or self-care (01) ==
LOC: LBN 19:43
PROVIDERS: PCP Family Medicine; Visit Provider Physician Assistant Surgical
DX: R91.8 Other nonspecific abnormal finding of lung field (principal); J45.909 Unspecified asthma, uncomplicated; G47.33 Obstructive sleep apnea (adult) (pediatric)
CPT/HCPCS: 82785; 85025

== ENCOUNTER 2025-02-16 14:04 | Outpatient (CLI) | payer MEDICARE, SELFPAY ==
--- NOTE | 2025-02-16 14:00 | DI.RAD_ITS ---
Exam(s) XR PAIN CLINIC LUMBAR SP 2V EXAM: XR PAIN CLINIC LUMBAR SP 2V CLINICAL HISTORY: Dx: Lumbar Spondylosis TECHNIQUE: 2D and realtime digital imaging was performed. CONTRAST MATERIAL: Refer to procedure report. COMPARISON: No exams were available for comparison FINDINGS: Fluoroscopy was provided for Dr. Mayo during the performance of a lumbar medial branch block. Please refer to the procedure report for complete details. Ka,r=10.8 mGy IMPRESSION: RADIATION DOSE DELIVERED: 0.0 0.0 0
[2025-02-16 14:14] VITALS: BP 137/80; PULSE 66; RESP 16; TEMP 36.4; O2SAT 95
--- NOTE | 2025-02-16 14:44 | PDOC.PAIN ---
Date of service: 02/16/25 Time of Service: 15:19 Pain Managment Procedure Note Procedure Note Procedure Note: Lumbar Medial Branch Block ? Location: Bilateral Medial Branches ? Levels: L3,4,5? (L4-5, L5-S1 FACET) ? Pre-procedure Diagnosis: M47.817 Spondylosis without myelopathy or radiculopathy, lumbosacral region M47.816 Spondylosis without myelopathy or radiculopathy, lumbar region ? Post-procedure Diagnosis:? The same as above ? Sedation: NONE? Estimated blood loss:? less than 2 cc ? Surgeon:? Jerrell Mayo MD COMMENT: PRE PROCEDURE PAIN SCORE: 7/10 ? Procedure Detail:? The procedure and potential risks were explained to the patient and informed written consent was obtained. The patient was escorted to the procedure room and placed in the prone position. Pillows were utilized for proper positioning and comfort.? Time out was performed in procedure room with nursing staff confirming the patient's identity, procedure to be performed, allergies, and any blood thinning or anti-platelet medications. The patient's lower back was prepped with chlorhexidine and draped in a sterile fashion. Sterile technique was maintained throughout the procedure.? Sterile gloves were used, a face mask was worn, and new single dose vials of all medications were used with the top being swabbed with alcohol and given time to dry prior to withdrawal of medication.? A left AND right-sided oblique fluoroscopic view was obtained, with visualization of the: ?RIGHT and LEFT L3,4 and DORSAL RAMUS L5 AT SACRAL ALA ? junction of the transverse process and superior articular process. Lidocaine 1% was used to anesthetize the skin. A 22-gauge Quincke needle was advanced along the superior margin of the transverse process and lateral to the articular process.? It was directed inferiorly and medially so that the tip struck the junction of the base of the transverse process and the superior articular process. The needle was then walked over the superior aspect of the transverse process and advanced slightly along the course of the L3,4,5 medial branch nerves. Proper placement was verified in A/P, oblique and lateral views under fluoroscopy. At this location, following negative aspiration, 0.5cc 0.5% bupivacaine was injected.? The patient tolerated the procedure well and was transported to the recovery area for observation and discharge instructions. Permanent images saved and recorded. Follow-up:? The patient will return in 2 weeks for confirmatory LMBBs if they? meet the criteria from today's procedure lasting for at least 2 hours.? COMMENT:Pain went from 6/10 to /10. Before the patient left patient had greater than 80% pain relief. Coding Conscious Sedation used for procedure: No CPT Codes: LMBB (includes Fluoro) Lumbar/Sacral, 2nd lvl - 47861 ([id number] ~G) RT - RIGHT SIDE, LT - LEFT SIDE bilat LMBB (includes Fluoro) Lumbar/Sacral, single lvl *BILATERAL* - [id number] ([id number]~G5) Additional Codes: Date of Service (27087) Date of service: 02/16/25 Diagnoses: M47.817 Spondylosis without myelopathy or radiculopathy, lumbosacral region M47.816 Spondylosis without myelopathy or radiculopathy, lumbar region
[2025-02-16 14:48] VITALS: PULSE 74; O2SAT 93
[2025-02-16 14:50] VITALS: PULSE 68; O2SAT 94
[2025-02-16 15:00] VITALS: PULSE 69; O2SAT 93
[2025-02-16] MEDS: Nerve Block Tray 1 EACH MC (15:18)
[2025-02-16] MEDS: Bupivacaine 0.5% Pres-Free 10 ML VIAL IJ (15:19)
== END 2025-02-16 14:05 | disposition home or self-care (01) ==
LOC: PC 14:04
PROVIDERS: PCP Family Medicine; Visit Provider Anesthesiology Pain Medicine
DX: M54.50 Low back pain, unspecified (principal); M47.816 Spondylosis without myelopathy or radiculopathy, lumbar region; M47.817 Spondylosis without myelopathy or radiculopathy, lumbosacral region
CPT/HCPCS: 64493; 64494; 72100; J0665

== ENCOUNTER → 2025-03-03 13:45 | Outpatient (BNVA) | payer MEDICARE, SELFPAY | PROVIDERS: PCP Family Medicine; Referring Provider Family Medicine; Visit Provider Physician Assistant Surgical | DX: J45.909 Unspecified asthma, uncomplicated (principal); R91.8 Other nonspecific abnormal finding of lung field; G47.33 Obstructive sleep apnea (adult) (pediatric) | CPT/HCPCS: 99214 ==

== ENCOUNTER 2025-03-09 11:28 | Outpatient (CLI) | payer MEDICARE, SELFPAY ==
--- NOTE | 2025-03-09 06:00 | DI.RAD_ITS ---
Exam(s) XR PAIN CLINIC LUMBAR SP 2V EXAM: XR PAIN CLINIC LUMBAR SP 2V CLINICAL HISTORY: DX: Lumbar Spondylosis TECHNIQUE: 2D and realtime digital imaging was performed. CONTRAST MATERIAL: Refer to procedure report. COMPARISON: No exams were available for comparison FINDINGS: Fluoroscopy was provided for Dr. Mayo during the performance of a lumbar medial branch block. Please refer to the procedure report for complete details. Ka,r=13.9 mGy IMPRESSION: RADIATION DOSE DELIVERED: 0.0 0.0 0
[2025-03-09 12:10] VITALS: BP 117/59; PULSE 61; RESP 16; TEMP 36.3; O2SAT 94
--- NOTE | 2025-03-09 12:20 | PDOC.PAIN ---
Date of service: 03/09/25 Time of Service: 12:50 Pain Managment Procedure Note Procedure Note Procedure Note: LUMBAR MEDIAL BRANCH BLOCK #2 Location: Bilateral Medial Branches ? Levels: L3,4,5? (L4-5, L5-S1 FACET) ? Pre-procedure Diagnosis: M47.817 Spondylosis without myelopathy or radiculopathy, lumbosacral region M47.816 Spondylosis without myelopathy or radiculopathy, lumbar region ? Post-procedure Diagnosis:? The same as above ? Sedation: NONE? Estimated blood loss:? less than 2 ml ? Surgeon:? Jerrell Mayo MD COMMENT: Patient had? GREATER THAN 80 % relief after the first medial branch block for greater than the duration of the local anesthetic.? PRE PROCEDURE PAIN SCORE: 7/10 ? Procedure Detail:? The procedure and potential risks were explained to the patient and informed written consent was obtained. The patient was escorted to the procedure room and placed in the prone position. Pillows were utilized for proper positioning and comfort.? Time out was performed in procedure room with nursing staff confirming the patient's identity, procedure to be performed, allergies, and any blood thinning or anti-platelet medications. The patient's lower back was prepped with chlorhexidine and draped in a sterile fashion. Sterile technique was maintained throughout the procedure.? Sterile gloves were used, a face mask was worn, and new single dose vials of all medications were used with the top being swabbed with alcohol and given time to dry prior to withdrawal of medication.? A left and right-sided oblique fluoroscopic view was obtained, with visualization of the: ?RIGHT and LEFT L3,4 and DORSAL RAMUS L5 AT SACRAL ALA ? junction of the transverse process and superior articular process. Lidocaine 1% was used to anesthetize the skin. A 22-gauge Quincke needle was advanced along the superior margin of the transverse process and lateral to the articular process.? It was directed inferiorly and medially so that the tip struck the junction of the base of the transverse process and the superior articular process. The needle was then walked over the superior aspect of the transverse process and advanced slightly along the course of the L3,4,5 medial branch nerves. Proper placement was verified in A/P, oblique and lateral views under fluoroscopy. At this location, following negative aspiration, 0.5ml 2% lidocaine was injected.? The patient tolerated the procedure well and was discharged home with instructions. Permanent images saved and recorded. Follow-up:?? Will plan to proceed with lumbar medial branch RFA if the patient gets good relief from today's procedure lasting for at least 2 hours. COMMENT:Pain went from /10 to 06/11. Before the patient left patient had 80% pain relief. WILL USE 150MM NEEDLES FOR RFA Coding Conscious Sedation used for procedure: No CPT Codes: LMBB (includes Fluoro) Lumbar/Sacral, single lvl *BILATERAL* - [id number] ([id number]~G5) 50 - BILATERAL PROCEDURE LMBB (includes Fluoro) Lumbar/Sacral, 2nd lvl - 75174 ([id number] ~G) LT - LEFT SIDE, RT - RIGHT SIDE Additional Codes: Date of Service (11413) Date of service: 03/09/25 Diagnoses: M47.817 Spondylosis without myelopathy or radiculopathy, lumbosacral region M47.816 Spondylosis without myelopathy or radiculopathy, lumbar region
[2025-03-09 12:33] VITALS: PULSE 65; O2SAT 95
[2025-03-09 12:40] VITALS: PULSE 54; O2SAT 94
[2025-03-09] MEDS: Lidocaine 2% Pres-Free 5 ML VIAL IJ (12:53)
[2025-03-09] MEDS: Nerve Block Tray 1 EACH MC (12:53)
== END 2025-03-09 11:29 | disposition home or self-care (01) ==
LOC: PC 11:29
PROVIDERS: PCP Family Medicine; Visit Provider Anesthesiology Pain Medicine
DX: M54.50 Low back pain, unspecified (principal); M47.816 Spondylosis without myelopathy or radiculopathy, lumbar region; M47.817 Spondylosis without myelopathy or radiculopathy, lumbosacral region
CPT/HCPCS: 64493; 64494; 72100

== ENCOUNTER 2025-03-28 07:50 | Outpatient (CLI) | payer MEDICARE, SELFPAY ==
[2025-03-28] VITALS (15 sets, daily range): BP systolic 117–153; BP diastolic 64–107; PULSE 51–62; RESP 12–22; TEMP 36.5; O2SAT 90–98
--- NOTE | 2025-03-28 09:06 | PDOC.PAIN ---
Date of service: 03/28/25 Time of Service: 10:11 Pain Managment Procedure Note Procedure Note Procedure Note: Lumbar Medial Branch COOLED Radiofrequency Ablation COMMENT: Patient had greater than 80 % relief after 2 medial branch blocks . Location: Bilateral L3, and L4 medial Branches and dorsal ramus of L5 (L4-5, and L5-S1 joints) Pre-procedure Diagnosis: M47.817 Spondylosis without myelopathy or radiculopathy, lumbosacral region Post-procedure Diagnosis: The same as above Sedation: Intravenous line started 1mg of intravenous midazolam and fentanyl 50 mcg were administered. An independent trained observer monitored the patient for the duration of the procedure. Estimated blood loss: less than 2 ml Surgeon: Jerrell Mayo MD Procedure Detail: The procedure and potential risks were explained to the patient and informed written consent was obtained. The patient was escorted to the procedure room and placed in the prone position. Pillows were utilized for proper positioning and comfort. Time out was performed in the procedure room with nursing staff confirming the patient's identity, procedure to be performed, allergies, and any blood thinning or anti-platelet medications. The patient's lower back was prepped with ChloraPrep and draped in a sterile fashion. Sterile technique was maintained throughout the procedure. Sterile gloves were used, a face mask was worn, and new single dose vials of all medications were used with the top being swabbed with alcohol and given time to dry prior to withdrawal of medication. A left AND right-sided oblique fluoroscopic view was obtained, with visualization of the L4 junction of the transverse process and superior articular process. 2% lidocaine was used to anesthetize the skin. With fluoroscopic guidance, an 5 17 gauge 4mm active tip RF cannula was advanced to the superior margin of the transverse process and lateral to the superior articular process. It was directed inferiorly and medially so that the tip struck the junction of the base of the transverse process and the superior articular process. The needle was then slightly advanced along the course of the L3 medial branch nerve. Proper placement was verified with oblique, AP, and lateral fluoroscopic views. Sensory tested with good response less than 1V. Motor testing was performed and was negative at 2V except for expected multifidus activation. A similar procedure was also performed at the ipsilateral L4 medial branch nerves and the dorsal ramus of L5 with negative motor testing at 2V except for expected multifidus activation. 1 ml of 2% lidocaine was injected through each needle tip to anesthetize the medial branch nerves. After waiting for the local anesthetic to take effect, each nerve was then ablated at 60 degrees Celsius for 150 seconds. This was repeated on the opposite side at the same levels. The patient was monitored for any severe pain or radicular pain during the ablation and reported none. The patient tolerated the procedure well, and was discharged in stable condition. Permanent images were saved and recorded. PAIN: PRE PROCEDURE POST PROCEDURE Plan: F/U PRN COMMENT: Repeat prn if 6 months relief of 50% Coding Conscious Sedation used for procedure: Yes CPT Codes: Moderate sedation; First 15 min - 69208 (86359) Moderate sedation; add. 15 increments - 33469 (67237) Single Facet Joint, Lumbar/Sacral *BILATERAL* - 469330A ([id number]~G) 50 - BILATERAL PROCEDURE Single Facet Joint, Lumbar/Sacral cool each add'l - 13889N ([id number]~G) RT - RIGHT SIDE, LT - LEFT SIDE Additional Codes: Date of Service () Diagnoses: M47.817 Spondylosis without myelopathy or radiculopathy, lumbosacral region
[2025-03-28] MEDS: fentaNYL 100 MCG/2 ML VIAL IVP ×2 (09:10→09:20)
[2025-03-28] MEDS: Midazolam 2 MG/2 ML VIAL IVP (09:10)
[2025-03-28] MEDS: Nerve Block Tray 1 EACH MC (09:26)
--- NOTE | 2025-03-28 09:52 | DI.RAD_ITS ---
Exam(s) XR PAIN CLINIC LUMBAR SP 2V EXAM: XR PAIN CLINIC LUMBAR SP 2V CLINICAL HISTORY: Dx: Lumbar Spondylosis TECHNIQUE: 2D and realtime digital imaging was performed. CONTRAST MATERIAL: Refer to procedure report. COMPARISON: No exams were available for comparison FINDINGS: Fluoroscopy was provided for Dr. Mayo during the performance of a bilateral radiofrequency ablation. Please refer to the procedure report for complete details. Ka,r=19.8 mGy IMPRESSION: RADIATION DOSE DELIVERED: 0.0 0.0 0
[2025-03-28] MEDS: Lactated Ringers 500 ML 80 ML IV (10:00)
[2025-03-28] MEDS: Lidocaine 2% Multi-Dose 20 ML VIAL IJ (10:03)
--- NOTE | 2025-03-28 10:11 | PDOC.PAIN2_ITS ---
History of Present Illness History of Present Illness History of Present Illness: Ms. Gregorio is here today for lumbar RFA with moderate sedation. Pre-procedure assessment was made and no contraindications to proceed were identified. Patient's cardiovascular status and respiratory status were monitored and stable throughout the course of the procedure. Patient was able to respond purposefully to verbal commands. There were no interventions required to maintain a patent airway and spontaneous ventilation was adequate. At the termination of the procedure patient's vital signs were stable. The patient was alert and oriented x 3. The intravenous line was discontinued and patient discharged home with designated hi low truck driver along with post-procedure instructions. Medications used: Midazolam 1milligrams Fentanyl 50micrograms Review of Systems Medications/Allergies Allergies Allergy/AdvReac Type Severity Reaction Status Date / Time animal dander Allergy Unknown Itching Verified 03/28/25 07:44 codeine Allergy Unknown trouble Verified 03/28/25 07:44 breathing house dust Allergy Unknown Itching Verified 03/28/25 07:44 mold Allergy Unknown congestion Verified 03/28/25 07:44 propoxyphene (From Allergy trouble Verified 03/28/25 07:44 Darvocet-N) breathing Medications: Current Medications Fentanyl (Fentanyl 100 Mcg/2 Ml Vial) 0 mcg IVP DIRECTED [facility] Last Admin: 03/28/25 09:20 Dose: 25 mcg Ringer's Solution () 1,000 mls @ 30 mls/hr IV INFUSION [facility] Ringer's Solution () 500 mls @ 80 mls/hr IV INFUSION [facility] Stop: 03/29/25 23:59 Last Admin: 03/28/25 10:00 Dose: 80 mls/hr Lidocaine HCl (Lidocaine 2% Multi-Dose 20 Ml Vial) 0 ml IJ DIRECTED [facility] Last Admin: 03/28/25 10:03 Dose: 16 ml Midazolam HCl (Midazolam 2 Mg/2 Ml Vial) 0 mg IVP DIRECTED [facility] Last Admin: 03/28/25 09:10 Dose: 1 mg Miscellaneous (Nerve Block Tray) 1 each MC DIRECTED [facility] Last Admin: 03/28/25 09:26 Dose: 1 each Objective Exam Vitals and I&O: Vital Signs Temperature 36.5 C 03/28/25 07:41 Pulse 62 03/28/25 09:52 Pulse 56 L 03/28/25 09:46 Respiratory Rate 13 03/28/25 09:46 Blood Pressure 117/82 03/28/25 09:55 Blood Pressure Mean 93 03/28/25 09:55 Pulse Oximetry 93 03/28/25 09:46 Respiratory End-tidal CO2 42 03/28/25 09:46 Oxygen Delivery Method Room Air 03/28/25 09:55 Oxygen Flow Rate 0 03/28/25 09:55 Intake & Output 03/27/25 03/27/25 03/28/25 11:59 23:59 11:59 Weight 108.862 kg Ambulatory Orders Medication Instructions Recorded albuterol sulfate 90 mcg/actuation 2 puff inhalation P RN PRN 07/19/20 aerosol inhaler amlodipine 5 mg tablet 10 mg PO DAILY AM 07/19/20 atorvastatin 40 mg tablet 40 mg PO HS 07/19/20 cetirizine 10 mg tablet 10 mg PO DAILY 07/19/20 esomeprazole magnesium 40 mg 40 mg PO DAILY AM 1 capsule,delayed release (Nexium) levothyroxine 25 mcg tablet 25 mcg PO DAILY AM 1 meclizine 25 mg tablet 25 mg PO PRN PRN 07/19/20 ondansetron HCl 4 mg tablet 4 mg PO PRN PRN 07/19/20 sertraline 100 mg tablet 100 mg PO HS 07/19/20 trazodone 50 mg tablet 50 mg PO HS 07/19/20 zolpidem 10 mg tablet (Ambien) 10 mg PO HS 07/19/20 naloxone 4 mg/actuation nasal See Rx Instructions intr anasal 12/21/20 spray (Narcan) DIRECTED PRN hydroxyzine HCl 10 mg tablet 10 mg PO QHS PRN 02/27/21 tiotropium bromide 18 mcg capsule 18 mcg inhalation DA IRAIDA #90 caps 07/16/21 with inhalation device (Spiriva with HandiHaler) fluticasone 250 mcg-salmeterol 50 1 inh inhalation BID #60 ea 04/15/23 mcg/dose blistr powdr for inhalation (Advair Diskus) mirabegron 50 mg tablet,extended 50 mg PO DAILY release 24 hr (Myrbetriq) montelukast 10 mg tablet See Rx Instructions .Route 0 10/21/23 .COMPLEX #90 tabs calcium 600 mg (as carbonate)-vit 1 tab PO 2XD 5 D3 5 mcg (200 unit)-minerals tablet psyllium husk [Daily Fiber] PO 2XD 02/07/25 riboflavin (vitamin B2) 100 mg 100 mg PO DAILY 5 tablet triamcinolone acetonide 0.1 % 1 applic topical DAILY 0 02/07/25 topical cream baclofen 10 mg tablet 30 mg PO DAILY 02/14/25 metoprolol tartrate 100 mg tablet 150 mg PO DAILY AM 0 02/14/25 oxycodone 5 mg tablet 5 mg PO 03/03/25
== END 2025-03-28 07:51 | disposition home or self-care (01) ==
LOC: PC 07:51
PROVIDERS: PCP Family Medicine; Visit Provider Anesthesiology Pain Medicine
DX: M54.50 Low back pain, unspecified (principal); M47.817 Spondylosis without myelopathy or radiculopathy, lumbosacral region
CPT/HCPCS: 64635; 64636; 72100; J2003; J2250; J3010